=== PATIENT | female | born 1955 | race African-American/Black ===

== ENCOUNTER 2017-10-20 08:57 | Outpatient (CLI) | payer OTHER | END 2017-10-20 08:58 | disposition home or self-care (01) | LOC: BICMAMMO 08:57 | PROVIDERS: ATTEND Family Medicine | DX: Z12.31 Encounter for screening mammogram for malignant neoplasm of breast (principal) | CPT/HCPCS: 77063; 77067 ==

== ENCOUNTER 2018-04-07 13:07 | Outpatient (CLI) | payer OTHER | END 2018-04-07 13:08 | disposition home or self-care (01) | LOC: BICMAMMO 13:07 | PROVIDERS: ATTEND Family Medicine | DX: N63.11 Unspecified lump in the right breast, upper outer quadrant (principal) | CPT/HCPCS: G0279 ==

== ENCOUNTER 2019-01-25 08:06 | Outpatient (CLI) | payer OTHER ==
--- NOTE | 2019-01-30 06:44 | MMO ---
Bilateral MAMMO Bilat Screen DDI+DEBI. CLINICAL HISTORY: Patient is 63 years old and is seen for screening. The patient has the following family history of breast cancer: maternal aunt. The patient has no personal history of cancer. The patient has a history of right Excisional Biopsy at age 50 - benign. VIEWS: The views performed were: bilateral craniocaudal with tomosynthesis and bilateral mediolateral oblique with tomosynthesis. FILMS COMPARED: The present examination has been compared to prior imaging studies performed at on 10/20/2017 and 04/07/2018. MAMMOGRAM FINDINGS: There are scattered fibroglandular densities. Finding 1: There is a new equal density, irregular mass measuring 12 millimeters with spiculated margins seen in the middle region of the right breast at 12 o'clock. Finding 2: There is a stable mass with circumscribed margins seen in the right breast at 10 o'clock. Finding 3: There is a stable intramammary lymph node seen in the upper-outer region of the right breast. In the left breast, there are no suspicious masses, calcifications or areas of architectural distortion. IMPRESSION: FINDING 1: NEW MASS IN THE MIDDLE REGION OF THE RIGHT BREAST AT 12 O'CLOCK REQUIRES ADDITIONAL EVALUATION. AN ULTRASOUND EXAM IS RECOMMENDED. ADDITIONAL IMAGING. FINDING 2: STABLE MASS IN THE RIGHT BREAST AT 10 O'CLOCK IS BENIGN. FINDING 3: STABLE INTRAMAMMARY LYMPH NODE IN THE UPPER-OUTER REGION OF THE RIGHT BREAST IS BENIGN. THE RESULTS OF THIS EXAM WERE SENT TO THE PATIENT. ACR BI-RADS Category 0 - Incomplete: Need additional imaging evaluation. [facility] will notify the patient of the need for additional imaging services. MAMMOGRAPHY NOTE: 1. A negative mammogram report should not delay a biopsy if a dominant of clinically suspicious mass is present. 2. Approximately 10% to 15% of breast cancers are not detected by mammography. 3. Adenosis and dense breasts may obscure an underlying neoplasm. Reported by: JASWANT HEDRICK MD Electonically Signed: [id number]
== END 2019-01-25 08:07 | disposition home or self-care (01) ==
LOC: BICMAMMO 08:06
PROVIDERS: ATTEND Family Medicine
DX: Z12.31 Encounter for screening mammogram for malignant neoplasm of breast (principal); N63.11 Unspecified lump in the right breast, upper outer quadrant; Z80.3 Family history of malignant neoplasm of breast; Z91.89 Other specified personal risk factors, not elsewhere classified
CPT/HCPCS: 77063; 77067

== ENCOUNTER 2019-01-30 07:58 | Outpatient (CLI) | payer OTHER ==
--- NOTE | 2019-01-30 10:25 | ULT ---
RIGHT BREAST ULTRASOUND: HISTORY: Abnormal mammogram of 01/25/2019. FINDINGS: Sonographic evaluation at the 12 o'clock position of the right breast demonstrates an irregular shado wing mass measuring 8 x 5 x 8 mm at the 12 o'clock position 5 cm from the nipple corresponding to the mammographic finding. This is suspicious and should be biopsied. Adjacent to this is a 5 mm nonshadowing well circumscribed solid-appearing hypoechoic nodule measurin g 5 mm. This should also be biopsied. IMPRESSION: BIRADS category 4 - suspicious abnormality. Ultrasound-guided biopsies of the nodules at the 12 o'cl ock position are recommended. Discussed in person with the patient at 8:25 a.m. CODE CR POS: OFF
== END 2019-01-30 07:59 | disposition home or self-care (01) ==
LOC: BICULT 07:58
PROVIDERS: ATTEND Family Medicine
DX: N63.11 Unspecified lump in the right breast, upper outer quadrant (principal)

== ENCOUNTER → 2019-01-31 | Day surgery (SDC) | payer OTHER ==
--- NOTE | 2019-01-31 14:01 | MMO ---
Right Breast MAMMO Unilat Diag DDI RT. CLINICAL HISTORY: Patient is 63 years old and is seen for diagnostic exam. The patient has the following family history of breast cancer: maternal aunt. The patient has no personal history of cancer. The patient has a history of right Excisional Biopsy at age 50 - benign. VIEWS: The views performed were: right craniocaudal and right mediolateral oblique. FILMS COMPARED: The present examination has been compared to prior imaging studies performed at [facility] on 10/20/2017, 04/07/2018, 01/25/2019 and 01/30/2019. MAMMOGRAM FINDINGS: There are scattered fibroglandular densities. IMPRESSION: FINDING IN THE RIGHT BREAST IS CONFIRMED UTILIZING POST PROCEDURE MAMMOGRAM. UPPER RIGHT BREAST. THE RESULTS OF THIS EXAM WERE SENT TO THE PATIENT. MAMMOGRAPHY NOTE: 1. A negative mammogram report should not delay a biopsy if a dominant of clinically suspicious mass is present. 2. Approximately 10% to 15% of breast cancers are not detected by mammography. 3. Adenosis and dense breasts may obscure an underlying neoplasm. Reported by: FATOUMATA PEREZ MD Electonically Signed: [id number]
--- NOTE | 2019-01-31 15:40 | ULT ---
US RIGHT BREAST BX US GUIDED ULTRASOUND-GUIDED MARKING CLIP PLACEMENT OF RIGHT BREAST ULTRASOUND GUIDED RIGHT BREAST BIOPSY: CLINICAL HISTORY: Right breast lesions, upper right breast. PROCEDURE: Informed consent was obtained and the patient was escorted to the procedural suite, placed in supine position. The patient's skin was prepped and draped in a standard sterile fashion and topical anesthesia with buffered 1% lidocaine was performed. After a small skin incision was made, an 18-gaug e needle was advanced to the leading edge of the immediately adjacent lesions of the upper right breast. After adequate placement was confirmed with ultrasound imaging, 5 subsequent core specimens w ere obtained via percutaneous biopsy. These were confirmed with ultrasound imaging and the specimens were submitted to the pathologist for adequacy. Specimens were deemed adequate for interpre tation. Therefore, all devices were then removed from the patient. Marking clip was then advanced and deployed within the biopsy site under sonographic guidance. No unexpected procedural complications were present. IMPRESSION: Technically successful ultrasound-guided percutaneous right breast biopsy biopsy. Technically successful marking clip placement of right breast. Pathology results are pending. Patient will be notified when the pathology results are received.
== END ==
LOC: BICULT 12:58
PROVIDERS: ATTEND Family Medicine
PROC: 0HBT3ZX Excision of Right Breast, Percutaneous Approach, Diagnostic (ICD-10-PCS; principal; 2019-01-31)
DX: D05.11 Intraductal carcinoma in situ of right breast (principal); Z80.3 Family history of malignant neoplasm of breast
CPT/HCPCS: 19083; 88305

== ENCOUNTER 2019-03-02 09:56 | Outpatient (CLI) | payer OTHER ==
[2019-03-02 13:52] LABS: #Basophils 0.1 thou/uL (0.0-0.2); #Eosinphils 0.2 thou/uL (0.0-0.7); #Monocytes 0.5 thou/uL (0.11-0.59); #Neutrophils 3.1 thou/uL (1.40-6.50); %Basophils 1.1 % (0.0-1.0); %Eosinophils 3.8 % (0.0-10.0); %Lymphocytes 33.8 % (21.0-51.0); %Monocytes 8.9 % (0.0-10.0); %Neutrophils 52.5 % (42.0-75.0); Hemoglobin 15.9 g/dL (12.0-16.0); Mean Corpuscular HGB CONC 32.9 g/dL (32.0-36.0); Mean Corpuscular Hemoglobin 32.3 pg (27.0-31.0); Mean Platelet Volume 8.4 fL (7.4-10.4); Platelet Count 170 thou/uL (130-400); RBC Distribution Width 12.1 % (11.5-14.5); Red Blood Cell (RBC) Count 4.94 mill/uL (4.20-5.40); White Blood Cell (WBC) Count 5.9 thou/uL (4.8-10.8)
[2019-03-02 14:14] LABS: ALT (SGPT) 19 U/L (8-55); AST (SGOT) 22 U/L (5-34); Albumin 4.2 g/dL (3.4-4.8); Alkaline Phosphatase 95 U/L (40-150); Anion Gap 12 mmol/L (10-20); BUN (Urea Nitrogen) 15 mg/dL (9.8-20.1); Bilirubin, Total 0.7 mg/dL (0.2-1.2); Calc. Creatinine Clearance 0 mL/min (70-130); Calcium 9.6 mg/dL (7.8-10.44); Carbon Dioxide 24 mmol/L (23-31); Chloride 107 mmol/L (98-107); Estimated GFR-MDRD 86; Globulin 2.8 g/dL (2.4-3.5); Glucose 90 mg/dL (80-115); Potassium 4.2 mmol/L (3.5-5.1); Sodium 139 mmol/L (136-145)
--- NOTE | 2019-03-02 14:28 | RAD ---
PA AND LATERAL CHEST: Date: 03/02/19 INDICATION: History of preop. COMPARISON: Prior exam dated 09/03/15. FINDINGS: There is thoracolumbar scoliosis and tortuosity of the aorta. Lungs are clear. Heart size is upper li mits of normal. Cholecystectomy clips are seen within the right upper quadrant. There is scattered de generative change. IMPRESSION: No definite acute cardiopulmonary abnormality. POS: OFF
== END 2019-03-02 09:57 | disposition home or self-care (01) ==
LOC: LABBT 09:56
PROVIDERS: ATTEND Specialist
DX: Z01.818 Encounter for other preprocedural examination (principal); C50.911 Malignant neoplasm of unspecified site of right female breast
CPT/HCPCS: 71046; 80053; 85025; 93005; 93010

== ENCOUNTER 2019-03-05 07:29 | Day surgery (SDC) | payer OTHER ==
--- NOTE | 2019-02-21 12:17 | HP ---
HISTORY OF PRESENT ILLNESS: Mikala Sanderson is a 63-year-old. 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 She was due for mammogram and accidently scheduled it early and was found to have a spiculated mass into the lesion of the right breast. She had an ultrasound confirming a mass and underwent biopsy. Mammogram on 01/25 AND 01/31 and ultrasound biopsy 01/30/2019. Lesion is 8 x 5 x 8 mm. Biopsy reveals estrogen-receptor positive, 96%; progesterone-receptor positive, 41%; HER2 negative, Ki-67 low, 11.8% invasive ductal cell carcinoma. FAMILY HISTORY: Negative for breast cancer except for a maternal aunt and a cousin. She is a 3, para 3. PAST SURGICAL HISTORY: Includes a laparoscopic cholecystectomy, bilateral axillary resection for hidradenitis, and two C sections. MEDICATIONS: Amlodipine daily. ALLERGIES: NONE. SOCIAL HISTORY: Tobacco one and a half pack per day. Alcohol, none. The patient is , lives with a friend, she lives in [place]. She had a colonoscopy 3 years ago that revealed polyps. She needs followup for that she states. She is followed by Dr. Edgar Guillermo. PHYSICAL EXAMINATION: VITAL SIGNS: 134 pounds, 5 feet inches, 142/89, 91, 97.5 degrees. HEAD, EARS, EYES, NOSE AND THROAT: Unremarkable. LUNGS: Clear to auscultation. CARDIAC: Regular rate and rhythm without murmur or gallop. ABDOMEN: Soft and nontender. EXTREMITIES: Unremarkable. Ankles without edema. NEUROLOGICAL: Intact. Axilla without lymphadenopathy. Scars from hidradenitis resection. Left breast without masses. Right breast at the 1 o'clock Radian, 4 cm from the areolar border superiorly is a mass that is about 2 cm in diameter. It is mobile, is irregular, is firm, is suspicious for cancer. It is confirmed cancer by biopsy. ASSESSMENT AND PLAN: Right breast cancer. We will plan lymphoscintigraphy. She will not need needle localization as the mass is palpable. We will plan sentinel node biopsy, wide local excision. She will arrange follow up with Dr. Cooley and Dr. Faulkner postoperatively. She understands risks and benefits of procedure and consents. Job ID: [id number]
[2019-03-02 13:13] VITALS: BMI 26.4
[2019-03-05] MEDS ORDERED: Fentanyl 100 MCG/2 ML VIAL ONE ×2 (10:02→13:41)
[2019-03-05] MEDS ORDERED: Lidocaine 2% PF 5 ML VIAL ONE (10:05)
[2019-03-05] MEDS ORDERED: Bupivacaine/Epinephrine 0.25% 30 ML VIAL ONE (10:05)
[2019-03-05] MEDS ORDERED: Bupivacaine HCl 0.5%/Epinephrine 1:200,000/PF 30 ml Vial ONE (10:05)
[2019-03-05] MEDS ORDERED: Isosulfan Blue 50 MG/5 ML VIAL ONE (10:06)
[2019-03-05] MEDS ORDERED: Methylene Blue 50 MG/10 ML AMPUL ONE (10:06)
[2019-03-05] MEDS ORDERED: Ketorolac Tromethamine 30 MG/ML VIAL ONE (11:56)
[2019-03-05] MEDS ORDERED: Albuterol Sulfate 2.5 mg/3 ml Neb ONE (12:01)
--- NOTE | 2019-03-05 14:41 | OP ---
DATE OF PROCEDURE: 03/05/2019 PREOPERATIVE DIAGNOSIS: Right breast cancer, upper mid right breast 4 cm above the areolar border. No prior history of flap coverage of resected hidradenitis suppurativa, both axilla. POSTOPERATIVE DIAGNOSIS: Right breast cancer, upper mid right breast 4 cm above the areolar border. No prior history of flap coverage of resected hidradenitis suppurativa, both axilla. PROCEDURE PERFORMED: Lymphoscintigraphy after 4 hours, marked a node in the anterior right axilla. Lymphazurin blue injection, sentinel node biopsy. Note, blue-colored node or injection channels not noted. Two nodes, small, not blue and very low counts 1 to 2 were excised, no other nodes identified. Partial mastectomy, right breast cancer, wide local excision. Partial mastectomy, upper right breast. Margins marked for orientation. ANESTHESIA: General. DESCRIPTION OF PROCEDURE: The patient arrived this morning with lymphoscintigraphy, where sentinel node biopsy after 4 hours, thought they identified a node in the anterior right axilla. The patient was taken to the operating room. Under general anesthesia, breast and axilla were prepared with ChloraPrep and draped in routine fashion. After right lateral areolar border, Lymphazurin blue injection into the subdermal using a 25-gauge needle alcohol patch. Massage carried out. Breast prepped with ChloraPrep, draped in routine fashion. I initially did a wide local excision of the right breast cancer as it was in the superior right breast 3 to 4 fingerbreadths above the areolar border superiorly. An ellipse of skin was excised from the overlying mass for pathology orientation and wide local excision, excising breast tissue from around the mass excising it and marking it for pathology gaining hemostasis with the cautery, wound irrigated. Good hemostasis ensured. Subcutaneous tissue was approximated with 3-0 Monocryl and skin with subdermal 4-0 Monocryl and biopsy cavity filled with local anesthetic. Dermal glue applied. Incision was made in the right axilla, carried down to skin and subcutaneous tissue. In the Neoprobe, I could not identify any suspicious nodes. I did identify two small nodes that were not color blue and were excised, submitted to Pathology for analysis, but no other nodes were identified. After tedious thorough search of the right axilla from beneath the pectoralis major to the latissimus and inferiorly and superiorly to the axillary vein. Neoprobe carefully used and no appreciated. It was possible that hidradenitis previous resection with flap closure disrupted lymphatic communication. No nodes; however, identified. Subcutaneous tissue was approximated with 3-0 Monocryl. Skin with subdermal 4-0 Monocryl and local anesthetic infiltrated biopsy cavity with postoperative pain control. Good hemostasis had been noted. Dermabond applied. Jimy wrap applied. Job ID: [id number]
[2019-03-05] MEDS ORDERED: HYDROcodone/Acetaminophen 5/325 mg Tablet ONE (15:10)
--- NOTE | 2019-03-05 15:24 | NM ---
Radionucleotide lymphoscintigraphy right breast HISTORY: Right breast cancer. FINDINGS: After explaining the procedure and answering all questions, the anterior aspect of the righ t breast was cleansed. Sterile technique was used to carefully injected in 4 equal aliquots a total volume of 409 uCi technetium 99m modified sulfur colloid in 4 equal aliquots intradermally at the 12: 00, 3:00, 6:00, and 9:00 positions periareolar of the right breast. Injection sites were carefully massaged by the patient and imaging performed. At 3 hours, a small focus of uptake is seen at the superior medial aspect of the right axilla. Skin o luma the focus was marked and patient sent to day surgery department in good condition. IMPRESSION: Technically successful lymphoscintigraphy right breast revealing a sentinel lymph node at the medial aspect of the right axilla.
[2019-03-05] MEDS ORDERED: PROPOFOL 200 MG/20 ML VIAL ONE (19:53)
[2019-03-05] MEDS ORDERED: Ondansetron PF 4 MG/2 ML Vial ONE (19:53)
[2019-03-05] MEDS ORDERED: PROVENTIL INHALER 6.7 G (200 INHALATIONS) ONE (19:53)
[2019-03-05] MEDS ORDERED: Lidocaine 1% PF 5 ML VIAL ONE (19:53)
[2019-03-05] MEDS ORDERED: Dexamethasone 20 MG/5 ML VIAL ONE (19:53)
== END 2019-03-05 15:22 | disposition home or self-care (01) ==
LOC: SDC 07:29
PROVIDERS: ATTEND Specialist
PROC: 0HBT0ZZ Excision of Right Breast, Open Approach (ICD-10-PCS; principal; 2019-03-05)
PROC: 0HBT0ZX Excision of Right Breast, Open Approach, Diagnostic (ICD-10-PCS; principal; 2019-03-05)
DX: C50.911 Malignant neoplasm of unspecified site of right female breast (principal); F17.290 Nicotine dependence, other tobacco product, uncomplicated; Z79.899 Other long term (current) drug therapy
CPT/HCPCS: 78195; 88307; 88341; 88342; A9541; J0131; J0670; J0690; J1100; J1885; J2001; J2405; J2704; J3010; J7611; Q9968

== ENCOUNTER 2019-03-23 06:01 | Day surgery (SDC) | payer OTHER ==
--- NOTE | 2019-03-22 08:18 | HP ---
HISTORY OF PRESENT ILLNESS: Mikala Sanderson is a 63-year-old black female, who presents to me with a right breast abnormal mammogram, undergoing ultrasound confirming a mass, undergoing biopsy. Mammogram on January 25 and ultrasound biopsy, 03/02/2019, lesion 8 x 5 x 8 mm. Biopsy revealing estrogen receptor positive 96%. Progesterone receptor positive 41%, HER2 negative, Ki-67 low 11.8% invasive ductal cell carcinoma. FAMILY HISTORY: Negative for breast cancer except for maternal aunt and a cousin. 3, para 3. The patient underwent sentinel node biopsy and wide local excision, 03/05/2019, right breast, mid upper, 4 cm above the areolar border. Lymphoscintigraphy after 4 hours noted a node in the anterior right axilla, but I could not find this intraoperatively. Two nodes, small, but not stained blue and not lining up on Neoprobe. Lymphoscintigraphy was obtained and was negative for cancer. The patient underwent a partial mastectomy, upper right breast, margin marked for orientation. It was noted at the time of the operation that she did have a flap coverage from hidradenitis suppurativa resection, both axillae. Pathology reveals two nodes negative for metastatic cancer. Multiple satellite nodules within the specimen. Tumor seen involving the inferior and medial margins. Dominant tumor was within 1 mm of the inferior margin. Satellite nodules within 2 mm from superior margin. Plan at this time would be to re-resect the superior, medial, and inferior margins. The patient has seen Dr. Carlos Cooley and discussed with him and Dr. Cooley and I have discussed the patient's care and the patient has returned to see me to further discuss pathology results. I initially saw her postoperatively, referred to Dr. Cooley and she returned to see me with her daughter for further discussion. Dr. Cooley and I both have recommended a right mastectomy, but the patient wants re-resection of margins and radiation therapy to avoid mastectomy. Plan is for that procedure. She understands risks and benefits, consents. ALLERGIES: NONE. FAMILY HISTORY: Negative for breast cancer, say for a maternal aunt and a cousin. 3, para 3. PAST SURGICAL HISTORY: 1. Flap coverage from resected hidradenitis suppurativa, both axillae. 2. Two C sections. 3. Laparoscopic cholecystectomy. 4. Recent sentinel node biopsy and partial mastectomy, upper right. SOCIAL HISTORY: Tobacco, one and a half packs per day. Alcohol, none. The patient is , lives with a friend, she lives in [place]. She had a colonoscopy 3 years ago that revealed polyps. She is followed by Dr. Edgar Guillermo. PHYSICAL EXAMINATION: VITAL SIGNS: 139 pounds. 5 feet inches, 26.34. Blood pressure 136/95, pulse rate 97, temperature 98.2 degrees. HEAD, EARS, EYES, NOSE, AND THROAT: Unremarkable. LUNGS: Clear to auscultation. CARDIAC: Regular rate and rhythm without murmur or gallop. ABDOMEN: Soft and nontender. Axillary wound, right, well-healed. Upper right mid breast wound, well healed. ASSESSMENT AND PLAN: Positive margins. PLAN: Re-resection margin is indicated. She understands risks and benefits. Job ID: [id number]
[2019-03-22 10:25] VITALS: BMI 27.3
[2019-03-23] MEDS ORDERED: Fentanyl 100 MCG/2 ML VIAL ONE (06:30)
[2019-03-23] MEDS ORDERED: Bupivacaine HCl 0.5%/Epinephrine 1:200,000/PF 30 ml Vial ONE (06:34)
[2019-03-23] MEDS ORDERED: Lidocaine 2% PF 5 ML VIAL ONE ×3 (06:34→07:17)
[2019-03-23] MEDS ORDERED: Albuterol Sulfate HFA (OR ONLY) ONE (06:53)
--- NOTE | 2019-03-23 09:57 | OP ---
DATE OF PROCEDURE: 03/23/2019 PREOPERATIVE DIAGNOSIS: Right breast cancer with closed or positive involved margin, superior, medial, inferior. PROCEDURE PERFORMED: Re-excision of superior margin with suture marking new margin. Re-excision of combine medial and inferior margins with sutures marking new medial and new inferior margin. ANESTHESIA: General LMA, local 0.5% Marcaine with epinephrine 30 mL, 0.25% Marcaine with epinephrine 30 mL, 2% Xylocaine 10 mL total volume mixture used. Note, the patient had wide local excision/partial mastectomy, right breast cancer superiorly, right breast. Both myself and Oncology discussed with the patient recommendations for simple mastectomy, but the patient declined, wanted re-excision of margins. Understanding that the margins were still positive, she would need a mastectomy, thus we proceeded with breast preservation with re-excision of margins. DESCRIPTION OF PROCEDURE: The patient was taken to the operating room, where under general LMA anesthesia, right breast was prepared with ChloraPrep and draped in routine fashion. Transverse incision in the superior right breast re-opened sharply and old fluid evacuated and re-excision of margins undertaken, initially re-excising superior margin, and then, after that re-excision of medial and inferior margins, marking new margins with a silk suture, labeled appropriately for pathology evaluation and interpretation. The posterior margin had already extended down to the pectoralis muscle. Hemostasis was gained with the cautery. Wound carefully irrigated. Good hemostasis noted. Avitene placed on the pectoralis muscle, and subcutaneous tissues approximated with 3-0 Monocryl, skin with subdermal 4-0 Monocryl and local anesthetic infiltrated in the periphery, skin and subcutaneous tissue and then infiltrated in the biopsy cavity using total volume. Dermabond applied and Jimy wrap applied. The patient tolerated the procedure well. Job ID: [id number]
== END 2019-03-23 10:05 | disposition home or self-care (01) ==
LOC: SDC 06:01
PROVIDERS: ATTEND Specialist
PROC: 0HBT0ZZ Excision of Right Breast, Open Approach (ICD-10-PCS; principal; 2019-03-23)
DX: C50.911 Malignant neoplasm of unspecified site of right female breast (principal); F17.210 Nicotine dependence, cigarettes, uncomplicated
CPT/HCPCS: 88307; J0131; J0670; J0690; J2001; J3010; J7620

== ENCOUNTER 2019-05-14 10:59 | Day surgery (SDC) | payer OTHER ==
[2019-05-09 09:21] VITALS: BMI 26.5
--- NOTE | 2019-05-14 09:12 | HP ---
HISTORY OF PRESENT ILLNESS: Mikala Sanderson is a 63-year-old black female with right breast cancer. She has undergone on 03/05/2019, sentinel node biopsy, wide local excision of upper midline breast cancer from beneath the upper areola to the upper breast. 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 She saw Dr. Cooley, Dr. Faulkner, and myself. We all recommended that she have a mastectomy, but she was steadfast in having breast preservation. Since she had positive margins, she returned and underwent on 03/23/2019, re-excision of positive margins. She postoperatively developed Pseudomonas wound infection, had to be opened and undergoing local wound care. She has completed her oral antibiotics. The wound is without infection, it is gradually healing. She is interested in simple mastectomy at this time. Plan is to perform that in the near future. She was interested in reconstruction, wanted to talk to Dr. Kevin London. I have told her that Dr. Kevin London would not consider reconstruction at the same time with this open wound and the recent infection, so plan at this time is for right simple mastectomy and postoperatively will follow up with Dr. London to consider reconstruction in the future. 01/31/2019 breast biopsy revealed ER positive, TN positive, HER2 negative, invasive ductal cell carcinoma with multifocal DCIS. 03/05/2019 sentinel node biopsy and partial mastectomy reveal no negative disease with multifocal invasive ductal cell carcinoma, positive margins, T2 N0 M0. Subsequent re-excision reveals superior margin clear on a separately submitted superior margin specimen, but on the other specimen, she was found to have multifocal residual invasive ductal cell carcinoma, negative margin resection but within 2 mm of closest, new medial margin. At this point as stated above, Dr. Cooley and myself recommended mastectomy and she has thought about this and now we are planning right simple mastectomy. She understands risks and benefits of procedure and consents. We will plan this as an outpatient under general anesthesia. ALLERGIES: NONE. SOCIAL HISTORY: Tobacco, one pack per day. Alcohol, none. The patient is , lives with her friend in [place]. She has had a colonoscopy 3 years ago with polyps. She is followed by Dr. Edgar Guillermo. PAST SURGICAL HISTORY: Flap coverage from resected hidradenitis suppurativa, both axillae; two C sections; laparoscopic cholecystectomy; and recent breast surgery as described above. PAST MEDICAL HISTORY: Hypertension and right breast cancer. PHYSICAL EXAMINATION: VITAL SIGNS: 140 pounds, 61 inches, 158/111, 93, and 98.4 degrees. LUNGS: Clear to auscultation. CARDIAC: Regular rate and rhythm without murmur or gallop. ABDOMEN: Soft and nontender. BREASTS: Left breast without masses. Right breast; open wound, upper areolar border, granulating without infection, smaller Kerlix roll gauze, wet-to-dry dressing applied. ASSESSMENT: Multifocal right breast cancer. PLAN: Right simple mastectomy, outpatient general anesthesia. Job ID: [id number]
[2019-05-14] MEDS ORDERED: Ketorolac Tromethamine 30 MG/ML VIAL ONE (11:18)
[2019-05-14 11:42] LABS: #Eosinphils 0.3 thou/uL (0.0-0.7); #Lymphocytes 2.5 thou/uL (1.20-3.40); #Monocytes 0.6 thou/uL (0.11-0.59); #Neutrophils 4.3 thou/uL (1.40-6.50); %Basophils 0.6 % (0.0-1.0); %Eosinophils 3.3 % (0.0-10.0); %Lymphocytes 32.6 % (21.0-51.0); %Monocytes 7.6 % (0.0-10.0); %Neutrophils 55.8 % (42.0-75.0); Hemoglobin 15.1 g/dL (12.0-16.0); Mean Corpuscular Hemoglobin 31.3 pg (27.0-31.0); Mean Corpuscular Volume 97.6 fL (78.0-98.0); Mean Platelet Volume 8.3 fL (7.4-10.4); Platelet Count 177 thou/uL (130-400); RBC Distribution Width 12.5 % (11.5-14.5); Red Blood Cell (RBC) Count 4.82 mill/uL (4.20-5.40); White Blood Cell (WBC) Count 7.8 thou/uL (4.8-10.8)
[2019-05-14 11:57] LABS: Anion Gap 9 mmol/L (10-20); BUN (Urea Nitrogen) 18 mg/dL (9.8-20.1); Calc. Creatinine Clearance 64 mL/min (70-130); Calcium 9.9 mg/dL (7.8-10.44); Carbon Dioxide 30 mmol/L (23-31); Chloride 105 mmol/L (98-107); Estimated GFR-MDRD 78; Glucose 82 mg/dL (80-115); Potassium 4.2 mmol/L (3.5-5.1); Sodium 140 mmol/L (136-145)
[2019-05-14] MEDS ORDERED: Fentanyl 100 MCG/2 ML VIAL ONE (12:48)
[2019-05-14] MEDS ORDERED: PROPOFOL 200 MG/20 ML VIAL ONE (13:43)
[2019-05-14] MEDS ORDERED: PHENYLEPHRINE-NS 100 MCG/ML 10 ML SYRINGE ONE (13:43)
[2019-05-14] MEDS ORDERED: Dexamethasone 20 MG/5 ML VIAL ONE (13:43)
[2019-05-14] MEDS ORDERED: Lidocaine 1% PF 5 ML VIAL ONE (13:43)
[2019-05-14] MEDS ORDERED: Ondansetron PF 4 MG/2 ML Vial ONE (13:43)
[2019-05-14] MEDS ORDERED: Glycopyrrolate 0.2 MG/ML 5 ML SYRINGE ONE (13:43)
[2019-05-14] MEDS ORDERED: Rocuronium Bromide 10 MG/ML (10ML VIAL) ONE (13:43)
[2019-05-14] MEDS ORDERED: HYDROcodone/Acetaminophen 5/325 mg Tablet ONE (16:03)
--- NOTE | 2019-05-14 17:17 | OP ---
DATE OF PROCEDURE: 05/14/2019 PREOPERATIVE DIAGNOSES: Multifocal ductal cell carcinoma, right breast, infiltrating ductal carcinoma, status post resection and re-resection of positive margins and postoperative infection, now with a right simple mastectomy plan. POSTOPERATIVE DIAGNOSES: Multifocal ductal cell carcinoma, right breast, infiltrating ductal carcinoma, status post resection and re-resection of positive margins and postoperative infection, now with a right simple mastectomy plan. PROCEDURE PERFORMED: Right simple mastectomy. ANESTHESIA: General. DRAINS: #19 Gold TERRY drain. DESCRIPTION OF PROCEDURE: The patient was taken to the operating room, where under general anesthesia in the supine position, markings in her right breast were accentuate as previously marked by Dr. London in the preoperative holding area. Chest prepared with ChloraPrep and draped in routine fashion. Plasma blade used to create elliptical incision encompassing en bloc resection of the nipple areolar complex and found the skin, carried down to skin and subcutaneous tissue, creating flaps superiorly to the clavicle, medially to the sternum, inferiorly to the abdominal wall musculature, and laterally to the latissimus. The breast dissected free off the pectoralis fascia using plasma blade laterally identifying the thoracodorsal long thoracic nerves keeping free of harm. Axillary tail divided inferiorly and simple mastectomy completed. Send the breast specimen to Pathology. Hemostasis gained with the cautery and plasma blade. Wound irrigated with pulse mental health consultant. A #19 Gold TERRY drain placed and secured with 3-0 nylon suture. Sterile dressing applied. Subcutaneous tissue was approximated with 3-0 Monocryl, skin with tevin. Sterile dressing applied. Job ID: [id number]
== END 2019-05-14 16:40 | disposition home or self-care (01) ==
LOC: SDC 10:59
PROVIDERS: ATTEND Specialist
PROC: 0HBT0ZZ Excision of Right Breast, Open Approach (ICD-10-PCS; principal; 2019-05-14)
DX: C50.111 Malignant neoplasm of central portion of right female breast (principal); I10 Essential (primary) hypertension; F17.210 Nicotine dependence, cigarettes, uncomplicated; Z17.0 Estrogen receptor positive status [ER+]; Z79.899 Other long term (current) drug therapy
CPT/HCPCS: 36415; 80048; 85025; 88307; J0131; J0690; J1100; J1885; J1956; J2001; J2405; J2704; J3010

== ENCOUNTER 2019-08-10 13:13 | Emergency (ER) | payer OTHER ==
[~2019-08-10 13:13] MED LIST: Iopamidol-370 76% 500 ML 1 ML ONE
[2019-08-10 15:10] LABS: #Eosinphils 0.2 thou/uL (0.0-0.7); #Monocytes 0.9 thou/uL (0.11-0.59); #Neutrophils 7.6 thou/uL (1.40-6.50); %Basophils 0.4 % (0.0-1.0); %Eosinophils 1.4 % (0.0-10.0); %Lymphocytes 18.7 % (21.0-51.0); %Monocytes 8.7 % (0.0-10.0); %Neutrophils 70.8 % (42.0-75.0); Mean Corpuscular HGB CONC 32.9 g/dL (32.0-36.0); Mean Corpuscular Hemoglobin 30.5 pg (27.0-31.0); Mean Corpuscular Volume 92.5 fL (78.0-98.0); Mean Platelet Volume 7.6 fL (7.4-10.4); Platelet Count 248 thou/uL (130-400); RBC Distribution Width 12.7 % (11.5-14.5); Red Blood Cell (RBC) Count 4.59 mill/uL (4.20-5.40); White Blood Cell (WBC) Count 10.7 thou/uL (4.8-10.8)
[2019-08-10 15:32] LABS: ALT (SGPT) 11 U/L (8-55); AST (SGOT) 17 U/L (5-34); Albumin 3.8 g/dL (3.4-4.8); Alkaline Phosphatase 79 U/L (40-110); Anion Gap 13 mmol/L (10-20); BUN (Urea Nitrogen) 14 mg/dL (9.8-20.1); Bilirubin, Total 1.3 mg/dL (0.2-1.2); Calc. Creatinine Clearance 0 mL/min (70-130); Calcium 9.8 mg/dL (7.8-10.44); Carbon Dioxide 28 mmol/L (23-31); Chloride 102 mmol/L (98-107); Estimated GFR-MDRD 83; Globulin 3.9 g/dL (2.4-3.5); Glucose 95 mg/dL (80-115); Potassium 3.6 mmol/L (3.5-5.1); Protein, Total 7.7 g/dL (6.0-8.3); Sodium 139 mmol/L (136-145)
--- NOTE | 2019-08-10 18:05 | CT ---
EXAM: CT pulmonary angiogram with IV contrast and 3-D MIP reconstructions PROVIDED CLINICAL HISTORY: None COMPARISON: None FINDINGS: There is no evidence for central or segmental pulmonary embolus. Ectasia of the ascending thoracic ao rta, measuring about 4.1 cm. Vascular calcification including coronary calcium. Mixing artifact descending thoracic aorta and visualized proximal abdominal aorta. The lungs are free of significant opacity. No pleural fluid or pneumothorax apparent. No evidence for thoracic lymph node enlargement. The airway appears patent and of normal caliber. Changes of right mastectomy are noted with heterogeneous density within the remaining subcutaneous fa t including air density. Overlying skin thickening. The osseous structures demonstrate no concerning lytic or blastic lesions. IMPRESSION: No evidence for central or segmental pulmonary embolus. Other findings as above.
[2019-08-10 18:22] LABS: Bilirubin Negative (Negative); Blood, Urine Negative (Negative); Clarity Clear (Clear); Glucose, Urine (Dipstick) Normal (Negative); Leukocyte Negative Leu/uL (Negative); Nitrite Negative (Negative); Protein, Urine (Dipstick) Negative (Neg-Trace); Urobilinogen Normal mg/dL (Less than 2)
[2019-08-10] MEDS ORDERED: Morphine 4 MG/ML VIAL ONE (20:08)
[2019-08-10] MEDS ORDERED: Ondansetron PF 4 MG/2 ML Vial ONE (20:09)
== END 2019-08-10 20:38 | disposition home or self-care (01) ==
LOC: ERS 13:13
DX: R10.9 Unspecified abdominal pain (principal); I10 Essential (primary) hypertension; J44.9 Chronic obstructive pulmonary disease, unspecified; Z87.891 Personal history of nicotine dependence; Z48.01 Encounter for change or removal of surgical wound dressing; Z79.899 Other long term (current) drug therapy
CPT/HCPCS: 36415; 71275; 80053; 81003; 83605; 85025; 87040; 96361; 96372; 96374; 96375; J0500; J2270; J2405; Q9967

== ENCOUNTER 2019-12-24 14:07 | Emergency (ER) | payer OTHER | END 2019-12-24 17:10 | disposition home or self-care (01) | LOC: ERS 14:07 | DX: R50.9 Fever, unspecified (principal); R51 Headache; Z20.828 Contact with and (suspected) exposure to other viral communicable diseases; J44.9 Chronic obstructive pulmonary disease, unspecified; Z87.891 Personal history of nicotine dependence; Z79.899 Other long term (current) drug therapy | CPT/HCPCS: 99283 ==

== ENCOUNTER 2020-03-25 11:06 | Inpatient (IN) | payer OTHER, MEDICARE ==
[2020-03-25 12:59] LABS: #Basophils 0.1 thou/uL (0.0-0.2); #Eosinphils 0.3 thou/uL (0.0-0.7); #Lymphocytes 1.9 thou/uL (1.20-3.40); #Neutrophils 10.5 thou/uL (1.40-6.50); %Basophils 0.5 % (0.0-1.0); %Eosinophils 2.3 % (0.0-10.0); %Lymphocytes 13.8 % (21.0-51.0); %Monocytes 7.2 % (0.0-10.0); %Neutrophils 76.2 % (42.0-75.0); Hemoglobin 12.6 g/dL (12.0-16.0); Mean Corpuscular HGB CONC 31.8 g/dL (32.0-36.0); Mean Corpuscular Hemoglobin 30.6 pg (27.0-31.0); Mean Platelet Volume 7.6 fL (7.4-10.4); Platelet Count 388 thou/uL (130-400); RBC Distribution Width 13.6 % (11.5-14.5); Red Blood Cell (RBC) Count 4.12 mill/uL (4.20-5.40); White Blood Cell (WBC) Count 13.7 thou/uL (4.8-10.8)
--- NOTE | 2020-03-25 13:01 | RAD ---
EXAM: Single view of the chest HISTORY: Lesions on arms and legs for one week without improvement on antibiotics COMPARISON: 11/22/2015 FINDINGS: Single view of the chest shows a normal sized cardiomediastinal silhouette. There is no jayro dence of consolidation, mass, or pleural effusion. Degenerative changes are seen in the spine. IMPRESSION: No evidence of acute cardiopulmonary disease
[2020-03-25] MEDS ORDERED: Ondansetron PF 4 MG/2 ML Vial ONE (13:05)
[2020-03-25] MEDS ORDERED: Morphine 2 MG/ML VIAL ONE ×2 (13:05→16:36)
[2020-03-25 13:26] LABS: ALT (SGPT) 7 U/L (8-55); AST (SGOT) 18 U/L (5-34); Albumin 2.9 g/dL (3.4-4.8); Alkaline Phosphatase 57 U/L (40-110); Anion Gap 13 mmol/L (10-20); BUN (Urea Nitrogen) 10 mg/dL (9.8-20.1); Calc. Creatinine Clearance 0 mL/min (70-130); Calcium 9.1 mg/dL (7.8-10.44); Carbon Dioxide 32 mmol/L (23-31); Chloride 94 mmol/L (98-107); Estimated GFR-MDRD Greater than 90; Globulin 4.2 g/dL (2.4-3.5); Glucose 100 mg/dL (80-115); Potassium 3.1 mmol/L (3.5-5.1); Protein, Total 7.1 g/dL (6.0-8.3); Sodium 136 mmol/L (136-145)
[2020-03-25] MEDS ORDERED: Iopamidol-370 76% 500 ML 1 ML ONE (14:39)
--- NOTE | 2020-03-25 14:40 | CT ---
CT PULMONARY ANGIOGRAM WITH IV CONTRAST AND 3-D POSTPROCESSING: HISTORY:Shortness of breath, elevated d-dimer, breast cancer FINDINGS: There is good contrast opacification of the pulmonary arterial vasculature without filling defects to suggest pulmonary embolism. The thoracic aorta is ectatic measuring about 4.2 cm without aneurysm or dissection. No pleural or pericardial effusions are seen. No pneumothoraces, focal areas of consolidation or lung nodules are noted. Emphysematous changes are present. There are degenerative changes in the spine. There are changes of right-sided mastectomy. Upper abdominal tomograms demonstrate changes of cholecystectomy. IMPRESSION: No CT evidence of pulmonary embolism.
[2020-03-25 15:18] LABS: Bilirubin Negative (Negative); Blood, Urine Negative (Negative); Clarity Clear (Clear); Glucose, Urine (Dipstick) Normal (Negative); Ketone, Urine Negative (Negative); Leukocyte 75 Leu/uL (Negative); Nitrite Negative (Negative); Protein, Urine (Dipstick) Negative (Neg-Trace); RBC/HPF 0-3 HPF (0-3); Specific Gravity, Urine 1.031 (1.002-1.036); Squamous Epithelial 0-3 HPF (0-3); Urobilinogen Normal mg/dL (Less than 2)
[2020-03-25 15:21] LABS: Bacteria/HPF 1+ HPF (None Seen)
[2020-03-25] MEDS ORDERED: Lidocaine 1% w/Epinephrine 1:100K 20 ML VIAL ONE (16:10)
[2020-03-25] MEDS ORDERED: cefTRIAXone\\ROCEPHIN 1 GM VIAL ONE (16:10)
[2020-03-25] MEDS ORDERED: cloNIDine 0.1 MG TAB ONE (16:10)
[2020-03-25] MEDS ORDERED: Vancomycin 1 GM in Premix Bag 1 BAG IVPB SCH (16:30)
[2020-03-25] MEDS ORDERED: Zolpidem Tartrate 5 MG TAB PO PRN (19:17)
[2020-03-25] MEDS ORDERED: Acetaminophen 325 MG TAB PO PRN (19:17)
[2020-03-25] MEDS ORDERED: Ondansetron ODT 4 MG TAB PO PRN (19:17)
[2020-03-25] MEDS ORDERED: hydrALAZINE 20 MG/ML VIAL SLOW IVP PRN (19:17)
[2020-03-25] MEDS ORDERED: Ondansetron PF 4 MG/2 ML Vial IVP PRN (19:17)
[2020-03-25] MEDS: Morphine 2 MG/ML VIAL SLOW IVP PRN (19:46)
[2020-03-25] MEDS: Famotidine 20 MG TAB PO SCH (20:05)
[2020-03-25] MEDS ORDERED: Vancomycin HCl 1 GM in Sodium Chloride 0.9% 250 ML 250 ML IVPB SCH (21:00)
[2020-03-25] MEDS ORDERED: Vancomycin HCl 500 MG in Sodium Chloride 0.9% 100 ML IVPB SCH (21:00)
[2020-03-25] MEDS: HYDROcodone/Acetaminophen 5/325 mg Tablet PO PRN (21:57)
--- NOTE | 2020-03-25 22:25 | HP ---
PRIMARY CARE PHYSICIAN: Dr. Guillermo. The patient's oncologist is Dr. Cooley. REASON FOR ADMISSION: "I have painful blisters on my arms and legs." HISTORY OF PRESENT ILLNESS: Ms. 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 She works at the [employer] in [place]. She has been diagnosed with breast cancer about a year ago. She is not sure of the cell type. But she says she thinks it is a slow-growing tumor. She says that she was started on anastrozole initially, but she said that she had a side effect from this medication. It caused her to have be off balance and she could barely walk. She was taken off this medication and placed on Femara about a month ago. However, she says prior to being started on the medication, she noticed some pustules that came up on her arms and legs. She says her primary care physician prescribed antibiotics as well as steroids and it seemed to clear up. However, in the last couple of weeks, she has noticed which she feels the return of the same rash or blister she says. She noticed them on her arms as well as her legs and this time she noticed a small area on her abdomen and one on her buttocks. She says they are extremely painful and she notices that if she tries to unroof, then they tend to get larger and larger. She also says that she has had a poor appetite as well as has been nauseated. She has lost about 20 pounds in the last month. She had been weighing 137 pounds, now she is weighing 117 pounds. She also notes a slight fever as well and she says her bowels have been more or less irregular. Otherwise, she has no other complaints. She saw Dr. Guillermo about a week ago. He prescribed doxycycline and she says she has been taking it, but has not noticed any improvement in the rash. REVIEW OF SYSTEMS: All systems were reviewed and are negative except for that mentioned in the history of present illness. PAST MEDICAL HISTORY: Significant for hypertension, breast cancer. PAST SURGICAL HISTORY: She has had a right mastectomy about a year ago and she says her glands were removed in the axilla for hidradenitis suppurativa. ALLERGIES: NO KNOWN DRUG ALLERGIES. SOCIAL HISTORY: She is an [employer], who works at [employer] in [place]. She is currently working now. She is and has 3 children. She is a former smoker. She smoked a pack a day for 30 years and she quit about a year ago and she says she does drink recreationally or socially. She would like to be a full code and her daughter, Madisyn Sanderson. She would like to be her surrogate decision maker. She also has two other sons. CURRENT MEDICATIONS: Include Norvasc 10 mg daily as well as Femara. PHYSICAL EXAMINATION: GENERAL: She is alert and oriented. She appears to be in no acute distress, although she does have a slight appearance of being chronically ill. VITAL SIGNS: Blood pressure was 135/97, heart rate 74, respiratory rate of 16, temperature was 99.1. HEENT: She has some arcus senilis, but pupils are equal, round, and reactive to light. Extraocular muscles are intact. Her sclerae were anicteric. Throat, her tongue was slightly erythematous, but there was no oral lesions. She has dentures in place. NECK: There was no adenopathy. No bruits. LUNGS: Clear to auscultation. There was no wheezing. No rales. No rhonchi. CARDIOVASCULAR: She had a normal S1 and S2. No S3 or S4. She did have a grade 2/6 systolic murmur at the base. ABDOMEN: Soft, nontender, nondistended. Positive for bowel sounds. No rebound. No guarding. No organomegaly. EXTREMITIES: She has the area of slightly raised, round, lesions on the forearm of differing circumferences with a central vesicle, which appears to have a white pustular vesicle in the center. However, on the left leg, the area is more patchy and erythematous with diffuse swelling with few areas of pustules, very smaller, pinpoint, but not necessarily centrally located. She has good dorsalis pedis pulses bilaterally. There are no lesions on the palms or soles of her hands or feet respectively. NEUROLOGIC: The exam is essentially nonfocal. SKIN AND INTEGUMENT: As previously mentioned. LABORATORY RESULTS: Sodium is 136, potassium 3.1, chloride is 94, CO2 is 32, BUN of 10, creatinine 0.64, glucose is 100. Urinalysis was essentially negative except for 1+ bacteria and 11 to 20 wbc's. Her white blood cell count was 13.7, hemoglobin 12.6, hematocrit was 39.6, and platelet count was 388. D-dimer was 2.45. She had a CT angiogram of the chest, which was negative for pulmonary embolism. Chest x- ray essentially negative. Heart size is normal. She does have some flattening of the diaphragms consistent with possibly early COPD, but no pulmonary infiltrates or effusions, and then she did have some mild elevation of the left hemidiaphragm and this is by my reading. ASSESSMENT: 1. This is a pleasant 64-year-old female, who presents with an unusual painful rash in the setting of breast cancer, on chemotherapy. She does have a mildly elevated white blood cell count and low-grade temperature. It is possible that this could be a failed outpatient treatment of some type of skin infection. Since she is on chemotherapy, it is possible that this could represent an opportunistic infection. However, a reaction to the chemotherapy agent is a possibility and this could be an unusual type of hypersensitivity reaction or a form of vasculitis. It also appears suspicious for Sweet's Syndrome We will initially treat this as if it is an infection and continue the IV antibiotics. However, we will consult ID for additional evaluation and opinion. We will also consult her oncologist as well. 2. Hypertension. We will continue her home medications and she will be placed on deep venous thrombosis and gastrointestinal prophylaxis. Job ID: [id number] [facility]
[2020-03-26 06:39] LABS: #Eosinphils 0.8 thou/uL (0.0-0.7); #Lymphocytes 1.8 thou/uL (1.20-3.40); #Monocytes 1.1 thou/uL (0.11-0.59); #Neutrophils 7.7 thou/uL (1.40-6.50); %Basophils 0.1 % (0.0-1.0); %Eosinophils 6.9 % (0.0-10.0); %Lymphocytes 15.8 % (21.0-51.0); %Monocytes 9.6 % (0.0-10.0); %Neutrophils 67.6 % (42.0-75.0); Mean Corpuscular HGB CONC 31.6 g/dL (32.0-36.0); Mean Corpuscular Hemoglobin 30.3 pg (27.0-31.0); Mean Corpuscular Volume 95.9 fL (78.0-98.0); Mean Platelet Volume 7.3 fL (7.4-10.4); Platelet Count 333 thou/uL (130-400); RBC Distribution Width 13.5 % (11.5-14.5); Red Blood Cell (RBC) Count 3.28 mill/uL (4.20-5.40); White Blood Cell (WBC) Count 11.4 thou/uL (4.8-10.8)
[2020-03-26 06:57] LABS: Anion Gap 7 mmol/L (10-20); BUN (Urea Nitrogen) 8 mg/dL (9.8-20.1); Calc. Creatinine Clearance 83 mL/min (70-130); Calcium 8.5 mg/dL (7.8-10.44); Carbon Dioxide 34 mmol/L (23-31); Chloride 96 mmol/L (98-107); Estimated GFR-MDRD Greater than 90; Glucose 86 mg/dL (80-115); Sodium 134 mmol/L (136-145)
[2020-03-26 07:00] LABS: Potassium 2.6 mmol/L (3.5-5.1)
[2020-03-26] MEDS ORDERED: Potassium Chloride 20 MEQ TAB PO SCH ×2 (07:45→13:00)
[2020-03-26] MEDS ORDERED: Vancomycin 1 GM in Premix Bag 1 BAG IVPB SCH (08:00)
[2020-03-26] MEDS: Enoxaparin Sodium 40 MG/0.4 ML SYRINGE SC SCH (08:16)
[2020-03-26] MEDS: Famotidine 20 MG TAB PO SCH ×2 (08:17→21:35)
[2020-03-26] MEDS: Amlodipine 10 MG TAB PO SCH (08:17)
[2020-03-26] MEDS: HYDROcodone/Acetaminophen 5/325 mg Tablet PO PRN ×3 (08:22→21:42)
[2020-03-26] MEDS ORDERED: FLU VACC QS2020-21(65YR UP)/PF 240 MCG/0.7 ML SYRINGE IM ONE (09:00)
--- NOTE | 2020-03-26 09:29 | PDOC.HOSPP ---
- Subjective Encounter Date: 03/26/20 Encounter Time: 09:28 Subjective: Ms. Sanderson was seen today in follow-up of possible infectious, vs. inflammatory skin lesions. She says the areas are a little less painful today. She is moving around a little better. - Objective Vital Signs & Weight: Vital Signs (12 hours) Temp Pulse Resp BP Pulse Ox 03/26/20 08:17 85 03/26/20 07:00 98.5 F 85 17 127/67 89 L 03/26/20 03:00 98.5 F 90 16 113/72 92 L 03/25/20 23:17 99.1 F 90 16 111/70 92 L Weight Weight 132 lb 8 oz I&O: 03/25/20 03/26/20 03/27/20 06:59 06:59 06:59 Intake Total 311 Balance 311 Result Diagrams: 03/26/20 06:20 03/26/20 06:20 Hospitalist ROS - Medication Medications: Active Medications Generic Name Dose Route Start Last Admin Trade Name Freq PRN Reason Stop Dose Admin Hydrocodone Bitart/Acetaminophen 1 tab 03/25/20 19:17 03/26/20 08:22 Hydrocodone/Acetaminophen 5/325 Mg Tablet PO 1 tab Q4H PRN Administration Moderate Pain (4-6) Amlodipine Besylate 10 mg 03/26/20 09:00 03/26/20 08:17 Amlodipine 10 Mg Tab PO 10 mg DAILY JONES Administration Enoxaparin Sodium 40 mg 03/26/20 09:00 03/26/20 08:16 Enoxaparin Sodium 40 Mg/0.4 Ml Syringe SC 40 mg 0900 JONES Administration Famotidine 20 mg 03/25/20 21:00 03/26/20 08:17 Famotidine 20 Mg Tab PO 20 mg BID JONES Administration Morphine Sulfate 2 mg 03/25/20 19:17 03/25/20 19:46 Morphine 2 Mg/Ml Vial SLOW IVP 2 mg Q4H PRN Administration Moderate to Severe Pain (6-10) Potassium Chloride 40 meq 03/26/20 07:45 03/26/20 08:17 Potassium Chloride 20 Meq Tab PO 03/26/20 10:00 40 meq NOW JONES Administration Sodium Chloride 10 ml 03/26/20 09:00 03/26/20 08:18 Flush - Normal Saline 10 Ml Syringe IVF 10 ml Q12HR JONES Administration - Exam Eye: PERRL, anicteric sclera Heart: RRR, no murmur, no gallops, no rubs, normal peripheral pulses Respiratory: CTAB, no wheezes, no rales, no ronchi, normal chest expansion, no tachypnea Gastrointestinal: soft, non-tender, non-distended, normal bowel sounds, no palpable masses, no hepatomegaly Extremities: no cyanosis (+ round to oval raised erythematous lesions on the upper extremities, with a central-pustule. then diffuse erythema on the lower extremities) Extremities - other findings: good d.p. pulses bilaterally Hosp A/P (1) Skin lesion Code(s): L98.9 - DISORDER OF THE SKIN AND SUBCUTANEOUS TISSUE, UNSPECIFIED Status: Acute (2) Breast cancer Status: Chronic (3) Hypertension Code(s): I10 - ESSENTIAL (PRIMARY) HYPERTENSION Status: Chronic - Plan * Skin lesions on the upper extremities- ? infectious vs. Inflammatory- will continue IV antibiotics * Await ID opinion * HTN- blood pressure is stable- will re-start her home medications
[2020-03-26] MEDS: Morphine 2 MG/ML VIAL SLOW IVP PRN (11:17)
[2020-03-26 11:53] VITALS: BMI 25.1
[2020-03-26] MEDS ORDERED: cefTRIAXone\\ROCEPHIN 1 GM in Sodium Chloride 0.9% 100 ML IVPB SCH ×2 (16:00→20:00)
[2020-03-26] MEDS: cefTRIAXone\\ROCEPHIN 1 GM in Sodium Chloride 0.9% 100 ML IVPB SCH (16:57)
--- NOTE | 2020-03-26 18:07 | CON ---
DATE OF CONSULTATION: REASON FOR CONSULTATION: Breast cancer. HISTORY OF PRESENT ILLNESS: Ms. Sanderson is a pleasant 64-year-old female with T2 N0 M0, ER positive, HER2 negative, invasive ductal carcinoma of the right breast. She is status post lumpectomy and sentinel node biopsy in February 2019. Final pathology showed a 3.5 cm malignancy with multiple satellite tumor nodules measuring 2 to 8 mm involving the inferior medial margins with 2 negative sentinel lymph nodes. She had re-excision for clear margins and eventually had a mastectomy in May 2019. Her Oncotype DX showed low recurrence score of 9. She was started on Arimidex in June 2019, but stopped in December 2019 for muscle weakness, difficulty walking, MS-type side effects. She then went on letrozole in late January and has been taking that daily. Over the last several weeks, she has began to have skin lesions on her arms and legs. These were pustular and painful. She saw her primary care and was given a dose of doxycycline, which she did start. She however became much weaker, having difficulty turning herself and painful walking. She had some weight loss. She presented to the emergency room for evaluation. Here, she underwent a chest x-ray, which was negative. She also had a CT angio of the chest, which was negative for pulmonary emboli. There were no pleural effusions. She was admitted for leukocytosis and low-grade temperatures, started on empiric antibiotics. She states she is somewhat better since arrival. She still has difficulty standing due to pain. No chest pain, shortness of breath, abdominal discomfort. She does admit to a poor appetite. Her last dose of letrozole was 2 days ago. PAST MEDICAL HISTORY: 1. Stage IA ER/AZ positive, HER2 negative breast cancer. 2. Hypertension. 3. Tobacco abuse. 4. COPD. PAST SURGICAL HISTORY: 1. Right axilla excisional biopsy for hidradenitis. 2. Left shoulder arthroscopy. 3. Cholecystectomy. 4. Umbilical hernia repair. 5. Right mastectomy. FAMILY HISTORY: Maternal aunt had breast cancer. SOCIAL HISTORY: She is , has 3 children. Lives alone. A pack-a-day smoker. No alcohol or illicit drug use. Works as an [employer]. ALLERGIES: NO KNOWN DRUG ALLERGIES. HOME MEDICATIONS: 1. Letrozole 2.5 mg daily. 2. Amlodipine 10 mg daily. 3. ProAir inhaler. REVIEW OF SYSTEMS: A 10-point review of systems is negative except for noted in HPI. PHYSICAL EXAMINATION: VITAL SIGNS: Temperature is 98.5, pulse is 92, respiratory rate 16, BP is 119/83. She is 92% on room air. GENERAL: This is a well-developed, well-nourished female, in no acute distress. HEENT: Normocephalic, atraumatic. Pupils are equal and reactive to light. NECK: Supple. CV: Regular rate and rhythm. LUNGS: Clear. ABDOMEN: Soft and nontender. Bowel sounds are positive. EXTREMITIES: No clubbing or cyanosis. SKIN: She has pustular lesion on both arms and legs. EXTREMITIES: Her left lower extremity appears erythematous. NEUROLOGICAL: Nonfocal. CHEST: She has mastectomy scar in the right chest with no lesions or nodules. PERTINENT LABORATORY DATA AND X-RAYS: Current WBCs are 11.4, hemoglobin 10, hematocrit 31.5, platelet count 333,000, she has 67% neutrophils, 15% lymphocytes. Sodium 134, potassium 2.6, chloride 96, CO2 is 34, BUN is 8, creatinine 0.63, lactic acid 1.4, calcium 8.5. Bilirubin 1, AST is 18, ALT 7, and alkaline phosphatase is 57. Troponin is less than 0.01. BNP is 87. Serum total protein 7.1, albumin 2.9, globulin 4.2. Urine showed 1+ bacteria with positive leukocyte esterase. Negative nitrites. Radiology per history of present illness. ASSESSMENT: 1. Breast cancer, on letrozole. 2. Skin lesions with likely cellulitis of her left lower extremity. 3. Mild leukocytosis. DISCUSSION: The patient has been started on empiric antibiotics. She does feel better today. She still has a poor appetite and difficulty with movement. Infectious Disease has seen her and appreciate their recommendations. If this is an inflammatory process, I would consider IV steroids as she has responded well to that in the past according to the patient. Case has been discussed with Dr. Cooley and will follow along with her hospital course. Letrozole should be held until she sees Dr. Cooley in the outpatient setting. [facility] ID: [id number] [facility]
[2020-03-26] MEDS: Vancomycin HCl 1.25 GM in Sodium Chloride 0.9% 250 ML 250 ML IVPB SCH (18:10)
[2020-03-26] MEDS ORDERED: Vancomycin HCl 1.25 GM in Sodium Chloride 0.9% 250 ML 250 ML IVPB SCH (20:00)
--- NOTE | 2020-03-26 20:02 | CON ---
DATE OF CONSULTATION: 03/26/2020 REASON FOR CONSULTATION: Skin lesions. HISTORY OF PRESENT ILLNESS: A 64-year-old with history of breast cancer, who had three surgeries in succession until finally she agreed to mastectomy right side at the end of 2018, and she was placed on letrozole on June and for the past 2 or 3 months, has had those recurring skin lesions, which are painful and sometimes pruritic. Initially, she was treated with methylprednisolone for 6 days with complete resolution of the lesions, but they have recurred and she was brought back and admitted, started on Rocephin and vancomycin. She is still having the lesions, apparently a biopsy or cultures are submitted and this latest outbreak has been around for one month approximately. She has had weight loss over the past few months associated with the lesions. She has some nausea. No headaches. No sore throat, odynophagia, or dysphagia. No cough, chest pain, or shortness of breath. No back pain. No abdominal pain. Some diarrhea. Some myalgias. PAST MEDICAL HISTORY: Breast cancer with three surgeries in succession until she agreed to mastectomy, hypertension. PAST SURGICAL HISTORY: Cholecystectomy and mastectomy. SOCIAL HISTORY: Former smoker. Lives with family. Drinks occasionally. No drug use. ALLERGIES: NONE. MEDICATIONS: Letrozole, Norvasc. She is currently on vancomycin, Rocephin, Lovenox, and ondansetron. FAMILY HISTORY: Noncontributory. PHYSICAL EXAMINATION: VITAL SIGNS: T-max 99.1, blood pressure 119/83, pulse 92, respirations 16, and O2 saturation 92% on room air. GENERAL: Appears in no distress. SKIN: With multiple areas of nodular, purpuric lesions measuring anywhere from 1 to 3 cm, painful to touch, some of them with central blistering. Some of them are somewhat purpuric, but they are all elevated. No lymphadenopathy. HEENT: Ocular movements conjugate. Oral cavity normal. NECK: Supple. LUNGS: Symmetric. Clear breath sounds. HEART: S1 and S2. Regular rate. No S3 or S4. ABDOMEN: Soft. Not distended or tender. No ascites. : No bladder distention. MUSCULOSKELETAL: No joint inflammatory activity. EXTREMITIES: No edema. Moves extremities equally. Pulses 1+ in dorsalis pedis. NEUROLOGIC: Cognitive function intact. LABORATORY DATA: White cell count , platelets wnl. D-dimer 2.45. Creatinine 0.64. Liver profile normal. Albumin 2.9. Urinalysis with 11 to 20 wbc's. COVID was not detected on March 17. Chest CT angio was normal. ASSESSMENT: Breast cancer with mastectomy for treatment and letrozole. She has been on letrozole since June and has developed those recurrent lesions for the past 4 to 6 months. First outbreak was treated with methylprednisolone with resolution, but then recurred about a month ago. DISCUSSION: Differential diagnosis includes erythema nodosum, hypersensitivity vasculitis or leukocytoclastic vasculitis. Metastases of breast cancer and infectious process are less likely. I believe that leukocytoclastic vasculitis is the more likely scenario. We would recommend biopsy. I think this has already been done. If not, then a biopsy would have to be carried out to confirm diagnosis. 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 Letrozole will likely have to be discontinued. Job ID: [id number] [facility]
[2020-03-27 06:42] LABS: #Eosinphils 0.9 thou/uL (0.0-0.7); #Lymphocytes 1.4 thou/uL (1.20-3.40); #Neutrophils 6.6 thou/uL (1.40-6.50); %Basophils 0.3 % (0.0-1.0); %Eosinophils 8.9 % (0.0-10.0); %Lymphocytes 13.7 % (21.0-51.0); %Monocytes 10.3 % (0.0-10.0); %Neutrophils 66.9 % (42.0-75.0); Mean Corpuscular HGB CONC 32.3 g/dL (32.0-36.0); Mean Corpuscular Hemoglobin 31.4 pg (27.0-31.0); Mean Corpuscular Volume 97.2 fL (78.0-98.0); Mean Platelet Volume 7.4 fL (7.4-10.4); Platelet Count 368 thou/uL (130-400); RBC Distribution Width 13.5 % (11.5-14.5); Red Blood Cell (RBC) Count 3.19 mill/uL (4.20-5.40); White Blood Cell (WBC) Count 9.9 thou/uL (4.8-10.8)
[2020-03-27 07:08] LABS: Anion Gap 10 mmol/L (10-20); BUN (Urea Nitrogen) 10 mg/dL (9.8-20.1); Calc. Creatinine Clearance 80 mL/min (70-130); Calcium 8.6 mg/dL (7.8-10.44); Carbon Dioxide 32 mmol/L (23-31); Chloride 98 mmol/L (98-107); Estimated GFR-MDRD Greater than 90; Glucose 101 mg/dL (80-115); Potassium 3.5 mmol/L (3.5-5.1); Sodium 136 mmol/L (136-145)
[2020-03-27] MEDS ORDERED: Magnesium Sulfate 2 GM in Sodium Chloride 0.9% 100 ML IVPB SCH (07:30)
[2020-03-27] MEDS ORDERED: Magnesium 2 GM/50 ML 2 GM in Premix Bag 1 BAG IVPB SCH (08:15)
[2020-03-27] MEDS: Amlodipine 10 MG TAB PO SCH (08:46)
[2020-03-27] MEDS: Famotidine 20 MG TAB PO SCH ×2 (08:46→20:18)
[2020-03-27] MEDS: Enoxaparin Sodium 40 MG/0.4 ML SYRINGE SC SCH (08:48)
--- NOTE | 2020-03-27 09:21 | PDOC.HOSPP ---
- Subjective Encounter Date: 03/27/20 Encounter Time: 09:19 Subjective: Ms. Sanderson was seen today in follow-up of skin lesions. She notes some improvement. She has less pain. - Objective Vital Signs & Weight: Vital Signs (12 hours) Temp Pulse Resp BP Pulse Ox 03/27/20 07:20 98.3 F 101 H 18 138/88 93 L 03/27/20 04:00 98.4 F 97 18 113/78 94 L 03/27/20 00:00 98.9 F 98 18 102/68 95 Weight Admit Weight 132 lb 8 oz Weight 128 lb 11.2 oz I&O: 03/26/20 03/27/20 03/28/20 06:59 06:59 06:59 Intake Total 311 1440 Balance 311 1440 Result Diagrams: 03/27/20 06:19 03/27/20 06:19 Hospitalist ROS - Medication Medications: Active Medications Generic Name Dose Route Start Last Admin Trade Name Freq PRN Reason Stop Dose Admin Hydrocodone Bitart/Acetaminophen 1 tab 03/25/20 19:17 03/26/20 21:42 Hydrocodone/Acetaminophen 5/325 Mg Tablet PO 1 tab Q4H PRN Administration Moderate Pain (4-6) Amlodipine Besylate 10 mg 03/26/20 09:00 03/26/20 08:17 Amlodipine 10 Mg Tab PO 10 mg DAILY JONES Administration Enoxaparin Sodium 40 mg 03/26/20 09:00 03/26/20 08:16 Enoxaparin Sodium 40 Mg/0.4 Ml Syringe SC 40 mg 0900 JONES Administration Famotidine 20 mg 03/25/20 21:00 03/26/20 21:35 Famotidine 20 Mg Tab PO 20 mg BID JONES Administration Ceftriaxone Sodium 1 gm/ 100 mls @ 200 mls/hr 03/26/20 15:00 03/26/20 16:57 Sodium Chloride IVPB 100 mls 1500 JONES Administration Vancomycin HCl 1.25 gm/ Sodium 250 mls @ 250 mls/hr 03/26/20 16:00 03/26/20 18:10 Chloride IVPB 250 mls 1600 JONES Administration Morphine Sulfate 2 mg 03/25/20 19:17 03/26/20 11:17 Morphine 2 Mg/Ml Vial SLOW IVP 2 mg Q4H PRN Administration Moderate to Severe Pain (6-10) Sodium Chloride 10 ml 03/26/20 09:00 03/26/20 21:35 Flush - Normal Saline 10 Ml Syringe IVF 10 ml Q12HR JONES Administration - Exam Eye: PERRL, anicteric sclera Heart: RRR, no murmur, no gallops, no rubs, normal peripheral pulses Respiratory: CTAB, no wheezes, no rales, no ronchi, normal chest expansion, no tachypnea, normal percussion Gastrointestinal: soft, non-tender, non-distended, normal bowel sounds, no palpable masses, no hepatomegaly Extremities: no cyanosis (+ erythematous raised areas on the upper and lower extremities, with central pustule) Hosp A/P (1) Skin lesion Code(s): L98.9 - DISORDER OF THE SKIN AND SUBCUTANEOUS TISSUE, UNSPECIFIED Status: Acute (2) Breast cancer Status: Chronic (3) Hypertension Code(s): I10 - ESSENTIAL (PRIMARY) HYPERTENSION Status: Chronic - Plan * Skin lesions on the upper extremities- ? infectious vs. Inflammatory- ID recommendations noted- will have the area(s) biopsied. * Will consider starting steroids after the biopsy * HTN- blood pressure is stable- continue Amlodipine * Breast Cancer- stable
[2020-03-27] MEDS: HYDROcodone/Acetaminophen 5/325 mg Tablet PO PRN ×3 (10:42→22:21)
[2020-03-27 14:16] LABS: SARS-CoV-2 MS2 Positive; SARS-CoV-2 N Gene Negative; SARS-CoV-2 S Gene Negative; SARS-CoV-2 by NAA Not Detected (NotDetected); SARS-CoV-2 orf1ab Negative
[2020-03-27] MEDS: cefTRIAXone\\ROCEPHIN 1 GM in Sodium Chloride 0.9% 100 ML IVPB SCH (14:30)
[2020-03-27 15:38] LABS: Vancomycin, Trough 11.2 ug/mL
[2020-03-27] MEDS: Vancomycin HCl 1.25 GM in Sodium Chloride 0.9% 250 ML 250 ML IVPB SCH (17:33)
[2020-03-28 05:48] LABS: #Eosinphils 0.9 thou/uL (0.0-0.7); #Lymphocytes 1.3 thou/uL (1.20-3.40); #Monocytes 0.8 thou/uL (0.11-0.59); #Neutrophils 7.1 thou/uL (1.40-6.50); %Basophils 0.2 % (0.0-1.0); %Eosinophils 8.6 % (0.0-10.0); %Lymphocytes 12.7 % (21.0-51.0); %Monocytes 7.8 % (0.0-10.0); %Neutrophils 70.7 % (42.0-75.0); Mean Corpuscular HGB CONC 31.7 g/dL (32.0-36.0); Mean Corpuscular Hemoglobin 30.5 pg (27.0-31.0); Mean Corpuscular Volume 96.2 fL (78.0-98.0); Mean Platelet Volume 7.4 fL (7.4-10.4); Platelet Count 423 thou/uL (130-400); RBC Distribution Width 13.4 % (11.5-14.5); Red Blood Cell (RBC) Count 3.27 mill/uL (4.20-5.40)
[2020-03-28 06:13] LABS: Anion Gap 11 mmol/L (10-20); BUN (Urea Nitrogen) 9 mg/dL (9.8-20.1); Calc. Creatinine Clearance 78 mL/min (70-130); Calcium 8.8 mg/dL (7.8-10.44); Carbon Dioxide 29 mmol/L (23-31); Chloride 99 mmol/L (98-107); Estimated GFR-MDRD Greater than 90; Glucose 96 mg/dL (80-115); Potassium 3.3 mmol/L (3.5-5.1); Sodium 136 mmol/L (136-145)
[2020-03-28 07:21] VITALS: BP 129/76; TEMP 99.9
[2020-03-28] MEDS ORDERED: Vancomycin HCl 750 MG in Sodium Chloride 0.9% 250 ML 250 ML IVPB SCH (09:00)
[2020-03-28] MEDS: HYDROcodone/Acetaminophen 5/325 mg Tablet PO PRN (09:29)
[2020-03-28] MEDS: Amlodipine 10 MG TAB PO SCH (09:30)
[2020-03-28] MEDS: Famotidine 20 MG TAB PO SCH (09:30)
[2020-03-28] MEDS: Enoxaparin Sodium 40 MG/0.4 ML SYRINGE SC SCH (09:31)
--- NOTE | 2020-03-28 09:41 | PDOC.HOSPP ---
- Subjective Encounter Date: 03/28/20 Encounter Time: 09:39 Subjective: Ms. Sanderson was seen today in follow-up of skin lesions. She notes improvement in her arms, but still has pain in her legs. - Objective Vital Signs & Weight: Vital Signs (12 hours) Temp Pulse Resp BP Pulse Ox 03/28/20 09:30 99 03/28/20 07:16 99.9 F H 99 17 129/76 90 L Weight Admit Weight 132 lb 8 oz Weight 128 lb 11.2 oz I&O: 03/27/20 03/28/20 03/29/20 06:59 06:59 06:59 Intake Total 1440 560 Balance 1440 560 Result Diagrams: 03/28/20 05:25 03/28/20 05:25 Hospitalist ROS - Medication Medications: Active Medications Generic Name Dose Route Start Last Admin Trade Name Freq PRN Reason Stop Dose Admin Hydrocodone Bitart/Acetaminophen 1 tab 03/25/20 19:17 03/28/20 09:29 Hydrocodone/Acetaminophen 5/325 Mg Tablet PO 1 tab Q4H PRN Administration Moderate Pain (4-6) Amlodipine Besylate 10 mg 03/26/20 09:00 03/28/20 09:30 Amlodipine 10 Mg Tab PO 10 mg DAILY JONES Administration Enoxaparin Sodium 40 mg 03/26/20 09:00 03/28/20 09:31 Enoxaparin Sodium 40 Mg/0.4 Ml Syringe SC 40 mg 0900 JONES Administration Famotidine 20 mg 03/25/20 21:00 03/28/20 09:30 Famotidine 20 Mg Tab PO 20 mg BID JONES Administration Ceftriaxone Sodium 1 gm/ 100 mls @ 200 mls/hr 03/26/20 15:00 03/27/20 14:30 Sodium Chloride IVPB 100 mls 1500 JONES Administration Vancomycin HCl 750 mg/ Sodium 250 mls @ 250 mls/hr 03/28/20 09:00 03/28/20 09:31 Chloride IVPB 250 mls 0900,2100 JONES Administration Morphine Sulfate 2 mg 03/25/20 19:17 03/26/20 11:17 Morphine 2 Mg/Ml Vial SLOW IVP 2 mg Q4H PRN Administration Moderate to Severe Pain (6-10) Sodium Chloride 10 ml 03/26/20 09:00 03/28/20 09:31 Flush - Normal Saline 10 Ml Syringe IVF 10 ml Q12HR JONES Administration - Exam Eye: PERRL, anicteric sclera Heart: RRR, no murmur, no gallops, no rubs, normal peripheral pulses Respiratory: CTAB, no wheezes, no rales, no ronchi, normal chest expansion, no tachypnea Gastrointestinal: soft, non-tender, non-distended, normal bowel sounds, no palpable masses, no hepatomegaly Extremities: no cyanosis (+ mild erythema) Hosp A/P (1) Skin lesion Code(s): L98.9 - DISORDER OF THE SKIN AND SUBCUTANEOUS TISSUE, UNSPECIFIED Status: Acute (2) Breast cancer Status: Chronic (3) Hypertension Code(s): I10 - ESSENTIAL (PRIMARY) HYPERTENSION Status: Chronic - Plan * Skin lesions on the upper extremities- She has had the skin biopsy * Will give a dose of IV steroids prior to discharge * Home on oral Prednisone, and continue Doxycycline * Stable for discharge home
--- NOTE | 2020-03-28 09:51 | PDOC.EVN ---
Event Note - Event Note Event Note: [place] [employer] site accessed today. Risk score 240.
[2020-03-28] MEDS ORDERED: methylPREDNISolone Sod Succ/PF 125 MG/2 ML VIAL IVP SCH (10:00)
--- NOTE | 2020-03-28 12:23 | OP ---
DATE OF PROCEDURE: 03/27/2020 PREOPERATIVE DIAGNOSES: Multiple lesions, upper and lower extremities. Dr. Cantor requested biopsy. History of March 05, 2019, partial mastectomy, sentinel node biopsy, multifocal invasive ductal cell carcinoma, ER/ND positive, HER2-negative, T2 N0 M0 with repeat resection with negative margins and subsequent May 2019 right simple mastectomy, no residual tumor. POSTOPERATIVE DIAGNOSES: Multiple lesions, upper and lower extremities. Dr. Cantor requested biopsy. History of March 05, 2019, partial mastectomy, sentinel node biopsy, multifocal invasive ductal cell carcinoma, ER/ND positive, HER2-negative, T2 N0 M0 with repeat resection with negative margins and subsequent May 2019 right simple mastectomy, no residual tumor. PROCEDURE: Biopsy of skin lesions, left forearm and right forearm. ANESTHESIA: 1% Xylocaine with epinephrine mixed with 0.5% Marcaine with epinephrine and bicarbonate. Punch biopsies performed. Closure with 4-0 Prolene. DESCRIPTION OF PROCEDURE: With the patient at bedside, both forearms prepared with ChloraPrep and draped in routine fashion. Local anesthetic mixture was infiltrated into the skin and subcutaneous tissue. Punch biopsies were obtained from each of the right and left forearm skin lesions, submitting the specimen to pathology, closing the wounds with 4-0 Prolene. Sterile dressing applied. Patient tolerated the procedure well. Job ID: [id number]
--- NOTE | 2020-03-29 13:26 | EKG ---
Test Reason : Blood Pressure : / mmHG Vent. Rate : 091 BPM Atrial Rate : 091 BPM P-R Int : 154 ms QRS Dur : 078 ms QT Int : 382 ms P-R-T Axes : 071 021 055 degrees QTc Int : 469 ms Normal sinus rhythm Normal ECG Confirmed by EB PEREZ DO ([id number]), website/blog editor BELINDA PEREZ ([id number]) on 03/29/2020 1:26:16 PM Referred By: Confirmed By:EB PEREZ DO
--- NOTE | 2020-03-31 18:37 | PQF ---
CLINICAL DOCUMENTATION CLARIFICATION FORM: Dear : Juvenal Mayer Date / Time: 03/31/2020 8695 Please exercise your independent, professional judgment in responding to the clarification form. Clinical indicators are provided on the bottom of this form for your review Please check appropriate box(es): [X ] Protein Calorie Malnutrition: [ ] Mild [X ] Moderate [ ] Severe [ ] Other Malnutrition (please specify) [ ] Underweight without malnutrition [ ] Cachexia [ ] Other diagnosis [ ] Unable to determine In addition, please specify: Present on Admission (POA): [X ] Yes [ ] No [ ] Unable to determine Physician Signature: Date/Time: For continuity of documentation, please document condition throughout progress notes and discharge summary. Thank You. To be completed by CDI/Coding staff for physician review: Present Clinical Indicators - Signs / Symptoms / Labs Results and Location in Medical Record [X] BP 129/60, Pulse 87, Resp 18, Temp 99.1 Vital signs 03/25 [X] Serum Kathy protein 7.1, Albumin 2.9, Globulin 4.2, Ratio 0.7 Laboratory 03/25 [X] BMI of 25.1 Nutritional assessment Dietitian Merino 03/26 [X] Weight loss Nutritional assessment Dietitian [facility] 03/26 [X] Poor appetite Nutritional assessment Dietitian Merino 03/26 [X] Notes mild temporalis muscle wasting, moderate orbital and buccal fat pad wasting Nutritional assessment Dietitian Merino 03/26 Present Risk Factors Results and Location in Medical Record [X] 64 year-old Female H&P p1 03/25 Dr Mayer [X] Breast cancer H&P p1 03/25 Dr Mayer [X] Former smoker H&P p1 03/25 Dr Mayer Present Treatments Results and Location in Medical Record [X] Dietary consult Nutritional assessment Dietitian Merino 03/26 [X] Nutritional supplements Nutritional assessment Dietitian [facility] 03/26 [X] Weight monitoring Nutritional assessment Dietitian [facility] 03/26 [X] Oral intake monitoring Nutritional assessment Dietitian [facility] 03/26 [X] Appetite stimulant - medication Nutritional assessment Dietitian Angelique 03/26 CDS/Head Girls Golf Coach Signature: Cassie Barnhart Phone #: ext [phone] Date/Time: 03/31/2020 183 Moderate Malnutrition (in acute illness) ? Energy Intake: <75% of estimated energy requirement for > 7 days ? Weight Loss: 1-2%/1 week; 5%/ 1 month; 7.5%/3 months ? Other: mild body fat loss; mild muscle mass loss; mild fluid accumulation; Severe Malnutrition (in acute illness) ? Energy Intake: ? 50% of estimated energy requirement for ? 5 days ? Weight Loss: >2%/1 week; >5%/1 month; >7.5%/3 months ? Other: moderate body fat loss; moderate muscle mass loss; moderate- severe fluid accumulation; measurably reduced spa director/finance strength Moderate Malnutrition (in chronic illness) ? Energy Intake: <75% of estimated energy requirement for ?1 month ? Weight Loss: 5%/1 month; 7.5%/3 months; 10%/6 months; 20%/1 year ? Other: mild body fat loss; mild muscle mass loss; mild fluid accumulation Severe Malnutrition (in chronic illness) ? Energy Intake: ?75% of estimated energy requirement for ?1 month ? Weight Loss: >5%/1 month; >7.5%/3 months; >10%/6 months; >20%/1 year ? Other: severe body fat loss; severe muscle mass loss; severe fluid accumulation; measurably reduced spa director/finance strength This is a permanent part of the Medical Record MTDD
--- NOTE | 2020-04-02 12:07 | DIS ---
DATE OF ADMISSION: 03/27/2020 DATE OF DISCHARGE: 03/28/2020 PRIMARY CARE PHYSICIAN: Dr. Edgar Guillermo. DISCHARGE DISPOSITION: Home. DISCHARGE DIAGNOSES: 1. 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 2. Breast cancer. 3. Hypertension. DISCHARGE MEDICATIONS: Include: 1. Prednisone taper. 2. Doxycycline 100 mg p.o. b.i.d. 3. Florastor 250 mg p.o. daily. 4. Tylenol No. 3 one tablet q.6 p.r.n., and the [facility] site was accessed. 5. Norvasc 10 mg p.o. daily. 6. Femara 2.5 mg p.o. at bedtime. 7. Ditropan XL 10 mg p.o. daily. IMAGING DONE DURING THE HOSPITAL STAY: The patient had a CT angiogram of the chest, which was negative for PE. The patient also had a skin biopsy, the results of which are pending. CODE STATUS: Full code. ALLERGIES: NO KNOWN DRUG ALLERGIES. HOSPITAL COURSE: Ms. Sanderson is a pleasant 64-year-old female, who presented to the emergency room after she had multiple skin lesions appear on her upper extremities as well as lower extremities. These were extremely painful and erythematous. She also had a low-grade temperature. She had been placed on antibiotics by her primary care physician without much improvement. She was brought into the hospital and started on empiric IV antibiotics. Dr. Cantor was consulted with Infectious Disease. We were concerned that the patient could potentially have an inflammatory reaction related to her cancer or to the chemotherapy agent. However, prior to starting steroids, we had the patient's surgeon come and do a skin biopsy. Once the biopsy was obtained, the patient was started on high-dose steroids, Solu-Medrol 60 mg IV, and then to follow this up with a moderate duration prednisone taper. The patient is to follow up with her primary care physician. The plan of which would be for her to likely get a referral to a formula checker, who could then follow up with the pathology results, and as a precaution, we will continue the doxycycline twice daily and she was also placed on a probiotic. Job ID: [id number]
--- NOTE | 2020-04-06 19:33 | PQF ---
CLINICAL DOCUMENTATION CLARIFICATION FORM: Dear : Juvenal Mayer Date / Time: 04/06/20201931 Please exercise your independent, professional judgment in responding to the clarification form. Clinical indicators are provided on the bottom of this form for your review Clarification of Pathology report: Please check appropriate box(es): [ x ] Agree w the pathology finding of: Focal epidermal ulceration an suppurativa granumatous dermatitis with marked tissue necrosis [ ] Other explanation of pathology findings (please specify) [ ] Other diagnosis [ ] Unable to determine Physician Signature: Date/Time: For continuity of documentation, please document condition throughout progress notes and discharge summary. Thank You To be completed by CDI/Coding staff for physician review: Present Clinical Indicators - Signs / Symptoms / Labs Results and Location in Medical Record [X] Focal epidermal ulceration an suppurativa granumatous dermatitis with marked tissue necrosis Pathology report p1 04/04 Dr Tolentino [X] I have painful blister on my arms and legs H&P p1 03/25 Dr Mayer [X] Elevated WBC and low-grade temperate H&P p1 03/25 Dr Mayer [X] BP 126/90, Pulse 87, Resp 18, Temp 99.1 Vital signs 03/25 [X] Skin lesions probababy either leukocytoclasstic vasculitis or sweets syndrome DS p1 03/27 Dr Mayer Present Risk Factors Results and Location in Medical Record [X] 64 year-old Female H&P p1 03/25 Dr Mayer [X] Hx of breast cancer H&P p1 03/25 Dr Mayer [X] HTN H&P p1 03/25 Dr Mayer Present Treatments Results and Location in Medical Record [X] Skin Biopsy Procedure 03/27 Dr Tello [X] ID consult Jose M Darling 03/26 [X] IV Cefriaxone 1 gm AUG 20 [X] IV Vancomycin 1 gm AUG 20 CDS/Traffic Analyst Signature: Cassie Stokesdada Phone #: ext [phone] Date/Time: 04/06/20201931 This is a permanent part of the Medical Record [facility]
== END 2020-03-28 13:45 | disposition home or self-care (01) | DRG 607 ==
LOC: ERS 11:06 → T4-B 16:45 → INTOOBSV 16:45 → ERS 18:31 → OBSVTOIN 03-27 09:48
PROVIDERS: ADMIT Internal Medicine; ATTEND Internal Medicine
PROC: 0HBEXZX Excision of Left Lower Arm Skin, External Approach, Diagnostic (ICD-10-PCS; principal; 2020-03-27)
PROC: 0HBDXZX Excision of Right Lower Arm Skin, External Approach, Diagnostic (ICD-10-PCS; 2020-03-27)
PROC: 0H9EXZZ Drainage of Left Lower Arm Skin, External Approach (ICD-10-PCS; 2020-03-27)
DX: L95.8 Other vasculitis limited to the skin (principal); E44.0 Moderate protein-calorie malnutrition; L98.2 Febrile neutrophilic dermatosis [Sweet]; I10 Essential (primary) hypertension; C50.911 Malignant neoplasm of unspecified site of right female breast; J44.9 Chronic obstructive pulmonary disease, unspecified; F17.210 Nicotine dependence, cigarettes, uncomplicated; Z20.828 Contact with and (suspected) exposure to other viral communicable diseases; Z17.1 Estrogen receptor negative status [ER-]; Z90.11 Acquired absence of right breast and nipple; Z79.811 Long term (current) use of aromatase inhibitors; Z90.49 Acquired absence of other specified parts of digestive tract; Z68.25 Body mass index [BMI] 25.0-25.9, adult
CPT/HCPCS: 10061; 36415; 71045; 71275; 80048; 80053; 80202; 81003; 81015; 83605; 83735; 83880; 84484; 85025; 85379; 87040; 87070; 87205; 87635; 88305; 90471; 90662; 93005; 96365; 96366; 96367; 96372; 96375; 96376; G0008; G0378; J0696; J1650; J2270; J2405; J2930; J3370; J3475; J3490; J7050; Q9967; U0003

== ENCOUNTER 2020-04-29 12:55 | Outpatient (CLI) | payer OTHER ==
[2020-04-29] MEDS ORDERED: Iopamidol 370 76% 100 ML VIAL ONE (13:01)
[2020-04-29 13:25] LABS: Estimated GFR-MDRD - POC Greater than 90
--- NOTE | 2020-04-29 15:05 | CT ---
CT OF THE ABDOMEN WITH IV CONTRAST: 04/29/20 INDICATION: 64-year-old female with history of right sided mastectomy and breast cancer with lower abdominal pain and weight loss. COMPARISON: Prior CT of the abdomen and pelvis performed at [facility] dated 11/13/12. FINDINGS: The lung bases are clear. There is a stable small subcentimeter cyst within the peripheral right hepatic lobe and peripheral as pect of the left hepatic lobe. There has been interval postsurgical change of a cholecystectomy. The pancreas and adrenal glands are normal appearing. The spleen is normal appearing. There is a stable 2 cm cyst involving the anterior aspect of the right mid kidney that is stable to a prior CTA of the c hest and abdomen dated 11/22/15. There is moderate calcification involving the abdominal and pelvic vasculature. No definite pathologi maria t enlarged lymph nodes are seen within the periaortic region or upper abdomen. There is a moderate amount of retained stool within the colon. there is a lobulated low density fluid -like material seen within the right aspect of the pelvis extending up to the region of the right adn exa where there is suspected 2.8 cm cystic abnormality involving the right adnexa on image 57 of seri es 2. The rectum and sigmoid colon are largely underdistended; however, there is accentuation of the wall thickness. Component of colitis cannot be entirely excluded. There is a normal appendix in the right lower quadrant. The small bowel is of normal caliber. The bladder is partially decompressed. There has been an interval, chronic appearing superior end malgorzata te compression fracture of L2. This was seen on a radiograph dated 10/29/16. IMPRESSION: 1. Hypodense lesion involving the right adnexa suspicious for a mildly complex cyst. There is pr ominent fluid density seen within the right aspect of the hemipelvis suspicious for possible ruptured cyst. Recommend further evaluation with a pelvic ultrasound for additional characterization. 2. Slight underdistention of the rectum and sigmoid colon. There is accentuation of the wall thi ckness. Component of proctocolitis is not entirely excluded. 3. Hepatic and right renal cyst. 4. Chronic L2 superior end plate compression fracture. Code T POS: MASTER
== END 2020-04-29 12:56 | disposition home or self-care (01) ==
LOC: BICCT 12:55
PROVIDERS: ATTEND Internal Medicine Hematology & Oncology
DX: C50.811 Malignant neoplasm of overlapping sites of right female breast (principal); R63.4 Abnormal weight loss; N28.1 Cyst of kidney, acquired; K63.89 Other specified diseases of intestine; M48.56XA Collapsed vertebra, not elsewhere classified, lumbar region, initial encounter for fracture; E27.8 Other specified disorders of adrenal gland
CPT/HCPCS: 74177; 82565; Q9967

== ENCOUNTER 2020-05-02 12:43 | Outpatient (CLI) | payer OTHER ==
--- NOTE | 2020-05-02 14:56 | RAD ---
Barium enema single column HISTORY: Incomplete colonoscopy. FINDINGS: Thin barium liquid was carefully instilled into the rectum under fluoroscopic control. Larg e amount of gas was initially present throughout the colon from recent colonoscopy. At the mid sigmoid colon is a focal circumferential area of irregular luminal narrowing, with the appearance of a circumferential mass. For approximately 12 cm above this, there is marked irregularity of the sigmoid colon wall with irregular luminal narrowing that does not fully distend throughout the exam. Scattered diverticula also arise from the colon. The remainder of the colon was well distended. No other lesions evident. Reflux into the appendix. On the postevacuation image, the rectum and distal sigmoid colon are decompressed, but there is persistent fluid and gaseous distention of the rest of the colon. IMPRESSION : Moderate to long segment irregularity of the mid to upper sigmoid colon, with a filling defect at the distal margin of the abnormality having the appearance of a circumferential mucosal mass. Fluoroscopic findings also suggestive of partial obstruction. Please correlate with endoscopic findin gs. Otherwise mild diverticulosis.
== END 2020-05-02 12:44 | disposition home or self-care (01) ==
LOC: RAD 12:43
PROVIDERS: ATTEND Internal Medicine
DX: K56.699 Other intestinal obstruction unspecified as to partial versus complete obstruction (principal); K57.90 Diverticulosis of intestine, part unspecified, without perforation or abscess without bleeding
CPT/HCPCS: 74280

== ENCOUNTER 2020-05-16 07:18 | Outpatient (CLI) | payer OTHER ==
[2020-05-16 17:29] LABS: #Basophils 0.1 10x3/uL (0.0-0.2); #Eosinphils 0.8 10x3/uL (0.0-0.5); #Monocytes 0.9 10x3/uL (0.0-1.1); #Neutrophils 7.9 10x3/uL (1.5-8.4); %Basophils 0.4 % (0.0-2.0); %Eosinophils 6.9 % (0.0-6.0); %Lymphocytes 16.3 % (18.0-47.0); %Monocytes 7.5 % (0.0-10.0); %Neutrophils 68.4 % (40.0-75.0); Hemoglobin 11.6 g/dL (12.0-16.0); Mean Corpuscular HGB CONC 30.5 G/DL (32.0-36.0); Mean Corpuscular Hemoglobin 28.4 PG (27.0-33.0); Mean Corpuscular Volume 93.1 fl (80.0-100.0); Mean Platelet Volume 9.9 fl (7.4-10.4); Platelet Count 413 10x3/uL (130-400); RBC Distribution Width 15.1 % (11.5-14.5); Red Blood Cell (RBC) Count 4.08 10x6/uL (3.90-5.20); White Blood Cell (WBC) Count 11.6 10x3/uL (4.5-11.0)
[2020-05-16 17:59] LABS: ALT (SGPT) 6 U/L (8-55); AST (SGOT) 17 U/L (5-34); Albumin 3.1 g/dL (3.4-4.8); Alkaline Phosphatase 72 U/L (40-110); Anion Gap 15 mmol/L (10-20); BUN (Urea Nitrogen) 9 mg/dL (9.8-20.1); Bilirubin, Total 0.8 mg/dL (0.2-1.2); Calc. Creatinine Clearance 0 mL/min (70-130); Carbon Dioxide 28 mmol/L (23-31); Chloride 97 mmol/L (98-107); Globulin 4.6 g/dL (2.4-3.5); Glucose 87 mg/dL (80-115); Potassium 3.6 mmol/L (3.5-5.1); Protein, Total 7.7 g/dL (6.0-8.3); Sodium 136 mmol/L (136-145)
[2020-05-17 03:27] LABS: SARS-CoV-2 MS2 Positive; SARS-CoV-2 N Gene Negative; SARS-CoV-2 S Gene Negative; SARS-CoV-2 by NAA Not Detected (NotDetected); SARS-CoV-2 orf1ab Negative
[2020-05-17 09:11] LABS: Hemoglobin A1c 5.4 % (4.0-6.0)
--- NOTE | 2020-05-19 16:18 | EKG ---
Test Reason : Blood Pressure : / mmHG Vent. Rate : 097 BPM Atrial Rate : 097 BPM P-R Int : 156 ms QRS Dur : 072 ms QT Int : 382 ms P-R-T Axes : 078 073 078 degrees QTc Int : 485 ms Normal sinus rhythm Possible Left atrial enlargement Borderline ECG When compared with ECG of 25-MAR-2020 13:30, No significant change was found Confirmed by DR. Lester HUTSON ([id number]) on 05/19/2020 4:18:16 PM Referred By: Ho LA Confirmed By:DR. Lester HUTSON
== END 2020-05-16 07:19 | disposition home or self-care (01) ==
LOC: LABBT 07:18
PROVIDERS: ATTEND Specialist
DX: Z01.818 Encounter for other preprocedural examination (principal); K56.609 Unspecified intestinal obstruction, unspecified as to partial versus complete obstruction; Z20.828 Contact with and (suspected) exposure to other viral communicable diseases
CPT/HCPCS: 80053; 82378; 83036; 85025; 87635; 93005; 93010; U0003

== ENCOUNTER 2020-05-16 15:45 | Inpatient (IN) | payer OTHER, MEDICARE ==
--- NOTE | 2020-05-19 13:39 | HP ---
HISTORY OF PRESENT ILLNESS: Mikala Sanderson is a 64-year-old female, whom I have seen in the past regarding a right breast cancer, for which she underwent partial mastectomy, converted to mastectomy because of multifocal disease. She had T2 N0 M0, MS positive, HER2 negative, Ki-67 low at 11.8%, invasive ductal cell carcinoma on 03/05/2019 with a 3.5 cm malignancy and 2 negative sentinel nodes. Oncotype diagnosis score low risk for recurrence, on Arimidex from June 2019 to December 2019, stopped for side effects. The patient in the past 3 to 6 months has lost 24 pounds with crampy abdominal pain. CAT scan of the abdomen and pelvis was unremarkable with some thickening of the rectosigmoid. She underwent colonoscopy with Dr. Noyola and he could not pass the scope beyond 20 cm. Upper endoscopy was unremarkable. Barium enema was ordered, revealing a tight stricture in the sigmoid colon with some distortion that may represent a malignancy. The patient is referred for further evaluation. She reports that her bowel prep for colonoscopy was difficult, requiring repeat prep with a different prep and magnesium citrate. She did have some cramps during the prep. The patient, though she has experienced weight loss, has not had any abdominal bloating, although she does have abdominal cramps. Family history negative for colon cancer. She denies prior history of episodes treated as diverticulitis. Recent chest x-ray on 03/25/2020, with no acute disease. CT chest and CTA, no evidence of embolus, no lung masses. Abdominopelvic CAT scan in April 2020, without evidence of metastatic disease. PAST SURGICAL HISTORY: On November 26, 2012, laparoscopic cholecystectomy, umbilical hernia repair. On 03/05/2019, right breast cancer, sentinel node biopsy, wide local excision. On 03/23/2019, re-excision of superior margin. On 05/14/2019, right simple mastectomy. On 03/28/2020, skin biopsy at bedside. Hidradenitis suppurativa resected both axilla that I performed in the past. History of two C-sections. PAST MEDICAL HISTORY: Hypertension, right breast cancer, and colon high-grade partial obstruction. ALLERGIES: NONE. SOCIAL HISTORY: Tobacco, one pack per day, advised cessation. Social alcohol use. Oncologist is Dr. Carlos Cooley. The patient has three children. Lives alone. 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 No drug use. She is up to date on mammograms. MEDICATIONS: 1. Amlodipine 10 mg a day. 2. ProAir as needed, aerosol inhaler. PHYSICAL EXAMINATION: VITAL SIGNS: 111 pounds, 61 inches, 22 BMI, 112/70, 94, 97 degrees. HEAD, EARS, EYES, NOSE, AND THROAT: Unremarkable. LUNGS: Clear to auscultation. CARDIAC: Regular rate and rhythm without murmur or gallop. ABDOMEN: Soft, nontender, non-tympanitic. EXTREMITIES: Unremarkable. ASSESSMENT AND PLAN: 1. High-grade partial colon obstruction. No evidence of malignancy today, although there is concern. No prior history of diverticulitis. Differential diagnosis would be diverticulitis or malignancy. Fortunately, recent CT scan of the abdomen and pelvis, CTA chest, chest x-ray do not reveal any evidence of malignancy. At this point, we would recommend mostly soft liquid diet, bowel prep the day prior with magnesium citrate daily for the 2 days prior to that. Plan laparoscopic possible open sigmoid colon resection with colorectal anastomosis, possible protective diverting ileostomy, possible open surgery. She understands risks and benefits. Questions answered. We will plan this for next week. 2. Tobacco abuse. 3. Probably some degree of chronic obstructive pulmonary disease. 4. History of right breast cancer. No evidence of disease, see staging as above. Job ID: [id number]
[2020-05-21] MEDS ORDERED: ePHEDrine 50 MG/ML VIAL ONE (08:36)
[2020-05-21] MEDS ORDERED: Calcium Chloride 1 GM/10 ML Abboject SYRINGE ONE (08:36)
[2020-05-21] MEDS ORDERED: Rocuronium Bromide 10 MG/ML (10ML VIAL) ONE (08:36)
[2020-05-21] MEDS ORDERED: Esmolol 100 MG/10 ML VIAL ONE (08:36)
[2020-05-21] MEDS ORDERED: PHENYLEPHRINE-NS 100 MCG/ML 10 ML SYRINGE ONE (08:36)
[2020-05-21] MEDS ORDERED: Succinylcholine 200 MG/10 ml SYRINGE FS ONE (08:36)
[2020-05-21] MEDS ORDERED: PROPOFOL 200 MG/20 ML VIAL ONE (08:36)
[2020-05-21] MEDS ORDERED: Lidocaine 1% PF 5 ML VIAL ONE (08:36)
[2020-05-21] MEDS ORDERED: Bupivacaine HCl 0.5%/Epinephrine 1:200,000/PF 30 ml Vial ONE (08:38)
[2020-05-21] MEDS ORDERED: Ketorolac Tromethamine 30 MG/ML VIAL ONE (11:05)
[2020-05-21] MEDS ORDERED: Acetaminophen 500 MG TAB ONE (11:05)
[2020-05-21] MEDS ORDERED: Gabapentin 300 MG CAP ONE (11:05)
[2020-05-21] MEDS ORDERED: Fentanyl 100 MCG/2 ML VIAL ONE ×2 (11:10→12:18)
[2020-05-21] MEDS ORDERED: Midazolam HCl 2 mg/2 ml Vial ONE (11:10)
[2020-05-21] MEDS ORDERED: Meropenem 2 GM in Admixture Fee 1 EACH IVPB SCH (11:45)
[2020-05-21] MEDS ORDERED: Meropenem 2 GM in Sodium Chloride 0.9% 100 ML IVPB SCH (12:00)
[2020-05-21] MEDS ORDERED: Lidocaine 1% w/Epinephrine 1:100K 20 ML VIAL ONE (12:14)
[2020-05-21] MEDS ORDERED: Bupivacaine 0.25% HCL 30 ML VIAL ONE (12:14)
[2020-05-21] MEDS ORDERED: Famotidine/PF 20 mg/2ml Vial ONE (12:18)
[2020-05-21] MEDS ORDERED: HYDROmorphone 2 MG/ML VIAL ONE (12:18)
[2020-05-21] MEDS ORDERED: SUGAMMADEX SODIUM 200 MG/2 ML VIAL ONE ×2 (12:18→16:06)
[2020-05-21] MEDS ORDERED: Albumin 5% 0 ML ONE (12:54)
[2020-05-21] MEDS ORDERED: Albumin 5% 500 ML ONE (12:55)
[2020-05-21] MEDS ORDERED: Norepinephrine 4 MG/4 ML VIAL ONE ×2 (14:32→14:34)
[2020-05-21] MEDS ORDERED: Sodium Chloride 0.9% 20 ML ONE (15:07)
[2020-05-21] MEDS ORDERED: Albumin 25% 100 ML ONE (15:24)
[2020-05-21] MEDS ORDERED: Sodium Chloride 0.9% 30 ML ONE (16:01)
[2020-05-21 17:33] LABS: Base Excess (BEa) 1.9 mEq/L (-2.0 to +3.0); CO2 Tension 33.5 mmHg (35.0-45.0); Calcium, Ionized (arterial) 1.19 mmol/L (1.12-1.30); Carboxyhemoglobin (COHb) 0.3 gm% (0.0-3.0); O2 Tension (PaO2), arterial 112.2 mmHg (> 80.0); pH, Arterial 7.49 (7.35-7.45)
[2020-05-21 17:34] LABS: ALV-art Gradient 273.725 mmHg (0-20); Puncture Site Arterial Line
[2020-05-21] MEDS ORDERED: Fentanyl BOLUS 250 ML IVPB PRN (19:30)
[2020-05-21] MEDS ORDERED: DISCONTINUE PREVIOUS NARCOTIC PAIN MEDICATIONS AND BENZODIAZEPINES FS SCH (19:30)
[2020-05-21] MEDS ORDERED: Lorazepam 2 MG/ML VIAL SLOW IVP PRN (19:30)
[2020-05-21] MEDS ORDERED: Propofol BOLUS 1,000 MG/100 ML VIAL IV PRN (19:30)
[2020-05-21] MEDS ORDERED: fentaNYL Citrate/PF 2,000 MCG in Sodium Chloride 0.9% 60 ML IV SCH (19:30)
[2020-05-21] MEDS ORDERED: Morphine 2 MG/ML VIAL SLOW IVP PRN ×2 (19:30→21:32)
[2020-05-21] MEDS ORDERED: Propofol 1,000 MG/100 ML VIAL IV PRN (19:30)
--- NOTE | 2020-05-21 19:36 | RAD ---
PORTABLE CHEST: Date: 05/21/2020 HISTORY: Intubation. COMPARISON: 03/25/2020 chest x-ray. FINDINGS: Patient is rotated on this exam. Heart size is within normal limits. There are atherosclerotic change s of the aorta. NG tube is below the hemidiaphragm. An endotracheal tube is in the right mainstem bro nchus and needs to be retracted approximately 2-3. There is increased density in the left base which could represent atelectasis. It is difficult to assess for volume loss due to rotation. Left-sided s ubclavian line is seen. Catheter tip overlies the superior vena cava. No pneumothorax. IMPRESSION: Endotracheal tube which appears to be at the level of the right mainstem bronchus. Findings as discus sed above. POS: SHERI
[2020-05-21] MEDS: Lactated Ringer's 1,000 ML IV SCH (19:41)
[2020-05-21 19:58] LABS: ALT (SGPT) Less than 7 U/L (8-55); AST (SGOT) 21 U/L (5-34); Alkaline Phosphatase 42 U/L (40-110); Anion Gap 17 mmol/L (10-20); BUN (Urea Nitrogen) 11 mg/dL (9.8-20.1); Bilirubin, Total 1.5 mg/dL (0.2-1.2); Calc. Creatinine Clearance 70 mL/min (70-130); Calcium 8.4 mg/dL (7.8-10.44); Carbon Dioxide 25 mmol/L (23-31); Chloride 101 mmol/L (98-107); Globulin 2.6 g/dL (2.4-3.5); Glucose 129 mg/dL (80-115); Magnesium 1.7 mg/dL (1.6-2.6); Phosphorus 3.2 mg/dL (2.3-4.7); Potassium 2.6 mmol/L (3.5-5.1); Protein, Total 5.6 g/dL (6.0-8.3); Sodium 140 mmol/L (136-145)
[2020-05-21] MEDS ORDERED: Albuterol Sulfate 1.25 MG/3 ML NEB INH PRN (20:33)
[2020-05-21] MEDS ORDERED: Ventilator Sedation Protocol 1 EACH FS SCH (21:30)
[2020-05-21] MEDS ORDERED: Sodium Chloride 0.9% 1,000 ML IV SCH (21:30)
[2020-05-21] MEDS ORDERED: hydrALAZINE 20 MG/ML VIAL SLOW IVP PRN (21:32)
[2020-05-21] MEDS ORDERED: Dextrose 5% in Water 1,000 ML IV PRN (21:32)
[2020-05-21] MEDS ORDERED: Ondansetron ODT 4 MG TAB PO PRN (21:32)
[2020-05-21] MEDS ORDERED: Ondansetron PF 4 MG/2 ML Vial IVP PRN (21:32)
[2020-05-21] MEDS ORDERED: Dextrose 50% Abboject 50 ML SYRINGE SLOW IVP PRN (21:32)
[2020-05-21 21:55] LABS: Mean Corpuscular HGB CONC 33.5 g/dL (32.0-36.0); Mean Corpuscular Hemoglobin 30.8 pg (27.0-31.0); Mean Corpuscular Volume 91.9 fL (78.0-98.0); Mean Platelet Volume 7.1 fL (7.4-10.4); Platelet Count 322 thou/uL (130-400); RBC Distribution Width 13.9 % (11.5-14.5); Red Blood Cell (RBC) Count 3.24 mill/uL (4.20-5.40); White Blood Cell (WBC) Count 19.5 thou/uL (4.8-10.8)
[2020-05-21 21:59] LABS: Band 61 % (5-11); Lymphocytes 6 % (21-51); MDiff Complete? YES; Neutrophil 29 % (42-75)
[2020-05-21 22:00] LABS: Monocytes 4 % (0-10); Polychromasia SLIGHT = 2-3 cells (100X) (0-2/hpf); Target Cells SLIGHT = 2-5 cells (100X) (0-1/hpf)
[2020-05-21 22:02] LABS: Platelet Morphology Comment Appears Adequate
[2020-05-21 22:07] LABS: Hemoglobin 9.8 g/dL (12.0-16.0); Mean Corpuscular Hemoglobin 30.9 pg (27.0-31.0); Mean Corpuscular Volume 90.9 fL (78.0-98.0); Platelet Count 308 thou/uL (130-400); RBC Distribution Width 13.9 % (11.5-14.5); Red Blood Cell (RBC) Count 3.17 mill/uL (4.20-5.40); White Blood Cell (WBC) Count 15.7 thou/uL (4.8-10.8)
[2020-05-21] MEDS ORDERED: Potassium Chloride 40 MEQ in Premix Bag 1 BAG IVPB SCH (22:15)
[2020-05-21 22:24] LABS: Band 20 % (5-11); Lymphocytes 6 % (21-51); MDiff Complete? YES; Monocytes 4 % (0-10); Neutrophil 70 % (42-75)
[2020-05-21 22:28] LABS: ALT (SGPT) Less than 7 U/L (8-55); AST (SGOT) 17 U/L (5-34); Albumin 2.8 g/dL (3.4-4.8); Alkaline Phosphatase 41 U/L (40-110); Anion Gap 15 mmol/L (10-20); BUN (Urea Nitrogen) 11 mg/dL (9.8-20.1); Bilirubin, Total 1.9 mg/dL (0.2-1.2); Calc. Creatinine Clearance 62 mL/min (70-130); Calcium 8.3 mg/dL (7.8-10.44); Carbon Dioxide 26 mmol/L (23-31); Chloride 101 mmol/L (98-107); Globulin 2.5 g/dL (2.4-3.5); Glucose 118 mg/dL (80-115); Magnesium 1.7 mg/dL (1.6-2.6); Phosphorus 3.6 mg/dL (2.3-4.7); Protein, Total 5.3 g/dL (6.0-8.3); Sodium 139 mmol/L (136-145)
[2020-05-21 22:44] LABS: Potassium 2.8 mmol/L (3.5-5.1)
[2020-05-22] MEDS: Lactated Ringer's 1,000 ML IV SCH ×4 (03:13→20:07)
[2020-05-22] MEDS ORDERED: Sodium Chloride 0.9% 1,000 ML IV SCH ×2 (03:15→08:00)
[2020-05-22 06:08] LABS: #Lymphocytes 1.5 thou/uL (1.20-3.40); #Monocytes 0.4 thou/uL (0.11-0.59); #Neutrophils 8.6 thou/uL (1.40-6.50); %Basophils 0.1 % (0.0-1.0); %Eosinophils 0.2 % (0.0-10.0); %Lymphocytes 14.6 % (21.0-51.0); %Monocytes 3.9 % (0.0-10.0); %Neutrophils 81.3 % (42.0-75.0); Hemoglobin 8.5 g/dL (12.0-16.0); Mean Corpuscular Hemoglobin 30.1 pg (27.0-31.0); Mean Corpuscular Volume 91.2 fL (78.0-98.0); Mean Platelet Volume 7.3 fL (7.4-10.4); Platelet Count 285 thou/uL (130-400); RBC Distribution Width 13.9 % (11.5-14.5); Red Blood Cell (RBC) Count 2.82 mill/uL (4.20-5.40); White Blood Cell (WBC) Count 10.5 thou/uL (4.8-10.8)
[2020-05-22 06:49] LABS: ALT (SGPT) Less than 7 U/L (8-55); AST (SGOT) 17 U/L (5-34); Albumin 2.3 g/dL (3.4-4.8); Alkaline Phosphatase 35 U/L (40-110); Anion Gap 13 mmol/L (10-20); BUN (Urea Nitrogen) 9 mg/dL (9.8-20.1); Bilirubin, Total 1.4 mg/dL (0.2-1.2); Calc. Creatinine Clearance 69 mL/min (70-130); Calcium 7.3 mg/dL (7.8-10.44); Carbon Dioxide 24 mmol/L (23-31); Chloride 108 mmol/L (98-107); Globulin 2.2 g/dL (2.4-3.5); Glucose 90 mg/dL (80-115); Magnesium 1.5 mg/dL (1.6-2.6); Phosphorus 2.3 mg/dL (2.3-4.7); Potassium 3.5 mmol/L (3.5-5.1); Protein, Total 4.5 g/dL (6.0-8.3); Sodium 141 mmol/L (136-145)
[2020-05-22 07:28] LABS: Actual Bicarbonate (HCO3a) 23.7 mEq/L (22-28); Base Excess (BEa) 0.1 mEq/L (-2.0 to +3.0); CO2 Tension 34.2 mmHg (35.0-45.0); Carboxyhemoglobin (COHb) 0.6 gm% (0.0-3.0); Hemoglobin (Hb) 9.1 g/dL (12.0-16.0); O2 Tension (PaO2), arterial 166.9 mmHg (> 80.0); Potassium - ABG Lab 3.72 mmol/L (3.70-5.30); pH, Arterial 7.46 (7.35-7.45)
--- NOTE | 2020-05-22 08:28 | OP ---
DATE OF PROCEDURE: 05/21/2020 PREOPERATIVE DIAGNOSIS: Rectosigmoid obstructive process. Biopsies, inflammatory, nonmalignant . Preoperative CEA level normal. Three-day bowel prep. POSTOPERATIVE DIAGNOSES: 1. Rectosigmoid obstructive process. Biopsies, inflammatory, nonmalignant . Preoperative CEA level normal. Three-day bowel prep. 2. Extensive inflammatory reaction in the pelvis with rectosigmoid adherent to the uterus and a large mass of the distal rectosigmoid, probably inflammatory, Pathology dependent. 3. Intraoperative hypotension, pressor requirements, 2 units of blood transfused. ESTIMATED BLOOD LOSS: 250 mL. INTRAOPERATIVE CONSULTATION: Dr. Ramez Coburn for bleeding around the uterus and uterocervical area for hemostasis. Identification of the ureters kept them free of harm. Of note, intraoperative hypotension, pressors required. Prior to leaving the operating room, the blood pressure improved, hypotension resolved, and pressor requirements terminated. DESCRIPTION OF PROCEDURE: The patient was taken to the operating room, where under general anesthesia in the dorsal lithotomy position, abdomen, pelvis, buttocks prepared with ChloraPrep and Betadine respectfully, draped in routine fashion. The patient had had a TAP block and local anesthetic was not used. Bilateral upper quadrant incisions were made and pneumoperitoneum to 15 mmHg obtained with Veress needle and 5 ports placed. Infraumbilical incision was made and 5 port placed. Video laparoscope had been inserted. Right lower quadrant 12 port placed. Left lower quadrant 5 port placed. Mobilization of the distal transverse colon, splenic flexure performed with the LigaSure mobilizing the colon. As we approached to the pelvis, it was appreciated severe inflammatory condition. An infraumbilical incision was made, carried down to skin, subcutaneous tissue, just above the umbilicus to the pubis and abdominal cavity sharply. The left colon was mobilized identifying the left and right ureters, keeping them free of harm. There was severe inflammatory reaction in the pelvis with the sigmoid colon adherent to the pelvic sidewall and the posterior uterus. The dissection carried down to the left, identifying the left ureter, keeping it free of harm, entering the presacral space, dissecting this free, then careful dissection, keeping the ureters free of harm, freed the sigmoid colon from the pelvic sidewall. Digital dissection freed the sigmoid colon from the uterus. The left ovarian vessels were divided between clamps and ligated with 2-0 silk ties. The infundibulum ligament was taken down with the LigaSure under Dr. Coburn's direction. Dr. Coburn performed a left salpingo-oophorectomy, submitting this to Pathology. Hemostasis gained with 2-0 Vicryl and 2-0 silk ties. Once good hemostasis had been obtained in the gynecological area, further dissection of the rectosigmoid carried out with careful dissection, circumferentially freed the rectum from the surrounding structures. Upper rectum divided with a contour staple. The mesentery of the sigmoid had been dissected free and MAURICE divided between clamps and ligated with 2-0 silk ties. The left colon, splenic flexure, transverse colon had been mobilized and reached distally. At this point, the most of the left colon and sigmoid colon were removed by making an incision with the cutting cautery and a viable section of the probable distal transverse colon and placing a 33 mm anvil and securing it with a 2-0 Prolene pursestring suture on the post. Our gloves and gowns were then closed. The contour staple had been used to divide the upper rectum well below the inflammatory mass process. This was cleared of fatty tissue. Good hemostasis obtained with LigaSure and 2-0 silk ties and ligatures. Once good hemostasis had been obtained, sizer was placed per anus towards the staple line. The stapler 33 mm EEA stapler, post advanced out of the staple line and was mated to the anvil in the proximal colon and this anastomosis secured after approximating the colorectal segments for anastomosis within the torque fire range, firing the stapler, removing, 2 intact donuts discarded. Interrupted Lembert sutures of 2-0 silk placed to reinforce the staple line. The anastomosis was checked under water and was without leak. Just before beginning the anastomosis when the patient started experiencing hypotension, requiring aggressive fluid resuscitation. She became hypoxic, requiring 2 pressors. We were close to complete the anastomosis. For this reason, the protective diverting ileostomy was undertaken. Once the anastomosis was noted to be leak free., the terminal ileum was divided with a stapler. Mesentery mobilized and end ileostomy performed by removing a circular defect of skin and subcutaneous tissue making a cruciate incision in anterior rectus fascia, dilating this to two fingerbreadths, bringing the ileum which was very small up for ileostomy. This was left in place, held with a Mitch clamp. Sponge and needle counts were correct. Abdominal cavity was irrigated. Irrigant evacuated. Aneta was buried in the pelvis. Seprafilm applied. Fascia approximated midline with continuous suture of #1 PDS. Skin and subcutaneous tissues irrigated. Gloves and gowns were changed. Skin approximated with tevin. KATELYN dressing applied. The ostomy matured with 4 Flavia sutures of 3-0 Vicryl and the remaining with simple sutures of 3-0 Vicryl completing ileostomy maturation placed ileostomy appliance. Port sites had been closed with tevin and 4-0 Monocryl suture and Dermabond. Once the dressings were secured, I then changed gloves and gowns and turned for placement of central line. Left paraclavicular area was prepared with ChloraPrep and left subclavian vein cannulated with a trocar catheter, J-wire threaded, trocar catheter removed. Skin site enlarged sharply. Seldinger technique was used to place a triple-lumen catheter, secured with 3-0 nylon suture. Sterile dressing. Patient tolerated surgery well and at the end of the procedure, her oxygenation improved, pressors were terminated, and blood was finally available to administer. Her pressure had already improved prior to administration of blood. The patient will be transferred to the ICU for close monitoring. Job ID: [id number]
[2020-05-22] MEDS ORDERED: Albumin 25% 25 GM/100 ML BOT IVPB SCH (08:33)
--- NOTE | 2020-05-22 08:37 | PRG ---
DATE OF SERVICE: 05/22/2020 SUBJECTIVE: Mikala Sanderson is in ICU. She is on the ventilator. Overnight, she has required fluid boluses for diminished urine output. She, at those times, will be slightly tachycardic, heart rate in the 120, blood pressure in the 90s, but she responds well with fluid. She will receive another IV fluid bolus this morning for diminished urine output. The patient is awake, sedation held. She is anxious. Heart rate 120 with endotracheal tube in place. I have asked Respiratory to do a quick wean on her to CPAP and extubate her. We will remove her NG tube at the time of extubation. She can start on clear liquids. OBJECTIVE: LUNGS: Clear to auscultation. CARDIAC: Regular rate and rhythm without murmur or gallop with sinus tachycardia. NEUROLOGIC: She is anxious and awake. ABDOMEN: Soft. Good bowel sounds. Nontender. KATELYN incisional suction device in place, which we will leave for 5 days. The ileostomy has stool and gas output. Abdomen is soft. EXTREMITIES: Unremarkable. Urine output 587. Gastric NG tube output not recorded. LABORATORY DATA: Laboratories, this morning, reveal a white count of 10, hemoglobin of 8.5, and platelet count 285,000. Her potassium is 3.5, sodium 141, BUN and creatinine are normal, bilirubin 1.4, magnesium 1.5 and is low, phosphorus is normal, calcium is slightly low albumin, which is slightly low. Blood gases this morning are pending. Last night, they looked good. Chest x-ray was stable last night, pending this morning. ASSESSMENT AND PLAN: Status post left colon resection for severe inflammatory disease, cannot rule out malignancy. Wait on definitive pathology. Preoperative CEA level and CAT scan of the abdomen and pelvis were unremarkable for metastatic disease. The patient intraoperatively had some venous bleeding and the hypotensive, hypoxic event may be in related to an air embolism as it reversed promptly prior to leaving the operation room with cessation of pressors and return of oxygenation. Echocardiogram pending today. The patient hemodynamically is doing well. Mental status, alert and following commands. We will plan extubation. We will continue to monitor in the ICU. We will transfuse 1 unit of blood due to low hemoglobin and low blood pressure. Continue fluid resuscitation. Job ID: [id number]
[2020-05-22] MEDS: Oxybutynin ER 5 MG TAB PO SCH (09:00)
[2020-05-22] MEDS ORDERED: Magnesium Sulfate 3 GM in Sodium Chloride 0.9% 100 ML IVPB SCH (09:00)
--- NOTE | 2020-05-22 09:07 | PRG ---
DATE OF SERVICE: 05/22/2020 SUBJECTIVE: This morning, to my surprise, awake, alert, responsive on the vent. She is awake, though she is off all pressors. OBJECTIVE: VITAL SIGNS: Temperature is 99, blood pressure 105/73, . CHEST: No wheezing, no crackles. CARDIAC: Normal S1, S2. No gallops. ABDOMEN: Soft. NEUROLOGIC: She is awake, responsive. LABORATORY DATA: White count , platelet count 285. Lytes are normal. Blood gas is pending. X-ray pending. IMPRESSION: Status post hypertension, chronic obstructive pulmonary disease, colon cancer, breast cancer. PLAN: We will try and wean and extubate today. Supportive care. She is on broad-spectrum antibiotics as per Surgery. DVT prophylaxis. Supportive care. One-half hour of critical time. Job ID: [id number]
--- NOTE | 2020-05-22 09:26 | CON ---
DATE OF CONSULTATION: This note was to be dictated yesterday. Computer was down, the [employer] was down, not able to access any of the information from the computer. HISTORY OF PRESENT ILLNESS: Patient was seen yesterday evening at 5:00 p.m. for total of 45 minute critical time. The patient was on the vent. She came back from the OR, intubated. She had a very eventful surgical procedure down in the OR where a post lap colectomy, she developed acute hypotension. A central line had been placed. There was concern she might have had an embolus. She was never acidotic as per anesthesia. When she arrived, blood gases showed adequate oxygenation and normal acid base. She is only on Levophed. Prior to that she had been on vasopressin and dopamine which has been discontinued. Once again, we are unable to access any other medical records because the [employer] and the computer are all down. PAST MEDICAL HISTORY: Extensive past medical history pertinent for multiple medical problems including right breast cancer, high-grade colon obstruction. 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 She received steroids at that time. Additional extensive history is pertinent for breast cancer, hypertension, tobacco abuse, COPD. PREVIOUS SURGERIES: Cholecystectomy, umbilical hernia, breast surgery, right mastectomy. HOME MEDICATIONS: 1. Ditropan 10. 2. Flagyl 500. 3. Zithromax 500 three times a day. 4. Reglan. 5. Albuterol. 6. Tylenol. 7. Amlodipine 10. ALLERGIES: NONE. PHYSICAL EXAMINATION: GENERAL: On examination, she is sedated. VITAL SIGNS: Her sats are 98, pulse was 80, blood pressure 120/80 on Levophed, respiratory rate 18. CHEST: No wheezing, no crackles. CARDIAC: Normal S1, S2. DIAGNOSTIC STUDIES: X-ray did not show any acute infiltrates, may be some left retrocardiac density, but there was a rotation. LABORATORY DATA: Her white count was 19,000, H and H 10 and 29, platelet count is normal. PO2 is 112, pCO2 35, pH 7.49 on a rate of 18, 60%. Lytes were normal. IMPRESSION AND PLAN: 1. Status post lap with intraoperative acute hypotension, etiology unclear. 2. Status post laparoscopic sigmoid colon resection, open procedure done, sigmoid colon resection, central venous access placed in. Previous breast cancer cholecystectomy. Tobacco abuse. 3. Pulmonary matias, we will keep her intubated overnight. Continue pressors. Supportive care. Hopefully, if she remains stable overnight, we will start weaning and extubation. 4. 45 minutes critical time. Job ID: [id number]
[2020-05-22] MEDS: Hydrocortisone Sod Succ/PF 100 mg/2 ml Vial IVP SCH ×3 (12:11→22:54)
[2020-05-22] MEDS: Morphine 4 MG/ML VIAL SLOW IVP PRN ×3 (12:43→23:50)
[2020-05-22 17:17] LABS: Hemoglobin 9.2 g/dL (12.0-16.0); Mean Corpuscular HGB CONC 33.2 g/dL (32.0-36.0); Mean Corpuscular Hemoglobin 30.9 pg (27.0-31.0); Mean Corpuscular Volume 93.2 fL (78.0-98.0); Mean Platelet Volume 7.2 fL (7.4-10.4); Platelet Count 254 thou/uL (130-400); RBC Distribution Width 13.9 % (11.5-14.5); Red Blood Cell (RBC) Count 2.97 mill/uL (4.20-5.40); White Blood Cell (WBC) Count 16.8 thou/uL (4.8-10.8)
[2020-05-22 17:42] LABS: Band 20 % (5-11); Lymphocytes 1 % (21-51); MDiff Complete? YES; Monocytes 1 % (0-10); Neutrophil 78 % (42-75); Platelet Morphology Comment Appears Adequate; Polychromasia SLIGHT = 2-3 cells (100X) (0-2/hpf)
[2020-05-22] MEDS: traMADol HCl 50 MG TAB PO PRN ×2 (17:52→22:52)
[2020-05-22] MEDS: Enoxaparin Sodium 40 MG/0.4 ML SYRINGE SC SCH (20:07)
[2020-05-23] MEDS: Morphine 4 MG/ML VIAL SLOW IVP PRN ×2 (04:01→09:01)
[2020-05-23 04:35] LABS: #Lymphocytes 0.9 thou/uL (1.20-3.40); #Monocytes 0.6 thou/uL (0.11-0.59); #Neutrophils 17.2 thou/uL (1.40-6.50); %Eosinophils 0.1 % (0.0-10.0); %Lymphocytes 4.6 % (21.0-51.0); %Monocytes 2.9 % (0.0-10.0); %Neutrophils 92.4 % (42.0-75.0); Hemoglobin 9.2 g/dL (12.0-16.0); Mean Corpuscular HGB CONC 32.8 g/dL (32.0-36.0); Mean Corpuscular Hemoglobin 30.5 pg (27.0-31.0); Mean Platelet Volume 7.4 fL (7.4-10.4); Platelet Count 255 thou/uL (130-400); RBC Distribution Width 13.9 % (11.5-14.5); White Blood Cell (WBC) Count 18.6 thou/uL (4.8-10.8)
[2020-05-23] MEDS: Hydrocortisone Sod Succ/PF 100 mg/2 ml Vial IVP SCH (04:56)
[2020-05-23 05:04] LABS: ALT (SGPT) 7 U/L (8-55); AST (SGOT) 20 U/L (5-34); Albumin 2.9 g/dL (3.4-4.8); Alkaline Phosphatase 43 U/L (40-110); Anion Gap 10 mmol/L (10-20); BUN (Urea Nitrogen) 7 mg/dL (9.8-20.1); Calc. Creatinine Clearance 75 mL/min (70-130); Carbon Dioxide 26 mmol/L (23-31); Chloride 101 mmol/L (98-107); Globulin 2.7 g/dL (2.4-3.5); Glucose 112 mg/dL (80-115); Potassium 3.4 mmol/L (3.5-5.1); Protein, Total 5.6 g/dL (6.0-8.3); Sodium 134 mmol/L (136-145)
[2020-05-23 05:14] VITALS: BMI 23.1
[2020-05-23] MEDS ORDERED: Potassium Chloride 20 MEQ TAB PO SCH (08:15)
--- NOTE | 2020-05-23 08:22 | PRG ---
DATE OF SERVICE: 05/23/2020 SUBJECTIVE: Ms. Sanderson was extubated yesterday, maintained on ICU overnight. She did have a low hemoglobin yesterday, required 1 unit of blood. After which, her urine output improved and blood pressure stabilized. She has done well yesterday. She feels good. She is tolerating liquids and advanced to full liquids. Temperature 98 degrees, pulse 104, blood pressure 127/89. Her urine output is good now and she seems to be mobilizing fluids and diuresing ileostomy output, stool and flatus. OBJECTIVE: LUNGS: Clear to auscultation. CARDIAC: Regular rate and rhythm without murmur or gallop. ABDOMEN: Soft, nontender. EXTREMITIES: Unremarkable. LABORATORY DATA: This morning reveal a white count of 18,000, hemoglobin 9.2, platelet count 255,000. Sodium 134, potassium 3.4, BUN and creatinine are 7 and 0.6 respectively. Overall, the patient is doing well. She is doing well after left colon resection, low anterior resection, anastomosis. Pathology is pending. Suspect this to be inflammatory disease as her preoperative CEA was normal and CAT scan did not reveal any evidence of metastatic disease. She did have a left salpingo-oophorectomy and a protective ileostomy. Overall, she is doing well. Plan is to advance her diet, teach ileostomy care, and replace her potassium for hypokalemia, we will do that orally. Plan, transfer to the surgical floor. Arrange home health nursing, anticipating discharge over the weekend. Job ID: [id number]
[2020-05-23] MEDS: Lactated Ringer's 1,000 ML IV SCH (08:53)
--- NOTE | 2020-05-23 08:55 | PRG ---
DATE OF SERVICE: 05/23/2020 SUBJECTIVE: This morning; awake, alert, and responsive. OBJECTIVE: VITAL SIGNS: Temperature 98, saturations 97 on 2 L, respiratory rate 18, and blood pressure 122/80. CHEST: Otherwise chest, no wheezing and no crackles. CARDIAC: Normal S1 and S2. No gallops. ABDOMEN: No masses LABORATORY DATA: Her cortisol level was only 10, suggestive she may have some relative adrenal insufficiency. White count 16,000, H and H 9 and 27, and platelet count is normal. Lytes are normal. X-ray shows no acute infiltrates. ASSESSMENT AND PLAN: Status post lap, hypotension in the OR. Tobacco abuse and colon cancer. Pulmonary matias, she can be transferred out of the ICU. Continue PT and supportive care. Job ID: [id number]
[2020-05-23] MEDS: Oxybutynin ER 5 MG TAB PO SCH (08:57)
--- NOTE | 2020-05-23 09:30 | RAD ---
FRONTAL RADIOGRAPH CHEST: DATE: 05/23/2020. COMPARISON: 05/21/2020. HISTORY: Reevaluate lung parenchyma, recently intubated patient. FINDINGS: The endotracheal tube and nasogastric tube have been removed since the prior exam. There is a left s ubclavian vascular catheter with distal tip overlying the region of the SVC. There is no pneumothora x. Hazy bibasilar density is noted, left greater than right, suggesting pleural fluid and nonspecifi c airspace disease. Aeration has improved within the left base. Continued followup to full resoluti on advised. IMPRESSION: Nonspecific increased density in the lung bases, left greater than right. POS: [facility]
[2020-05-23] MEDS: traMADol HCl 50 MG TAB PO PRN ×2 (13:04→19:57)
[2020-05-23 15:28] LABS: Hemoglobin 9.1 g/dL (12.0-16.0); Mean Corpuscular HGB CONC 32.5 g/dL (32.0-36.0); Mean Corpuscular Hemoglobin 30.3 pg (27.0-31.0); Mean Corpuscular Volume 93.3 fL (78.0-98.0); Platelet Count 280 thou/uL (130-400); RBC Distribution Width 13.8 % (11.5-14.5); Red Blood Cell (RBC) Count 2.99 mill/uL (4.20-5.40); White Blood Cell (WBC) Count 23.1 thou/uL (4.8-10.8)
[2020-05-23 15:44] LABS: Band 11 % (5-11); Lymphocytes 1 % (21-51); MDiff Complete? YES; Monocytes 1 % (0-10); Neutrophil 87 % (42-75); Platelet Morphology Comment Appears Adequate; Polychromasia SLIGHT = 2-3 cells (100X) (0-2/hpf)
[2020-05-23] MEDS: Acetaminophen 500 MG TAB PO PRN (16:46)
[2020-05-23] MEDS: Ibuprofen 600 MG TAB PO PRN (16:47)
[2020-05-23] MEDS ORDERED: traMADol HCl 50 MG TAB PO PRN (18:19)
[2020-05-23] MEDS: Enoxaparin Sodium 40 MG/0.4 ML SYRINGE SC SCH (19:56)
[2020-05-24] MEDS: Ibuprofen 600 MG TAB PO PRN (01:13)
[2020-05-24] MEDS: traMADol HCl 50 MG TAB PO PRN (01:13)
[2020-05-24 06:50] LABS: #Eosinphils 0.2 thou/uL (0.0-0.7); #Lymphocytes 1.9 thou/uL (1.20-3.40); #Monocytes 1.1 thou/uL (0.11-0.59); #Neutrophils 12.9 thou/uL (1.40-6.50); %Basophils 0.1 % (0.0-1.0); %Eosinophils 1.1 % (0.0-10.0); %Lymphocytes 11.7 % (21.0-51.0); %Monocytes 6.8 % (0.0-10.0); %Neutrophils 80.3 % (42.0-75.0); Mean Corpuscular HGB CONC 32.5 g/dL (32.0-36.0); Mean Corpuscular Hemoglobin 30.2 pg (27.0-31.0); Mean Corpuscular Volume 92.8 fL (78.0-98.0); Platelet Count 310 thou/uL (130-400); RBC Distribution Width 13.9 % (11.5-14.5); Red Blood Cell (RBC) Count 2.97 mill/uL (4.20-5.40)
[2020-05-24 07:13] LABS: Anion Gap 9 mmol/L (10-20); BUN (Urea Nitrogen) 8 mg/dL (9.8-20.1); Calc. Creatinine Clearance 79 mL/min (70-130); Calcium 8.4 mg/dL (7.8-10.44); Carbon Dioxide 29 mmol/L (23-31); Chloride 101 mmol/L (98-107); Glucose 72 mg/dL (80-115); Potassium 3.4 mmol/L (3.5-5.1); Sodium 136 mmol/L (136-145)
[2020-05-24] MEDS ORDERED: Potassium Chloride 20 MEQ TAB PO SCH ×2 (08:30→11:00)
[2020-05-24] MEDS: Acetaminophen 500 MG TAB PO PRN (08:46)
[2020-05-24] MEDS ORDERED: HYDROcodone/Acetaminophen 5/325 mg Tablet PO PRN (10:51)
[2020-05-24 13:20] VITALS: BP 127/86; TEMP 97.9
--- NOTE | 2020-05-24 13:48 | DIS ---
DATE OF ADMISSION: 05/21/2020 DATE OF DISCHARGE: 05/24/2020 DISCHARGE DIAGNOSES: 1. High-grade rectosigmoid colon obstruction secondary to inflammatory process, diverticulitis without prior history of diverticulitis treatment. 2. Intraoperative hypotension and hypoxia, uncertain etiology, probably volume related and possibly air embolus. 3. Anemia prehospitalization with perioperative blood transfusions. 4. Respiratory failure with postoperative mechanical ventilation overnight. 5. Consultation with Dr. Pichardo for perioperative ventilatory medical management. 6. Hypertension. 7. probably related ileostomy output, sent home with 40 mEq of potassium a day. Discharged home with ileostomy supplies. Home Health nursing to help her manage the ileostomy. She is to see me in the office in about 7 to 8 days for staple removal. PROCEDURES IN THIS HOSPITALIZATION: 1. Laparoscopic mobilization of the distal transverse colon, splenic flexure, descending colon with open infraumbilical incision, resection of sigmoid colon, rectum, descending colon with colorectal anastomosis and protective ileostomy. 2. Perioperative blood transfusions. 3. Perioperative consultation with Dr. Pichardo, Critical Care. DISCHARGE MEDICATIONS: 1. [place], #40, 5/325 p.r.n. pain, breakthrough. 2. Ultram 50 mg, #40, one refill. 3. Potassium chloride 40 mEq a day. Resumption of home medications to include; 1. P.r.n. nebulizer treatments. 2. Norvasc 10 mg a day. 3. P.r.n. ibuprofen. HISTORY: This is a 64-year-old female, with abdominal pain, evaluated, found to have a near high-grade obstructive rectosigmoid colon lesion, where the scope could not be traversed. She however could tolerate her diet. She underwent a 3-day bowel prep, presented to the hospital for elective resection under general anesthesia, TAP block. Intraoperatively, she has hypotension and hypoxia despite aggressive management. She was transfused, given volume, and this resolved, resuming normal oxygenation after about 30 minutes. She was observed in ICU postoperatively on the ventilator, extubated on the next morning. Vital signs on ventilation, oxygenation was normal. She had problems with mild hypokalemia probably secondary to ileostomy output, and potassium daily was added to her labs. She has education on ileostomy output. Home health nursing was arranged to help her with the ileostomy at home. Mobility was good. Her white count went up to 22,000, but fell to 16,000 on the day of discharge. Hemoglobin remained stable at 9. It was felt that her white count elevation was due to some effusions and atelectasis and this was improving with mobilization and antibiotics were not necessary. KATELYN incisional suction device removed prior to discharge to home. Avoid lifting over 30 pounds. Encourage ambulation. Encourage use of IS. Follow up in my office in a week and a half for staple removal. Ileostomy reversal in 8 to 12 weeks. Job ID: [id number]
[2020-05-25] MEDS ORDERED: Amlodipine 10 MG TAB PO SCH (09:00)
== END 2020-05-24 15:45 | disposition home health service (06) | DRG 329 ==
LOC: SURG A 05-21 10:08 → CCU 05-21 18:03 → SURG B 05-23 12:34
PROVIDERS: ADMIT Specialist; ATTEND Specialist
PROC: 0DBN0ZZ Excision of Sigmoid Colon, Open Approach (ICD-10-PCS; principal; 2020-05-21)
PROC: 0D1B0Z4 Bypass Ileum to Cutaneous, Open Approach (ICD-10-PCS; 2020-05-21)
PROC: 0DBG0ZZ Excision of Left Large Intestine, Open Approach (ICD-10-PCS; 2020-05-21)
PROC: 0UB10ZZ Excision of Left Ovary, Open Approach (ICD-10-PCS; 2020-05-21)
PROC: 0UB60ZZ Excision of Left Fallopian Tube, Open Approach (ICD-10-PCS; 2020-05-21)
PROC: 5A1935Z Respiratory Ventilation, Less than 24 Consecutive Hours (ICD-10-PCS; 2020-05-21)
PROC: 3E033XZ Introduction of Vasopressor into Peripheral Vein, Percutaneous Approach (ICD-10-PCS; 2020-05-21)
PROC: 30233N1 Transfusion of Nonautologous Red Blood Cells into Peripheral Vein, Percutaneous Approach (ICD-10-PCS; 2020-05-21)
PROC: 02HV33Z Insertion of Infusion Device into Superior Vena Cava, Percutaneous Approach (ICD-10-PCS; 2020-05-21)
PROC: 3E0T3BZ Introduction of Anesthetic Agent into Peripheral Nerves and Plexi, Percutaneous Approach (ICD-10-PCS; 2020-05-21)
DX: K57.32 Diverticulitis of large intestine without perforation or abscess without bleeding (principal); J95.821 Acute postprocedural respiratory failure; I26.99 Other pulmonary embolism without acute cor pulmonale; T81.72XA Complication of vein following a procedure, not elsewhere classified, initial encounter; J98.11 Atelectasis; J90 Pleural effusion, not elsewhere classified; I95.89 Other hypotension; Y83.8 Other surgical procedures as the cause of abnormal reaction of the patient, or of later complication, without mention of misadventure at the time of the procedure; Z20.828 Contact with and (suspected) exposure to other viral communicable diseases; E87.6 Hypokalemia; F17.210 Nicotine dependence, cigarettes, uncomplicated; J44.9 Chronic obstructive pulmonary disease, unspecified; I10 Essential (primary) hypertension; R63.4 Abnormal weight loss; D64.9 Anemia, unspecified; Z78.1 Physical restraint status; Z68.23 Body mass index [BMI] 23.0-23.9, adult; Z85.3 Personal history of malignant neoplasm of breast; Z90.11 Acquired absence of right breast and nipple; Z79.899 Other long term (current) drug therapy; Z90.49 Acquired absence of other specified parts of digestive tract; Z82.49 Family history of ischemic heart disease and other diseases of the circulatory system
CPT/HCPCS: 36415; 36416; 36430; 71045; 80048; 80053; 82533; 82805; 83735; 84100; 84484; 85025; 86850; 86900; 86901; 88305; 88307; 93306; 94002; 94003; 94640; J1170; J1642; J1650; J1720; J1885; J2250; J2270; J2704; J3010; J3475; J3480; J3490; J7620; P9016; P9045; P9047; S0020; S0028

== ENCOUNTER 2020-06-08 08:42 | Inpatient (IN) | payer OTHER, MEDICARE ==
[2020-06-08] MEDS ORDERED: Morphine 4 MG/ML VIAL ONE (09:08)
[2020-06-08] MEDS ORDERED: Ondansetron PF 4 MG/2 ML Vial ONE (09:08)
[2020-06-08 09:26] LABS: #Lymphocytes 1.2 thou/uL (1.20-3.40); #Monocytes 0.5 thou/uL (0.11-0.59); #Neutrophils 9.5 thou/uL (1.40-6.50); %Basophils 0.3 % (0.0-1.0); %Eosinophils 0.2 % (0.0-10.0); %Lymphocytes 10.9 % (21.0-51.0); %Neutrophils 84.6 % (42.0-75.0); Hemoglobin 13.7 g/dL (12.0-16.0); Mean Corpuscular HGB CONC 31.6 g/dL (32.0-36.0); Mean Corpuscular Hemoglobin 30.1 pg (27.0-31.0); Mean Corpuscular Volume 95.3 fL (78.0-98.0); Mean Platelet Volume 7.5 fL (7.4-10.4); Platelet Count 572 thou/uL (130-400); RBC Distribution Width 14.5 % (11.5-14.5); Red Blood Cell (RBC) Count 4.54 mill/uL (4.20-5.40); White Blood Cell (WBC) Count 11.2 thou/uL (4.8-10.8)
[2020-06-08] MEDS ORDERED: Iopamidol-370 76% 500 ML 1 ML ONE (09:32)
[2020-06-08 09:57] LABS: AST (SGOT) 30 U/L (5-34)
[2020-06-08 10:01] LABS: ALT (SGPT) 11 U/L (8-55); Albumin 3.8 g/dL (3.4-4.8); Alkaline Phosphatase 70 U/L (40-110); Anion Gap 26 mmol/L (10-20); BUN (Urea Nitrogen) 21 mg/dL (9.8-20.1); Calc. Creatinine Clearance 0 mL/min (70-130); Calcium 10.1 mg/dL (7.8-10.44); Carbon Dioxide 24 mmol/L (23-31); Chloride 96 mmol/L (98-107); Globulin 5.8 g/dL (2.4-3.5); Glucose 159 mg/dL (80-115); Lipase 51 U/L (8-78); Potassium 5.6 mmol/L (3.5-5.1); Protein, Total 9.6 g/dL (6.0-8.3); Sodium 140 mmol/L (136-145)
--- NOTE | 2020-06-08 11:11 | CT ---
CT OF THE ABDOMEN AND PELVIS WITH IV CONTRAST INDICATION: 64-year-old female with nausea vomiting and abdominal pain COMPARISON: Prior CT abdomen pelvis dated April 29, 2020 FINDINGS: ABDOMEN: Lung bases: Stable emphysema Liver: Stable hepatic cysts Gallbladder: Surgically absent Pancreas: Slight prominence of the main pancreatic duct and common bile duct are stable. Adrenal glands: Normal. Spleen: Normal. Kidneys and ureters: Stable right renal cyst. No hydronephrosis. Vasculature: There are severe vascular calcifications seen involving the visualized vasculature. Lymph nodes:No lymphadenopathy. Free fluid in abdomen:There is mild free fluid in the abdomen overlying the liver and spleen. PELVIS: Small and large bowel: There are dilated loops of small bowel which transition to a normal caliber on image 49 series 2 with the lower central abdomen. There is a diverting right lower quadrant loop ileostomy. There is a moderate amount retained stool within the colon with some retained barium contr ast likely from a prior barium enema dated May 02, 2020 Appendix:Not definitely seen Bladder: Partially decompressed Rectal and perirectal soft tissues:Normal. Reproductive structures: Normal. Free fluid in pelvis: Mild free fluid Lymphadenopathy pelvis: No lymphadenopathy is evident. Osseous structures: There is diffuse osteopenia. There is stable mild wedge compression fracture of L 2 There is scattered degenerative and osteoarthritic changes. Soft tissues:Normal. IMPRESSION: 1. Moderate to severe partial small bowel obstruction with a transition within the lower midline abdo men. 2. Other stable findings as above.
[2020-06-08] MEDS ORDERED: Lidocaine 4% Topical Sol 50 ML BOT ONE (11:37)
[2020-06-08] MEDS ORDERED: Benzocaine 20% Spray 60 ML CAN ONE (11:37)
[2020-06-08] MEDS ORDERED: Oxymetazoline HCl 0.05% (30 ML BOT) ONE (11:38)
[2020-06-08] MEDS ORDERED: Ondansetron PF 4 MG/2 ML Vial IVP PRN (11:47)
[2020-06-08] MEDS ORDERED: Promethazine HCl 25 MG/ML VIAL IM PRN (11:47)
[2020-06-08] MEDS ORDERED: D5 1/2 NS w/20 mEq KCL 1,000 ML IV SCH (12:00)
[2020-06-08] MEDS: hydrALAZINE 20 MG/ML VIAL SLOW IVP PRN ×2 (14:55→19:55)
[2020-06-08] MEDS: Dextrose 5 %-0.45 % NaCl 1,000 ML IV SCH ×2 (15:00→19:56)
[2020-06-08] MEDS: Morphine 2 MG/ML VIAL SLOW IVP PRN ×2 (16:36→21:17)
[2020-06-08] MEDS: Famotidine/PF 20 mg/2ml Vial SLOW IVP SCH (19:55)
[2020-06-08 23:21] LABS: SARS-CoV-2 MS2 Positive; SARS-CoV-2 N Gene Negative; SARS-CoV-2 S Gene Negative; SARS-CoV-2 by NAA Not Detected (NotDetected); SARS-CoV-2 orf1ab Negative
[2020-06-09] MEDS: Dextrose 5 %-0.45 % NaCl 1,000 ML IV SCH ×4 (02:08→23:29)
[2020-06-09] MEDS ORDERED: Sodium Chloride 0.9% 1,000 ML IV SCH (02:15)
[2020-06-09] MEDS: Morphine 2 MG/ML VIAL SLOW IVP PRN ×7 (03:04→23:30)
[2020-06-09] MEDS: hydrALAZINE 20 MG/ML VIAL SLOW IVP PRN (04:08)
[2020-06-09 07:29] LABS: Anion Gap 13 mmol/L (10-20); BUN (Urea Nitrogen) 12 mg/dL (9.8-20.1); Calc. Creatinine Clearance 50 mL/min (70-130); Calcium 8.2 mg/dL (7.8-10.44); Carbon Dioxide 25 mmol/L (23-31); Chloride 105 mmol/L (98-107); Glucose 125 mg/dL (80-115); Potassium 3.7 mmol/L (3.5-5.1); Sodium 139 mmol/L (136-145)
[2020-06-09] MEDS ORDERED: Ondansetron PF 4 MG/2 ML Vial IVP PRN (07:36)
[2020-06-09] MEDS ORDERED: traMADol HCl 50 MG TAB PO PRN (07:36)
[2020-06-09 07:57] LABS: Hemoglobin 11.4 g/dL (12.0-16.0); Mean Corpuscular HGB CONC 30.3 g/dL (32.0-36.0); Mean Corpuscular Hemoglobin 28.7 pg (27.0-31.0); Mean Corpuscular Volume 94.5 fL (78.0-98.0); Platelet Count 448 thou/uL (130-400); RBC Distribution Width 14.8 % (11.5-14.5); Red Blood Cell (RBC) Count 3.98 mill/uL (4.20-5.40); White Blood Cell (WBC) Count 7.2 thou/uL (4.8-10.8)
[2020-06-09] MEDS: Famotidine/PF 20 mg/2ml Vial SLOW IVP SCH ×2 (08:07→20:05)
--- NOTE | 2020-06-09 08:42 | RAD ---
XR Abdomen 2 View/1 View Cxr History: Small bowel obstruction Comparison: CT examination prior day Findings: Right mastectomy. Elevated left hemidiaphragm with peripheral pleural parenchymal scarring. Enteric tube tip at the gastric body. Retained contrast within a bowel loop. Mildly distended loops of small bowel in the upper abdomen. Impression: Enteric tube tip in the gastric body.
[2020-06-09] MEDS ORDERED: Albuterol Sulfate 2.5 mg/3 ml Neb NEB PRN (09:28)
[2020-06-09] MEDS: Oxybutynin ER 5 MG TAB PO SCH ×2 (09:32→09:57)
--- NOTE | 2020-06-09 09:35 | PDOC.H&P ---
- History & Physical Encounter Time: 06/09/20 Encounter Time: 16:10 CHIEF COMPLAINT: Abdominal pain and distention HISTORY OF PRESENT ILLNESS: 64-year-old female status post sigmoid resection on May 21, 2020 presents with 2 to 3-day history of abdominal pain. The pain is associated with distention and decreased ileostomy output. The patient underwent sigmoidectomy with diverting loop ileostomy on May 21, 2020. She is done reasonably well until 2 to 3 days ago when she began experiencing discomfort. The discomfort is described as aching, and is associated with nausea and vomiting. She presented to the emergency department where computed tomography the abdomen demonstrated a small bowel obstruction. REVIEW OF SYSTEMS: General: Denies recent weight changes, fever, or chills. Eyes: Denies visual changes, pain, or irritation ENT: Denies changes in hearing, nasal discharge, or sore throat Cardiovascular: Denies chest pain, palpitations, shortness of breath, or edema. Respiratory: Denies cough, shortness of breath, or wheezing Gastrointestinal: Positive per HPI Genitourinary: Denies frequent urination or dysuria Musculoskeletal: Denies pain or restricted motion Integumentary: Denies abnormal rashes, sores, or skin lesions Neurological: Denies numbness, tingling, or weakness. Psychiatric: Denies new onset anxiety or depression Endocrine: Denies temperature intolerances, polyuria, or excessive thirst Hematologic: Denies abnormal bruising or bleeding PAST MEDICAL HISTORY: Breast cancer Hypertension COPD PAST SURGICAL HISTORY: Sigmoid colectomy with diverting ileostomy Lumpectomy x2, followed by mastectomy Laparoscopic cholecystectomy FAMILY HISTORY: Maternal heart disease SOCIAL HISTORY Previous smoker, denies illicit drug use, endorses occasional alcohol consumption. ALLERGIES: No known drug allergies PHYSICAL EXAM: Vital Signs: HR 97.6 BP 137/105 T 115 RR [ ] SpO2 95% room air General: Alert and oriented, no acute distress ENT: Sclera anicteric, pupils equal and reactive, mucous membranes moist Neck: No jugular venous distention, trachea midline Cardiovascular: Normal sinus tachycardia (100s) Pulmonary: Clear to auscultation Abdominal: Soft, moderately distended. Vague tenderness to palpation throughout with no evidence of peritonitis. Ileostomy patent and viable with scant stool output. No notable flatus in bag. Genitourinary: Normal anatomy Rectal: Deferred Integument: No abnormal rashes or lesions Musculoskeletal: No gross deformities or edema, normal range of motion LABORATORY: Laboratory analysis reviewed and demonstrates white blood cell count of 11.2 with 85% neutrophils and no bands. Elevated platelet count at 572. Hyperkalemia at 5.6 IMAGING: Computed tomography abdomen reviewed as well as radiology interpretation. Demonstrates multiple dilated small bowel loops consistent with small bowel obstruction with transition point in the mid abdomen. ASSESSMENT: 64-year-old female with early postoperative small bowel obstruction. PLAN: We will admit to surgical service for Dr. Tello, and proceed with conservative management. Nasogastric decompression Hydralazine as needed for hypertension
[2020-06-09 09:36] LABS: %Basophils 0.2 % (0.0-1.0); %Eosinophils 3.3 % (0.0-10.0); %Monocytes 14.2 % (0.0-10.0); MDiff Complete? YES; Platelet Morphology Comment Appears Increased; Polychromasia SLIGHT = 2-3 cells (100X) (0-2/hpf)
--- NOTE | 2020-06-09 11:03 | PRG ---
DATE OF SERVICE: 06/09/2020 SUBJECTIVE: Ms. Sanderson is doing well today. Her NG tube has relieved her pain. Yesterday, she had onset of nausea, vomiting, abdominal distention, and pain and decreased ileostomy output. OBJECTIVE: VITAL SIGNS: Temperature 98.5 degrees, pulse 117, respirations 18, blood pressure 110/73. NG tube output in 24 hours, 500 mL. LABORATORY DATA: Her hemoglobin remained stable at 11.4, white count 7.2. Basic metabolic profile is normal. Her acute kidney injury has resolved with hydration. Her urine output was low last night and fluid boluses were given this morning. Her BUN is 12, down from 21 and 0.79, down from 1.13. The patient underwent a 3-view of abdomen today revealing some mildly distended loops of small bowel in the upper abdomen, enteric tube tip at the gastric body. ASSESSMENT/PLAN: 1. Dehydration, acute kidney injury, resolved with hydration. Continue hydration. 2. Dehydration secondary to ileostomy, possible partial bowel obstruction, resolved. Hopefully, we can treat this nonoperatively. Continue NG tube suction today, awaiting better ileostomy output. Job ID: [id number]
[2020-06-09] MEDS: Enoxaparin Sodium 40 MG/0.4 ML SYRINGE SC SCH (20:05)
[2020-06-10] MEDS: Morphine 2 MG/ML VIAL SLOW IVP PRN ×4 (01:36→13:29)
[2020-06-10 04:38] LABS: Anion Gap 12 mmol/L (10-20); BUN (Urea Nitrogen) 9 mg/dL (9.8-20.1); Calc. Creatinine Clearance 63 mL/min (70-130); Carbon Dioxide 23 mmol/L (23-31); Chloride 102 mmol/L (98-107); Glucose 98 mg/dL (80-115); Potassium 3.3 mmol/L (3.5-5.1); Sodium 134 mmol/L (136-145)
[2020-06-10 07:43] LABS: #Eosinphils 0.5 thou/uL (0.0-0.7); #Lymphocytes 1.1 thou/uL (1.20-3.40); #Monocytes 0.9 thou/uL (0.11-0.59); #Neutrophils 3.5 thou/uL (1.40-6.50); %Basophils 0.4 % (0.0-1.0); %Lymphocytes 18.2 % (21.0-51.0); %Monocytes 14.9 % (0.0-10.0); %Neutrophils 58.4 % (42.0-75.0); Hemoglobin 10.2 g/dL (12.0-16.0); Mean Corpuscular Hemoglobin 30.6 pg (27.0-31.0); Mean Corpuscular Volume 95.5 fL (78.0-98.0); Mean Platelet Volume 7.8 fL (7.4-10.4); Platelet Count 350 thou/uL (130-400); RBC Distribution Width 14.1 % (11.5-14.5); Red Blood Cell (RBC) Count 3.34 mill/uL (4.20-5.40); White Blood Cell (WBC) Count 5.9 thou/uL (4.8-10.8)
[2020-06-10] MEDS: Famotidine/PF 20 mg/2ml Vial SLOW IVP SCH (08:49)
[2020-06-10] MEDS: Oxybutynin ER 5 MG TAB PO SCH (08:49)
[2020-06-10] MEDS: Dextrose 5 %-0.45 % NaCl 1,000 ML IV SCH ×2 (08:52→18:13)
--- NOTE | 2020-06-10 09:05 | PRG ---
DATE OF SERVICE: 06/10/2020 SUBJECTIVE: Mikala Sanderson this morning does still have some abdominal pain. She has not had any significant output from her ileostomy. OBJECTIVE: VITAL SIGNS: Temperature 99 degrees, heart rate 93, and blood pressure 146/99. She has a Garay catheter in place and has drained more than 600 for 24 hours. Gastric drainage has been 250 over the last 24 hours. LUNGS: Clear to auscultation. CARDIAC: Regular rate and rhythm without murmur or gallop. ABDOMEN: Soft, slightly distended, slightly tympanitic. Ileostomy healthy with scant output in bag. LABORATORY DATA: This morning reveal white count of 5 and hemoglobin of 10.2. Sodium 134, potassium 3.3, and BUN and creatinine 9 and 0.72. ASSESSMENT AND PLAN: Status post on 05/21 left colon resection, anastomosis, protective ileostomy. We will plan small-bowel follow-through today. We will obtain a contrast enema to look at her colorectal anastomosis. If she does require operative intervention, ileostomy reversal would be planned, otherwise ileostomy reversal will be postponed for a few weeks. Job ID: [id number]
--- NOTE | 2020-06-10 13:10 | RAD ---
Small bowel follow-through Gastrografin HISTORY: Abdominal pain. Small bowel obstruction. FINDINGS: A small amount of dense barium remained within the right colon from prior contrast study. L arge amount of Gastrografin within the colon is present from contrast study performed immediately prior to this small bowel follow-through. Gastrografin contrast was administered through the indwelling nasogastric tube. There is gradual opac ification of mildly dilated loops of duodenum and proximal jejunum. At 3 hours, only the proximal jejunum was opacified. IMPRESSION : Very high-grade versus complete small bowel obstruction. Location described on recent CT scan. Findings were discussed with Dr. Tello at the time of the exam. Code CR.
[2020-06-10] MEDS ORDERED: MD-Gastroview 120 ML BOT ONE ×2 (13:36)
--- NOTE | 2020-06-10 13:59 | RAD ---
Gastrografin enema HISTORY: Evaluate rectal colic anastomosis. Prior stricture. FINDINGS: Residual barium within the cecum partially overlies the upper rectum and the suture row at the retrocolic anastomosis. Small amount of Gastrografin contrast was administered per rectum. There was mild delay in passage of contrast through the anastomosis. After contrast began to flow, however, the anastomosis was seen to be patent without holdup of contrast flow. Immediately superior to the suture row at the retrocoli c anastomosis, an irregular shaped focus of Gastrografin accumulated early in the procedure. It measures up to 1.3 cm length. It persisted on the final images. On imaging for the small bowel follow -through performed immediately after this exam, the contrast gradually dissipated. IMPRESSION : Small contained leak at the superior margin of the retrocolic anastomotic suture row, 1.3 cm diameter . Mild spasm at the anastomotic site without obstruction. Findings were called to Dr. Tello at the time of the exam.
--- NOTE | 2020-06-10 15:18 | RAD ---
TWO VIEWS OF THE ABDOMEN: 06/10/20 INDICATION: NG tube placement. COMPARISON: Small bowel evaluation 01/23/20. FINDINGS: The provided images demonstrates NG tube placement with tip in the region of the gastric body. There is contrast opacification within the colon. There are dilated loops of small bowel within the centra l abdomen. Visualized lung bases are clear. IMPRESSION: 1. Gastric catheter as above. 2. Persistent dilated loops of small bowel within the central abdomen suspicious for small bowel obstruction. POS: [facility]
[2020-06-11] MEDS: Morphine 2 MG/ML VIAL SLOW IVP PRN ×4 (01:08→08:43)
[2020-06-11] MEDS: Famotidine/PF 20 mg/2ml Vial SLOW IVP SCH ×3 (01:08→21:22)
[2020-06-11] MEDS: Enoxaparin Sodium 40 MG/0.4 ML SYRINGE SC SCH ×2 (01:08→21:22)
[2020-06-11 04:57] LABS: Phosphorus 3.9 mg/dL (2.3-4.7)
[2020-06-11 05:01] LABS: ALT (SGPT) 9 U/L (8-55); AST (SGOT) 19 U/L (5-34); Albumin 2.9 g/dL (3.4-4.8); Alkaline Phosphatase 55 U/L (40-110); Anion Gap 15 mmol/L (10-20); BUN (Urea Nitrogen) 10 mg/dL (9.8-20.1); Bilirubin, Total 1.2 mg/dL (0.2-1.2); Calc. Creatinine Clearance 58 mL/min (70-130); Calcium 8.8 mg/dL (7.8-10.44); Carbon Dioxide 26 mmol/L (23-31); Chloride 100 mmol/L (98-107); Globulin 3.8 g/dL (2.4-3.5); Glucose 90 mg/dL (80-115); Magnesium 1.6 mg/dL (1.6-2.6); Potassium 3.1 mmol/L (3.5-5.1); Protein, Total 6.7 g/dL (6.0-8.3); Sodium 138 mmol/L (136-145)
[2020-06-11 05:24] LABS: Band 5 % (5-11); Eosinophils 2 % (0-10); Hemoglobin 11.1 g/dL (12.0-16.0); Lymphocytes 29 % (21-51); MDiff Complete? YES; Mean Corpuscular HGB CONC 31.8 g/dL (32.0-36.0); Mean Corpuscular Hemoglobin 29.8 pg (27.0-31.0); Mean Corpuscular Volume 93.6 fL (78.0-98.0); Monocytes 14 % (0-10); Neutrophil 49 % (42-75); Platelet Count 371 thou/uL (130-400); Platelet Morphology Comment Appears Adequate; RBC Distribution Width 14.1 % (11.5-14.5); Reactive Lymphocytes 1 % (0-10); Red Blood Cell (RBC) Count 3.72 mill/uL (4.20-5.40); White Blood Cell (WBC) Count 4.1 thou/uL (4.8-10.8)
[2020-06-11] MEDS: Dextrose 5 %-0.45 % NaCl 1,000 ML IV SCH ×2 (05:57→17:33)
[2020-06-11] MEDS ORDERED: Potassium Chloride 40 MEQ in Premix Bag 1 BAG IVPB SCH ×2 (07:30→14:15)
--- NOTE | 2020-06-11 07:59 | RAD ---
Chest one view Abdomen 2 views HISTORY: Abdominal pain. Small bowel obstruction. COMPARISON: 06/11/2020. FINDINGS:Cardiac silhouette and pulmonary vasculature are unremarkable. Lungs remain hyperinflated. N asogastric tube overlies the stomach at the left upper quadrant. Stomach is now decompressed. Blunting of the left lateral costophrenic angle with the appearance of pleural fluid is similar in ap pearance to the prior study. Contrast material within the colon and rectum remains from prior contrast enema. No significant resid ual contrast material within the small bowel. Mildly distended loops of small bowel remains within the left upper quadrant. Hemostasis clips over the gallbladder fossa. IMPRESSION : While a portion of the small bowel contrast may have been aspirated through the nasogastric tube, the absence of small bowel contrast on the current exam suggests that the previous small bowel obstruction has relieved or is incomplete. There has been overall significant improvement. Nasogastric tube in good position. Left pleural effusion.
[2020-06-11] MEDS ORDERED: Meropenem 2 GM in Admixture Fee 1 EACH IVPB SCH (08:00)
[2020-06-11] MEDS: Oxybutynin ER 5 MG TAB PO SCH (08:45)
[2020-06-11] MEDS ORDERED: Meropenem 2 GM in Sodium Chloride 0.9% 100 ML IVPB SCH ×2 (09:30→14:00)
--- NOTE | 2020-06-11 09:35 | RAD ---
SUPINE ABDOMEN: HISTORY: Assess NG tube placement. FINDINGS: NG tube passes through the EG junction and coils in the upper gastric fundus with tip extending infer iorly in the left abdomen into the region of the gastric body which is confirmed on exam of 0 which shows opacification of the stomach. There is contrast in the right colon on this study. POS: [facility]
[2020-06-11] MEDS ORDERED: Midazolam HCl 2 mg/2 ml Vial ONE (09:46)
[2020-06-11] MEDS ORDERED: Fentanyl 100 MCG/2 ML VIAL ONE ×4 (09:46→14:00)
[2020-06-11] MEDS ORDERED: Ketamine 50 MG/ML (10ML VIAL) ONE (10:14)
[2020-06-11] MEDS ORDERED: Albumin 5% 500 ML ONE (10:15)
--- NOTE | 2020-06-11 10:17 | RAD ---
CHEST 1 VIEW: HISTORY: Small bowel obstruction, followup. COMPARISON: 05/23/2020, 06/11/2020. FINDINGS: NG tube and right central line in place. Evidence for some left pleural effusion. No confluent pneu monia, overt edema. IMPRESSION: Evidence for stable left pleural effusion. POS: [facility]
[2020-06-11] MEDS ORDERED: Bupivacaine HCl 0.5%/Epinephrine 1:200,000/PF 30 ml Vial ONE (11:27)
[2020-06-11] MEDS ORDERED: Rocuronium Bromide 10 MG/ML (10ML VIAL) ONE (11:27)
[2020-06-11] MEDS ORDERED: Succinylcholine 200 MG/10 ml SYRINGE FS ONE (11:27)
[2020-06-11] MEDS ORDERED: Ondansetron PF 4 MG/2 ML Vial ONE (11:27)
[2020-06-11] MEDS ORDERED: PHENYLEPHRINE-NS 100 MCG/ML 10 ML SYRINGE ONE (11:27)
[2020-06-11] MEDS ORDERED: Ketorolac Tromethamine 30 MG/ML VIAL ONE (11:27)
[2020-06-11] MEDS ORDERED: Glycopyrrolate 0.2 MG/ML 5 ML SYRINGE ONE (11:27)
[2020-06-11] MEDS ORDERED: PROPOFOL 200 MG/20 ML VIAL ONE (11:27)
[2020-06-11] MEDS ORDERED: Dexamethasone 20 MG/5 ML VIAL ONE (11:27)
[2020-06-11] MEDS ORDERED: Ondansetron HCl/PF 4 MG/2 ML Vial IVP PRN (13:20)
--- NOTE | 2020-06-11 13:29 | PRG ---
DATE OF SERVICE: 06/11/2020 SUBJECTIVE: Of note, patient was seen at 7:10 this morning. Mikala Sanderson has had a small-bowel follow-through yesterday noting a small bowel follow-through complete. She has not had any ileostomy output. She continues to be distended and tympanitic. Her vital signs are normal. Heart rate in the 60s, respiratory rate 18. White count is normal, hemoglobin normal, potassium slightly diminished at 3.1 and replacement ordered. She last night removed her NG to twice and nurse's replaced it, she had over 1.5 L NG tube output through the night. OBJECTIVE: LUNGS: Clear to auscultation. CARDIAC: Regular rate and rhythm without murmur or gallop. ABDOMEN: Distended, tympanitic. Ileostomy healthy. No output. EXTREMITIES: Unremarkable. ASSESSMENT AND PLAN: Small bowel obstruction after left colon resection, splenic flexure mobilization 3 weeks ago and a protective ileostomy form. The patient has a small bowel obstruction complete by Gastrografin small bowel follow-through. I have explained to the patient this is not a good time to be doing another operation, but we are forced with the fact of the situation that an operation is necessary for complete bowel obstruction and compounded by the fact the patient is not cooperative with keeping her NG tube down. It is too uncomfortable for her. For this reason, we will proceed to the operating room after placing a central IV at the bedside as the patient has lost her IV and access is difficult. She understands risks and benefits of the operation and consents. We will plan exploratory laparotomy, adhesiolysis, ileostomy reversal. The patient had a contrast enema and her colorectal anastomosis is intact. Radiology read out a small leak that is contained. I believe this is well contained and walled off, it will not present a problem. I would proceed with laparotomy adhesiolysis, ileostomy reversal and probably drain placement of the pelvis. She understands the risks and benefits, and consents. Job ID: [id number]
[2020-06-11] MEDS ORDERED: Dextrose 5% in Water 1,000 ML IV PRN (13:59)
[2020-06-11] MEDS ORDERED: HumaLOG 300 UNITS/3 ML VIAL SC PRN (13:59)
[2020-06-11] MEDS ORDERED: Dextrose 50% Abboject 50 ML SYRINGE SLOW IVP PRN (13:59)
--- NOTE | 2020-06-11 14:07 | OP ---
DATE OF PROCEDURE: 06/11/2020 PREOPERATIVE DIAGNOSES: Small-bowel obstruction, ileostomy, status post left colon resection 3 weeks ago, poor IV access. POSTOPERATIVE DIAGNOSES: Small-bowel obstruction, ileostomy, status post left colon resection 3 weeks ago, poor IV access. PROCEDURE PERFORMED: Right subclavian vein triple-lumen catheter. ANESTHESIA: 1% Xylocaine. DESCRIPTION OF PROCEDURE: With the patient at bedside in her room, right paraclavicular area prepared with ChloraPrep and draped in routine fashion. Local anesthetic with 1% Xylocaine was infiltrated in the skin and subcutaneous tissue. Infraclavicular about the operative site, trocar catheter cannulated the subclavian vein. J-wire threaded, trocar catheter removed. Seldinger technique used to place triple-lumen catheter, secured with 3-0 silk suture, removed the J-wire, aspirated each port of blood, flushed with heparinized saline solution. Sterile dressing applied. The patient tolerated the procedure well. Job ID: [id number]
--- NOTE | 2020-06-11 14:41 | OP ---
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 PROCEDURES PERFORMED: Exploratory laparotomy, adhesiolysis, small bowel resection, primary anastomosis, ileostomy reversal. ANESTHESIA: General, TAP block. ESTIMATED BLOOD LOSS: 400 mL. BLOOD TRANSFUSIONS: None. DESCRIPTION OF PROCEDURE: The patient was taken to the operating room, where under general anesthesia and TAP block, a Garay catheter was placed, left in place. Abdomen prepared with ChloraPrep and draped in routine fashion. Incision was made from above the umbilicus to the pubis through the old scar slightly more cephalad carried down to skin, subcutaneous tissue, fascia, and abdominal cavity sharply. Adhesiolysis performed freeing small bowel from the anterior abdominal wall. Small bowel was markedly dilated, distal small bowel decompressed toward the ileostomy. The ileostomy had been closed with continuous suture of 2-0 silk. The ostomy freed from the abdominal wall, brought into the abdominal cavity. There was a segment of ileum into the pelvis tightly adherent to the uterus and pelvis and cecal area. This was carefully dissected free. Enterotomy stool spillage occurred inherent to the procedure and a small bowel resection undertaken dividing mesentery with the LigaSure and divided the small bowel and other side with a NAHID and small bowel to small bowel anastomosis made to the terminal ileum with a staple technique and 75 NAHID with closure of the common defect with a NAHID stapler. Mesenteric defect closed with 3-0 silk. Anastomosis reinforced with 3-0 silk. Small bowel run from the ligament of Treitz to the anastomosis. Serosal tears closed with seromuscular sutures of 3-0 silk. Abdominal cavity thoroughly irrigated, irrigant evacuated. #19 Gold TERRY drain brought out through the left lateral abdominal wall, secured with 3-0 nylon suture and OpSite Mastisol. Drain placed in the pelvis. colorectal anastomosis 3 weeks ago performed. Abdominal cavity thoroughly irrigated. Sponge and needle counts were correct except for the ileostomy site. Posterior fascia closed with continuous suture of #1 PDS. Seprafilm placed between the viscera and abdominal wall. Fascia approximated with continuous suture of #1 PDS. Skin and subcutaneous tissues irrigated. Skin loosely approximated with tevin. Wound Care Team arrived to place a wound VAC. The patient tolerated the procedure well. Job ID: [id number]
[2020-06-11] MEDS ORDERED: Zolpidem Tartrate 5 MG TAB PO PRN (14:56)
[2020-06-11] MEDS ORDERED: diphenhydrAMINE 50 MG/ML VIAL IVP PRN (14:56)
[2020-06-11] MEDS ORDERED: Naloxone HCl 0.4 mg/ml Vial IV PRN (14:56)
[2020-06-11] MEDS ORDERED: diphenhydrAMINE 25 MG CAP PO PRN (14:56)
[2020-06-11] MEDS ORDERED: Promethazine HCl 25 MG/ML VIAL IM PRN (14:56)
[2020-06-11] MEDS ORDERED: diphenhydrAMINE 50 MG/ML VIAL IM PRN (14:56)
[2020-06-11] MEDS ORDERED: Communication Order-Pharmacy FS SCH (15:00)
[2020-06-11] MEDS: Potassium Chloride 20 MEQ in Lactated Ringer's 1,000 ML IV SCH (17:07)
[2020-06-11 17:30] LABS: Hemoglobin 9.2 g/dL (12.0-16.0); Mean Corpuscular Hemoglobin 30.2 pg (27.0-31.0); Mean Corpuscular Volume 94.3 fL (78.0-98.0); Mean Platelet Volume 7.3 fL (7.4-10.4); Platelet Count 268 thou/uL (130-400); Red Blood Cell (RBC) Count 3.05 mill/uL (4.20-5.40); White Blood Cell (WBC) Count 2.7 thou/uL (4.8-10.8)
[2020-06-11 17:57] LABS: Band 46 % (5-11); Lymphocytes 12 % (21-51); MDiff Complete? YES; Metamyelocyte 2 % (0-0); Monocytes 4 % (0-10); Neutrophil 36 % (42-75); Ovalocytes SLIGHT = 2-5 cells (100X) (0-1/hpf); Platelet Morphology Comment Appears Adequate; Polychromasia SLIGHT = 2-3 cells (100X) (0-2/hpf)
[2020-06-11] MEDS: Meropenem 2 GM in Sodium Chloride 0.9% 100 ML IVPB SCH (18:59)
[2020-06-11] MEDS ORDERED: Acetaminophen 650 MG Suppository PR PRN (20:40)
[2020-06-11] MEDS ORDERED: Sodium Chloride 0.9% 1,000 ML IV SCH ×2 (20:45→23:15)
[2020-06-11] MEDS: Ondansetron PF 4 MG/2 ML Vial IVP PRN (21:34)
[2020-06-12] MEDS: [UNRECOGNIZED DRUG - OTHER] IV SCH (00:42)
[2020-06-12] MEDS: Potassium Chloride 20 MEQ in Lactated Ringer's 1,000 ML IV SCH ×3 (00:42→13:24)
[2020-06-12] MEDS: CALCIUM GLUCONATE IV SCH (00:42)
[2020-06-12] MEDS: POTASSIUM ACETATE IV SCH (00:42)
[2020-06-12] MEDS: Meropenem 2 GM in Sodium Chloride 0.9% 100 ML IVPB SCH ×3 (03:41→17:19)
[2020-06-12 05:17] LABS: Band 69 % (5-11); Hemoglobin 8.4 g/dL (12.0-16.0); Hypochromia SLIGHT = 6-15 cells (100X) (0-5/hpf); Lymphocytes 12 % (21-51); MDiff Complete? YES; Mean Corpuscular HGB CONC 30.6 g/dL (32.0-36.0); Mean Corpuscular Hemoglobin 29.3 pg (27.0-31.0); Mean Corpuscular Volume 95.6 fL (78.0-98.0); Mean Platelet Volume 8.8 fL (7.4-10.4); Metamyelocyte 6 % (0-0); Monocytes 2 % (0-10); Neutrophil 11 % (42-75); Platelet Count 221 thou/uL (130-400); Platelet Morphology Comment Appears Adequate; RBC Distribution Width 14.2 % (11.5-14.5); Red Blood Cell (RBC) Count 2.88 mill/uL (4.20-5.40); White Blood Cell (WBC) Count 9.7 thou/uL (4.8-10.8)
[2020-06-12 05:21] LABS: Anion Gap 14 mmol/L (10-20); BUN (Urea Nitrogen) 11 mg/dL (9.8-20.1); Calc. Creatinine Clearance 62 mL/min (70-130); Calcium 7.2 mg/dL (7.8-10.44); Carbon Dioxide 18 mmol/L (23-31); Chloride 112 mmol/L (98-107); Glucose 111 mg/dL (80-115); Potassium 4.6 mmol/L (3.5-5.1); Sodium 139 mmol/L (136-145)
[2020-06-12] MEDS: Famotidine/PF 20 mg/2ml Vial SLOW IVP SCH ×2 (09:14→22:21)
--- NOTE | 2020-06-12 12:16 | PRG ---
DATE OF SERVICE: 06/12/2020 SUBJECTIVE: Ms. Sanderson is complaining of mild shortness of breath. She has been tachycardic. She is very uncomfortable and bloated. She denies nausea, she has NG tube. PHYSICAL EXAMINATION: VITAL SIGNS: She is tachypneic with respiratory rate of 22, pulse 124. She is afebrile. Blood pressure 105/69. Urine output overnight 310, 105 out of TERRY serosanguineous, 250 out of her NG tube. CHEST: Coarse breath sounds. HEART: Increased rate. ABDOMEN: Distended. Decreased bowel sounds. Wound VAC. LABORATORY DATA: White blood cell count is 9, but 69 bands, hemoglobin 8.4, sodium 139, creatinine 0.73. ASSESSMENT: Postop day 1, exploratory laparotomy ileostomy reversal. PLAN: Check EKG. Check chest x-ray. We will have Medicine see her and follow along as well. I have stopped her IV fluids. She could be getting overloaded. Job ID: [id number]
--- NOTE | 2020-06-12 13:24 | RAD ---
CHEST 1 VIEW: HISTORY: Tachypnea. COMPARISON: Prior day's study. FINDINGS: Right-sided subclavian line is again noted. Heart size is within normal limits. Opacification is ag ain seen in the left base is slightly more prominent than on the prior exam. This could be technical in nature or related to some slight increased to a left-sided effusion. IMPRESSION: Slight increasing density in the left base suggesting some increasing left-sided effusion. POS: AH
--- NOTE | 2020-06-12 19:05 | PDOC.HOSPP ---
- Subjective Encounter Date: 06/12/20 Encounter Time: 10:00 Subjective: Patient seen and examined. No new complaints. No overnight events - Objective Vital Signs & Weight: Vital Signs (12 hours) Temp Pulse Resp BP Pulse Ox 06/12/20 16:00 99.7 F H 123 H 20 118/81 97 06/12/20 12:04 99.6 F 124 H 22 H 109/76 96 06/12/20 08:00 98.5 F 124 H 22 H 105/69 97 Weight Admit Weight 100 lb Weight 115 lb I&O: 06/11/20 06/12/20 06/13/20 06:59 06:59 06:59 Intake Total 6395 064 7036 Output Total 2540 500 880 Balance -890 0 2920 Result Diagrams: 06/12/20 04:05 06/12/20 04:04 Additional Labs: Accuchecks 06/12/20 06/12/20 06/11/20 12:00 05:53 19:25 POC Glucose 138 H 131 H 79 EKG Reviewed by me: Yes (Tachycardia) Hospitalist ROS - Review of Systems Constitutional: reports: weakness, malaise. denies: fever, chills, sweats, other ENT: denies: ear pain, ear discharge, nose pain, nose discharge, nose congestion, mouth pain, mouth swelling, throat pain, throat swelling, other Respiratory: denies: cough, dry, shortness of breath, hemoptysis, SOB with excertion, pleuritic pain, sputum, wheezing, other Cardiovascular: denies: chest pain, palpitations, orthopnea, paroxysmal noc. dyspnea, edema, light headedness, other Gastrointestinal: denies: nausea, vomiting, abdominal pain, diarrhea, constipation, melena, hematochezia, other Genitourinary: denies: dysuria, frequency, incontinence, hematuria, retention, other Musculoskeletal: denies: neck pain, shoulder pain, arm pain, back pain, hand pain, leg pain, foot pain, other - Medication Medications: Active Medications Generic Name Dose Route Start Last Admin Trade Name Freq PRN Reason Stop Dose Admin Enoxaparin Sodium 40 mg 06/09/20 21:00 06/11/20 21:22 Enoxaparin Sodium 40 Mg/0.4 Ml Syringe SC 40 mg 2100 JONES Administration Famotidine 20 mg 06/08/20 21:00 06/12/20 09:14 Famotidine/Pf 20 Mg/2ml Vial SLOW IVP 20 mg Q12HR JONES Administration Hydralazine HCl 10 mg 06/08/20 11:47 06/09/20 04:08 Hydralazine 20 Mg/Ml Vial SLOW IVP 10 mg Q4H PRN Administration SBP > 170 or DBP > 100 Meropenem 2 gm/ Sodium 100 mls @ 100 mls/hr 06/11/20 18:00 06/12/20 17:19 Chloride IVPB 100 mls 0200,1000,1800 JONES Administration Potassium Acetate 40 meq/ 2,313.4321 mls @ 96.393 mls/hr 06/11/20 22:00 00:42 Calcium Gluconate 10 meq/ IV 2,313.4321 mls Magnesium Sulfate 10 meq/ 2200 JONES Administration Multivitamins 10 ml/ Chromium/ Copper/Manganese/Zinc 9 ml/ Insulin Human Regular 23 units / Amino Acids/Electrolytes/ Fat Emulsion Intravenous Ondansetron HCl 4 mg 06/11/20 14:56 06/11/20 21:34 Ondansetron Pf 4 Mg/2 Ml Vial IVP 4 mg Q6H PRN Administration Nausea/Vomiting - Exam General Appearance: NAD, awake alert General - other findings: NG tube in place Eye: PERRL, anicteric sclera ENT: normocephalic atraumatic, no oropharyngeal lesions Neck: supple, symmetric, no JVD, no thyromegaly Heart: RRR, no murmur, no gallops, no rubs Heart - other findings: Tachycardia sinus Respiratory: no wheezes, no rales, no ronchi Gastrointestinal: soft Gastrointestinal - other findings: Surgical site with a dressing, wound VAC in place, TERRY drain in place, Extremities: no cyanosis, no clubbing, no edema Skin: normal turgor, no lesions Neurological: no focal deficits Musculoskeletal: normal tone, normal strength Psychiatric: normal affect, normal behavior Hosp A/P - Plan old records reviewed/req, continue antibiotics, respiratory therapy, incentive spirometry, DVT proph w/lovenox S/p exploratory laparotomy for ileostomy reversal, postoperative day 1 Sinus tachycardia Left basilar consolidation with left-sided pleural effusion, Plan Continue meropenem Continue IV fluid Continue TPN Tachycardia related with pneumonia, will closely monitor for any compromise, Patient is currently respiratory matias stable, Continue incentive spirometry Continue DuoNeb therapy as needed Monitor labs
[2020-06-12] MEDS: Enoxaparin Sodium 40 MG/0.4 ML SYRINGE SC SCH (22:21)
[2020-06-13] MEDS: POTASSIUM ACETATE IV SCH (00:41)
[2020-06-13] MEDS: CALCIUM GLUCONATE IV SCH (00:41)
[2020-06-13] MEDS: [UNRECOGNIZED DRUG - OTHER] IV SCH (00:41)
[2020-06-13] MEDS: Meropenem 2 GM in Sodium Chloride 0.9% 100 ML IVPB SCH ×3 (02:41→18:16)
[2020-06-13] MEDS: fentaNYL Citrate/PF 2,000 MCG in Sodium Chloride 0.9% 60 ML IV PRN (05:08)
[2020-06-13 06:51] LABS: Hemoglobin 8.2 g/dL (12.0-16.0); Mean Corpuscular HGB CONC 31.9 g/dL (32.0-36.0); Mean Corpuscular Hemoglobin 30.7 pg (27.0-31.0); Mean Corpuscular Volume 96.2 fL (78.0-98.0); Mean Platelet Volume 8.7 fL (7.4-10.4); Platelet Count 197 thou/uL (130-400); RBC Distribution Width 14.1 % (11.5-14.5); Red Blood Cell (RBC) Count 2.66 mill/uL (4.20-5.40); White Blood Cell (WBC) Count 13.9 thou/uL (4.8-10.8)
[2020-06-13 07:01] LABS: Anion Gap 12 mmol/L (10-20); BUN (Urea Nitrogen) 17 mg/dL (9.8-20.1); Calc. Creatinine Clearance 68 mL/min (70-130); Calcium 8.4 mg/dL (7.8-10.44); Carbon Dioxide 25 mmol/L (23-31); Chloride 103 mmol/L (98-107); Glucose 106 mg/dL (80-115); Potassium 4.3 mmol/L (3.5-5.1); Sodium 136 mmol/L (136-145)
[2020-06-13 07:46] LABS: Band 30 % (5-11); Eosinophils 9 % (0-10); Lymphocytes 11 % (21-51); MDiff Complete? YES; Neutrophil 50 % (42-75)
--- NOTE | 2020-06-13 10:26 | PRG ---
DATE OF SERVICE: 06/13/2020 SUBJECTIVE: Ms. Sanderson feels better today. No nausea. She has not been out of bed since surgery. Pain is controlled with DIRECTOR GOVERNMENT. OBJECTIVE: VITAL SIGNS: Pulse is 114, respirations 20, and 94% on room air. She is afebrile. Blood pressure 107/74. Urine output is 935 for the day. NG is less at 350. ABDOMEN: Soft, distended. No bowel sounds yet. Wound VAC. ASSESSMENT: Status post ileostomy reversal and small bowel adhesiolysis. PLAN: Continue NG tube today. I suspect she will be ready for it to be discontinued tomorrow. She needs to be out of bed more to increase activity. Hopefully, then we can get her catheter out of her bladder. We will assess her activity level this morning, possibly discontinue the Garay later today. Job ID: [id number]
[2020-06-13] MEDS: Famotidine/PF 20 mg/2ml Vial SLOW IVP SCH ×2 (10:31→21:04)
--- NOTE | 2020-06-13 12:57 | PDOC.HOSPP ---
- Subjective Encounter Date: 06/13/20 Encounter Time: 10:30 Subjective: Patient just ready going for walking program. She has the drain as well as Garay and to DC the Garay this evening. - Objective Vital Signs & Weight: Vital Signs (12 hours) Temp Pulse Resp BP Pulse Ox 06/13/20 08:29 97.8 F 114 H 20 107/74 94 L 06/13/20 04:00 98.7 F 126 H 20 113/63 93 L Weight Admit Weight 100 lb Weight 115 lb I&O: 06/12/20 06/13/20 06/14/20 06:59 06:59 06:59 Intake Total 500 5067 Output Total 500 1570 350 Balance 0 3497 -350 Result Diagrams: 06/13/20 06:29 06/13/20 06:29 Additional Labs: Accuchecks 06/13/20 06/13/20 06:07 00:30 POC Glucose 106 H 113 H Hospitalist ROS - Medication Medications: Active Medications Generic Name Dose Route Start Last Admin Trade Name Freq PRN Reason Stop Dose Admin Enoxaparin Sodium 40 mg 06/09/20 21:00 06/12/20 22:21 Enoxaparin Sodium 40 Mg/0.4 Ml Syringe SC 40 mg 2100 JONES Administration Famotidine 20 mg 06/08/20 21:00 06/13/20 10:31 Famotidine/Pf 20 Mg/2ml Vial SLOW IVP 20 mg Q12HR JONES Administration Hydralazine HCl 10 mg 06/08/20 11:47 06/09/20 04:08 Hydralazine 20 Mg/Ml Vial SLOW IVP 10 mg Q4H PRN Administration SBP > 170 or DBP > 100 Fentanyl Citrate 2,000 mcg/ 100 mls @ 0 mls/hr 06/11/20 14:56 06/13/20 05:08 Sodium Chloride IV 100 mls INF PRN Administration Pain As Directed Meropenem 2 gm/ Sodium 100 mls @ 100 mls/hr 06/11/20 18:00 06/13/20 11:47 Chloride IVPB 100 mls 0200,1000,1800 JONES Administration Potassium Acetate 40 meq/ 2,313.4321 mls @ 70 mls/hr 06/11/20 22:00 06/13/20 00:41 Calcium Gluconate 10 meq/ IV 2,313.4321 mls Magnesium Sulfate 10 meq/ 2200 JONES Administration Multivitamins 10 ml/ Chromium/ Copper/Manganese/Zinc 9 ml/ Insulin Human Regular 23 units / Amino Acids/Electrolytes/ Fat Emulsion Intravenous Ondansetron HCl 4 mg 06/11/20 14:56 06/11/20 21:34 Ondansetron Pf 4 Mg/2 Ml Vial IVP 4 mg Q6H PRN Administration Nausea/Vomiting - Exam General Appearance: NAD, awake alert Eye: PERRL ENT: normocephalic atraumatic Neck: supple Heart: RRR Respiratory: CTAB, normal chest expansion Gastrointestinal: soft, normal bowel sounds Neurological: no focal deficits Hosp A/P - Plan S/p exploratory laparotomy for ileostomy reversal, postoperative day 2 Left basilar consolidation with left-sided pleural effusion, Continue meropenem--- there is no cultures being done; consider discontinue the Merrem after 7 days if clinical course is stable Continue IV fluid Continue TPN Ambulating today AGUEDA Garay
[2020-06-13] MEDS: Enoxaparin Sodium 40 MG/0.4 ML SYRINGE SC SCH (21:04)
[2020-06-14] MEDS: [UNRECOGNIZED DRUG - OTHER] IV SCH ×2 (00:31→23:24)
[2020-06-14] MEDS: POTASSIUM ACETATE IV SCH ×2 (00:31→23:24)
[2020-06-14] MEDS: CALCIUM GLUCONATE IV SCH ×2 (00:31→23:24)
[2020-06-14] MEDS: Ketorolac Tromethamine 30 MG/ML VIAL IVP PRN ×2 (02:53→19:41)
[2020-06-14] MEDS: Meropenem 2 GM in Sodium Chloride 0.9% 100 ML IVPB SCH ×3 (02:54→19:25)
[2020-06-14 05:37] LABS: Anion Gap 14 mmol/L (10-20); BUN (Urea Nitrogen) 19 mg/dL (9.8-20.1); Calc. Creatinine Clearance 75 mL/min (70-130); Calcium 8.7 mg/dL (7.8-10.44); Carbon Dioxide 25 mmol/L (23-31); Chloride 99 mmol/L (98-107); Glucose 102 mg/dL (80-115); Potassium 4.5 mmol/L (3.5-5.1); Sodium 133 mmol/L (136-145)
[2020-06-14 05:40] LABS: Band 16 % (5-11); Eosinophils 7 % (0-10); Hemoglobin 7.7 g/dL (12.0-16.0); Lymphocytes 7 % (21-51); MDiff Complete? YES; Mean Corpuscular HGB CONC 32.3 g/dL (32.0-36.0); Mean Corpuscular Hemoglobin 30.7 pg (27.0-31.0); Mean Corpuscular Volume 95.1 fL (78.0-98.0); Monocytes 5 % (0-10); Neutrophil 65 % (42-75); Platelet Count 207 thou/uL (130-400); Red Blood Cell (RBC) Count 2.49 mill/uL (4.20-5.40)
[2020-06-14] MEDS: fentaNYL Citrate/PF 2,000 MCG in Sodium Chloride 0.9% 60 ML IV PRN (07:24)
[2020-06-14] MEDS ORDERED: Senokot S 8.6-50 MG TAB PO PRN (07:27)
[2020-06-14] MEDS ORDERED: Cepastat Lozenges 1 LOZ PO PRN (07:27)
[2020-06-14] MEDS ORDERED: Calcium Carbonate 500 MG ChewTAB PO PRN (07:27)
[2020-06-14] MEDS ORDERED: GUAIFENESIN SF SOLN 200 MG/10 ML UDCUP PO PRN (07:27)
[2020-06-14] MEDS ORDERED: Sodium Chloride 0.65% Nasal 44 ML BOT EA NARE PRN (07:27)
[2020-06-14] MEDS ORDERED: Acetaminophen 325 MG TAB PO PRN (07:31)
--- NOTE | 2020-06-14 09:30 | PDOC.HOSPP ---
- Subjective Encounter Date: 06/14/20 Encounter Time: 07:00 Subjective: Patient seen and examined bedside today, patient reports that she does not have any bowel movement, she is not passing gas, she has NG tube with low intermittent suction, otherwise patient's vitals are stable, - Objective Vital Signs & Weight: Vital Signs (12 hours) Temp Pulse Resp BP Pulse Ox 06/14/20 07:00 98.6 F 98 16 129/70 98 06/14/20 03:59 99.2 F 98 16 133/79 96 06/14/20 00:00 99.2 F 101 H 16 133/85 96 Weight Admit Weight 100 lb Weight 115 lb I&O: 06/13/20 06/14/20 06/15/20 06:59 06:59 06:59 Intake Total 5067 2700 Output Total 1570 1805 Balance 3497 895 Result Diagrams: 06/14/20 04:00 06/14/20 04:00 Additional Labs: Accuchecks 06/14/20 06/13/20 06/13/20 00:36 18:54 13:03 POC Glucose 88 100 117 H Hospitalist ROS - Review of Systems Constitutional: denies: fever, chills, sweats, weakness, malaise, other Respiratory: denies: cough, dry, shortness of breath, hemoptysis, SOB with excertion, pleuritic pain, sputum, wheezing, other Cardiovascular: denies: chest pain, palpitations, orthopnea, paroxysmal noc. dyspnea, edema, light headedness, other Gastrointestinal: denies: nausea, vomiting, abdominal pain, diarrhea, constipation, melena, hematochezia, other Genitourinary: denies: dysuria, frequency, incontinence, hematuria, retention, other Musculoskeletal: denies: neck pain, shoulder pain, arm pain, back pain, hand pain, leg pain, foot pain, other - Medication Medications: Active Medications Generic Name Dose Route Start Last Admin Trade Name Freq PRN Reason Stop Dose Admin Enoxaparin Sodium 40 mg 06/09/20 21:00 06/13/20 21:04 Enoxaparin Sodium 40 Mg/0.4 Ml Syringe SC 40 mg 2100 JONES Administration Famotidine 20 mg 06/08/20 21:00 06/13/20 21:04 Famotidine/Pf 20 Mg/2ml Vial SLOW IVP 20 mg Q12HR JONES Administration Hydralazine HCl 10 mg 06/08/20 11:47 06/09/20 04:08 Hydralazine 20 Mg/Ml Vial SLOW IVP 10 mg Q4H PRN Administration SBP > 170 or DBP > 100 Fentanyl Citrate 2,000 mcg/ 100 mls @ 0 mls/hr 06/11/20 14:56 06/14/20 07:24 Sodium Chloride IV 100 mls INF PRN Administration Pain As Directed Meropenem 2 gm/ Sodium 100 mls @ 100 mls/hr 06/11/20 18:00 06/14/20 02:54 Chloride IVPB 100 mls 0200,1000,1800 JONES Administration Potassium Acetate 40 meq/ 2,313.4321 mls @ 70 mls/hr 06/11/20 22:00 06/14/20 00:31 Calcium Gluconate 10 meq/ IV 2,313.4321 mls Magnesium Sulfate 10 meq/ 2200 JONES Administration Multivitamins 10 ml/ Chromium/ Copper/Manganese/Zinc 9 ml/ Insulin Human Regular 23 units / Amino Acids/Electrolytes/ Fat Emulsion Intravenous Ketorolac Tromethamine 15 mg 06/11/20 14:03 06/14/20 02:53 Ketorolac Tromethamine 30 Mg/Ml Vial IVP 06/16/20 14:04 15 mg Q6H PRN Administration Pain Ondansetron HCl 4 mg 06/11/20 14:56 06/11/20 21:34 Ondansetron Pf 4 Mg/2 Ml Vial IVP 4 mg Q6H PRN Administration Nausea/Vomiting Sodium Chloride 10 ml 06/08/20 11:47 06/14/20 02:57 Flush - Normal Saline 10 Ml Syringe IVF 10 ml PRN PRN Administration Saline Flush - Exam General Appearance: NAD, awake alert Eye: PERRL, anicteric sclera ENT: normocephalic atraumatic, no oropharyngeal lesions Neck: supple, symmetric, no JVD, no thyromegaly Heart: RRR, no murmur, no gallops, no rubs Respiratory: no wheezes, no rales, no ronchi Gastrointestinal: soft Gastrointestinal - other findings: Wound VAC in place, TERRY drain in place, Palacios catheter in place, no bowel so Extremities: no cyanosis, no clubbing, no edema Skin: normal turgor, no lesions Neurological: no focal deficits Musculoskeletal: normal tone, normal strength Psychiatric: normal affect, normal behavior, A&O x 3 Hosp A/P - Plan old records reviewed/req, palacios catheter, continue antibiotics, incentive spirometry, DVT proph w/lovenox S/p exploratory laparotomy for ileostomy reversal Postoperative ileus Sinus tachycardia, resolved Left basilar consolidation with left-sided pleural effusion, Plan Continue meropenem Continue IV fluid Continue TPN Ambulate as tolerated, Continue NG tube with low intermittent suction, patient is n.p.o., postoperative care will defer to general surgery Patient is on INSPECTOR PENETRANT for pain control Continue incentive spirometry Continue DuoNeb therapy as needed Monitor labs
[2020-06-14] MEDS: Famotidine/PF 20 mg/2ml Vial SLOW IVP SCH ×2 (10:08→20:12)
--- NOTE | 2020-06-14 12:32 | PRG ---
DATE OF SERVICE: 06/14/2020 SUBJECTIVE: Ms. Sanderson feels better today. She pulled her NG out this morning. She denies nausea. She has been sitting but not out of bed yet. OBJECTIVE: VITAL SIGNS: She is afebrile. Vital signs are stable. She is making good urine. ABDOMEN: Soft. It is mildly distended. There are bowel sounds present. ASSESSMENT: Status post ileostomy reversal, lysis of adhesions. No bowel function yet. PLAN: Continue TPN for now. I will let her do ice chips today. Hopefully, ready for clear liquids tomorrow. Job ID: [id number]
[2020-06-14] MEDS: Enoxaparin Sodium 40 MG/0.4 ML SYRINGE SC SCH (20:12)
[2020-06-15] MEDS: Meropenem 2 GM in Sodium Chloride 0.9% 100 ML IVPB SCH ×3 (01:40→19:21)
--- NOTE | 2020-06-15 09:57 | PDOC.HOSPP ---
- Subjective Encounter Date: 06/15/20 Encounter Time: 07:00 Subjective: Patient seen and examined bedside today, patient is passing gas, yesterday her NG tube is discontinued, - Objective Vital Signs & Weight: Vital Signs (12 hours) Temp Pulse Resp BP BP Pulse Ox 06/15/20 08:13 98.4 F 107 H 16 136/78 97 06/15/20 04:00 98.1 F 105 H 16 155/94 H 97 06/14/20 23:37 97.8 F 98 16 150/84 H 96 Weight Admit Weight 100 lb Weight 115 lb I&O: 06/14/20 06/15/20 06/16/20 06:59 06:59 06:59 Intake Total 2700 2790 Output Total 1805 3180 Balance 895 -390 Result Diagrams: 06/14/20 04:00 06/14/20 04:00 Additional Labs: Accuchecks 06/15/20 06/14/20 06/14/20 05:52 23:28 17:05 POC Glucose 109 H 99 93 06/14/20 12:37 POC Glucose 111 H Hospitalist ROS - Review of Systems Constitutional: reports: weakness. denies: fever, chills, sweats, malaise, other Respiratory: denies: cough, dry, shortness of breath, hemoptysis, SOB with excertion, pleuritic pain, sputum, wheezing, other Cardiovascular: denies: chest pain, palpitations, orthopnea, paroxysmal noc. dyspnea, edema, light headedness, other Gastrointestinal: denies: nausea, vomiting, abdominal pain, diarrhea, constipation, melena, hematochezia, other Genitourinary: denies: dysuria, frequency, incontinence, hematuria, retention, other Musculoskeletal: denies: neck pain, shoulder pain, arm pain, back pain, hand pain, leg pain, foot pain, other - Medication Medications: Active Medications Generic Name Dose Route Start Last Admin Trade Name Freq PRN Reason Stop Dose Admin Enoxaparin Sodium 40 mg 06/09/20 21:00 06/14/20 20:12 Enoxaparin Sodium 40 Mg/0.4 Ml Syringe SC 40 mg 2100 JONES Administration Famotidine 20 mg 06/08/20 21:00 06/14/20 20:12 Famotidine/Pf 20 Mg/2ml Vial SLOW IVP 20 mg Q12HR JONES Administration Hydralazine HCl 10 mg 06/08/20 11:47 06/09/20 04:08 Hydralazine 20 Mg/Ml Vial SLOW IVP 10 mg Q4H PRN Administration SBP > 170 or DBP > 100 Fentanyl Citrate 2,000 mcg/ 100 mls @ 0 mls/hr 06/11/20 14:56 06/14/20 07:24 Sodium Chloride IV 100 mls INF PRN Administration Pain As Directed Meropenem 2 gm/ Sodium 100 mls @ 100 mls/hr 06/11/20 18:00 06/15/20 01:40 Chloride IVPB 100 mls 0200,1000,1800 JONES Administration Potassium Acetate 40 meq/ 2,313.4321 mls @ 70 mls/hr 06/11/20 22:00 06/14/20 23:24 Calcium Gluconate 10 meq/ IV 2,313.4321 mls Magnesium Sulfate 10 meq/ 2200 JONES Administration Multivitamins 10 ml/ Chromium/ Copper/Manganese/Zinc 9 ml/ Insulin Human Regular 23 units / Amino Acids/Electrolytes/ Fat Emulsion Intravenous Ketorolac Tromethamine 15 mg 06/11/20 14:03 06/14/20 19:41 Ketorolac Tromethamine 30 Mg/Ml Vial IVP 06/16/20 14:04 15 mg Q6H PRN Administration Pain Ondansetron HCl 4 mg 06/11/20 14:56 06/11/20 21:34 Ondansetron Pf 4 Mg/2 Ml Vial IVP 4 mg Q6H PRN Administration Nausea/Vomiting Sodium Chloride 10 ml 06/08/20 11:47 06/14/20 19:41 Flush - Normal Saline 10 Ml Syringe IVF 10 ml PRN PRN Administration Saline Flush - Exam General Appearance: NAD, awake alert Eye: PERRL, anicteric sclera ENT: normocephalic atraumatic, no oropharyngeal lesions Neck: supple, symmetric, no JVD, no thyromegaly Heart: RRR, no murmur, no gallops, no rubs Respiratory: no wheezes, no rales, no ronchi Gastrointestinal: soft Gastrointestinal - other findings: Wound VAC in place, TERRY drain in place, Extremities: no clubbing, no edema Skin: normal turgor, no lesions Neurological: no focal deficits Musculoskeletal: normal tone, normal strength Psychiatric: normal affect, normal behavior, A&O x 3 Hosp A/P - Plan old records reviewed/req, continue antibiotics, incentive spirometry, DVT proph w/lovenox S/p exploratory laparotomy for ileostomy reversal Postoperative ileus, resolving Sinus tachycardia, resolved Left basilar consolidation with left-sided pleural effusion, Plan Continue meropenem Continue IV fluid Continue TPN Ambulate as tolerated, Patient is on MATERIAL PLANNING ANALYST for pain control Continue incentive spirometry Continue DuoNeb therapy as needed Diet advancement will defer to general surgery Tomorrow we will repeat labs
[2020-06-15] MEDS ORDERED: Milk Of Magnesia 30 ML UDCUP PO PRN (10:04)
[2020-06-15] MEDS: Famotidine/PF 20 mg/2ml Vial SLOW IVP SCH ×2 (10:04→20:14)
--- NOTE | 2020-06-15 10:23 | PRG ---
DATE OF SERVICE: 06/15/2020 SUBJECTIVE: Ms. Sanderson is more confused. Her daughter is concerned. She answers questions appropriately. She denies nausea. She did vomit yesterday after she had pulled her NG tube out. She is still pushing her fentanyl HAT IRONER at times. She denies pain. She states that she is thirsty. OBJECTIVE: VITAL SIGNS: Her pulse is 107, blood pressure is 136/78. She is afebrile. Urine output is adequate. LABORATORY DATA: Her bandemia and white count were trending down yesterday, not rechecked today. ASSESSMENT: Status post ileostomy reversal, lysis of adhesions, now with more bowel function. PLAN: Start clear liquids. Discontinue fentanyl HAT IRONER. She still has a Garay in, though with her confusion being a little bit unstable, I will keep that in one more day. Job ID: [id number]
[2020-06-15] MEDS: HYDROcodone/Acetaminophen 7.5/325 mg Tablet PO PRN ×2 (13:43→20:14)
[2020-06-15] MEDS: Enoxaparin Sodium 40 MG/0.4 ML SYRINGE SC SCH (20:14)
--- NOTE | 2020-06-15 22:37 | EKG ---
Test Reason : Blood Pressure : / mmHG Vent. Rate : 122 BPM Atrial Rate : 122 BPM P-R Int : 150 ms QRS Dur : 070 ms QT Int : 310 ms P-R-T Axes : 072 040 065 degrees QTc Int : 441 ms Sinus tachycardia Otherwise normal ECG When compared with ECG of 16-MAY-2020 16:02, T wave amplitude has decreased in Inferior leads Confirmed by Syed LOPEZ ([id number]) on 06/15/2020 10:37:04 PM Referred By: AFIA Confirmed By:Syed LOPEZ
[2020-06-15] MEDS: [UNRECOGNIZED DRUG - OTHER] IV SCH (23:57)
[2020-06-15] MEDS: CALCIUM GLUCONATE IV SCH (23:57)
[2020-06-15] MEDS: POTASSIUM ACETATE IV SCH (23:57)
[2020-06-16] MEDS: Meropenem 2 GM in Sodium Chloride 0.9% 100 ML IVPB SCH ×3 (03:54→19:36)
[2020-06-16] MEDS: HYDROcodone/Acetaminophen 7.5/325 mg Tablet PO PRN ×3 (04:31→19:36)
[2020-06-16 06:21] LABS: #Eosinphils 1.2 thou/uL (0.0-0.7); #Lymphocytes 1.4 thou/uL (1.20-3.40); #Monocytes 1.6 thou/uL (0.11-0.59); #Neutrophils 9.1 thou/uL (1.40-6.50); %Basophils 0.1 % (0.0-1.0); %Eosinophils 9.1 % (0.0-10.0); %Lymphocytes 10.5 % (21.0-51.0); %Monocytes 11.8 % (0.0-10.0); %Neutrophils 68.5 % (42.0-75.0); Hemoglobin 8.4 g/dL (12.0-16.0); Mean Corpuscular HGB CONC 30.3 g/dL (32.0-36.0); Mean Corpuscular Hemoglobin 28.7 pg (27.0-31.0); Mean Corpuscular Volume 94.7 fL (78.0-98.0); Mean Platelet Volume 8.9 fL (7.4-10.4); Platelet Count 267 thou/uL (130-400); RBC Distribution Width 14.2 % (11.5-14.5); Red Blood Cell (RBC) Count 2.94 mill/uL (4.20-5.40); White Blood Cell (WBC) Count 13.2 thou/uL (4.8-10.8)
[2020-06-16] MEDS: traMADol HCl 50 MG TAB PO PRN ×2 (06:32→16:36)
[2020-06-16 06:37] LABS: ALT (SGPT) 22 U/L (8-55); AST (SGOT) 39 U/L (5-34); Albumin 2.7 g/dL (3.4-4.8); Alkaline Phosphatase 102 U/L (40-110); Anion Gap 10 mmol/L (10-20); BUN (Urea Nitrogen) 14 mg/dL (9.8-20.1); Bilirubin, Total 0.7 mg/dL (0.2-1.2); Calc. Creatinine Clearance 75 mL/min (70-130); Calcium 9.3 mg/dL (7.8-10.44); Carbon Dioxide 32 mmol/L (23-31); Chloride 98 mmol/L (98-107); Globulin 3.5 g/dL (2.4-3.5); Glucose 104 mg/dL (80-115); Potassium 4.3 mmol/L (3.5-5.1); Protein, Total 6.2 g/dL (6.0-8.3); Sodium 136 mmol/L (136-145)
[2020-06-16] MEDS: Famotidine/PF 20 mg/2ml Vial SLOW IVP SCH ×2 (09:07→21:32)
[2020-06-16] MEDS ORDERED: HYDROcodone/Acetaminophen 5/325 mg Tablet PO PRN (09:29)
[2020-06-16] MEDS ORDERED: Acetaminophen 500 MG TAB PO PRN (09:29)
--- NOTE | 2020-06-16 13:34 | PRG ---
DATE OF SERVICE: 06/16/2020 SUBJECTIVE: Mikala Sanderson is doing well today. OBJECTIVE: VITAL SIGNS: Temperature 97.9 degrees, heart rate 107, respiratory rate 14, and blood pressure 136/97. LUNGS: Clear to auscultation. CARDIAC: Regular rate and rhythm without murmur or gallop. ABDOMEN: Soft. Occasional bowel sounds. No stool or flatus, but no nausea or vomiting. No reflux. The patient did report having stool yesterday. ASSESSMENT AND PLAN: At this point, the patient seems to be doing well. She is still on a VICE PRESIDENT OF FINANCE pump. Her Garay had to be replaced because of retention, inability to mobilize. We will leave that in place now. We would continue her VICE PRESIDENT OF FINANCE. We will increase her to full liquids. Perhaps she is doing better tomorrow, we can discontinue the VICE PRESIDENT OF FINANCE and put her on oral analgesics. Hopefully, remove her Garay in the next day or 2. Job ID: [id number]
--- NOTE | 2020-06-16 18:20 | PDOC.HOSPP ---
- Subjective Encounter Date: 06/16/20 Subjective: She had a bowel movement, she ate a bit but now reports pain. - Objective Vital Signs & Weight: Vital Signs (12 hours) Temp Pulse Resp BP Pulse Ox 06/16/20 08:00 98 06/16/20 07:12 97.9 F 107 H 14 136/97 H 98 Weight Admit Weight 100 lb Weight 115 lb I&O: 06/15/20 06/16/20 06/17/20 06:59 06:59 06:59 Intake Total 2790 360 120 Output Total 3180 2930 Balance -390 -2570 120 Result Diagrams: 06/16/20 05:41 06/16/20 05:41 Additional Labs: Accuchecks 06/16/20 06/16/20 06/15/20 16:28 05:42 23:57 POC Glucose 118 H 105 H 114 H 06/12/20 18:09 POC Glucose 114 H Hospitalist ROS - Medication Medications: Active Medications Generic Name Dose Route Start Last Admin Trade Name Freq PRN Reason Stop Dose Admin Hydrocodone Bitart/Acetaminophen 1 tab 06/15/20 10:03 06/16/20 13:29 Hydrocodone/Acetaminophen 7.5/325 Mg Tablet PO 1 tab Q6H PRN Administration Mild Pain (1-3) Enoxaparin Sodium 40 mg 06/09/20 21:00 06/15/20 20:14 Enoxaparin Sodium 40 Mg/0.4 Ml Syringe SC 40 mg 2100 JONES Administration Famotidine 20 mg 06/08/20 21:00 06/16/20 09:07 Famotidine/Pf 20 Mg/2ml Vial SLOW IVP 20 mg Q12HR JONES Administration Hydralazine HCl 10 mg 06/08/20 11:47 06/09/20 04:08 Hydralazine 20 Mg/Ml Vial SLOW IVP 10 mg Q4H PRN Administration SBP > 170 or DBP > 100 Meropenem 2 gm/ Sodium 100 mls @ 100 mls/hr 06/11/20 18:00 06/16/20 11:16 Chloride IVPB 100 mls 0200,1000,1800 JONES Administration Potassium Acetate 40 meq/ 2,313.4321 mls @ 96.393 mls/hr 06/11/20 22:00 06/15/20 23:57 Calcium Gluconate 10 meq/ IV 2,313.4321 mls Magnesium Sulfate 10 meq/ 2200 JONES Administration Multivitamins 10 ml/ Chromium/ Copper/Manganese/Zinc 9 ml/ Insulin Human Regular 23 units / Amino Acids/Electrolytes/ Fat Emulsion Intravenous Ondansetron HCl 4 mg 06/11/20 14:56 06/11/20 21:34 Ondansetron Pf 4 Mg/2 Ml Vial IVP 4 mg Q6H PRN Administration Nausea/Vomiting Sodium Chloride 10 ml 06/08/20 11:47 06/14/20 19:41 Flush - Normal Saline 10 Ml Syringe IVF 10 ml PRN PRN Administration Saline Flush Tramadol HCl 50 mg 06/15/20 10:03 06/16/20 16:36 Tramadol Hcl 50 Mg Tab PO 50 mg Q6H PRN Administration Moderate to Severe Pain (6-10) - Exam General Appearance: awake alert Eye: PERRL ENT: normocephalic atraumatic Neck: supple, symmetric, no JVD Heart: RRR, murmur present Respiratory: no wheezes, no rales Gastrointestinal: distended (positive bowel sounds.) Extremities: no cyanosis Skin: normal turgor Hosp A/P (1) Abdominal pain Code(s): R10.9 - UNSPECIFIED ABDOMINAL PAIN Status: Acute (2) Breast cancer Status: Chronic (3) Hypertension Code(s): I10 - ESSENTIAL (PRIMARY) HYPERTENSION Status: Chronic (4) Pneumonia Code(s): J18.9 - PNEUMONIA, UNSPECIFIED ORGANISM Status: Acute - Plan S/p exploratory laparotomy for ileostomy reversal Postoperative ileus, resolving Sinus tachycardia, resolved Left basilar consolidation with left-sided pleural effusion, Plan Continue meropenem Continue IV fluid Continue TPN Ambulate as tolerated, Patient is on SAFE TECHNICIAN for pain control Continue incentive spirometry Continue DuoNeb therapy as needed Diet advancement will defer to general surgery will resume her BP meds
[2020-06-16] MEDS: Enoxaparin Sodium 40 MG/0.4 ML SYRINGE SC SCH (21:32)
[2020-06-16] MEDS: Ondansetron PF 4 MG/2 ML Vial IVP PRN (21:37)
[2020-06-17] MEDS: POTASSIUM ACETATE IV SCH (00:24)
[2020-06-17] MEDS: CALCIUM GLUCONATE IV SCH (00:24)
[2020-06-17] MEDS: [UNRECOGNIZED DRUG - OTHER] IV SCH (00:24)
[2020-06-17] MEDS: Meropenem 2 GM in Sodium Chloride 0.9% 100 ML IVPB SCH (03:19)
[2020-06-17] MEDS ORDERED: Meropenem 2 GM in Sodium Chloride 0.9% 100 ML IVPB SCH (04:00)
[2020-06-17] MEDS: HYDROcodone/Acetaminophen 7.5/325 mg Tablet PO PRN (04:29)
--- NOTE | 2020-06-17 08:11 | PRG ---
DATE OF SERVICE: 06/17/2020 SUBJECTIVE: Ms. Sanderson is doing well today. She had two bowel movements yesterday. She is tolerating her diet. She is still on TPN. OBJECTIVE: VITAL SIGNS: 97.7 degrees, 99, respiratory rate 14, 166/94. LUNGS: Clear to auscultation. CARDIAC: Regular rate and rhythm without murmur or gallop. ABDOMEN: Soft. Good bowel sounds. Wound VAC removed, and her wound actually looks very good. It is superficial, granulating. There are intact tevin between the open wound segments. No evidence of infection. Abdomen is soft and nontender. EXTREMITIES: Without edema. Accu-Cheks 105-122 on TPN. Note, the patient is nondiabetic. Basic metabolic profile normal yesterday. Yesterday, her white count was 13, hemoglobin 8.4. ASSESSMENT/PLAN: 1. Patient is doing well. We would recommend discontinue TPN today. Advance to regular diet. Discontinue Accu-Cheks after TPN started. Malnutrition has improved. 2. Meropenem prophylaxis due to intraoperative stool spillage during adhesiolysis. Discontinue meropenem, Augmentin orally for five days, make that switch today. 3. Analgesia. Discontinue PROFESSOR OF BUSINESS. Use Ultram, Tylenol, and Motrin p.r.n. pain. This has worked well for in the past. Discontinue hydrocodone. I do not think it is necessary. 4. Wound care. Change non VAC wound care. Arrange Home Health tomorrow, changing the dressing every 2-3 days. With dressing changes, dressings can be removed from the abdomen. Abdomen washed with soap and water open in a shower bath. Apply silver or non VAC wound care. 5. Discontinue Garay. Discharge planning for tomorrow. Job ID: [id number]
[2020-06-17] MEDS: Famotidine 20 MG TAB PO SCH ×2 (08:58→20:35)
[2020-06-17] MEDS: Amlodipine 10 MG TAB PO SCH (08:58)
[2020-06-17] MEDS: Ibuprofen 600 MG TAB PO PRN ×2 (08:59→18:52)
[2020-06-17] MEDS: traMADol HCl 50 MG TAB PO PRN ×2 (08:59→18:50)
[2020-06-17] MEDS: Amoxicillin/Potassium Clav 500 MG TAB PO SCH ×2 (09:00→20:35)
--- NOTE | 2020-06-17 18:29 | PDOC.HOSPP ---
- Subjective Encounter Date: 06/17/20 Subjective: feeling much better. - Objective Vital Signs & Weight: Vital Signs (12 hours) Temp Pulse Resp BP Pulse Ox 06/17/20 08:58 99 06/17/20 08:30 97.9 F 109 H 20 135/93 H 94 L Weight Admit Weight 100 lb Weight 115 lb I&O: 06/16/20 06/17/20 06/18/20 06:59 06:59 06:59 Intake Total 360 1448 Output Total 2930 1435 3200 Balance -2570 13 -3200 Result Diagrams: 06/16/20 05:41 06/16/20 05:41 Additional Labs: Accuchecks 06/17/20 06/17/20 06/17/20 12:17 06:13 00:19 POC Glucose 114 H 111 H 122 H Hospitalist ROS - Medication Medications: Active Medications Generic Name Dose Route Start Last Admin Trade Name Freq PRN Reason Stop Dose Admin Amlodipine Besylate 10 mg 06/17/20 09:00 06/17/20 08:58 Amlodipine 10 Mg Tab PO 10 mg QAM JONES Administration Amoxicillin/Clavulanate Potassium 500 mg 06/17/20 09:00 06/17/20 09:00 Amoxicillin/Potassium Clav 500 Mg Tab PO 500 mg Q12HR JONES Administration Enoxaparin Sodium 40 mg 06/09/20 21:00 06/16/20 21:32 Enoxaparin Sodium 40 Mg/0.4 Ml Syringe SC 40 mg 2100 JONES Administration Famotidine 20 mg 06/17/20 09:00 06/17/20 08:58 Famotidine 20 Mg Tab PO 20 mg BID JONES Administration Hydralazine HCl 10 mg 06/08/20 11:47 06/09/20 04:08 Hydralazine 20 Mg/Ml Vial SLOW IVP 10 mg Q4H PRN Administration SBP > 170 or DBP > 100 Ibuprofen 600 mg 06/16/20 09:29 06/17/20 08:59 Ibuprofen 600 Mg Tab PO 600 mg Q6H PRN Administration Mild Pain (1-3) Senna/Docusate Sodium 2 tab 06/14/20 07:27 06/17/20 08:58 Senokot S 8.6-50 Mg Tab PO 2 tab BID PRN Administration Constipation Sodium Chloride 10 ml 06/08/20 11:47 06/14/20 19:41 Flush - Normal Saline 10 Ml Syringe IVF 10 ml PRN PRN Administration Saline Flush Tramadol HCl 50 mg 06/15/20 10:03 06/17/20 08:59 Tramadol Hcl 50 Mg Tab PO 50 mg Q6H PRN Administration Moderate to Severe Pain (6-10) - Exam General Appearance: awake alert Eye: PERRL ENT: normocephalic atraumatic Neck: supple, symmetric Heart: RRR, no murmur Respiratory: CTAB, no wheezes, no rales Gastrointestinal: soft, non-tender Skin: normal turgor Neurological: cranial nerve grossly intact Musculoskeletal: normal tone Psychiatric: normal affect Hosp A/P (1) Abdominal pain Code(s): R10.9 - UNSPECIFIED ABDOMINAL PAIN Status: Acute (2) Breast cancer Status: Chronic (3) Hypertension Code(s): I10 - ESSENTIAL (PRIMARY) HYPERTENSION Status: Chronic (4) Pneumonia Code(s): J18.9 - PNEUMONIA, UNSPECIFIED ORGANISM Status: Acute - Plan S/p exploratory laparotomy for ileostomy reversal Postoperative ileus, resolving Sinus tachycardia, resolved Left basilar consolidation with left-sided pleural effusion, Plan Continue meropenem Continue IV fluid Continue TPN Ambulate as tolerated, Patient is on BOUFFANT CURTAIN MACHINE TENDER for pain control Continue incentive spirometry Continue DuoNeb therapy as needed Diet advancement will defer to general surgery will resume her BP meds plan for today 1/5 well appearing and possible discharge tomorrow as per surgery.
[2020-06-17] MEDS: Enoxaparin Sodium 40 MG/0.4 ML SYRINGE SC SCH (20:35)
[2020-06-17] MEDS: Ondansetron PF 4 MG/2 ML Vial IVP PRN (20:35)
[2020-06-18] MEDS ORDERED: Ketorolac Tromethamine 30 MG/ML VIAL IVP PRN (00:14)
[2020-06-18] MEDS: Ondansetron PF 4 MG/2 ML Vial IVP PRN ×3 (01:37→21:29)
[2020-06-18] MEDS ORDERED: Metoclopramide HCl 10 MG/2 ML VIAL IVP SCH (04:45)
[2020-06-18] MEDS ORDERED: Lactated Ringer's 1,000 ML IV SCH (08:45)
--- NOTE | 2020-06-18 08:57 | PRG ---
DATE OF SERVICE: 06/18/2020 SUBJECTIVE: Mikala Sanderson's TPN was discontinued yesterday. She had good bowel function. She was saline locked. Her MACHINE RIGGER discontinued. Yesterday evening, she began experiencing nausea, vomiting, and lack of appetite. Her abdominal pain has been unchanged and is minimal. Her heart rate this morning is 113 to 104, temperature 97.7 degrees, respiratory rate 18, and blood pressure 108/77. CBC has been ordered and we will add a CMP to that. The patient reports her abdomen is still slightly distended. She has not passed stool or flatus since yesterday morning. OBJECTIVE: LUNGS: Clear to auscultation. CARDIAC: Regular rate and rhythm without murmur or gallop. ABDOMEN: Soft, mildly distended, mild tympany. Occasional bowel sounds. Not hyperactive. Midline wound stable. EXTREMITIES: No edema. ASSESSMENT AND PLAN: Nausea, vomiting, dehydration. We will plan to restart her IV fluids. We will check her electrolytes, CBC. We will obtain two-view abdominal x-ray and chest x-ray. She will not be ready for discharge today. We would keep her n.p.o. except for sips and chips and medications. Hopefully, we can avoid an NG tube. We can restart her diet based on clinical course and evidence of bowel function. I do not think she needs a CAT scan at this time. Job ID: [id number]
[2020-06-18] MEDS: Amlodipine 10 MG TAB PO SCH (09:39)
[2020-06-18] MEDS: Pantoprazole 40 MG VIAL IVP SCH (10:37)
--- NOTE | 2020-06-18 10:37 | RAD ---
RADIOGRAPH CHEST ONE VIEW RADIOGRAPH ABDOMEN 2 VIEWS: DATE: 06/18/2020 HISTORY: 64-year-old female with nausea and vomiting COMPARISON: 06/11/2020 Abdomen and chest radiograph 06/12/2020 chest radiograph FINDINGS: The densities at the left lower lung zone and left midlung zone which may have represented a combinat ion of pleural effusion and subsegmental atelectasis, have almost completely resolved. Minimal blunting of left lateral costophrenic angle remains. The visualized lung huber are clear. Right subc lavian implantable vascular access port remains deep in the right atrium. There is a questionable new finding of subcutaneous emphysema at the right mid and lower chest wall. No cardiomegaly or pneumothorax. No pneumoperitoneum. The esophagogastric tube has been removed. There is a new vertical array of skin tevin overlying the left lower quadrant and left pelvis. There continues to be dense contrast material in the rectum, but the volume has decreased. There continues to be contrast material in the cecum, ascending colon, and hepatic flexure. Some of t his has progressed to the transverse colon. There are air-fluid levels in the nondilated transverse colon, and in borderline dilated jejunal loop s in left upper quadrant. Air-fluid level within the fundus of the stomach. IMPRESSION: 1) nonspecific bowel gas pattern, probably representing ileus. 2) persistent enteric contrast material in the colon. 3) removal of esophagogastric tube. 4) the lungs are clear. 5) questionable right-sided chest wall subcutaneous emphysema
[2020-06-18] MEDS: Lactated Ringer's 1,000 ML IV SCH ×2 (10:43→18:06)
[2020-06-18 10:59] LABS: #Basophils 0.1 thou/uL (0.0-0.2); #Eosinphils 0.3 thou/uL (0.0-0.7); #Lymphocytes 1.5 thou/uL (1.20-3.40); #Monocytes 1.2 thou/uL (0.11-0.59); %Basophils 0.5 % (0.0-1.0); %Eosinophils 2.5 % (0.0-10.0); %Lymphocytes 10.3 % (21.0-51.0); %Monocytes 8.7 % (0.0-10.0); %Neutrophils 78.1 % (42.0-75.0); Hemoglobin 8.2 g/dL (12.0-16.0); Mean Corpuscular HGB CONC 31.7 g/dL (32.0-36.0); Mean Corpuscular Hemoglobin 30.1 pg (27.0-31.0); Mean Platelet Volume 8.5 fL (7.4-10.4); Platelet Count 322 thou/uL (130-400); Red Blood Cell (RBC) Count 2.71 mill/uL (4.20-5.40); White Blood Cell (WBC) Count 14.1 thou/uL (4.8-10.8)
[2020-06-18 11:30] LABS: ALT (SGPT) 18 U/L (8-55); AST (SGOT) 31 U/L (5-34); Albumin 2.5 g/dL (3.4-4.8); Alkaline Phosphatase 103 U/L (40-110); Anion Gap 11 mmol/L (10-20); BUN (Urea Nitrogen) 23 mg/dL (9.8-20.1); Bilirubin, Total 0.7 mg/dL (0.2-1.2); Calc. Creatinine Clearance 56 mL/min (70-130); Carbon Dioxide 33 mmol/L (23-31); Chloride 96 mmol/L (98-107); Globulin 3.6 g/dL (2.4-3.5); Glucose 92 mg/dL (80-115); Magnesium 2.4 mg/dL (1.6-2.6); Potassium 4.3 mmol/L (3.5-5.1); Protein, Total 6.1 g/dL (6.0-8.3); Sodium 136 mmol/L (136-145)
[2020-06-18] MEDS: Ketorolac Tromethamine 30 MG/ML VIAL IVP PRN ×2 (13:32→20:15)
--- NOTE | 2020-06-18 17:52 | PDOC.HOSPP ---
- Subjective Encounter Date: 06/18/20 Subjective: feels a bit better. - Objective Vital Signs & Weight: Vital Signs (12 hours) Temp Pulse Resp BP Pulse Ox 06/18/20 09:39 104 H 06/18/20 07:40 97.5 F L 104 H 18 108/77 90 L Weight Admit Weight 100 lb Weight 115 lb I&O: 06/17/20 06/18/20 06/19/20 06:59 06:59 06:59 Intake Total 1448 Output Total 1433 4700 Balance 13 -3311 Result Diagrams: 06/18/20 10:38 06/18/20 10:38 Hospitalist ROS - Medication Medications: Active Medications Generic Name Dose Route Start Last Admin Trade Name Freq PRN Reason Stop Dose Admin Amlodipine Besylate 10 mg 06/17/20 09:00 06/18/20 09:39 Amlodipine 10 Mg Tab PO 10 mg QAM JONES Administration Enoxaparin Sodium 40 mg 06/09/20 21:00 06/17/20 20:35 Enoxaparin Sodium 40 Mg/0.4 Ml Syringe SC 40 mg 2100 JONES Administration Hydralazine HCl 10 mg 06/08/20 11:47 06/09/20 04:08 Hydralazine 20 Mg/Ml Vial SLOW IVP 10 mg Q4H PRN Administration SBP > 170 or DBP > 100 Lactated Ringer's 1,000 mls @ 120 mls/hr 06/18/20 08:45 06/18/20 10:43 Lactated Ringer's IV 1,000 mls .Q8H20M JONES Administration Ketorolac Tromethamine 15 mg 06/18/20 08:43 06/18/20 13:32 Ketorolac Tromethamine 30 Mg/Ml Vial IVP 06/23/20 08:44 15 mg Q6H PRN Administration Pain Ondansetron HCl 4 mg 06/17/20 20:09 06/18/20 15:11 Ondansetron Pf 4 Mg/2 Ml Vial IVP 4 mg Q6H PRN Administration Nausea/Vomiting Pantoprazole Sodium 40 mg 06/18/20 09:00 06/18/20 10:37 Pantoprazole 40 Mg Vial IVP 40 mg DAILY JONES Administration Sodium Chloride 10 ml 06/08/20 11:47 06/14/20 19:41 Flush - Normal Saline 10 Ml Syringe IVF 10 ml PRN PRN Administration Saline Flush - Exam Eye: PERRL ENT: normocephalic atraumatic Neck: supple Heart: RRR Gastrointestinal: distended Extremities: no cyanosis Skin: normal turgor Musculoskeletal: normal tone, normal strength Psychiatric: normal affect Hosp A/P (1) Abdominal pain Code(s): R10.9 - UNSPECIFIED ABDOMINAL PAIN Status: Acute (2) Breast cancer Status: Chronic (3) Hypertension Code(s): I10 - ESSENTIAL (PRIMARY) HYPERTENSION Status: Chronic (4) Pneumonia Code(s): J18.9 - PNEUMONIA, UNSPECIFIED ORGANISM Status: Acute - Plan S/p exploratory laparotomy for ileostomy reversal Postoperative ileus, resolving Sinus tachycardia, resolved Left basilar consolidation with left-sided pleural effusion, Plan Continue meropenem Continue IV fluid Continue TPN Ambulate as tolerated, Patient is on STOCK DIGGER for pain control Continue incentive spirometry Continue DuoNeb therapy as needed Diet advancement will defer to general surgery will resume her BP meds plan for today 1/5 well appearing and possible discharge tomorrow as per surgery. plan for today 1/6 late night yesterday patient had episodes of nausea and vomiting, today feeling better. Abdominal series results noted. agree with the management of the surgical team.
[2020-06-18] MEDS: Enoxaparin Sodium 40 MG/0.4 ML SYRINGE SC SCH (20:14)
[2020-06-19] MEDS: Morphine 4 MG/ML VIAL SLOW IVP PRN ×3 (01:13→19:47)
[2020-06-19] MEDS: Lactated Ringer's 1,000 ML IV SCH ×3 (02:33→19:49)
[2020-06-19] MEDS: Ondansetron PF 4 MG/2 ML Vial IVP PRN ×3 (05:56→19:52)
[2020-06-19] MEDS: Ketorolac Tromethamine 30 MG/ML VIAL IVP PRN ×2 (06:01→18:10)
[2020-06-19 06:24] LABS: #Basophils 0.1 thou/uL (0.0-0.2); #Eosinphils 0.4 thou/uL (0.0-0.7); #Lymphocytes 1.7 thou/uL (1.20-3.40); #Neutrophils 7.5 thou/uL (1.40-6.50); %Basophils 0.6 % (0.0-1.0); %Eosinophils 3.8 % (0.0-10.0); %Lymphocytes 15.8 % (21.0-51.0); %Monocytes 9.6 % (0.0-10.0); %Neutrophils 70.2 % (42.0-75.0); Hemoglobin 9.4 g/dL (12.0-16.0); Mean Corpuscular HGB CONC 31.8 g/dL (32.0-36.0); Mean Corpuscular Hemoglobin 30.1 pg (27.0-31.0); Mean Corpuscular Volume 94.6 fL (78.0-98.0); Mean Platelet Volume 8.2 fL (7.4-10.4); Platelet Count 304 thou/uL (130-400); RBC Distribution Width 15.1 % (11.5-14.5); Red Blood Cell (RBC) Count 3.13 mill/uL (4.20-5.40); White Blood Cell (WBC) Count 10.7 thou/uL (4.8-10.8)
[2020-06-19 06:49] LABS: ALT (SGPT) 17 U/L (8-55); AST (SGOT) 28 U/L (5-34); Albumin 2.5 g/dL (3.4-4.8); Alkaline Phosphatase 95 U/L (40-110); Anion Gap 10 mmol/L (10-20); BUN (Urea Nitrogen) 17 mg/dL (9.8-20.1); Bilirubin, Total 0.9 mg/dL (0.2-1.2); Calc. Creatinine Clearance 54 mL/min (70-130); Calcium 8.6 mg/dL (7.8-10.44); Carbon Dioxide 31 mmol/L (23-31); Chloride 98 mmol/L (98-107); Globulin 3.5 g/dL (2.4-3.5); Glucose 75 mg/dL (80-115); Potassium 4.1 mmol/L (3.5-5.1); Sodium 135 mmol/L (136-145)
[2020-06-19] MEDS ORDERED: Dextrose 50% Abboject 50 ML SYRINGE SLOW IVP PRN (07:57)
[2020-06-19] MEDS ORDERED: Dextrose 5% in Water 1,000 ML IV PRN (07:57)
[2020-06-19] MEDS ORDERED: HumaLOG 300 UNITS/3 ML VIAL SC PRN (07:57)
[2020-06-19] MEDS: Pantoprazole 40 MG VIAL IVP SCH (08:22)
[2020-06-19] MEDS: Amlodipine 10 MG TAB PO SCH (08:23)
--- NOTE | 2020-06-19 08:25 | PRG ---
DATE OF SERVICE: 06/19/2020 SUBJECTIVE: Mikala Sanderson is doing well without nausea or vomiting overnight. NG tube was not placed for ileus. She notes not experiencing any nausea, reflux, or vomiting. She, however, has not passed any flatus or stool. She is status post on 06/11/2020 laparotomy adhesiolysis, small bowel resection, anastomosis, and ileostomy reversal. Prior to that procedure, she had a contrast enema to evaluate her colorectal anastomosis and thus contrast introduced in the colon. The patient had abdominal x-rays yesterday revealing contrast in her colon and few air-fluid levels in her right colon, transverse colon, and small bowel. She was placed n.p.o. and since that time has not had any more nausea or vomiting. 98.7 degrees, 115, 123/82. White count this morning 10, hemoglobin 9.4. Basic metabolic profile normal. Sodium 135, potassium 4.1, BUN and creatinine are normal. Magnesium and phosphorus are normal. OBJECTIVE: LUNGS: Clear to auscultation. No wheezing. CARDIAC: Regular rate and rhythm without murmur or gallop. ABDOMEN: Soft, slightly tympanitic. No bowel sounds. Surgical wound looks good. ASSESSMENT/PLAN: Ileus, postoperative day #8. She initially had bowel function a few days ago, then developed nausea and vomiting, was placed back n.p.o. At this point, we will resume her TPN, total IV fluids 125. Keep her n.p.o. except for scant sips and chips. Await bowel function to recur and then can initiate her diet, would not do this before that. Would wait for flatus or bowel movements and hopefully we can avoid an NG tube. I have encouraged the patient to be up in a chair most of the day and ambulating. Dr. Kang will be covering the weekend, Tuesday, Tuesday, and Tuesday. I will see her on Tuesday. Job ID: [id number]
[2020-06-19] MEDS: POTASSIUM ACETATE IV SCH (14:20)
[2020-06-19] MEDS: SODIUM ACETATE IV SCH (14:20)
[2020-06-19] MEDS: CALCIUM GLUCONATE IV SCH (14:20)
[2020-06-19] MEDS: [UNRECOGNIZED DRUG - OTHER] IV SCH (14:20)
--- NOTE | 2020-06-19 17:26 | PDOC.HOSPP ---
- Subjective Encounter Date: 06/19/20 Subjective: no new complaints - Objective Vital Signs & Weight: Vital Signs (12 hours) Temp Pulse Resp BP BP Pulse Ox 06/19/20 08:23 115 H 123/85 06/19/20 08:22 96 06/19/20 07:43 98.7 F 115 H 16 123/85 96 Weight Admit Weight 100 lb Weight 115 lb I&O: 06/18/20 06/19/20 06/20/20 06:59 06:59 06:59 Intake Total 0 Output Total 4700 Balance -4700 0 Result Diagrams: 06/19/20 05:51 06/19/20 05:51 Hospitalist ROS - Medication Medications: Active Medications Generic Name Dose Route Start Last Admin Trade Name Freq PRN Reason Stop Dose Admin Amlodipine Besylate 10 mg 06/17/20 09:00 06/19/20 08:23 Amlodipine 10 Mg Tab PO 10 mg QAM JONES Administration Enoxaparin Sodium 40 mg 06/09/20 21:00 06/18/20 20:14 Enoxaparin Sodium 40 Mg/0.4 Ml Syringe SC 40 mg 2100 JONES Administration Hydralazine HCl 10 mg 06/08/20 11:47 06/09/20 04:08 Hydralazine 20 Mg/Ml Vial SLOW IVP 10 mg Q4H PRN Administration SBP > 170 or DBP > 100 Lactated Ringer's 1,000 mls @ 120 mls/hr 06/18/20 08:45 06/19/20 10:28 Lactated Ringer's IV 1,000 mls .Q8H20M JONES Administration Sodium Acetate 70 meq/ 2,338.4321 mls @ 97.475 mls/hr 06/19/20 14:00 06/19/20 14:20 Potassium Acetate 20 meq/ IV 2,338.4321 mls Calcium Gluconate 10 meq/ 1400 JONES Administration Magnesium Sulfate 10 meq/ Multivitamins 10 ml/ Chromium/ Copper/Manganese/Zinc 9 ml/ Insulin Human Regular 23 units / Amino Acids/Electrolytes/ Fat Emulsion Intravenous Ketorolac Tromethamine 15 mg 06/18/20 08:43 06/19/20 06:01 Ketorolac Tromethamine 30 Mg/Ml Vial IVP 06/23/20 08:44 15 mg Q6H PRN Administration Pain Morphine Sulfate 4 mg 06/18/20 08:43 06/19/20 14:34 Morphine 4 Mg/Ml Vial SLOW IVP 4 mg Q4H PRN Administration Moderate to Severe Pain (6-10) Ondansetron HCl 4 mg 06/17/20 20:09 06/19/20 14:23 Ondansetron Pf 4 Mg/2 Ml Vial IVP 4 mg Q6H PRN Administration Nausea/Vomiting Pantoprazole Sodium 40 mg 06/18/20 09:00 06/19/20 08:22 Pantoprazole 40 Mg Vial IVP 40 mg DAILY JONES Administration Sodium Chloride 10 ml 06/08/20 11:47 06/14/20 19:41 Flush - Normal Saline 10 Ml Syringe IVF 10 ml PRN PRN Administration Saline Flush - Exam General Appearance: awake alert Eye: PERRL, anicteric sclera ENT: normocephalic atraumatic Neck: supple, symmetric Heart: RRR, no murmur Respiratory: CTAB, no wheezes Gastrointestinal: tender to palpation, distended Neurological: cranial nerve grossly intact, normal sensation to touch Hosp A/P (1) Abdominal pain Code(s): R10.9 - UNSPECIFIED ABDOMINAL PAIN Status: Acute (2) Breast cancer Status: Chronic (3) Hypertension Code(s): I10 - ESSENTIAL (PRIMARY) HYPERTENSION Status: Chronic (4) Pneumonia Code(s): J18.9 - PNEUMONIA, UNSPECIFIED ORGANISM Status: Acute - Plan S/p exploratory laparotomy for ileostomy reversal Postoperative ileus, resolving Sinus tachycardia, resolved Left basilar consolidation with left-sided pleural effusion, Plan Continue meropenem Continue IV fluid Continue TPN Ambulate as tolerated, Patient is on PET RESORT CONCIERGE for pain control Continue incentive spirometry Continue DuoNeb therapy as needed Diet advancement will defer to general surgery will resume her BP meds plan for today 1 well appearing and possible discharge tomorrow as per surgery. plan for today 1 late night yesterday patient had episodes of nausea and vomiting, today feeling better. Abdominal series results noted. agree with the management of the surgical team. plan for today 06/19 He rileus persists, she is back on TPN, awaiting bowel function to resume. She is encouraged to ambulate.
[2020-06-19] MEDS ORDERED: Oxybutynin ER 5 MG TAB PO SCH (18:45)
[2020-06-19] MEDS: Enoxaparin Sodium 40 MG/0.4 ML SYRINGE SC SCH (19:55)
[2020-06-20] MEDS: Lactated Ringer's 1,000 ML IV SCH ×2 (02:32→20:29)
[2020-06-20] MEDS: Ondansetron PF 4 MG/2 ML Vial IVP PRN ×2 (06:20→20:16)
[2020-06-20] MEDS: Morphine 4 MG/ML VIAL SLOW IVP PRN ×4 (06:28→20:16)
[2020-06-20 06:40] LABS: INR-International Normal Ratio 1.2; Prothrombin Time 15.2 sec (12.0-14.7)
[2020-06-20 06:41] LABS: PTT 52.6 sec (22.9-36.1)
[2020-06-20 07:01] LABS: ALT (SGPT) 15 U/L (8-55); AST (SGOT) 21 U/L (5-34); Albumin 2.6 g/dL (3.4-4.8); Alkaline Phosphatase 84 U/L (40-110); Anion Gap 11 mmol/L (10-20); BUN (Urea Nitrogen) 16 mg/dL (9.8-20.1); Bilirubin, Total 0.7 mg/dL (0.2-1.2); Calc. Creatinine Clearance 58 mL/min (70-130); Calcium 9.1 mg/dL (7.8-10.44); Carbon Dioxide 31 mmol/L (23-31); Cardiac Risk 2.9 (Less than 4.5); Chloride 101 mmol/L (98-107); Cholesterol 105 mg/dl (< 200 Desired); Globulin 3.7 g/dL (2.4-3.5); Glucose 99 mg/dL (80-115); HDL Cholesterol 36 mg/dL (>60 Neg Risk); LDL Cholesterol, Calculated 58 mg/dL; Magnesium 2.2 mg/dL (1.6-2.6); Phosphorus 4.1 mg/dL (2.3-4.7); Potassium 4.3 mmol/L (3.5-5.1); Protein, Total 6.3 g/dL (6.0-8.3); Sodium 139 mmol/L (136-145); Triglycerides 55 mg/dL (Less than 150)
[2020-06-20] MEDS: Amlodipine 10 MG TAB PO SCH (09:12)
[2020-06-20] MEDS: Pantoprazole 40 MG VIAL IVP SCH (09:12)
[2020-06-20] MEDS: Oxybutynin ER 5 MG TAB PO SCH (09:13)
[2020-06-20] MEDS: Ketorolac Tromethamine 30 MG/ML VIAL IVP PRN ×2 (09:14→22:33)
[2020-06-20] MEDS: SODIUM ACETATE IV SCH (14:29)
[2020-06-20] MEDS: [UNRECOGNIZED DRUG - OTHER] IV SCH (14:29)
[2020-06-20] MEDS: POTASSIUM ACETATE IV SCH (14:29)
[2020-06-20] MEDS: CALCIUM GLUCONATE IV SCH (14:29)
--- NOTE | 2020-06-20 15:35 | PDOC.HOSPP ---
- Subjective Encounter Date: 06/20/20 Encounter Time: 12:20 Subjective: had abd distention this am and got ng tube placed has no abd pain now, feels better no flatus or stool yet says she walked yesterday a bit - Objective Vital Signs & Weight: Vital Signs (12 hours) Temp Pulse Resp BP BP Pulse Ox 06/20/20 09:14 94 L 06/20/20 09:12 112 H 131/76 06/20/20 08:07 98.2 F 112 H 16 131/76 94 L Weight Admit Weight 100 lb Weight 115 lb I&O: 06/19/20 06/20/20 06/21/20 06:59 06:59 06:59 Intake Total 0 1769 Balance 0 1769 Result Diagrams: 06/19/20 05:51 06/20/20 06:14 Additional Labs: Accuchecks 06/20/20 06/20/20 06/19/20 11:59 05:22 23:31 POC Glucose 104 H 100 98 06/19/20 18:40 POC Glucose 97 Hospitalist ROS - Medication Medications: Active Medications Generic Name Dose Route Start Last Admin Trade Name Freq PRN Reason Stop Dose Admin Amlodipine Besylate 10 mg 06/17/20 09:00 06/20/20 09:12 Amlodipine 10 Mg Tab PO 10 mg QAM JNOES Administration Enoxaparin Sodium 40 mg 06/09/20 21:00 06/19/20 19:55 Enoxaparin Sodium 40 Mg/0.4 Ml Syringe SC 40 mg 2100 JONES Administration Hydralazine HCl 10 mg 06/08/20 11:47 06/09/20 04:08 Hydralazine 20 Mg/Ml Vial SLOW IVP 10 mg Q4H PRN Administration SBP > 170 or DBP > 100 Lactated Ringer's 1,000 mls @ 120 mls/hr 06/18/20 08:45 06/20/20 02:32 Lactated Ringer's IV Not Given .Q8H20M [facility] Sodium Acetate 70 meq/ 2,338.4321 mls @ 97.475 mls/hr 06/19/20 14:00 06/20/20 14:29 Potassium Acetate 20 meq/ IV 2,338.4321 mls Calcium Gluconate 10 meq/ 1400 JONES Administration Magnesium Sulfate 10 meq/ Multivitamins 10 ml/ Chromium/ Copper/Manganese/Zinc 9 ml/ Insulin Human Regular 23 units / Amino Acids/Electrolytes/ Fat Emulsion Intravenous Ketorolac Tromethamine 15 mg 06/18/20 08:43 06/20/20 09:14 Ketorolac Tromethamine 30 Mg/Ml Vial IVP 06/23/20 08:44 15 mg Q6H PRN Administration Pain Morphine Sulfate 4 mg 06/18/20 08:43 06/20/20 14:48 Morphine 4 Mg/Ml Vial SLOW IVP 4 mg Q4H PRN Administration Moderate to Severe Pain (6-10) Ondansetron HCl 4 mg 06/17/20 20:09 06/20/20 06:20 Ondansetron Pf 4 Mg/2 Ml Vial IVP 4 mg Q6H PRN Administration Nausea/Vomiting Oxybutynin Chloride 10 mg 06/20/20 09:00 06/20/20 09:13 Oxybutynin Er 5 Mg Tab PO 10 mg DAILY JONES Administration Pantoprazole Sodium 40 mg 06/18/20 09:00 06/20/20 09:12 Pantoprazole 40 Mg Vial IVP 40 mg DAILY JONES Administration Sodium Chloride 10 ml 06/08/20 11:47 06/14/20 19:41 Flush - Normal Saline 10 Ml Syringe IVF 10 ml PRN PRN Administration Saline Flush - Exam General Appearance: awake alert Eye: PERRL, anicteric sclera ENT: no oropharyngeal lesions, moist mucosa Neck: supple, no JVD Heart: RRR, no murmur Respiratory: no wheezes, no rales, no ronchi Gastrointestinal: soft, non-tender, no guarding, no rigidity Extremities: no cyanosis, no edema Neurological: cranial nerve grossly intact, no focal deficits Psychiatric: normal affect, A&O x 3 Hosp A/P (1) Ileus Code(s): K56.7 - ILEUS, UNSPECIFIED Status: Acute (2) Pleural effusion, left Code(s): J90 - PLEURAL EFFUSION, NOT ELSEWHERE CLASSIFIED Status: Acute (3) H/O malignant neoplasm of breast Code(s): Z85.3 - PERSONAL HISTORY OF MALIGNANT NEOPLASM OF BREAST Status: Chronic (4) S/P exploratory laparotomy Status: Acute (5) Hypertension Code(s): I10 - ESSENTIAL (PRIMARY) HYPERTENSION Status: Chronic Qualifiers: Hypertension type: essential hypertension Qualified Code(s): I10 - Essential (primary) hypertension - Plan is npo except ice chips, has ng tube to intermittent suction to ambulate freq as tolerated continue merrem, norvasc, duoneb, LR at 120mls/day, protonix, morphine prn, oxybutynin hemostable is s/p exp lap, adhesiolysis, segmental small bowel resection and reversal of ileostomy on 06/11/2020
--- NOTE | 2020-06-20 16:51 | PRG ---
DATE OF SERVICE: 06/20/2020 SUBJECTIVE: I am seeing Ms. Sanderson on behalf of Dr. Tello, her primary surgeon. Ms. Sanderson is a 64-year-old woman who is postoperative day #9 today, status post exploratory laparotomy, adhesiolysis, and ileostomy takedown with primary anastomosis. She has developed postoperative ileus. This morning, she is awake and alert, complaining of some nausea. She did have a large volume emesis yesterday, which was bilious in nature. She is not passing any flatus and has had no bowel movement over the previous 5 days. Urinary output, however, remains adequate for the patient's age and weight. She admits to adequate pain control. OBJECTIVE: VITAL SIGNS: Today include blood pressure 131/76, pulse 112, respiratory rate is 16, temperature 98.2 degrees Fahrenheit, and oxygen saturation 94% on room air. HEENT: Normocephalic and atraumatic. HEART: Regular rate with sinus tachycardia. No murmurs or gallops auscultated. LUNGS: Clear to auscultation bilaterally. Breathing, regular and nonlabored. ABDOMEN: Soft and distended with incisional tenderness to palpation. Bowel sounds are hypoactive. She clearly has no peritoneal signs on examination. NEUROLOGIC: No focal deficits present. LABORATORY FINDINGS: Today include a CBC with 10,700 white blood cells, hemoglobin and hematocrit are stable at 9.4 and 29.6 respectively, and platelet count 304,000. Metabolic profile: Sodium 139, potassium 4.3, chloride is 101, bicarb is 31, BUN is 16, creatinine is 0.79, and glucose is 99. Total bilirubin is 0.7, AST and ALT normal at 21 and 15 respectively . IMPRESSIONS: 1. Postoperative day #9 status post exploratory laparotomy, adhesiolysis, and ileostomy takedown. 2. Postoperative adynamic ileus. PLAN: 1. Nasogastric tube was placed and over 1.2 L of bilious succus entericus was evacuated and the patient is reporting relief. 2. Increase activity. 3. The patient has been encouraged to ambulate ad radha. 4. Continue with bowel rest and IV hydration. We will obtain a small-bowel follow-through within the next 48 hours if no return of bowel function. Above findings and plan discussed with the patient who indicates understanding information provided. I have answered her questions. Job ID: [id number]
[2020-06-20] MEDS ORDERED: Oxybutynin ER 5 MG TAB PO SCH (18:22)
[2020-06-20] MEDS: Enoxaparin Sodium 40 MG/0.4 ML SYRINGE SC SCH (20:28)
[2020-06-21] MEDS: Morphine 4 MG/ML VIAL SLOW IVP PRN ×3 (03:31→18:11)
[2020-06-21] MEDS: Lactated Ringer's 1,000 ML IV SCH ×3 (03:34→20:01)
[2020-06-21] MEDS: Ketorolac Tromethamine 30 MG/ML VIAL IVP PRN ×3 (05:58→21:42)
[2020-06-21 08:23] LABS: ALT (SGPT) 12 U/L (8-55); AST (SGOT) 15 U/L (5-34); Albumin 2.4 g/dL (3.4-4.8); Alkaline Phosphatase 74 U/L (40-110); Anion Gap 11 mmol/L (10-20); BUN (Urea Nitrogen) 28 mg/dL (9.8-20.1); Bilirubin, Total 0.5 mg/dL (0.2-1.2); Calc. Creatinine Clearance 59 mL/min (70-130); Carbon Dioxide 31 mmol/L (23-31); Cardiac Risk 2.7 (Less than 4.5); Chloride 100 mmol/L (98-107); Cholesterol 95 mg/dl (< 200 Desired); Globulin 3.5 g/dL (2.4-3.5); Glucose 93 mg/dL (80-115); HDL Cholesterol 35 mg/dL (>60 Neg Risk); LDL Cholesterol, Calculated 51 mg/dL; Magnesium 2.3 mg/dL (1.6-2.6); Phosphorus 5.1 mg/dL (2.3-4.7); Potassium 4.3 mmol/L (3.5-5.1); Protein, Total 5.9 g/dL (6.0-8.3); Sodium 138 mmol/L (136-145); Triglycerides 46 mg/dL (Less than 150)
[2020-06-21] MEDS: Amlodipine 10 MG TAB PO SCH (11:45)
[2020-06-21] MEDS: Oxybutynin ER 5 MG TAB PO SCH (11:46)
[2020-06-21] MEDS: Pantoprazole 40 MG VIAL IVP SCH (11:46)
--- NOTE | 2020-06-21 13:50 | PDOC.HOSPP ---
- Subjective Encounter Date: 06/21/20 Encounter Time: 13:15 Subjective: no abd pain, has ng tube to suction no flatus or bm yet is amb in hallway a bit - Objective Vital Signs & Weight: Vital Signs (12 hours) Temp Pulse Resp BP Pulse Ox 06/21/20 08:00 98.9 F 104 H 18 135/73 99 Weight Admit Weight 100 lb Weight 115 lb I&O: 06/20/20 06/21/20 06/22/20 06:59 06:59 06:59 Intake Total 1769 2100 Output Total 2300 Balance 1769 -200 Result Diagrams: 06/19/20 05:51 06/21/20 07:27 Additional Labs: Accuchecks 06/21/20 06/21/20 06/20/20 11:53 05:51 23:58 POC Glucose 83 95 95 Hospitalist ROS - Medication Medications: Active Medications Generic Name Dose Route Start Last Admin Trade Name Freq PRN Reason Stop Dose Admin Amlodipine Besylate 10 mg 06/17/20 09:00 06/21/20 11:45 Amlodipine 10 Mg Tab PO 10 mg QAM JONES Administration Enoxaparin Sodium 40 mg 06/09/20 21:00 06/20/20 20:28 Enoxaparin Sodium 40 Mg/0.4 Ml Syringe SC 40 mg 2100 JONES Administration Hydralazine HCl 10 mg 06/08/20 11:47 06/09/20 04:08 Hydralazine 20 Mg/Ml Vial SLOW IVP 10 mg Q4H PRN Administration SBP > 170 or DBP > 100 Lactated Ringer's 1,000 mls @ 120 mls/hr 06/18/20 08:45 06/21/20 06:26 Lactated Ringer's IV 1,000 mls .Q8H20M JONES Administration Sodium Acetate 70 meq/ 2,338.4321 mls @ 97.475 mls/hr 06/19/20 14:00 06/20/20 14:29 Potassium Acetate 20 meq/ IV 2,338.4321 mls Calcium Gluconate 10 meq/ 1400 JONES Administration Magnesium Sulfate 10 meq/ Multivitamins 10 ml/ Chromium/ Copper/Manganese/Zinc 9 ml/ Insulin Human Regular 23 units / Amino Acids/Electrolytes/ Fat Emulsion Intravenous Ketorolac Tromethamine 15 mg 06/18/20 08:43 06/21/20 05:58 Ketorolac Tromethamine 30 Mg/Ml Vial IVP 06/23/20 08:44 15 mg Q6H PRN Administration Pain Morphine Sulfate 4 mg 06/18/20 08:43 06/21/20 11:42 Morphine 4 Mg/Ml Vial SLOW IVP 4 mg Q4H PRN Administration Moderate to Severe Pain (6-10) Ondansetron HCl 4 mg 06/17/20 20:09 06/20/20 20:16 Ondansetron Pf 4 Mg/2 Ml Vial IVP 4 mg Q6H PRN Administration Nausea/Vomiting Oxybutynin Chloride 10 mg 06/20/20 09:00 06/21/20 11:46 Oxybutynin Er 5 Mg Tab PO 10 mg DAILY JONES Administration Pantoprazole Sodium 40 mg 06/18/20 09:00 06/21/20 11:46 Pantoprazole 40 Mg Vial IVP 40 mg DAILY JONES Administration Sodium Chloride 10 ml 06/08/20 11:47 06/14/20 19:41 Flush - Normal Saline 10 Ml Syringe IVF 10 ml PRN PRN Administration Saline Flush - Exam General Appearance: awake alert Eye: PERRL, anicteric sclera ENT: no oropharyngeal lesions, moist mucosa Neck: supple, no JVD Heart: RRR, no murmur Respiratory: no wheezes, no rales Gastrointestinal: soft, non-tender, normal bowel sounds, no guarding, no rigidit y Extremities: no cyanosis, no edema Neurological: cranial nerve grossly intact, no focal deficits Psychiatric: normal affect, A&O x 3 Hosp A/P (1) Ileus Code(s): K56.7 - ILEUS, UNSPECIFIED Status: Acute (2) Pleural effusion, left Code(s): J90 - PLEURAL EFFUSION, NOT ELSEWHERE CLASSIFIED Status: Acute (3) H/O malignant neoplasm of breast Code(s): Z85.3 - PERSONAL HISTORY OF MALIGNANT NEOPLASM OF BREAST Status: Chronic (4) S/P exploratory laparotomy Status: Acute (5) Hypertension Code(s): I10 - ESSENTIAL (PRIMARY) HYPERTENSION Status: Chronic Qualifiers: Hypertension type: essential hypertension Qualified Code(s): I10 - Essential (primary) hypertension - Plan is npo except ice chips, has ng tube to intermittent suction to ambulate freq as tolerated continue merrem, jim valenzuela, LR at 120mls/day, protonix, morphine prn, oxybutynin hemostable is s/p exp lap, adhesiolysis, segmental small bowel resection and reversal of ileostomy on 06/11/2020 likely small bowel follow through in am?
[2020-06-21] MEDS: CALCIUM GLUCONATE IV SCH (15:58)
[2020-06-21] MEDS: POTASSIUM ACETATE IV SCH (15:58)
[2020-06-21] MEDS: [UNRECOGNIZED DRUG - OTHER] IV SCH (15:58)
[2020-06-21] MEDS: SODIUM ACETATE IV SCH (15:58)
--- NOTE | 2020-06-21 17:58 | PRG ---
DATE OF SERVICE: 06/21/2020 SUBJECTIVE: Ms. Sanderson is awake and alert today. She reports no abdominal pain. She denies any nausea since placement of nasogastric tube. The nasogastric tube has returned 2300 mL of bilious effluent since placement yesterday morning. The patient denies any flatus or bowel movement at the moment. Her urinary output remains adequate for age and weight. She is ambulating with minimum difficulty. OBJECTIVE: VITAL SIGNS: This morning, at time of my evaluation included blood pressure 135/73, pulse 104, respiratory rate is 18, temperature 98.9 degrees Fahrenheit, oxygen saturation is 99% on room air. HEART: Reveals regular rate with mild sinus tachycardia. No murmurs or gallops auscultated. LUNGS: Clear to auscultation bilaterally. Breathing regular and nonlabored. ABDOMEN: Soft, nontender, and nondistended. Bowel sounds are present in all 4 quadrants. She clearly has no peritoneal signs on examination. NEUROLOGIC: Reveals without any focal deficits present. LABORATORY FINDINGS: Today includes metabolic profile; sodium 138, potassium 4.3, chloride is 100, bicarb is 31, BUN is 28, creatinine is 0.77, glucose 93, phosphorus 5.1, magnesium is 2.3. AST and ALT remain normal at 15 and 12 respectively. IMPRESSIONS: 1. Postoperative day #10 status post exploratory laparotomy, adhesiolysis, and ileostomy takedown. 2. Adynamic ileus, resolving. PLAN: 1. Continue with bowel rest, nasogastric tube decompression. 2. Increase activity. 3. We will obtain upper GI with small-bowel follow-through tomorrow to rule out any acute small bowel obstruction. 4. Above findings and plan discussed with the patient who indicates understanding information provided. I have answered her questions. Job ID: [id number]
[2020-06-21] MEDS: Dextrose 5% in Water 1,000 ML IV SCH (18:14)
[2020-06-21] MEDS: Enoxaparin Sodium 40 MG/0.4 ML SYRINGE SC SCH (20:04)
[2020-06-22] MEDS: Morphine 4 MG/ML VIAL SLOW IVP PRN ×2 (01:07→06:03)
[2020-06-22] MEDS: Ketorolac Tromethamine 30 MG/ML VIAL IVP PRN ×3 (03:39→23:48)
[2020-06-22 07:07] LABS: ALT (SGPT) 12 U/L (8-55); AST (SGOT) 28 U/L (5-34); Albumin 2.4 g/dL (3.4-4.8); Alkaline Phosphatase 81 U/L (40-110); Anion Gap 14 mmol/L (10-20); BUN (Urea Nitrogen) 26 mg/dL (9.8-20.1); Bilirubin, Total 0.6 mg/dL (0.2-1.2); Calc. Creatinine Clearance 65 mL/min (70-130); Carbon Dioxide 27 mmol/L (23-31); Cardiac Risk 2.6 (Less than 4.5); Chloride 99 mmol/L (98-107); Cholesterol 100 mg/dl (< 200 Desired); Globulin 3.8 g/dL (2.4-3.5); Glucose 95 mg/dL (80-115); HDL Cholesterol 39 mg/dL (>60 Neg Risk); LDL Cholesterol, Calculated 51 mg/dL; Magnesium 2.2 mg/dL (1.6-2.6); Phosphorus 5.1 mg/dL (2.3-4.7); Potassium 4.6 mmol/L (3.5-5.1); Protein, Total 6.2 g/dL (6.0-8.3); Sodium 135 mmol/L (136-145); Triglycerides 51 mg/dL (Less than 150)
[2020-06-22] MEDS ORDERED: MD-Gastroview 120 ML BOT ONE (08:43)
[2020-06-22] MEDS: Amlodipine 10 MG TAB PO SCH (10:33)
[2020-06-22] MEDS: Oxybutynin ER 5 MG TAB PO SCH (10:33)
[2020-06-22] MEDS: Pantoprazole 40 MG VIAL IVP SCH (10:34)
[2020-06-22] MEDS: Ondansetron PF 4 MG/2 ML Vial IVP PRN ×2 (10:38→22:14)
--- NOTE | 2020-06-22 13:00 | PDOC.HOSPP ---
- Subjective Encounter Date: 06/22/20 Encounter Time: 12:00 Subjective: mild abd pain and threw up contrast for small bowel follow through no flatus or bm yet - Objective Vital Signs & Weight: Vital Signs (12 hours) Temp Pulse Resp BP Pulse Ox 06/22/20 10:33 96 06/22/20 08:00 98.5 F 96 18 115/68 97 Weight Admit Weight 100 lb Weight 115 lb I&O: 06/21/20 06/22/20 06/23/20 06:59 06:59 06:59 Intake Total 2100 1716 Output Total 2300 1050 Balance -200 666 Result Diagrams: 06/19/20 05:51 06/22/20 05:49 Additional Labs: Accuchecks 06/22/20 06/21/20 06/21/20 12:23 18:50 17:53 POC Glucose 86 96 69 L Hospitalist ROS - Medication Medications: Active Medications Generic Name Dose Route Start Last Admin Trade Name Freq PRN Reason Stop Dose Admin Amlodipine Besylate 10 mg 06/17/20 09:00 06/22/20 10:33 Amlodipine 10 Mg Tab PO 10 mg QAM JONES Administration Enoxaparin Sodium 40 mg 06/09/20 21:00 06/21/20 20:04 Enoxaparin Sodium 40 Mg/0.4 Ml Syringe SC 40 mg 2100 JONES Administration Hydralazine HCl 10 mg 06/08/20 11:47 06/09/20 04:08 Hydralazine 20 Mg/Ml Vial SLOW IVP 10 mg Q4H PRN Administration SBP > 170 or DBP > 100 Sodium Acetate 70 meq/ 2,338.4321 mls @ 97.475 mls/hr 06/19/20 14:00 06/21/20 15:58 Potassium Acetate 20 meq/ IV 2,338.4321 mls Calcium Gluconate 10 meq/ 1400 JONES Administration Magnesium Sulfate 10 meq/ Multivitamins 10 ml/ Chromium/ Copper/Manganese/Zinc 9 ml/ Insulin Human Regular 23 units / Amino Acids/Electrolytes/ Fat Emulsion Intravenous Dextrose/Water 1,000 mls @ 30 mls/hr 06/21/20 18:15 06/21/20 18:14 D5w IV 1,000 mls .Q24H JONES Administration Lactated Ringer's 1,000 mls @ 50 mls/hr 06/21/20 18:30 06/21/20 20:01 Lactated Ringer's IV Not Given .Q20H JONES Ketorolac Tromethamine 15 mg 06/18/20 08:43 06/22/20 10:31 Ketorolac Tromethamine 30 Mg/Ml Vial IVP 06/23/20 08:44 15 mg Q6H PRN Administration Pain Morphine Sulfate 4 mg 06/18/20 08:43 06/22/20 06:03 Morphine 4 Mg/Ml Vial SLOW IVP 4 mg Q4H PRN Administration Moderate to Severe Pain (6-10) Ondansetron HCl 4 mg 06/17/20 20:09 06/22/20 10:38 Ondansetron Pf 4 Mg/2 Ml Vial IVP 4 mg Q6H PRN Administration Nausea/Vomiting Oxybutynin Chloride 10 mg 06/20/20 09:00 06/22/20 10:33 Oxybutynin Er 5 Mg Tab PO 10 mg DAILY JONES Administration Pantoprazole Sodium 40 mg 06/18/20 09:00 06/22/20 10:34 Pantoprazole 40 Mg Vial IVP 40 mg DAILY JONES Administration Sodium Chloride 10 ml 06/08/20 11:47 06/14/20 19:41 Flush - Normal Saline 10 Ml Syringe IVF 10 ml PRN PRN Administration Saline Flush - Exam General Appearance: awake alert Eye: PERRL, anicteric sclera ENT: no oropharyngeal lesions, moist mucosa Neck: supple, no JVD Heart: RRR, no murmur Respiratory: no wheezes, no rales Gastrointestinal: soft, non-tender, non-distended Extremities: no cyanosis, no edema Neurological: cranial nerve grossly intact, no focal deficits Psychiatric: normal affect, A&O x 3 Hosp A/P (1) Ileus Code(s): K56.7 - ILEUS, UNSPECIFIED Status: Acute (2) Pleural effusion, left Code(s): J90 - PLEURAL EFFUSION, NOT ELSEWHERE CLASSIFIED Status: Acute (3) H/O malignant neoplasm of breast Code(s): Z85.3 - PERSONAL HISTORY OF MALIGNANT NEOPLASM OF BREAST Status: Chronic (4) S/P exploratory laparotomy Status: Acute (5) Hypertension Code(s): I10 - ESSENTIAL (PRIMARY) HYPERTENSION Status: Chronic Qualifiers: Hypertension type: essential hypertension Qualified Code(s): I10 - E ssential (primary) hypertension - Plan is npo except ice chips, has ng tube to intermittent suction to ambulate freq as tolerated continue merrem, norvasc, duonebs, iv fluids, protonix, morphine prn, oxybutynin hemostable is s/p exp lap, adhesiolysis, segmental small bowel resection and reversal of ileostomy on 06/11/2020 await small bowel follow results pharmacy has to reduce insulin dose in her tpn, if its reduced then may dc d5w drip and increase LR back to 100mls/hr.
[2020-06-22] MEDS: SODIUM ACETATE IV SCH (15:16)
[2020-06-22] MEDS: POTASSIUM ACETATE IV SCH (15:16)
[2020-06-22] MEDS: CALCIUM GLUCONATE IV SCH (15:16)
[2020-06-22] MEDS: [UNRECOGNIZED DRUG - OTHER] IV SCH (15:16)
[2020-06-22] MEDS: Morphine 2 MG/ML VIAL SLOW IVP PRN ×2 (15:17→21:32)
[2020-06-22] MEDS: Lactated Ringer's 1,000 ML IV SCH (15:17)
--- NOTE | 2020-06-22 15:22 | PRG ---
DATE OF SERVICE: 06/22/2020 SUBJECTIVE: Ms. Sanderson is awake and alert. She is in the middle of the small bowel follow-through studies. She reported one bout of bilious emesis after her 2-hour image. She denies any abdominal pain, fevers, or chills. She has had no bowel movements and is not passing any flatus. OBJECTIVE: VITAL SIGNS: Today include blood pressure 115/68, pulse 96, respiratory rate is 18, temperature 98.5 degrees Fahrenheit, and oxygen saturation 97% on room air. HEART: Reveals regular rate and rhythm. LUNGS: Clear to auscultation bilaterally. ABDOMEN: Soft and moderately distended, but nontender to palpation. Bowel sounds are absent. NEUROLOGIC: Reveals no focal deficits present. LABORATORY FINDINGS: Today include metabolic profile; sodium 135, potassium 4.6, chloride is 99, bicarb is 27, BUN is 26, creatinine 0.70, glucose 95, magnesium 2.2, and phosphorus 5.1. The patient remains on TPN. IMPRESSION: Acute adynamic ileus versus small bowel obstruction. PLAN: Continue conservative management and await completion of the small bowel follow-through. Once small bowel follow-through was completed, the nasogastric tube will be replaced to suction. The patient was encouraged to continue to increase her ambulation. Job ID: [id number] [facility]
--- NOTE | 2020-06-22 15:48 | RAD ---
Small bowel series: 06/22/2020 HISTORY: 64-year-old female "evaluate prolonged ileus" TECHNIQUE: Grinder Setup Operator radiograph obtained. Gastrografin injected into existing esophagogastric tube. Serial overhead radiographs obtained at 30 minutes, and at 1, 2, 4, and 6 hours. FINDINGS: No air-filled dilated small bowel loops are visualized on the practice support specialist radiograph, and the lack of small bowel gas apparently obscures the fact that dilated fluid-filled small bowel loops are present. Midline skin tevin remain. Residual enteric contrast material within nondilated colon similar to 06/18/2020 is seen on the practice support specialist radiograph. After Gastrografin injection, gastric distention and contrast filled dilated small bowel loops throug hout the entire abdominal cavity are visualized. As of 6 hours, the new enteric contrast material has not entered the colon. IMPRESSION: Gastrografin in dilated small bowel loops throughout the abdominal cavity does not reach the colon as of 6 hours. This is more consistent with small bowel obstruction rather than ileus.
[2020-06-22] MEDS: Dextrose 5% in Water 1,000 ML IV SCH (19:48)
[2020-06-22] MEDS: Enoxaparin Sodium 40 MG/0.4 ML SYRINGE SC SCH (21:21)
[2020-06-23] MEDS ORDERED: Acetaminophen 650 MG Suppository PR PRN
[2020-06-23] MEDS: Morphine 2 MG/ML VIAL SLOW IVP PRN (03:50)
[2020-06-23] MEDS ORDERED: Morphine 2 MG/ML VIAL SLOW IVP SCH ×2 (04:30→08:45)
[2020-06-23 07:53] LABS: ALT (SGPT) 12 U/L (8-55); AST (SGOT) 22 U/L (5-34); Albumin 2.5 g/dL (3.4-4.8); Alkaline Phosphatase 89 U/L (40-110); Anion Gap 11 mmol/L (10-20); BUN (Urea Nitrogen) 31 mg/dL (9.8-20.1); Bilirubin, Total 0.6 mg/dL (0.2-1.2); Calc. Creatinine Clearance 56 mL/min (70-130); Calcium 9.3 mg/dL (7.8-10.44); Carbon Dioxide 35 mmol/L (23-31); Cardiac Risk 2.9 (Less than 4.5); Chloride 95 mmol/L (98-107); Cholesterol 100 mg/dl (< 200 Desired); Globulin 3.6 g/dL (2.4-3.5); Glucose 115 mg/dL (80-115); HDL Cholesterol 34 mg/dL (>60 Neg Risk); LDL Cholesterol, Calculated 54 mg/dL; Magnesium 2.2 mg/dL (1.6-2.6); Phosphorus 5.7 mg/dL (2.3-4.7); Potassium 3.9 mmol/L (3.5-5.1); Protein, Total 6.1 g/dL (6.0-8.3); Sodium 137 mmol/L (136-145); Triglycerides 59 mg/dL (Less than 150)
[2020-06-23] MEDS: Oxybutynin ER 5 MG TAB PO SCH (08:37)
[2020-06-23] MEDS: Amlodipine 10 MG TAB PO SCH (08:37)
[2020-06-23] MEDS: Pantoprazole 40 MG VIAL IVP SCH (08:38)
[2020-06-23] MEDS: Morphine 4 MG/ML VIAL SLOW IVP PRN ×5 (09:33→23:14)
--- NOTE | 2020-06-23 13:26 | RAD ---
KUB AND UPRIGHT: HISTORY: Followup small bowel obstruction. COMPARISON: 06/10/2020 KUB and small bowel follow throughout of 06/22/2020. FINDINGS: NG tube is seen with the tip in the stomach. There is still faint residual contrast from the small b owel seen within some mildly distended proximal small bowel loops. There is residual contrast within the colon which was noted on the preliminary marine designer film of the small bowel follow through. It appea rs that the contrast within the small bowel loops has reabsorbed. It does not appear that it has pas sed into the colon. IMPRESSION: Faint residual opacification of some mildly dilated small bowel loops as described above. POS: SHERI
--- NOTE | 2020-06-23 14:00 | PDOC.HOSPP ---
- Subjective Encounter Date: 06/23/20 Encounter Time: 13:00 Subjective: c/o abd dyscomfort, no nausea has not passed flatus or bm yet - Objective Vital Signs & Weight: Vital Signs (12 hours) Temp Pulse Resp BP BP Pulse Ox 06/23/20 08:37 96 138/80 06/23/20 08:31 99.4 F 96 20 138/80 94 L 06/23/20 08:00 94 L 06/23/20 03:50 99.4 F Weight Admit Weight 100 lb Weight 115 lb I&O: 06/22/20 06/23/20 06/24/20 06:59 06:59 06:59 Intake Total 1716 1530 Output Total 1050 3450 Balance 666 -1920 Result Diagrams: 06/19/20 05:51 06/23/20 07:10 Additional Labs: Accuchecks 06/23/20 06/23/20 06/22/20 11:45 06:09 23:42 POC Glucose 113 H 112 H 102 H 06/22/20 06/22/20 06/20/20 18:33 05:44 18:41 POC Glucose 132 H 109 H 89 Hospitalist ROS - Medication Medications: Active Medications Generic Name Dose Route Start Last Admin Trade Name Freq PRN Reason Stop Dose Admin Acetaminophen 650 mg 06/23/20 00:00 06/23/20 00:15 Acetaminophen 650 Mg Suppository ID 650 mg Q4H PRN Administration Headache/Fever or Pain Amlodipine Besylate 10 mg 06/17/20 09:00 06/23/20 08:37 Amlodipine 10 Mg Tab PO 10 mg QAM JONES Administration Enoxaparin Sodium 40 mg 06/09/20 21:00 06/22/20 21:21 Enoxaparin Sodium 40 Mg/0.4 Ml Syringe SC 40 mg 2100 JONES Administration Hydralazine HCl 10 mg 06/08/20 11:47 06/09/20 04:08 Hydralazine 20 Mg/Ml Vial SLOW IVP 10 mg Q4H PRN Administration SBP > 170 or DBP > 100 Dextrose/Water 1,000 mls @ 30 mls/hr 06/21/20 18:15 06/22/20 19:48 D5w IV 1,000 mls .Q24H JONES Administration Lactated Ringer's 1,000 mls @ 50 mls/hr 06/21/20 18:30 06/22/20 15:17 Lactated Ringer's IV Not Given .Q20H JONES Morphine Sulfate 2 mg 06/18/20 08:43 06/23/20 03:50 Morphine 2 Mg/Ml Vial SLOW IVP 2 mg Q4H PRN Administration Mild-Moderate Pain (1-5) Morphine Sulfate 4 mg 06/18/20 08:43 06/23/20 13:07 Morphine 4 Mg/Ml Vial SLOW IVP 4 mg Q4H PRN Administration Moderate to Severe Pain (6-10) Ondansetron HCl 4 mg 06/17/20 20:09 06/22/20 22:14 Ondansetron Pf 4 Mg/2 Ml Vial IVP 4 mg Q6H PRN Administration Nausea/Vomiting Oxybutynin Chloride 10 mg 06/20/20 09:00 06/23/20 08:37 Oxybutynin Er 5 Mg Tab PO 10 mg DAILY JONES Administration Pantoprazole Sodium 40 mg 06/18/20 09:00 06/23/20 08:38 Pantoprazole 40 Mg Vial IVP 40 mg DAILY JONES Administration Sodium Chloride 10 ml 06/08/20 11:47 06/14/20 19:41 Flush - Normal Saline 10 Ml Syringe IVF 10 ml PRN PRN Administration Saline Flush - Exam General Appearance: awake alert Eye: PERRL, anicteric sclera ENT: no oropharyngeal lesions, moist mucosa Neck: supple, no JVD Heart: RRR, no murmur Respiratory: no wheezes, no rales Gastrointestinal: soft, non-distended, no guarding, no rigidity Extremities: no cyanosis, no edema Neurological: cranial nerve grossly intact, no focal deficits Psychiatric: normal affect, A&O x 3 Hosp A/P (1) Ileus Code(s): K56.7 - ILEUS, UNSPECIFIED Status: Acute (2) Pleural effusion, left Code(s): J90 - PLEURAL EFFUSION, NOT ELSEWHERE CLASSIFIED Status: Acute (3) H/O malignant neoplasm of breast Code(s): Z85.3 - PERSONAL HISTORY OF MALIGNANT NEOPLASM OF BREAST Status: Chronic (4) S/P exploratory laparotomy Status: Acute (5) Hypertension Code(s): I10 - ESSENTIAL (PRIMARY) HYPERTENSION Status: Chronic Qualifiers: Hypertension type: essential hypertension Qualified Code(s): I10 - Essential (primary) hypertension - Plan is npo except ice chips, has ng tube to intermittent suction still has ileus with no bm or flatus, has abd dyscomfort to ambulate freq as tolerated continue merrem, norvasc, duonebs, iv fluids, protonix, morphine prn, oxybutynin hemostable is s/p exp lap, adhesiolysis, segmental small bowel resection and reversal of ileostomy on 06/11/2020 await gen surg adv
[2020-06-23] MEDS: CALCIUM GLUCONATE IV SCH (15:20)
[2020-06-23] MEDS: [UNRECOGNIZED DRUG - OTHER] IV SCH (15:20)
[2020-06-23] MEDS: POTASSIUM ACETATE IV SCH (15:20)
[2020-06-23] MEDS: SODIUM ACETATE IV SCH (15:20)
[2020-06-23] MEDS: Lactated Ringer's 1,000 ML IV SCH ×2 (18:00→23:53)
[2020-06-23] MEDS: Dextrose 5% in Water 1,000 ML IV SCH (20:05)
[2020-06-23] MEDS: Enoxaparin Sodium 40 MG/0.4 ML SYRINGE SC SCH (20:06)
--- NOTE | 2020-06-23 20:55 | PRG ---
DATE OF SERVICE: 06/23/2020 SUBJECTIVE: Ms. Sanderson had a small-bowel follow-through yesterday. It did not progress into the colon. OBJECTIVE: VITAL SIGNS: Temperature 98.8 degrees, heart rate 96, blood pressure 138/80. NG tube output over 24 hours, last is 2400. One from this morning was not obtained. Basic metabolic profile; sodium 137, potassium 3.9, BUN 31, creatinine 0.81. Her magnesium is normal. Phosphorus is slightly high. LUNGS: Clear to auscultation. CARDIAC: Regular rate and rhythm without murmur or gallop. ABDOMEN: Soft. Rare bowel sounds. EXTREMITIES: Unremarkable. ASSESSMENT AND PLAN: The patient is status post on 06/11/2020 laparotomy, adhesiolysis, small bowel resection, and primary ileoileostomy anastomosis staple. She seemed to have bowel function postoperatively, but this shut down. She now either has a combination of ileus and bowel obstruction postoperatively. At this point, I would recommend nonoperative care with TPN and NG tube support. She is agreeable and wants to avoid another operation if we can. Continue TPN and NG tube suction. Observe her for bowel function. Job ID: [id number]
[2020-06-24] MEDS: Morphine 4 MG/ML VIAL SLOW IVP PRN ×6 (03:31→19:07)
[2020-06-24 07:16] LABS: ALT (SGPT) 14 U/L (8-55); AST (SGOT) 28 U/L (5-34); Albumin 2.6 g/dL (3.4-4.8); Alkaline Phosphatase 97 U/L (40-110); Anion Gap 12 mmol/L (10-20); BUN (Urea Nitrogen) 24 mg/dL (9.8-20.1); Bilirubin, Total 0.6 mg/dL (0.2-1.2); Calc. Creatinine Clearance 61 mL/min (70-130); Calcium 9.5 mg/dL (7.8-10.44); Carbon Dioxide 34 mmol/L (23-31); Chloride 96 mmol/L (98-107); Cholesterol 105 mg/dl (< 200 Desired); Globulin 4.1 g/dL (2.4-3.5); Glucose 107 mg/dL (80-115); HDL Cholesterol 35 mg/dL (>60 Neg Risk); LDL Cholesterol, Calculated 56 mg/dL; Magnesium 1.9 mg/dL (1.6-2.6); Phosphorus 5.5 mg/dL (2.3-4.7); Potassium 4.2 mmol/L (3.5-5.1); Protein, Total 6.7 g/dL (6.0-8.3); Sodium 138 mmol/L (136-145); Triglycerides 72 mg/dL (Less than 150)
[2020-06-24] MEDS: Amlodipine 10 MG TAB PO SCH (09:03)
[2020-06-24] MEDS: Oxybutynin ER 5 MG TAB PO SCH (09:04)
[2020-06-24] MEDS: Pantoprazole 40 MG VIAL IVP SCH (09:04)
--- NOTE | 2020-06-24 14:01 | PDOC.HOSPP ---
- Subjective Encounter Date: 06/24/20 Encounter Time: 10:15 Subjective: has abd dyscomfort but better than yesterday no nausea, has ng tube to suction no flatus or bm yet - Objective Vital Signs & Weight: Vital Signs (12 hours) Temp Pulse Resp BP BP Pulse Ox 06/24/20 09:20 98 06/24/20 09:03 104 H 116/71 06/24/20 07:50 98.7 F 104 H 18 116/71 98 06/24/20 04:00 98.6 F Weight Admit Weight 100 lb Weight 115 lb I&O: 06/23/20 06/24/20 06/25/20 06:59 06:59 06:59 Intake Total 1530 3113 Output Total 3450 2950 Balance -1920 163 Result Diagrams: 06/19/20 05:51 06/24/20 06:36 Additional Labs: Accuchecks 06/24/20 06/24/20 06/23/20 11:36 05:29 23:41 POC Glucose 109 H 102 H 95 06/23/20 17:49 POC Glucose 100 Hospitalist ROS - Medication Medications: Active Medications Generic Name Dose Route Start Last Admin Trade Name Freq PRN Reason Stop Dose Admin Amlodipine Besylate 10 mg 06/17/20 09:00 06/24/20 09:03 Amlodipine 10 Mg Tab PO 10 mg QAM JONES Administration Enoxaparin Sodium 40 mg 06/09/20 21:00 06/23/20 20:06 Enoxaparin Sodium 40 Mg/0.4 Ml Syringe SC 40 mg 2100 JONES Administration Hydralazine HCl 10 mg 06/08/20 11:47 06/09/20 04:08 Hydralazine 20 Mg/Ml Vial SLOW IVP 10 mg Q4H PRN Administration SBP > 170 or DBP > 100 Sodium Acetate 70 meq/ 2,338.2521 mls @ 97.475 mls/hr 06/23/20 14:00 06/23/20 15:20 Potassium Acetate 20 meq/ IV 2,338.2521 mls Calcium Gluconate 10 meq/ 1400 JONES Administration Magnesium Sulfate 10 meq/ Multivitamins 10 ml/ Chromium/ Copper/Manganese/Zinc 9 ml/ Insulin Human Regular 5 units/ Amino Acids/Electrolytes/ Fat Emulsion Intravenous Lactated Ringer's 1,000 mls @ 60 mls/hr 06/23/20 23:59 06/23/20 23:53 Lactated Ringer's IV 1,000 mls .[id number] JONES Administration Morphine Sulfate 4 mg 06/23/20 20:36 06/24/20 10:52 Morphine 4 Mg/Ml Vial SLOW IVP 4 mg Q2H PRN Administration Moderate to Severe Pain (6-10) Ondansetron HCl 4 mg 06/17/20 20:09 06/22/20 22:14 Ondansetron Pf 4 Mg/2 Ml Vial IVP 4 mg Q6H PRN Administration Nausea/Vomiting Oxybutynin Chloride 10 mg 06/20/20 09:00 06/24/20 09:04 Oxybutynin Er 5 Mg Tab PO 10 mg DAILY JONES Administration Pantoprazole Sodium 40 mg 06/18/20 09:00 06/24/20 09:04 Pantoprazole 40 Mg Vial IVP 40 mg DAILY JONES Administration Sodium Chloride 10 ml 06/08/20 11:47 06/23/20 23:14 Flush - Normal Saline 10 Ml Syringe IVF 10 ml PRN PRN Administration Saline Flush - Exam General Appearance: awake alert Eye: PERRL, anicteric sclera ENT: no oropharyngeal lesions, moist mucosa Neck: supple, no JVD Heart: RRR, no murmur Respiratory: no wheezes, no rales Gastrointestinal: soft, non-distended, no guarding, no rigidity Extremities: no cyanosis, no edema Neurological: cranial nerve grossly intact, no focal deficits Psychiatric: normal affect, A&O x 3 Hosp A/P (1) Ileus Code(s): K56.7 - ILEUS, UNSPECIFIED Status: Acute (2) Pleural effusion, left Code(s): J90 - PLEURAL EFFUSION, NOT ELSEWHERE CLASSIFIED Status: Acute (3) H/O malignant neoplasm of breast Code(s): Z85.3 - PERSONAL HISTORY OF MALIGNANT NEOPLASM OF BREAST Status: Chronic (4) S/P exploratory laparotomy Status: Acute (5) Hypertension Code(s): I10 - ESSENTIAL (PRIMARY) HYPERTENSION Status: Chronic Qualifiers: Hypertension type: essential hypertension Qualified Code(s): I10 - Essential (primary) hypertension - Plan is npo except ice chips, has ng tube to intermittent suction still has ileus with no bm or flatus, has abd dyscomfort to ambulate freq as tolerated continue norvasc, duonebs, iv fluids, tpn, protonix, morphine prn, oxybutynin hemostable is s/p exp lap, adhesiolysis, segmental small bowel resection and reversal of ileostomy on 06/11/2020 for med mgmt of ileus for now
[2020-06-24] MEDS: [UNRECOGNIZED DRUG - OTHER] IV SCH (14:56)
[2020-06-24] MEDS: CALCIUM GLUCONATE IV SCH (14:56)
[2020-06-24] MEDS: SODIUM ACETATE IV SCH (14:56)
[2020-06-24] MEDS: POTASSIUM ACETATE IV SCH (14:56)
[2020-06-24] MEDS: Lactated Ringer's 1,000 ML IV SCH (15:30)
--- NOTE | 2020-06-24 16:27 | PRG ---
DATE OF SERVICE: SUBJECTIVE: Mikala Sanderson is doing well today. OBJECTIVE: VITAL SIGNS: 98.7 degrees, 104, 116/71. LUNGS: Clear to auscultation. CARDIAC: Regular rate and rhythm without murmur or gallop. ABDOMEN: Soft, quiet. Minimal bowel sounds. Midline incision looks good. LABORATORY DATA: This morning, her sodium is 138, potassium 4.2, chloride 96, carbon dioxide 34, BUN and creatinine 24 and 0.75. Phosphorus was 5.5, bilirubin 0.6. Her Accu-Cheks have been better since her insulin has been decreased from 1 unit per 100 meals to 5 units per bag. This was done by Dr. Marte. ASSESSMENT AND PLAN: Ileus plus or minus partial obstruction postoperative. Continue TPN. NG tube. Nonoperative management. Last operation performed on 06/11/2020, 12 days ago. Continue good activity levels. Job ID: [id number]
[2020-06-24] MEDS: Enoxaparin Sodium 40 MG/0.4 ML SYRINGE SC SCH (19:46)
[2020-06-24] MEDS: Ondansetron PF 4 MG/2 ML Vial IVP PRN (19:46)
[2020-06-25] MEDS: Morphine 4 MG/ML VIAL SLOW IVP PRN ×7 (00:54→20:28)
[2020-06-25] MEDS: Oxybutynin ER 5 MG TAB PO SCH (08:49)
[2020-06-25] MEDS: Pantoprazole 40 MG VIAL IVP SCH (08:49)
[2020-06-25] MEDS: Amlodipine 10 MG TAB PO SCH (08:49)
[2020-06-25] MEDS: Lactated Ringer's 1,000 ML IV SCH (08:56)
--- NOTE | 2020-06-25 12:36 | PRG ---
DATE OF SERVICE: 06/25/2020 SUBJECTIVE: Ms. Sanderson is doing well. Her NG tube remains intact. She has put out 750 over 24 hours. She has not passed any flatus or stool. OBJECTIVE: LUNGS: Clear to auscultation. CARDIAC: Regular rate and rhythm without murmur or gallop. ABDOMEN: Bowel sounds present, although diminished. Midline wound looks good, although inferiorly was having increased drainage. Thus, her tevin removed inferiorly open. The fascia is intact. There is some wound soilage and wound VAC reapplied by Wound Care. EXTREMITIES: Unremarkable. LABORATORY DATA: None today. Accu-Cheks 100 to 102. ASSESSMENT AND PLAN: 1. Postoperative ileus versus partial obstruction. No bowel function. No flatus or stool. She is now two weeks postoperatively. Continue TPN and NG tube to try to avoid an operation. 2. Wound infection after small bowel resection, wound VAC care. 3. Malnutrition. Continue TPN. Check labs tomorrow. Job ID: [id number]
--- NOTE | 2020-06-25 13:46 | PDOC.HOSPP ---
- Subjective Encounter Date: 06/25/20 Encounter Time: 13:00 Subjective: has her abd surg wound in vac this morning no flatus or bm yet mild sob she quit smoking last jun 2019 - Objective Vital Signs & Weight: Vital Signs (12 hours) Temp Pulse Resp BP Pulse Ox 06/25/20 08:49 98 06/25/20 08:00 99.9 F H 100 18 116/75 96 Weight Admit Weight 100 lb Weight 115 lb I&O: 06/24/20 06/25/20 06/26/20 06:59 06:59 06:59 Intake Total 3113 2003 Output Total 2950 2400 Balance 163 -396 Result Diagrams: 06/19/20 05:51 06/24/20 06:36 Additional Labs: Accuchecks 06/25/20 06/25/20 06/25/20 12:04 04:47 00:05 POC Glucose 102 H 101 H 101 H 06/24/20 18:31 POC Glucose 90 Hospitalist ROS - Medication Medications: Active Medications Generic Name Dose Route Start Last Admin Trade Name Freq PRN Reason Stop Dose Admin Amlodipine Besylate 10 mg 06/17/20 09:00 06/25/20 08:49 Amlodipine 10 Mg Tab PO 10 mg QAM JONES Administration Enoxaparin Sodium 40 mg 06/09/20 21:00 06/24/20 19:46 Enoxaparin Sodium 40 Mg/0.4 Ml Syringe SC 40 mg 2100 JONES Administration Hydralazine HCl 10 mg 06/08/20 11:47 06/09/20 04:08 Hydralazine 20 Mg/Ml Vial SLOW IVP 10 mg Q4H PRN Administration SBP > 170 or DBP > 100 Lactated Ringer's 1,000 mls @ 60 mls/hr 06/23/20 23:59 06/25/20 08:56 Lactated Ringer's IV 1,000 mls .[id number] JONES Administration Morphine Sulfate 4 mg 06/23/20 20:36 06/25/20 11:29 Morphine 4 Mg/Ml Vial SLOW IVP 4 mg Q2H PRN Administration Moderate to Severe Pain (6-10) Ondansetron HCl 4 mg 06/17/20 20:09 06/24/20 19:46 Ondansetron Pf 4 Mg/2 Ml Vial IVP 4 mg Q6H PRN Administration Nausea/Vomiting Oxybutynin Chloride 10 mg 06/20/20 09:00 06/25/20 08:49 Oxybutynin Er 5 Mg Tab PO 10 mg DAILY JONES Administration Pantoprazole Sodium 40 mg 06/18/20 09:00 06/25/20 08:49 Pantoprazole 40 Mg Vial IVP 40 mg DAILY JONES Administration Sodium Chloride 10 ml 06/08/20 11:47 06/23/20 23:14 Flush - Normal Saline 10 Ml Syringe IVF 10 ml PRN PRN Administration Saline Flush - Exam General Appearance: awake alert Eye: PERRL, anicteric sclera ENT: no oropharyngeal lesions, moist mucosa Neck: supple, no JVD Heart: RRR, no murmur Respiratory: no wheezes, rales, rhonchi Gastrointestinal: soft, non-distended, normal bowel sounds, no guarding, no rigidity Gastrointestinal - other findings: wound vac+ Extremities: no cyanosis, no edema Neurological: cranial nerve grossly intact, no focal deficits Psychiatric: normal affect, A&O x 3 Hosp A/P (1) Ileus Code(s): K56.7 - ILEUS, UNSPECIFIED Status: Acute (2) Pleural effusion, left Code(s): J90 - PLEURAL EFFUSION, NOT ELSEWHERE CLASSIFIED Status: Acute (3) H/O malignant neoplasm of breast Code(s): Z85.3 - PERSONAL HISTORY OF MALIGNANT NEOPLASM OF BREAST Status: Chronic (4) S/P exploratory laparotomy Status: Acute (5) Hypertension Code(s): I10 - ESSENTIAL (PRIMARY) HYPERTENSION Status: Chronic Qualifiers: Hypertension type: essential hypertension Qualified Code(s): I10 - Essential (primary) hypertension - Plan is npo except ice chips, has ng tube to intermittent suction still has ileus with no bm or flatus, abd surgical site in wound vac to ambulate freq as tolerated continue norvasc, duonebs, iv fluids, tpn, protonix, morphine prn, oxybutynin hemostable is s/p exp lap, adhesiolysis, segmental small bowel resection and reversal of ileostomy on 06/11/2020 for med mgmt of ileus for now
--- NOTE | 2020-06-25 14:32 | RAD ---
Chest one view HISTORY: Pleural effusion. Follow-up. COMPARISON: 06/18/2020. FINDINGS: Cardiac silhouette is magnified by projection. Pulmonary vasculature are unremarkable. Mediastinum is midline. Nasogastric tube descends to the stomach. Right subclavian central venous cat heter remains in good position. Scoliotic curvature of the thoracic spine is apparent with associated tortuosity of the thoracic aort a. No lobar consolidation or evidence of pneumothorax. Lateral costophrenic angles are sharp. IMPRESSION : No evidence of pleural fluid or other acute abnormality.
[2020-06-25] MEDS: CALCIUM GLUCONATE IV SCH (14:42)
[2020-06-25] MEDS: [UNRECOGNIZED DRUG - OTHER] IV SCH (14:42)
[2020-06-25] MEDS: POTASSIUM ACETATE IV SCH (14:42)
[2020-06-25] MEDS: SODIUM ACETATE IV SCH (14:42)
[2020-06-25] MEDS: Enoxaparin Sodium 40 MG/0.4 ML SYRINGE SC SCH (20:28)
[2020-06-26] MEDS: Morphine 4 MG/ML VIAL SLOW IVP PRN ×9 (00:07→23:57)
[2020-06-26] MEDS: Pantoprazole 40 MG VIAL IVP SCH (07:44)
[2020-06-26] MEDS: Amlodipine 10 MG TAB PO SCH (08:39)
[2020-06-26] MEDS: Oxybutynin ER 5 MG TAB PO SCH (08:40)
--- NOTE | 2020-06-26 13:45 | PDOC.HOSPP ---
- Subjective Encounter Date: 06/26/20 Encounter Time: 12:30 Subjective: no new complaints has not had bm or flatus so far is ambulating well - Objective Vital Signs & Weight: Vital Signs (12 hours) Temp Pulse Resp BP BP Pulse Ox 06/26/20 12:32 70 16 06/26/20 11:41 98.6 F 97 18 121/72 96 06/26/20 08:39 114 H 121/85 06/26/20 08:11 98.8 F 114 H 18 121/85 97 06/26/20 08:00 97 06/26/20 06:28 70 16 06/26/20 04:00 98.9 F 95 16 114/76 97 Weight Admit Weight 100 lb Weight 115 lb I&O: 06/25/20 06/26/20 06/27/20 06:59 06:59 06:59 Intake Total 2003 1729 Output Total 4 9252 Balance -364 -8598 Result Diagrams: 06/19/20 05:51 06/24/20 06:36 Additional Labs: Accuchecks 06/26/20 06/26/20 06/25/20 11:35 05:43 23:42 POC Glucose 89 95 101 H 06/25/20 18:20 POC Glucose 86 Hospitalist ROS - Medication Medications: Active Medications Generic Name Dose Route Start Last Admin Trade Name Freq PRN Reason Stop Dose Admin Albuterol/Ipratropium 3 ml 06/25/20 19:00 06/26/20 12:32 Ipratropium/Albuterol Sulfate 3 Ml Neb NEB 3 ml [id number] JONES Administration Amlodipine Besylate 10 mg 06/17/20 09:00 06/26/20 08:39 Amlodipine 10 Mg Tab PO 10 mg QAM JONES Administration Enoxaparin Sodium 40 mg 06/09/20 21:00 06/25/20 20:28 Enoxaparin Sodium 40 Mg/0.4 Ml Syringe SC 40 mg 2100 JONES Administration Hydralazine HCl 10 mg 06/08/20 11:47 06/09/20 04:08 Hydralazine 20 Mg/Ml Vial SLOW IVP 10 mg Q4H PRN Administration SBP > 170 or DBP > 100 Sodium Acetate 70 meq/ 2,338.4321 mls @ 70 mls/hr 06/25/20 14:00 06/25/20 1 4:42 Potassium Acetate 20 meq/ IV 2,338.4321 mls Calcium Gluconate 10 meq/ 1400 JONES Administration Magnesium Sulfate 10 meq/ Multivitamins 10 ml/ Chromium/ Copper/Manganese/Zinc 9 ml/ Insulin Human Regular 23 units / Amino Acids/Electrolytes/ Fat Emulsion Intravenous Morphine Sulfate 4 mg 06/23/20 20:36 06/26/20 13:08 Morphine 4 Mg/Ml Vial SLOW IVP 4 mg Q2H PRN Administration Moderate to Severe Pain (6-10) Ondansetron HCl 4 mg 06/17/20 20:09 06/24/20 19:46 Ondansetron Pf 4 Mg/2 Ml Vial IVP 4 mg Q6H PRN Administration Nausea/Vomiting Oxybutynin Chloride 10 mg 06/20/20 09:00 06/26/20 08:40 Oxybutynin Er 5 Mg Tab PO 10 mg DAILY JONES Administration Pantoprazole Sodium 40 mg 06/18/20 09:00 06/26/20 07:44 Pantoprazole 40 Mg Vial IVP 40 mg DAILY JONES Administration Sodium Chloride 10 ml 06/08/20 11:47 06/23/20 23:14 Flush - Normal Saline 10 Ml Syringe IVF 10 ml PRN PRN Administration Saline Flush - Exam General Appearance: awake alert Eye: PERRL, anicteric sclera ENT: no oropharyngeal lesions, moist mucosa Neck: supple, no JVD Heart: RRR, no murmur Respiratory: no wheezes, no rales, rhonchi Gastrointestinal: soft, no guarding, no rigidity, distended Gastrointestinal - other findings: wound vac+ Extremities: no cyanosis, no edema Neurological: cranial nerve grossly intact, no focal deficits Psychiatric: normal affect, A&O x 3 Hosp A/P (1) Ileus Code(s): K56.7 - ILEUS, UNSPECIFIED Status: Acute (2) Pleural effusion, left Code(s): J90 - PLEURAL EFFUSION, NOT ELSEWHERE CLASSIFIED Status: Resolved (3) H/O malignant neoplasm of breast Code(s): Z85.3 - PERSONAL HISTORY OF MALIGNANT NEOPLASM OF BREAST Status: Chronic (4) S/P exploratory laparotomy Status: Acute (5) Hypertension Code(s): I10 - ESSENTIAL (PRIMARY) HYPERTENSION Status: Chronic Qualifiers: Hypertension type: essential hypertension Qualified Code(s): I10 - Essential (primary) hypertension - Plan is npo except ice chips, has ng tube to intermittent suction still has ileus with no bm or flatus, abd surgical site in wound vac to ambulate freq as tolerated continue duonebs, tpn, morphine prn, oxybutynin hemostable is s/p exp lap, adhesiolysis, segmental small bowel resection and reversal of ileostomy on 06/11/2020 for med mgmt of ileus for now
[2020-06-26] MEDS: [UNRECOGNIZED DRUG - OTHER] IV SCH (15:49)
[2020-06-26] MEDS: SODIUM ACETATE IV SCH (15:49)
[2020-06-26] MEDS: CALCIUM GLUCONATE IV SCH (15:49)
[2020-06-26] MEDS: POTASSIUM ACETATE IV SCH (15:49)
--- NOTE | 2020-06-26 19:13 | PRG ---
DATE OF SERVICE: 06/26/2020 SUBJECTIVE: Mikala Sanderson is doing well. OBJECTIVE: VITAL SIGNS: Temperature 98.6 degrees, 70, 121/72. GENERAL: She is tolerating NG tube well. Gastric drainage 225 over the last 24 hours. She has not passed any stool or flatus. She has laboratories ordered tomorrow. No laboratories obtained today. Accu-Cheks 90-101. LUNGS: Clear to auscultation. CARDIAC: Rhythm without murmur or gallop. ABDOMEN: Soft, nontender. EXTREMITIES: Unremarkable. ASSESSMENT/PLAN: Ileus plus or minus bowel obstruction. Continue NG tube suction. TPN to treat malnourishment, sips and chips, gum and hard candy for palliation. Increase mobility up a chair and ambulation. Open wound abdomen, wound VAC care. When I was examined at bedside yesterday prior to placement of wound VAC, the fascia was intact. Extremities were unremarkable. Await GI function. Job ID: [id number]
[2020-06-26] MEDS: Enoxaparin Sodium 40 MG/0.4 ML SYRINGE SC SCH (20:59)
[2020-06-27] MEDS: Morphine 4 MG/ML VIAL SLOW IVP PRN ×9 (02:18→23:40)
[2020-06-27 06:42] LABS: #Eosinphils 0.7 thou/uL (0.0-0.7); #Lymphocytes 1.4 thou/uL (1.20-3.40); #Monocytes 0.7 thou/uL (0.11-0.59); #Neutrophils 5.4 thou/uL (1.40-6.50); %Basophils 0.5 % (0.0-1.0); %Eosinophils 8.5 % (0.0-10.0); %Lymphocytes 16.5 % (21.0-51.0); %Neutrophils 65.5 % (42.0-75.0); Hemoglobin 7.1 g/dL (12.0-16.0); Mean Corpuscular HGB CONC 31.3 g/dL (32.0-36.0); Mean Corpuscular Hemoglobin 29.2 pg (27.0-31.0); Mean Corpuscular Volume 93.4 fL (78.0-98.0); Platelet Count 410 thou/uL (130-400); RBC Distribution Width 14.9 % (11.5-14.5); Red Blood Cell (RBC) Count 2.43 mill/uL (4.20-5.40); White Blood Cell (WBC) Count 8.2 thou/uL (4.8-10.8)
[2020-06-27 06:57] LABS: ALT (SGPT) 11 U/L (8-55); AST (SGOT) 20 U/L (5-34); Albumin 2.4 g/dL (3.4-4.8); Alkaline Phosphatase 115 U/L (40-110); Anion Gap 13 mmol/L (10-20); BUN (Urea Nitrogen) 16 mg/dL (9.8-20.1); Bilirubin, Total 0.7 mg/dL (0.2-1.2); Calc. Creatinine Clearance 69 mL/min (70-130); Calcium 8.9 mg/dL (7.8-10.44); Carbon Dioxide 28 mmol/L (23-31); Chloride 99 mmol/L (98-107); Globulin 3.9 g/dL (2.4-3.5); Glucose 92 mg/dL (80-115); Magnesium 1.8 mg/dL (1.6-2.6); Phosphorus 5.1 mg/dL (2.3-4.7); Potassium 4.1 mmol/L (3.5-5.1); Protein, Total 6.3 g/dL (6.0-8.3); Sodium 136 mmol/L (136-145)
[2020-06-27] MEDS: Pantoprazole 40 MG VIAL IVP SCH (08:32)
[2020-06-27] MEDS: Amlodipine 10 MG TAB PO SCH (08:35)
[2020-06-27] MEDS: Oxybutynin ER 5 MG TAB PO SCH (08:35)
--- NOTE | 2020-06-27 14:09 | PDOC.HOSPP ---
- Subjective Encounter Date: 06/27/20 Encounter Time: 13:00 Subjective: no bm or flatus yet no abd pain or nausea is amb in room and hallway - Objective Vital Signs & Weight: Vital Signs (12 hours) Temp Pulse Resp BP BP Pulse Ox 06/27/20 13:45 106 H 16 06/27/20 13:07 98.2 F 106 H 20 161/81 H 98 06/27/20 08:42 98.6 F 101 H 18 98 06/27/20 08:35 101 H 112/67 06/27/20 08:00 98 06/27/20 06:10 88 12 Weight Admit Weight 100 lb Weight 115 lb I&O: 06/26/20 06/27/20 06/28/20 06:59 06:59 06:59 Intake Total 1730 960 Output Total 3375 1800 Balance -3944 -570 Result Diagrams: 06/27/20 06:20 06/27/20 06:20 Additional Labs: Accuchecks 06/27/20 06/26/20 06/26/20 06:06 23:44 17:13 POC Glucose 93 83 96 Hospitalist ROS - Medication Medications: Active Medications Generic Name Dose Route Start Last Admin Trade Name Freq PRN Reason Stop Dose Admin Albuterol/Ipratropium 3 ml 06/25/20 19:00 06/27/20 13:45 Ipratropium/Albuterol Sulfate 3 Ml Neb NEB 3 ml [id number] JONES Administration Amlodipine Besylate 10 mg 06/17/20 09:00 06/27/20 08:35 Amlodipine 10 Mg Tab PO 10 mg QAM JONES Administration Enoxaparin Sodium 40 mg 06/09/20 21:00 06/26/20 20:59 Enoxaparin Sodium 40 Mg/0.4 Ml Syringe SC 40 mg 2100 JONES Administration Hydralazine HCl 10 mg 06/08/20 11:47 06/09/20 04:08 Hydralazine 20 Mg/Ml Vial SLOW IVP 10 mg Q4H PRN Administration SBP > 170 or DBP > 100 Sodium Acetate 70 meq/ 2,338.4321 mls @ 70 mls/hr 06/25/20 14:00 06/26/20 15:49 Potassium Acetate 20 meq/ IV 2,338.4321 mls Calcium Gluconate 10 meq/ 1400 JONES Administration Magnesium Sulfate 10 meq/ Multivitamins 10 ml/ Chromium/ Copper/Manganese/Zinc 9 ml/ Insulin Human Regular 23 units / Amino Acids/Electrolytes/ Fat Emulsion Intravenous Morphine Sulfate 4 mg 06/23/20 20:36 06/27/20 13:54 Morphine 4 Mg/Ml Vial SLOW IVP 4 mg Q2H PRN Administration Moderate to Severe Pain (6-10) Ondansetron HCl 4 mg 06/17/20 20:09 06/24/20 19:46 Ondansetron Pf 4 Mg/2 Ml Vial IVP 4 mg Q6H PRN Administration Nausea/Vomiting Oxybutynin Chloride 10 mg 06/20/20 09:00 06/27/20 08:35 Oxybutynin Er 5 Mg Tab PO 10 mg DAILY JONES Administration Pantoprazole Sodium 40 mg 06/18/20 09:00 06/27/20 08:32 Pantoprazole 40 Mg Vial IVP 40 mg DAILY JONES Administration Sodium Chloride 10 ml 06/08/20 11:47 06/23/20 23:14 Flush - Normal Saline 10 Ml Syringe IVF 10 ml PRN PRN Administration Saline Flush - Exam General Appearance: awake alert Eye: PERRL, anicteric sclera ENT: no oropharyngeal lesions, moist mucosa Neck: supple, no JVD Heart: RRR, no murmur Respiratory: no wheezes, no rales, rhonchi Gastrointestinal: soft, non-distended, normal bowel sounds Gastrointestinal - other findings: surgical wound in wound vac Extremities: no cyanosis, no edema Neurological: cranial nerve grossly intact, no focal deficits Psychiatric: normal affect, A&O x 3 Hosp A/P (1) Ileus Code(s): K56.7 - ILEUS, UNSPECIFIED Status: Acute (2) Pleural effusion, left Code(s): J90 - PLEURAL EFFUSION, NOT ELSEWHERE CLASSIFIED Status: Resolved (3) H/O malignant neoplasm of breast Code(s): Z85.3 - PERSONAL HISTORY OF MALIGNANT NEOPLASM OF BREAST Status: Chronic (4) S/P exploratory laparotomy Status: Acute (5) Hypertension Code(s): I10 - ESSENTIAL (PRIMARY) HYPERTENSION Status: Chronic Qualifiers: Hypertension type: essential hypertension Qualified Code(s): I10 - Essential (primary) hypertension - Plan is npo except ice chips, has ng tube to intermittent suction still has ileus with no bm or flatus, abd surgical site in wound vac to ambulate freq as tolerated continue duonebs, tpn, morphine prn, oxybutynin hemostable is s/p exp lap, adhesiolysis, segmental small bowel resection and reversal of ileostomy on 06/11/2020 for med mgmt of ileus for now, await bowel function to return.
[2020-06-27] MEDS: CALCIUM GLUCONATE IV SCH (14:48)
[2020-06-27] MEDS: POTASSIUM ACETATE IV SCH (14:48)
[2020-06-27] MEDS: SODIUM ACETATE IV SCH (14:48)
[2020-06-27] MEDS: [UNRECOGNIZED DRUG - OTHER] IV SCH (14:48)
--- NOTE | 2020-06-27 15:24 | PRG ---
DATE OF SERVICE: 06/27/2020 OBJECTIVE: VITAL SIGNS: 98.2 degrees, heart rate 100 to 105, respiratory rate 16. LUNGS: Clear to auscultation. CARDIAC: Regular rate and rhythm without murmur or gallop. ABDOMEN: Soft and nontender. VAC in the inferior aspect to wound. Minimal bowel sounds. EXTREMITIES: Unremarkable. LABORATORY DATA: NG tube output 500 in the last 24 hours. Urine output is good. White count 2.8, hemoglobin 7.1. Basic metabolic profile normal. No flatus or stool. ASSESSMENT AND PLAN: Ileus versus postoperative bowel obstruction. Continue TPN, bowel rest, NG tube. We will reassess labs next week as well as x-rays and make further recommendations pending clinical course over the weekend next week. Dr. Santacruz is covering in the weekend, and I will see her on Tuesday. Job ID: [id number]
[2020-06-27] MEDS: Enoxaparin Sodium 40 MG/0.4 ML SYRINGE SC SCH (20:32)
[2020-06-28] MEDS: Morphine 4 MG/ML VIAL SLOW IVP PRN ×7 (02:31→23:30)
[2020-06-28 05:38] LABS: ALT (SGPT) 13 U/L (8-55); AST (SGOT) 21 U/L (5-34); Albumin 2.6 g/dL (3.4-4.8); Alkaline Phosphatase 126 U/L (40-110); Anion Gap 13 mmol/L (10-20); BUN (Urea Nitrogen) 20 mg/dL (9.8-20.1); Bilirubin, Total 0.9 mg/dL (0.2-1.2); Calc. Creatinine Clearance 65 mL/min (70-130); Carbon Dioxide 28 mmol/L (23-31); Chloride 98 mmol/L (98-107); Globulin 4.2 g/dL (2.4-3.5); Glucose 85 mg/dL (80-115); Magnesium 1.9 mg/dL (1.6-2.6); Phosphorus 5.7 mg/dL (2.3-4.7); Potassium 4.4 mmol/L (3.5-5.1); Protein, Total 6.8 g/dL (6.0-8.3); Sodium 135 mmol/L (136-145)
[2020-06-28] MEDS: Pantoprazole 40 MG VIAL IVP SCH (08:45)
[2020-06-28] MEDS: Oxybutynin ER 5 MG TAB PO SCH (08:46)
[2020-06-28] MEDS: Amlodipine 10 MG TAB PO SCH (08:46)
--- NOTE | 2020-06-28 11:48 | PDOC.BPN ---
- Brief Progress Note Encounter Date: 06/28/20 Encounter Time: 11:46 No acute events. Patient denies nausea or vomiting. Endorses lower abdominal activity and feels that she needs to have a bowel movement; however, denies bowel movement or flatus EXAM: VS: T 98.3 HR 87 BP 111/62 RR 16 General: Alert and oriented, no acute distress, resting comfortably. Light green nasogastric output Pulmonary: No dyspnea or difficulty breathing Abdomen: Soft, non-distended, wound VAC in place. Nontender CV: Regular rate and rhythm, palpable distal pulses Extremities: No edema I/O: N.p.o. oral intake 500 cc nasogastric tube 1300 UOP LABORATORY / IMAGING: Laboratory analysis reviewed and demonstrates a white blood cell count of 8.2 and hemoglobin of 7.1. Thrombocytosis 410 PLAN: 64-year-old female status post sigmoid resection with diverting ileostomy on May 21 complicated by early postoperative small bowel obstruction requiring exploratory laparotomy, enterectomy, and reversal of ileostomy on June 11, 2020, now with prolonged ileus. We will begin a bowel regimen Continue TPN Continue wound VAC management Continue nasogastric tube decompression. Will consider discontinuation tomorrow.
--- NOTE | 2020-06-28 12:39 | PDOC.HOSPP ---
- Subjective Encounter Date: 06/28/20 Encounter Time: 10:00 Subjective: F/u: ileus The patient still has NG tube, put out 200 in 24 hours. SHe hears bowel sounds, but not passing gas or having a bowel movement yet. She denies abdominal pain, nausea or vomiting - Objective Vital Signs & Weight: Vital Signs (12 hours) Temp Pulse Resp BP Pulse Ox 06/28/20 08:46 106 H 06/28/20 08:00 98.9 F 106 H 16 107/65 96 06/28/20 06:32 87 16 Weight Admit Weight 100 lb Weight 115 lb I&O: 06/27/20 06/28/20 06/29/20 06:59 06:59 06:59 Intake Total 960 1680 Output Total 1800 1225 Balance -840 455 Result Diagrams: 06/27/20 06:20 06/28/20 04:56 Additional Labs: Accuchecks 06/28/20 06/27/20 06/27/20 12:22 23:43 18:16 POC Glucose 89 87 78 Hospitalist ROS - Review of Systems Constitutional: denies: fever, chills - Medication Medications: Active Medications Generic Name Dose Route Start Last Admin Trade Name Freq PRN Reason Stop Dose Admin Albuterol/Ipratropium 3 ml 06/25/20 19:00 06/28/20 06:32 Ipratropium/Albuterol Sulfate 3 Ml Neb NEB 3 ml [id number] JONES Administration Amlodipine Besylate 10 mg 06/17/20 09:00 06/28/20 08:46 Amlodipine 10 Mg Tab PO 10 mg QAM JONES Administration Enoxaparin Sodium 40 mg 06/09/20 21:00 06/27/20 20:32 Enoxaparin Sodium 40 Mg/0.4 Ml Syringe SC 40 mg 2100 JONES Administration Hydralazine HCl 10 mg 06/08/20 11:47 06/09/20 04:08 Hydralazine 20 Mg/Ml Vial SLOW IVP 10 mg Q4H PRN Administration SBP > 170 or DBP > 100 Sodium Acetate 70 meq/ 2,338.4321 mls @ 70 mls/hr 06/25/20 14:00 06/27/20 14:48 Potassium Acetate 20 meq/ IV 2,338.4321 mls Calcium Gluconate 10 meq/ 1400 JONES Administration Magnesium Sulfate 10 meq/ Multivitamins 10 ml/ Chromium/ Copper/Manganese/Zinc 9 ml/ Insulin Human Regular 23 units / Amino Acids/Electrolytes/ Fat Emulsion Intravenous Morphine Sulfate 4 mg 06/23/20 20:36 06/28/20 08:45 Morphine 4 Mg/Ml Vial SLOW IVP 4 mg Q2H PRN Administration Moderate to Severe Pain (6-10) Ondansetron HCl 4 mg 06/17/20 20:09 06/24/20 19:46 Ondansetron Pf 4 Mg/2 Ml Vial IVP 4 mg Q6H PRN Administration Nausea/Vomiting Oxybutynin Chloride 10 mg 06/20/20 09:00 06/28/20 08:46 Oxybutynin Er 5 Mg Tab PO 10 mg DAILY JONES Administration Pantoprazole Sodium 40 mg 06/18/20 09:00 06/28/20 08:45 Pantoprazole 40 Mg Vial IVP 40 mg DAILY JONES Administration Sodium Chloride 10 ml 06/08/20 11:47 06/23/20 23:14 Flush - Normal Saline 10 Ml Syringe IVF 10 ml PRN PRN Administration Saline Flush - Exam General Appearance: NAD, awake alert Eye: PERRL, anicteric sclera ENT: normocephalic atraumatic, no oropharyngeal lesions Neck: negative: no JVD Heart: RRR, no murmur, no gallops, no rubs Respiratory: CTAB, no wheezes, no rales, no ronchi Gastrointestinal: soft, non-tender, non-distended, normal bowel sounds Gastrointestinal - other findings: surgical incision looks clean without infection Extremities: no cyanosis, no clubbing, no edema Skin: normal turgor, no lesions, no rashes Hosp A/P - Plan CT abdomen 06/08: moderate to severe partial small bowel obstruction Abd X ray 06/23: mildly dilated small bowel loops Chest X ray 06/25: normal This is a 64 year old female s/p sigmoid resection 05/21 who presented with abdominal pain x 2-3 days and was found to have another small bowel obstruction. She underwent ex lap. adhesiolysis, small bowel resection and ileostomy reversal on 06/11 Small bowel obstruction s/p ex lap - she currently has NG tube in still and still not passing gas. Continue NG tube suction per surgery - will order some physical therapy to prevent deconditioning Macrocytic Anemia - hemoglobin 7.1. Will monitor for now, hold on any transfusion. Check B12/folate/TSH Hypertension - continue amlodipine
[2020-06-28] MEDS: SODIUM ACETATE IV SCH (14:10)
[2020-06-28] MEDS: POTASSIUM ACETATE IV SCH (14:10)
[2020-06-28] MEDS: [UNRECOGNIZED DRUG - OTHER] IV SCH (14:10)
[2020-06-28] MEDS: CALCIUM GLUCONATE IV SCH (14:10)
[2020-06-28] MEDS: Enoxaparin Sodium 40 MG/0.4 ML SYRINGE SC SCH (20:11)
[2020-06-29] MEDS: Morphine 4 MG/ML VIAL SLOW IVP PRN ×5 (01:30→20:04)
[2020-06-29] MEDS ORDERED: Pantoprazole 40 MG VIAL IVP SCH (04:30)
[2020-06-29 05:33] LABS: ALT (SGPT) 12 U/L (8-55); AST (SGOT) 22 U/L (5-34); Albumin 2.6 g/dL (3.4-4.8); Alkaline Phosphatase 119 U/L (40-110); Anion Gap 12 mmol/L (10-20); BUN (Urea Nitrogen) 19 mg/dL (9.8-20.1); Bilirubin, Total 0.8 mg/dL (0.2-1.2); Calc. Creatinine Clearance 66 mL/min (70-130); Calcium 9.1 mg/dL (7.8-10.44); Carbon Dioxide 28 mmol/L (23-31); Chloride 99 mmol/L (98-107); Globulin 4.2 g/dL (2.4-3.5); Glucose 90 mg/dL (80-115); Magnesium 1.9 mg/dL (1.6-2.6); Phosphorus 5.3 mg/dL (2.3-4.7); Potassium 4.2 mmol/L (3.5-5.1); Protein, Total 6.8 g/dL (6.0-8.3); Sodium 135 mmol/L (136-145)
--- NOTE | 2020-06-29 06:07 | PDOC.BPN ---
- Brief Progress Note Encounter Date: 06/29/20 Informed that patient woke up in the middle of the night complaining of lower sternal chest pain. EKG remained unchanged and troponin was 0.012. Suspected GERDstarted pantoprazole IV Patient reported improvement in the pain Repeat 1 more troponin in 2 hours and continue observing
--- NOTE | 2020-06-29 07:18 | PDOC.BPN ---
- Brief Progress Note Encounter Date: 06/29/20 Encounter Time: 07:15 Complains of mild chest pain overnight located in the lower substernal area. Evaluated by hospitalist team. EKG stable. Troponin normal. Otherwise, no acute complaints this morning. Denies nausea or vomiting. Denies bowel movement or flatus. EXAM: VS: T 98.6 HR 83 BP 114/70 RR 16 General: Alert and oriented, no acute distress, resting comfortably Pulmonary: No dyspnea or difficulty breathing Abdomen: Soft, non-distended, incisions clean, wound VAC in place CV: Regular rate and rhythm, palpable distal pulses Extremities: No edema I/O: NGT 250 Multiple voids UOP LABORATORY / IMAGING: BMP reviewed. Mild hyponatremia at 135 PLAN: 64-year-old female status post sigmoid resection with diverting ileostomy on May 21 complicated by early postoperative small bowel obstruction requiring exploratory laparotomy, enterectomy, and reversal of ileostomy on June 11, 2020, now with prolonged ileus. Continue TPN Continue wound VAC management Continue nasogastric tube decompression. Defer sodium adjustment to TPN management
[2020-06-29] MEDS: Amlodipine 10 MG TAB PO SCH (09:32)
[2020-06-29] MEDS: Oxybutynin ER 5 MG TAB PO SCH (09:32)
[2020-06-29] MEDS: Famotidine/PF 20 mg/2ml Vial SLOW IVP SCH ×2 (09:32→21:24)
[2020-06-29] MEDS: Pantoprazole 40 MG VIAL IVP SCH (09:32)
[2020-06-29] MEDS ORDERED: Ketorolac Tromethamine 30 MG/ML VIAL IVP SCH (10:00)
--- NOTE | 2020-06-29 12:48 | PDOC.HOSPP ---
- Subjective Encounter Date: 06/29/20 Encounter Time: 09:00 Subjective: F/u : SBO The patient has still not passed gas. She had an episode of chest pain this morning that resolved with protonix. She has been ambulating around the room - Objective Vital Signs & Weight: Vital Signs (12 hours) Temp Pulse Resp BP Pulse Ox 06/29/20 09:32 87 06/29/20 08:31 99.3 F 87 18 104/69 97 06/29/20 06:45 96 12 06/29/20 01:02 83 16 96 Weight Admit Weight 100 lb Weight 115 lb I&O: 06/28/20 06/29/20 06/30/20 06:59 06:59 06:59 Intake Total 1680 1980 Output Total 1225 350 Balance 455 1630 Result Diagrams: 06/27/20 06:20 06/29/20 04:58 Additional Labs: Accuchecks 06/29/20 06/28/20 06/28/20 12:27 23:31 18:37 POC Glucose 80 88 77 Hospitalist ROS - Review of Systems Constitutional: denies: fever, chills - Medication Medications: Active Medications Generic Name Dose Route Start Last Admin Trade Name Freq PRN Reason Stop Dose Admin Albuterol/Ipratropium 3 ml 06/25/20 19:00 06/29/20 06:45 Ipratropium/Albuterol Sulfate 3 Ml Neb NEB 3 ml [id number] JONES Administration Amlodipine Besylate 10 mg 06/17/20 09:00 06/29/20 09:32 Amlodipine 10 Mg Tab PO 10 mg QAM JONES Administration Enoxaparin Sodium 40 mg 06/09/20 21:00 06/28/20 20:11 Enoxaparin Sodium 40 Mg/0.4 Ml Syringe SC 40 mg 2100 JONES Administration Famotidine 20 mg 06/29/20 09:00 06/29/20 09:32 Famotidine/Pf 20 Mg/2ml Vial SLOW IVP 20 mg Q12HR JONES Administration Hydralazine HCl 10 mg 06/08/20 11:47 06/09/20 04:08 Hydralazine 20 Mg/Ml Vial SLOW IVP 10 mg Q4H PRN Administration SBP > 170 or DBP > 100 Sodium Acetate 70 meq/ 2,338.4321 mls @ 70 mls/hr 06/25/20 14:00 06/28/20 14:10 Potassium Acetate 20 meq/ IV 2,338.4321 mls Calcium Gluconate 10 meq/ 1400 JONES Administration Magnesium Sulfate 10 meq/ Multivitamins 10 ml/ Chromium/ Copper/Manganese/Zinc 9 ml/ Insulin Human Regular 23 units / Amino Acids/Electrolytes/ Fat Emulsion Intravenous Morphine Sulfate 4 mg 06/23/20 20:36 06/29/20 09:32 Morphine 4 Mg/Ml Vial SLOW IVP 4 mg Q2H PRN Administration Moderate to Severe Pain (6-10) Ondansetron HCl 4 mg 06/17/20 20:09 06/24/20 19:46 Ondansetron Pf 4 Mg/2 Ml Vial IVP 4 mg Q6H PRN Administration Nausea/Vomiting Oxybutynin Chloride 10 mg 06/20/20 09:00 06/29/20 09:32 Oxybutynin Er 5 Mg Tab PO 10 mg DAILY JONES Administration Pantoprazole Sodium 40 mg 06/18/20 09:00 06/29/20 09:32 Pantoprazole 40 Mg Vial IVP 40 mg DAILY JONES Administration Sodium Chloride 10 ml 06/08/20 11:47 06/23/20 23:14 Flush - Normal Saline 10 Ml Syringe IVF 10 ml PRN PRN Administration Saline Flush - Exam General Appearance: NAD, awake alert Eye: PERRL, anicteric sclera ENT: normocephalic atraumatic, no oropharyngeal lesions ENT - other findings: NG tube in place Heart: RRR, no murmur, no gallops, no rubs Respiratory: CTAB, no wheezes, no rales, no ronchi Gastrointestinal: soft, non-tender Gastrointestinal - other findings: abdomen distended. Mild bowel sounds heard on right side Extremities: no cyanosis, no clubbing, no edema Hosp A/P - Plan CT abdomen 06/08: moderate to severe partial small bowel obstruction Abd X ray 06/23: mildly dilated small bowel loops Chest X ray 06/25: normal This is a 64 year old female s/p sigmoid resection 05/21 who presented with abdominal pain x 2-3 days and was found to have another small bowel obstruction. She underwent ex lap. adhesiolysis, small bowel resection and ileostomy reversal on 06/11 Small bowel obstruction s/p ex lap - she currently has NG tube in still and still not passing gas. Continue NG tube suction per surgery . She is on TPN - explained to patient to try to avoid ileus. Added toradol prn for agusto n - continue with physical therapy GERD - continue protonix 40 mg daily and IV pepcid in evening Macrocytic Anemia - hemoglobin 7.1. B12/folate/TSH normal. Recheck CBC today Hypertension - continue amlodipine
[2020-06-29 13:16] LABS: Hemoglobin 7.5 g/dL (12.0-16.0); Mean Corpuscular HGB CONC 33.4 g/dL (32.0-36.0); Mean Corpuscular Hemoglobin 31.7 pg (27.0-31.0); Mean Corpuscular Volume 95.1 fL (78.0-98.0); Mean Platelet Volume 8.2 fL (7.4-10.4); Platelet Count 358 thou/uL (130-400); RBC Distribution Width 14.7 % (11.5-14.5); Red Blood Cell (RBC) Count 2.35 mill/uL (4.20-5.40); White Blood Cell (WBC) Count 6.9 thou/uL (4.8-10.8)
[2020-06-29] MEDS: [UNRECOGNIZED DRUG - OTHER] IV SCH (15:16)
[2020-06-29] MEDS: POTASSIUM ACETATE IV SCH (15:16)
[2020-06-29] MEDS: SODIUM ACETATE IV SCH (15:16)
[2020-06-29] MEDS: CALCIUM GLUCONATE IV SCH (15:16)
[2020-06-29] MEDS: Ketorolac Tromethamine 30 MG/ML VIAL IVP PRN (18:28)
[2020-06-29] MEDS: Enoxaparin Sodium 40 MG/0.4 ML SYRINGE SC SCH (21:24)
[2020-06-30 07:21] LABS: #Eosinphils 0.5 thou/uL (0.0-0.7); #Monocytes 0.6 thou/uL (0.11-0.59); %Basophils 0.2 % (0.0-1.0); %Eosinophils 7.5 % (0.0-10.0); %Lymphocytes 15.9 % (21.0-51.0); %Monocytes 9.9 % (0.0-10.0); %Neutrophils 66.4 % (42.0-75.0); Hemoglobin 8.6 g/dL (12.0-16.0); Mean Corpuscular Hemoglobin 30.4 pg (27.0-31.0); Mean Corpuscular Volume 94.8 fL (78.0-98.0); Mean Platelet Volume 8.9 fL (7.4-10.4); Platelet Count 379 thou/uL (130-400); RBC Distribution Width 14.9 % (11.5-14.5); Red Blood Cell (RBC) Count 2.84 mill/uL (4.20-5.40); White Blood Cell (WBC) Count 6.1 thou/uL (4.8-10.8)
[2020-06-30 07:26] LABS: ALT (SGPT) 17 U/L (8-55); AST (SGOT) 31 U/L (5-34); Albumin 2.8 g/dL (3.4-4.8); Alkaline Phosphatase 147 U/L (40-110); Anion Gap 14 mmol/L (10-20); BUN (Urea Nitrogen) 19 mg/dL (9.8-20.1); Bilirubin, Total 0.9 mg/dL (0.2-1.2); Calc. Creatinine Clearance 58 mL/min (70-130); Calcium 9.2 mg/dL (7.8-10.44); Carbon Dioxide 27 mmol/L (23-31); Chloride 101 mmol/L (98-107); Globulin 4.7 g/dL (2.4-3.5); Glucose 102 mg/dL (80-115); Magnesium 1.9 mg/dL (1.6-2.6); Phosphorus 4.9 mg/dL (2.3-4.7); Potassium 4.3 mmol/L (3.5-5.1); Protein, Total 7.5 g/dL (6.0-8.3); Sodium 138 mmol/L (136-145)
[2020-06-30] MEDS: Ketorolac Tromethamine 30 MG/ML VIAL IVP PRN (07:38)
[2020-06-30] MEDS: Pantoprazole 40 MG VIAL IVP SCH (08:23)
[2020-06-30] MEDS: Amlodipine 10 MG TAB PO SCH (08:23)
[2020-06-30] MEDS: Oxybutynin ER 5 MG TAB PO SCH (08:23)
[2020-06-30] MEDS: Morphine 4 MG/ML VIAL SLOW IVP PRN ×4 (08:23→20:09)
[2020-06-30] MEDS: Famotidine/PF 20 mg/2ml Vial SLOW IVP SCH ×2 (08:23→20:09)
--- NOTE | 2020-06-30 09:08 | RAD ---
EXAM: XR Abdomen 2 View/1 View Cxr PROVIDED CLINICAL HISTORY: Ileus/small bowel obstruction. COMPARISON: Chest x-ray on 06/25/2020 and views of the abdomen on 06/23/2020 FINDINGS: Nasogastric tube and right-sided vascular catheter remain unchanged in position. The cardiac silhouet te and pulmonary vasculature are within normal limits. The lungs are clear. No consolidation or pleural fluid is seen. Cardiac silhouette and pulmonary vasculature are within normal limits. No free intraperitoneal gas is seen beneath the hemidiaphragms. Residual contrast is again seen within the colon; although, contrast has progressed from the ascending colon to the descending colon and rectum. No dilated gas-filled loops of small bowel are seen. Surgical clips overlying the lower abdomen and pelvis are no longer visualized. Surgical clips are again seen overlying the upper abdomen. Left convex scoliosis thoracolumbar spine is present with degenerative changes in the spine. IMPRESSION: 1. Nonspecific bowel gas pattern with residual contrast in the colon. 2. Residual contrast in the colon. 3. No acute cardiopulmonary process.
--- NOTE | 2020-06-30 11:01 | RAD ---
PORTABLE CHEST 1 VIEW: DATE: 06/30/2020. TIME: 10:50 AM. HISTORY: Cough and congestion. COMPARISON: Earlier exam of 7:50 a.m. from the same date. FINDINGS: The heart size is normal. The aorta is tortuous. Right subclavian central line and nasogastric tube are again seen. The lungs are expanded without lobar consolidation, pneumothorax, or pleural effusi ons. IMPRESSION: No acute process. POS: DEMETRICE
[2020-06-30] MEDS: CALCIUM GLUCONATE IV SCH (14:47)
[2020-06-30] MEDS: POTASSIUM ACETATE IV SCH (14:47)
[2020-06-30] MEDS: [UNRECOGNIZED DRUG - OTHER] IV SCH (14:47)
[2020-06-30] MEDS: SODIUM ACETATE IV SCH (14:47)
--- NOTE | 2020-06-30 17:08 | PDOC.HOSPP ---
- Subjective Encounter Date: 06/30/20 Encounter Time: 08:00 Subjective: f/u: SBO The patient still has NG tube in place. She has not passed gas. She has had no bowel movement. Her chest pain has resolved. She denies vomiting. She has only 100 ml output from NG gtube today. - Objective Vital Signs & Weight: Vital Signs (12 hours) Temp Pulse Resp BP Pulse Ox 06/30/20 13:36 98 16 06/30/20 09:15 111 H 06/30/20 08:23 64 06/30/20 08:00 98.5 F 126 H 20 136/89 95 06/30/20 06:35 64 16 Weight Admit Weight 100 lb Weight 115 lb I&O: 06/29/20 06/30/20 07/01/20 06:59 06:59 06:59 Intake Total 1980 1883 Output Total 350 4200 Balance 1630 -7904 Result Diagrams: 06/30/20 06:39 06/30/20 06:39 Additional Labs: Accuchecks 06/30/20 06/30/20 06/29/20 12:03 00:31 18:26 POC Glucose 101 H 97 81 06/27/20 11:49 POC Glucose 90 Hospitalist ROS - Medication Medications: Active Medications Generic Name Dose Route Start Last Admin Trade Name Freq PRN Reason Stop Dose Admin Albuterol/Ipratropium 3 ml 06/25/20 19:00 06/30/20 13:36 Ipratropium/Albuterol Sulfate 3 Ml Neb NEB 3 ml [id number] JONES Administration Amlodipine Besylate 10 mg 06/17/20 09:00 06/30/20 08:23 Amlodipine 10 Mg Tab PO 10 mg QAM JONES Administration Enoxaparin Sodium 40 mg 06/09/20 21:00 06/29/20 21:24 Enoxaparin Sodium 40 Mg/0.4 Ml Syringe SC 40 mg 2100 JONES Administration Famotidine 20 mg 06/29/20 09:00 06/30/20 08:23 Famotidine/Pf 20 Mg/2ml Vial SLOW IVP 20 mg Q12HR JONES Administration Hydralazine HCl 10 mg 06/08/20 11:47 06/09/20 04:08 Hydralazine 20 Mg/Ml Vial SLOW IVP 10 mg Q4H PRN Administration SBP > 170 or DBP > 100 Sodium Acetate 70 meq/ 2,338.4321 mls @ 70 mls/hr 06/25/20 14:00 06/30/20 14:47 Potassium Acetate 20 meq/ IV 2,338.4321 mls Calcium Gluconate 10 meq/ 1400 JONES Administration Magnesium Sulfate 10 meq/ Multivitamins 10 ml/ Chromium/ Copper/Manganese/Zinc 9 ml/ Insulin Human Regular 23 units / Amino Acids/Electrolytes/ Fat Emulsion Intravenous Ketorolac Tromethamine 15 mg 06/29/20 16:00 06/30/20 07:38 Ketorolac Tromethamine 30 Mg/Ml Vial IVP 07/04/20 10:01 15 mg Q6H PRN Administration Mild-Moderate Pain (1-5) Morphine Sulfate 4 mg 06/23/20 20:36 06/30/20 14:44 Morphine 4 Mg/Ml Vial SLOW IVP 4 mg Q2H PRN Administration Moderate to Severe Pain (6-10) Ondansetron HCl 4 mg 06/17/20 20:09 06/24/20 19:46 Ondansetron Pf 4 Mg/2 Ml Vial IVP 4 mg Q6H PRN Administration Nausea/Vomiting Oxybutynin Chloride 10 mg 06/20/20 09:00 06/30/20 08:23 Oxybutynin Er 5 Mg Tab PO 10 mg DAILY JONES Administration Pantoprazole Sodium 40 mg 06/18/20 09:00 06/30/20 08:23 Pantoprazole 40 Mg Vial IVP 40 mg DAILY JONES Administration Sodium Chloride 10 ml 06/08/20 11:47 06/29/20 20:04 Flush - Normal Saline 10 Ml Syringe IVF 10 ml PRN PRN Administration Saline Flush - Exam General Appearance: NAD, awake alert General - other findings: NG tube in place Eye: PERRL, anicteric sclera ENT: normocephalic atraumatic, no oropharyngeal lesions Neck: no JVD Heart: RRR, no murmur, no gallops, no rubs Respiratory: CTAB, no wheezes, no rales, no ronchi Gastrointestinal: soft Gastrointestinal - other findings: mildly distended, hypoactive bowel sounds Extremities: no cyanosis, no clubbing, no edema Skin: normal turgor, no lesions, no rashes Hosp A/P - Plan CT abdomen 06/08: moderate to severe partial small bowel obstruction Abd X ray 06/23: mildly dilated small bowel loops Chest X ray 06/25: normal This is a 64 year old female s/p sigmoid resection 05/21 who presented with abdo olimpia pain x 2-3 days and was found to have another small bowel obstruction. She underwent ex lap. adhesiolysis, small bowel resection and ileostomy reversal on 06/11 Small bowel obstruction s/p ex lap - she currently has NG tube in still and still not passing gas. She is on TPN. Acute abdomen series show no dilated small bowel loops. Awaiting surgery recs, they are recommending small bowel follow through GERD - continue protonix 40 mg daily and IV pepcid in evening Macrocytic Anemia - hemoglobin 8.6. . B12/folate/TSH normal. Hypertension - continue amlodipine
--- NOTE | 2020-06-30 19:44 | PRG ---
DATE OF SERVICE: 06/30/2020 SUBJECTIVE: Mikala Sanderson is doing well. She passes a scant amount of stool yesterday. She still has had 450 mL out of her NG tube over 24 hours. She has not passed flatus. She does not have any pain currently, but occasionally has pain, cramps, and NG tube discomfort. OBJECTIVE: VITAL SIGNS: Heart rate 90, respiratory rate 16, blood pressure 136/89. LUNGS: Clear to auscultation. CARDIAC: Regular rate and rhythm without murmur or gallop. ABDOMEN: Soft, nontender. Occasional bowel sounds abdominal wound VAC changed today. Lower wound granulating healing. LABORATORY DATA: Hemoglobin 8.6, white count 6.1. Basic metabolic profile normal. Phosphorus 4.9, alkaline phosphatase 147. ASSESSMENT/PLAN: Prolonged ileus/postoperative bowel obstruction. Continue TPN and bowel rest. She is now postoperative day #18. I have talked to her and we will order a small bowel follow-through tomorrow. Await bowel function. Job ID: [id number]
[2020-06-30] MEDS: Enoxaparin Sodium 40 MG/0.4 ML SYRINGE SC SCH (20:09)
[2020-07-01] MEDS: Morphine 4 MG/ML VIAL SLOW IVP PRN ×5 (06:57→23:50)
[2020-07-01] MEDS: Pantoprazole 40 MG VIAL IVP SCH (08:30)
[2020-07-01] MEDS: Oxybutynin ER 5 MG TAB PO SCH (08:30)
[2020-07-01] MEDS: Amlodipine 10 MG TAB PO SCH (08:30)
[2020-07-01] MEDS: Famotidine/PF 20 mg/2ml Vial SLOW IVP SCH ×2 (08:35→20:55)
[2020-07-01] MEDS: Ondansetron PF 4 MG/2 ML Vial IVP PRN ×3 (09:17→23:50)
--- NOTE | 2020-07-01 10:58 | PDOC.HOSPP ---
- Subjective Encounter Date: 07/01/20 Encounter Time: 08:05 Subjective: F/U: SBO Ms. Sanderson reported no nausea or vomiting overnight. After the small bowel follow through however, she vomited . Patient is frustrated and feels that she is not getting better. She denies bowel movements or passing gas - Objective Vital Signs & Weight: Vital Signs (12 hours) Temp Pulse Resp BP Pulse Ox 07/01/20 07:27 98.4 F 101 H 18 118/68 98 07/01/20 00:52 99 14 98 Weight Admit Weight 100 lb Weight 115 lb I&O: 06/30/20 07/01/20 07/02/20 06:59 06:59 06:59 Intake Total 1883 880 Output Total 4200 1150 Balance -3993 -967 Result Diagrams: 06/30/20 06:39 06/30/20 06:39 Additional Labs: Accuchecks 07/01/20 06/30/20 06/30/20 05:42 23:52 18:26 POC Glucose 94 86 97 06/30/20 06/30/20 12:03 05:32 POC Glucose 101 H 101 H Hospitalist ROS - Review of Systems Eyes: denies: pain Cardiovascular: denies: chest pain, palpitations Gastrointestinal: denies: nausea, vomiting, abdominal pain - Medication Medications: Active Medications Generic Name Dose Route Start Last Admin Trade Name Freq PRN Reason Stop Dose Admin Albuterol/Ipratropium 3 ml 06/25/20 19:00 07/01/20 08:44 Ipratropium/Albuterol Sulfate 3 Ml Neb NEB Not Given [id number] JONES Amlodipine Besylate 10 mg 06/17/20 09:00 07/01/20 08:30 Amlodipine 10 Mg Tab PO 10 mg QAM JONES Administration Enoxaparin Sodium 40 mg 06/09/20 21:00 06/30/20 20:09 Enoxaparin Sodium 40 Mg/0.4 Ml Syringe SC 40 mg 2100 JONES Administration Famotidine 20 mg 06/29/20 09:00 07/01/20 08:35 Famotidine/Pf 20 Mg/2ml Vial SLOW IVP 20 mg Q12HR JONES Administration Hydralazine HCl 10 mg 06/08/20 11:47 06/09/20 04:08 Hydralazine 20 Mg/Ml Vial SLOW IVP 10 mg Q4H PRN Administration SBP > 170 or DBP > 100 Sodium Acetate 70 meq/ 2,338.4321 mls @ 70 mls/hr 06/25/20 14:00 06/30/20 14:47 Potassium Acetate 20 meq/ IV 2,338.4321 mls Calcium Gluconate 10 meq/ 1400 JONES Administration Magnesium Sulfate 10 meq/ Multivitamins 10 ml/ Chromium/ Copper/Manganese/Zinc 9 ml/ Insulin Human Regular 23 units / Amino Acids/Electrolytes/ Fat Emulsion Intravenous Ketorolac Tromethamine 15 mg 06/29/20 16:00 06/30/20 07:38 Ketorolac Tromethamine 30 Mg/Ml Vial IVP 07/04/20 10:01 15 mg Q6H PRN Administration Mild-Moderate Pain (1-5) Morphine Sulfate 4 mg 06/23/20 20:36 07/01/20 08:31 Morphine 4 Mg/Ml Vial SLOW IVP 4 mg Q2H PRN Administration Moderate to Severe Pain (6-10) Ondansetron HCl 4 mg 06/17/20 20:09 07/01/20 09:17 Ondansetron Pf 4 Mg/2 Ml Vial IVP 4 mg Q6H PRN Administration Nausea/Vomiting Oxybutynin Chloride 10 mg 06/20/20 09:00 07/01/20 08:30 Oxybutynin Er 5 Mg Tab PO 10 mg DAILY JONES Administration Pantoprazole Sodium 40 mg 06/18/20 09:00 07/01/20 08:30 Pantoprazole 40 Mg Vial IVP 40 mg DAILY JONES Administration Sodium Chloride 10 ml 06/08/20 11:47 06/29/20 20:04 Flush - Normal Saline 10 Ml Syringe IVF 10 ml PRN PRN Administration Saline Flush - Exam General Appearance: NAD, awake alert ENT: normocephalic atraumatic ENT - other findings: NG tube Heart: RRR, no murmur, no gallops, no rubs Gastrointestinal: soft, non-tender, non-distended Gastrointestinal - other findings: diminished bowel sounds Extremities: no cyanosis, no clubbing, no edema Hosp A/P - Plan CT abdomen 06/08: moderate to severe partial small bowel obstruction Abd X ray 06/23: mildly dilated small bowel loops Chest X ray 06/25: normal This is a 64 year old female s/p sigmoid resection 05/21 who presented with abdominal pain x 2-3 days and was found to have another small bowel obstruction. She underwent ex lap. adhesiolysis, small bowel resection and ileostomy reversal on 06/11 Small bowel obstruction s/p ex lap - she currently has NG tube in still and still not passing gas. She is on TPN. Acute abdomen series show no dilated small bowel loops. Small bowel follow through performed today. Results pending. GERD - continue protonix 40 mg daily and IV pepcid in evening Macrocytic Anemia - hemoglobin 8.6. . B12/folate/TSH normal. Hypertension - continue amlodipine Addendum: The patient reports nausea/vomiting after SBFT. Still awaiting results Abd exam: hypoactive bowel sounds. NG tube with 200 output. Plan: will await SBFT results . Appreciate surgical recommendations
[2020-07-01] MEDS ORDERED: MD-Gastroview 120 ML BOT ONE (14:12)
--- NOTE | 2020-07-01 15:14 | RAD ---
Small bowel follow-through Gastrografin HISTORY: Small bowel obstruction. FINDINGS: Carpenter Rough radiograph showed significant residual Gastrografin contrast throughout the colon. Sm all amount of residual barium within the cecum and rectum. Nasogastric tube overlies the stomach. Mildly distended gas-filled loops of jejunum evident over the left upper quadrant. Metallic clips overlie the gallbladder fossa. Early images show mildly distended loops of small bowel with contrast material. At 3 hours, Gastrogra fin contrast has increased within the right colon. Fluoroscopic evaluation shows normal/hyperactive small bowel peristalsis. At 4 and 6 hours, contrast increases within the colon and rectum. Patient re portedly had a liquid bowel movement immediately after the 6 hour image. IMPRESSION : Given the increased bowel motility evident at fluoroscopy and mild distention of the jejunum, a parti al/low grade distal small bowel obstruction may be present, although liquid contrast had passed into the right colon at 3 hours. Definitely no high-grade obstruction.
[2020-07-01] MEDS: CALCIUM GLUCONATE IV SCH (15:18)
[2020-07-01] MEDS: SODIUM ACETATE IV SCH (15:18)
[2020-07-01] MEDS: [UNRECOGNIZED DRUG - OTHER] IV SCH (15:18)
[2020-07-01] MEDS: POTASSIUM ACETATE IV SCH (15:18)
[2020-07-01] MEDS ORDERED: Ibuprofen 600 MG TAB PO PRN (15:52)
[2020-07-01] MEDS ORDERED: Acetaminophen 500 MG TAB PO PRN (15:52)
[2020-07-01] MEDS ORDERED: traMADol HCl 50 MG TAB PO PRN (15:52)
--- NOTE | 2020-07-01 19:11 | PRG ---
DATE OF SERVICE: SUBJECTIVE: Mikala Sanderson had a small-bowel follow-through this morning. It did reach the colon within 4 hours. She has had multiple bowel movements. She however has had nausea since studding, although no vomiting. She complains of cramps. There is no . There is no high-grade obstruction. There is some mild distention of the jejunum may be a partial. Her NG tube was placed back to suction after the study, 500 mL evacuated, she felt somewhat better, although still feels slightly nauseated. She has TPN running till 2 p.m. tomorrow. Plan is to leave her NG tube to suction till she feels better, then remove it and begin full liquids and go slowly on diet advancement and consumption volume. Avoid carbonated beverages. OBJECTIVE: VITAL SIGNS: Heart rate 99-101, 98.4 degrees, 118/68 overnight prior to the small bowel follow-through. LUNGS: Clear to auscultation. CARDIAC: Regular rate and rhythm without murmur or gallop. ABDOMEN: Soft, mildly distended. Gastric drainage was 150 mL. BACK: Midline. EXTREMITIES: Unremarkable. LABORATORIES: None today. ASSESSMENT AND PLAN: The patient is doing well. Perhaps her bowel obstruction has resolved, perhaps hopefully we can start her on liquids and advance slowly and hopefully she can be discharged home later this week with a home VAC. Job ID: [id number]
[2020-07-01] MEDS: Enoxaparin Sodium 40 MG/0.4 ML SYRINGE SC SCH (20:55)
[2020-07-02] MEDS: Morphine 4 MG/ML VIAL SLOW IVP PRN ×5 (05:34→23:55)
--- NOTE | 2020-07-02 07:23 | PDOC.HOSPP ---
- Subjective Encounter Date: 07/02/20 - Objective Vital Signs & Weight: Vital Signs (12 hours) Temp Pulse Resp BP Pulse Ox 07/02/20 00:33 112 H 14 94 L 07/01/20 19:35 98.0 F 121 H 16 123/88 97 Weight Admit Weight 45.359 kg Weight 52.163 kg I&O: 07/01/20 07/02/20 07/03/20 06:59 06:59 06:59 Intake Total 880 1920 Output Total 1150 1400 Balance -270 520 Result Diagrams: 06/30/20 06:39 06/30/20 06:39 Additional Labs: Accuchecks 07/01/20 07/01/20 07/01/20 23:46 16:31 12:23 POC Glucose 119 H 111 H 93 07/01/20 06/30/20 05:42 05:32 POC Glucose 94 101 H Hospitalist ROS - Medication Medications: Active Medications Generic Name Dose Route Start Last Admin Trade Name Freq PRN Reason Stop Dose Admin Albuterol/Ipratropium 3 ml 06/25/20 19:00 07/02/20 00:33 Ipratropium/Albuterol Sulfate 3 Ml Neb NEB 3 ml [id number] JONES Administration Amlodipine Besylate 10 mg 06/17/20 09:00 07/01/20 08:30 Amlodipine 10 Mg Tab PO 10 mg QAM JONES Administration Enoxaparin Sodium 40 mg 06/09/20 21:00 07/01/20 20:55 Enoxaparin Sodium 40 Mg/0.4 Ml Syringe SC 40 mg 2100 JONES Administration Famotidine 20 mg 06/29/20 09:00 07/01/20 20:55 Famotidine/Pf 20 Mg/2ml Vial SLOW IVP 20 mg Q12HR JONES Administration Hydralazine HCl 10 mg 06/08/20 11:47 06/09/20 04:08 Hydralazine 20 Mg/Ml Vial SLOW IVP 10 mg Q4H PRN Administration SBP > 170 or DBP > 100 Ketorolac Tromethamine 15 mg 06/29/20 16:00 06/30/20 07:38 Ketorolac Tromethamine 30 Mg/Ml Vial IVP 07/04/20 10:01 15 mg Q6H PRN Administration Mild-Moderate Pain (1-5) Morphine Sulfate 4 mg 06/23/20 20:36 07/02/20 05:34 Morphine 4 Mg/Ml Vial SLOW IVP 4 mg Q2H PRN Administration Moderate to Severe Pain (6-10) Ondansetron HCl 4 mg 06/17/20 20:09 07/01/20 23:50 Ondansetron Pf 4 Mg/2 Ml Vial IVP 4 mg Q6H PRN Administration Nausea/Vomiting Oxybutynin Chloride 10 mg 06/20/20 09:00 07/01/20 08:30 Oxybutynin Er 5 Mg Tab PO 10 mg DAILY JONES Administration Pantoprazole Sodium 40 mg 06/18/20 09:00 07/01/20 08:30 Pantoprazole 40 Mg Vial IVP 40 mg DAILY JONES Administration Sodium Chloride 10 ml 06/08/20 11:47 06/29/20 20:04 Flush - Normal Saline 10 Ml Syringe IVF 10 ml PRN PRN Administration Saline Flush Hosp A/P - Plan CT abdomen 06/08: moderate to severe partial small bowel obstruction Abd X ray 06/23: mildly dilated small bowel loops Chest X ray 06/25: normal This is a 64 year old female s/p sigmoid resection 05/21 who presented with abdominal pain x 2-3 days and was found to have another small bowel obstruction. She underwent ex lap. adhesiolysis, small bowel resection and ileostomy reversal on 06/11 Small bowel obstruction s/p ex lap - she currently has NG tube in still and still not passing gas. She is on TPN. Acute abdomen series show no dilated small bowel loops. Small bowel follow through performed today. Results pending. GERD - continue protonix 40 mg daily and IV pepcid in evening Macrocytic Anemia - hemoglobin 8.6. . B12/folate/TSH normal. Hypertension - continue amlodipine
[2020-07-02] MEDS: Ondansetron PF 4 MG/2 ML Vial IVP PRN (08:37)
[2020-07-02] MEDS: Famotidine/PF 20 mg/2ml Vial SLOW IVP SCH ×2 (08:38→20:17)
[2020-07-02] MEDS: Pantoprazole 40 MG VIAL IVP SCH (08:38)
[2020-07-02] MEDS: Amlodipine 10 MG TAB PO SCH (08:38)
[2020-07-02] MEDS: Oxybutynin ER 5 MG TAB PO SCH (08:39)
[2020-07-02] MEDS ORDERED: Lactated Ringer's 1,000 ML IV SCH (09:30)
--- NOTE | 2020-07-02 09:41 | PRG ---
DATE OF SERVICE: SUBJECTIVE: Ms. Sanderson's heart rate is 112 to 120. She complains of some abdominal pain. Her NG tube overnight put out 1300 mL. Laboratories will be ordered this morning. The patient states yesterday her mobility was not good. She did have a small bowel follow-through yesterday that did pass into the colon, but had some persistent dilated small bowel loops. NG tube was left to suction draining voluminous amounts. OBJECTIVE: LUNGS: Clear to auscultation. CARDIAC: Sinus tachycardia. ABDOMEN: Soft, mild diffuse tenderness. Midline wound VAC changed today. She had some fleshy granulation tissue superiorly and induration surrounding the right lateral superior aspect of the wound. Q-tip probe revealed underlying tunneling. The wound was opened in the midline with an 11 blade to unroof this cavity to facilitate wound care and VAC application. ASSESSMENT/PLAN: Postoperative ileus/bowel obstruction partial despite small-bowel follow-through read out as absence of high-grade obstruction. She put out 1300 mL. We will check laboratories today, was considered a CAT scan but we will not perform that they could leave her NG tube to suction. Provided IV fluid bolus and recheck labs today and tomorrow. Consider CAT scan. Pending clinical course tomorrow. Job ID: [id number]
--- NOTE | 2020-07-02 10:17 | PDOC.HOSPP ---
- Subjective Encounter Date: 07/02/20 Encounter Time: 07:55 Subjective: Ms. Sanderson reported she felt a little better than yesterday, with no overnight events, no nausea/vomiting. However, she was observed spitting up and complained about chest pain. NG tube observed with flow and vacuum reservoir with total 1300 output overnight. No apparent change in the wound vac. The patient's wound vac was changed this morning. She was found to have some tunneling which Dr. Tello opened up this am - Objective Vital Signs & Weight: Vital Signs (12 hours) Temp Pulse Resp BP Pulse Ox 07/02/20 08:38 120 H 07/02/20 08:10 98.9 F 120 H 20 110/76 94 L 07/02/20 07:50 120 H 16 90 L 07/02/20 00:33 112 H 14 94 L Weight Admit Weight 100 lb Weight 115 lb I&O: 07/01/20 07/02/20 07/03/20 06:59 06:59 06:59 Intake Total 880 1920 Output Total 1150 1400 Balance -270 520 Result Diagrams: 07/02/20 09:49 07/02/20 09:49 Additional Labs: Accuchecks 07/02/20 07/01/20 07/01/20 05:09 23:46 16:31 POC Glucose 111 H 119 H 111 H 07/01/20 12:23 POC Glucose 93 Hospitalist ROS - Review of Systems Constitutional: denies: fever, chills, sweats, weakness, malaise, other Eyes: denies: vision change, conjunctivae inflammation, eyelid inflammation, redness ENT: denies: ear pain, ear discharge, nose pain, nose discharge, nose congestion, mouth pain, mouth swelling, throat pain, throat swelling Respiratory: reports: sputum, other (observed spitting up into emesis bag). denies: dry, hemoptysis, pleuritic pain, wheezing Cardiovascular: reports: chest pain, other. denies: orthopnea, paroxysmal noc. dyspnea, edema, light headedness Gastrointestinal: reports: nausea, vomiting, abdominal pain. denies: diarrhea, constipation, melena, hematochezia Genitourinary: denies: dysuria, frequency, incontinence, hematuria, retention Musculoskeletal: denies: neck pain, shoulder pain, arm pain, back pain, hand pain, leg pain, foot pain, other Skin: denies: aniya, bruising Neurological: reports: change in speech, other. denies: weakness, numbness, incoordination, seizures - Medication Medications: Active Medications Generic Name Dose Route Start Last Admin Trade Name Freq PRN Reason Stop Dose Admin Albuterol/Ipratropium 3 ml 06/25/20 19:00 07/02/20 07:50 Ipratropium/Albuterol Sulfate 3 Ml Neb NEB 3 ml [id number] JONES Administration Amlodipine Besylate 10 mg 06/17/20 09:00 07/02/20 08:38 Amlodipine 10 Mg Tab PO Not Given QAM JONES Enoxaparin Sodium 40 mg 06/09/20 21:00 07/01/20 20:55 Enoxaparin Sodium 40 Mg/0.4 Ml Syringe SC 40 mg 2100 JONES Administration Famotidine 20 mg 06/29/20 09:00 07/02/20 08:38 Famotidine/Pf 20 Mg/2ml Vial SLOW IVP 20 mg Q12HR JONES Administration Hydralazine HCl 10 mg 06/08/20 11:47 06/09/20 04:08 Hydralazine 20 Mg/Ml Vial SLOW IVP 10 mg Q4H PRN Administration SBP > 170 or DBP > 100 Ketorolac Tromethamine 15 mg 06/29/20 16:00 06/30/20 07:38 Ketorolac Tromethamine 30 Mg/Ml Vial IVP 07/04/20 10:01 15 mg Q6H PRN Administration Mild-Moderate Pain (1-5) Morphine Sulfate 4 mg 06/23/20 20:36 07/02/20 08:38 Morphine 4 Mg/Ml Vial SLOW IVP 4 mg Q2H PRN Administration Moderate to Severe Pain (6-10) Ondansetron HCl 4 mg 06/17/20 20:09 07/02/20 08:37 Ondansetron Pf 4 Mg/2 Ml Vial IVP 4 mg Q6H PRN Administration Nausea/Vomiting Oxybutynin Chloride 10 mg 06/20/20 09:00 07/02/20 08:39 Oxybutynin Er 5 Mg Tab PO Not Given DAILY JONES Pantoprazole Sodium 40 mg 06/18/20 09:00 07/02/20 08:38 Pantoprazole 40 Mg Vial IVP 40 mg DAILY JONES Administration Sodium Chloride 10 ml 06/08/20 11:47 06/29/20 20:04 Flush - Normal Saline 10 Ml Syringe IVF 10 ml PRN PRN Administration Saline Flush - Exam General Appearance: ill appearing ENT: normocephalic atraumatic ENT - other findings: NG tube in place Heart: no murmur, no gallops, no rubs Heart - other findings: Tachycardic Respiratory: rhonchi. negative: no wheezes, no rales, normal chest expansion, normal percussion, rales, wheezes Gastrointestinal: tender to palpation, diminished bowl sounds Hosp A/P - Plan CT abdomen 06/08: moderate to severe partial small bowel obstruction Abd X ray 06/23: mildly dilated small bowel loops Chest X ray 06/25: normal Small Bowel Follow Through "Scant radiograph showed significant residual Gastrograffin contrast throught the colon. Small amount of residual barium within the cecum/rectum..." and "...definitely no high-grade obstruction" report This is a 64 year old female s/p sigmoid resection 05/21 who presented with abdominal pain x 2-3 days and was found to have another small bowel obstruction. She underwent ex lap. adhesiolysis, small bowel resection and ileostomy reversal on 06/11 Small bowel obstruction s/p ex lap - Small Bowel Follow Through showed no high grade obstruction but partial obstruction likely given inability to pass gas and no bowel movement - continue NPO and TPN per general surgery GERD - continue protonix 40 mg daily and IV pepcid in evening Macrocytic Anemia - hemoglobin 9.0. B12/folate/TSH normal. Hypertension - continue amlodipine Attending addendum: The patient was seen and examined with the med student and agree with assessment and plan The patient did report some chest discomfort and was trying to burp during this so appeared more like indigestion. She is tachycardic. She denies pain . She has nausea not relieved with zofran. She has had no bowel movements and has not passed gas On exam: NG tube in place, abdomen hypoactive bowel sounds, nondistended, mildly tender. Lungs clear. Heart sinus tachycardia with no murmurs. Patient appears fatigued Plan: - continue NG tube to suction and NPO status . Wound vac changed today . SBFT still shows partial obstruction
[2020-07-02 10:25] LABS: #Eosinphils 0.6 thou/uL (0.0-0.7); #Lymphocytes 1.4 thou/uL (1.20-3.40); #Neutrophils 7.9 thou/uL (1.40-6.50); %Basophils 0.2 % (0.0-1.0); %Eosinophils 5.1 % (0.0-10.0); %Lymphocytes 12.5 % (21.0-51.0); %Monocytes 9.4 % (0.0-10.0); %Neutrophils 72.7 % (42.0-75.0); Mean Corpuscular HGB CONC 32.1 g/dL (32.0-36.0); Mean Corpuscular Hemoglobin 30.3 pg (27.0-31.0); Mean Corpuscular Volume 94.4 fL (78.0-98.0); Mean Platelet Volume 8.9 fL (7.4-10.4); Platelet Count 389 thou/uL (130-400); Red Blood Cell (RBC) Count 2.98 mill/uL (4.20-5.40); White Blood Cell (WBC) Count 10.8 thou/uL (4.8-10.8)
[2020-07-02 10:33] LABS: ALT (SGPT) 25 U/L (8-55); AST (SGOT) 36 U/L (5-34); Alkaline Phosphatase 169 U/L (40-110); Anion Gap 14 mmol/L (10-20); BUN (Urea Nitrogen) 31 mg/dL (9.8-20.1); Bilirubin, Total 0.8 mg/dL (0.2-1.2); Calc. Creatinine Clearance 48 mL/min (70-130); Calcium 9.7 mg/dL (7.8-10.44); Carbon Dioxide 30 mmol/L (23-31); Chloride 102 mmol/L (98-107); Glucose 112 mg/dL (80-115); Phosphorus 5.5 mg/dL (2.3-4.7); Potassium 4.1 mmol/L (3.5-5.1); Sodium 142 mmol/L (136-145)
[2020-07-02] MEDS: Lactated Ringer's 1,000 ML IV SCH ×2 (10:35→23:52)
[2020-07-02] MEDS: Enoxaparin Sodium 40 MG/0.4 ML SYRINGE SC SCH (20:17)
[2020-07-02] MEDS ORDERED: SODIUM ACETATE IV SCH (22:00)
[2020-07-02] MEDS ORDERED: FAT EMULSION IV SCH (22:00)
[2020-07-02] MEDS ORDERED: POTASSIUM ACETATE IV SCH (22:00)
[2020-07-02] MEDS ORDERED: [UNRECOGNIZED DRUG - OTHER] IV SCH (22:00)
[2020-07-03 05:35] LABS: #Eosinphils 0.9 thou/uL (0.0-0.7); #Lymphocytes 1.6 thou/uL (1.20-3.40); #Monocytes 0.8 thou/uL (0.11-0.59); #Neutrophils 5.9 thou/uL (1.40-6.50); %Basophils 0.3 % (0.0-1.0); %Eosinophils 9.9 % (0.0-10.0); %Lymphocytes 17.6 % (21.0-51.0); %Monocytes 8.9 % (0.0-10.0); %Neutrophils 63.3 % (42.0-75.0); Hemoglobin 8.5 g/dL (12.0-16.0); Mean Corpuscular HGB CONC 31.4 g/dL (32.0-36.0); Mean Corpuscular Hemoglobin 29.9 pg (27.0-31.0); Mean Corpuscular Volume 95.2 fL (78.0-98.0); Mean Platelet Volume 9.1 fL (7.4-10.4); Platelet Count 345 thou/uL (130-400); RBC Distribution Width 14.9 % (11.5-14.5); Red Blood Cell (RBC) Count 2.83 mill/uL (4.20-5.40); White Blood Cell (WBC) Count 9.3 thou/uL (4.8-10.8)
[2020-07-03 05:53] LABS: ALT (SGPT) 26 U/L (8-55); AST (SGOT) 42 U/L (5-34); Albumin 2.8 g/dL (3.4-4.8); Alkaline Phosphatase 155 U/L (40-110); Anion Gap 12 mmol/L (10-20); BUN (Urea Nitrogen) 25 mg/dL (9.8-20.1); Bilirubin, Total 0.9 mg/dL (0.2-1.2); Calc. Creatinine Clearance 61 mL/min (70-130); Calcium 9.3 mg/dL (7.8-10.44); Carbon Dioxide 29 mmol/L (23-31); Chloride 102 mmol/L (98-107); Globulin 4.7 g/dL (2.4-3.5); Glucose 97 mg/dL (80-115); Potassium 3.9 mmol/L (3.5-5.1); Protein, Total 7.5 g/dL (6.0-8.3); Sodium 139 mmol/L (136-145)
--- NOTE | 2020-07-03 08:27 | RAD ---
EXAM: XR Abdomen 2 View PROVIDED CLINICAL HISTORY: Small bowel obstruction. COMPARISON: 07/01/2020 FINDINGS: When compared to prior study, contrast has progressed from the small small bowel into the colon with contrast seen throughout the colon on current study. No dilated gas-filled loops of small bowel are seen. Nasogastric tube is again noted in place with tip overlying expected location of the body of th e stomach. There is suboptimal evaluation of the lung bases, but there does appear to be basilar atelectasis. Left convex scoliosis thoracolumbar spine is seen. Vascular calcifications are seen in t he abdominal aorta and iliac arteries. Surgical clips again overlie the epigastric region. IMPRESSION: Progression in contrast through loops of small bowel and into the colon. Contrast is seen in the sarah on of the rectum. There is residual contrast seen within loops of small bowel in the right lower quadrant. No dilated gas-filled loops of small bowel are seen on this exam.
[2020-07-03] MEDS: Famotidine/PF 20 mg/2ml Vial SLOW IVP SCH ×2 (08:46→20:00)
[2020-07-03] MEDS: Pantoprazole 40 MG VIAL IVP SCH (08:46)
[2020-07-03] MEDS: Oxybutynin ER 5 MG TAB PO SCH (08:47)
[2020-07-03] MEDS: Amlodipine 10 MG TAB PO SCH (08:47)
[2020-07-03] MEDS: Ondansetron PF 4 MG/2 ML Vial IVP PRN (08:55)
[2020-07-03] MEDS: Morphine 2 MG/ML VIAL SLOW IVP PRN (08:56)
--- NOTE | 2020-07-03 09:25 | EKG ---
Test Reason : Blood Pressure : / mmHG Vent. Rate : 127 BPM Atrial Rate : 127 BPM P-R Int : 140 ms QRS Dur : 072 ms QT Int : 300 ms P-R-T Axes : 050 026 044 degrees QTc Int : 436 ms Sinus tachycardia Anterior infarct , age undetermined cannot be excluded Abnormal ECG Confirmed by ESTEFANÍA NEGRON ([id number]) on 07/03/2020 9:25:04 AM Referred By: JOSEP Confirmed By:ESTEFANÍA NEGRON
[2020-07-03] MEDS ORDERED: Lactated Ringer's 1,000 ML IV SCH (09:26)
--- NOTE | 2020-07-03 09:48 | PDOC.HOSPP ---
- Subjective Encounter Date: 07/03/20 Encounter Time: 09:47 Subjective: f/u: small bowel obstruction SBO - Ms. Sanderson says she feels much better today. No events or changes last night, and minimal spitting up (she did have observed spitting up into emesis bag). She reports bowel movement last night. Tachycardia - patient is still slightly tachycardic but improved. EKG yesterday showed sinus tachycardia. Patient denies palpitations - Objective Vital Signs & Weight: Vital Signs (12 hours) Temp Pulse Resp BP BP Pulse Ox 07/03/20 08:47 103 H 07/03/20 07:36 103 H 20 93 L 07/03/20 07:30 98.5 F 95 20 129/78 97 07/03/20 00:52 101 H 20 92 L 07/02/20 23:56 113 H 20 153/83 H 97 Weight Admit Weight 100 lb Weight 115 lb I&O: 07/02/20 07/03/20 07/04/20 06:59 06:59 06:59 Intake Total 1920 3280 Output Total 1400 1050 Balance 520 2230 Result Diagrams: 07/03/20 04:58 07/03/20 04:58 Additional Labs: Accuchecks 07/03/20 07/02/20 07/02/20 05:33 23:54 18:23 POC Glucose 88 73 94 07/02/20 11:36 POC Glucose 102 H Hospitalist ROS - Review of Systems Constitutional: denies: fever, chills - Medication Medications: Active Medications Generic Name Dose Route Start Last Admin Trade Name Freq PRN Reason Stop Dose Admin Albuterol/Ipratropium 3 ml 06/25/20 19:00 07/03/20 07:36 Ipratropium/Albuterol Sulfate 3 Ml Neb NEB 3 ml [id number] JONES Administration Amlodipine Besylate 10 mg 06/17/20 09:00 07/03/20 08:47 Amlodipine 10 Mg Tab PO Not Given QAM JONES Enoxaparin Sodium 40 mg 06/09/20 21:00 07/02/20 20:17 Enoxaparin Sodium 40 Mg/0.4 Ml Syringe SC 40 mg 2100 JONES Administration Famotidine 20 mg 06/29/20 09:00 07/03/20 08:46 Famotidine/Pf 20 Mg/2ml Vial SLOW IVP 20 mg Q12HR JONES Administration Hydralazine HCl 10 mg 06/08/20 11:47 06/09/20 04:08 Hydralazine 20 Mg/Ml Vial SLOW IVP 10 mg Q4H PRN Administration SBP > 170 or DBP > 100 Fat Emulsion Intravenous 250 2,338.4321 mls @ 70 mls/hr 07/02/20 22:00 07/02/20 22:39 ml/ Sodium Acetate 70 meq/ IV 2,338.4321 mls Potassium Acetate 20 meq/ 2200 JONES Administration Calcium Gluconate 10 meq/ Magnesium Sulfate 10 meq/ Multivitamins 10 ml/ Chromium/ Copper/Manganese/Zinc 9 ml/ Insulin Human Regular 23 units / Amino Acids/Electrolytes Ketorolac Tromethamine 15 mg 06/29/20 16:00 06/30/20 07:38 Ketorolac Tromethamine 30 Mg/Ml Vial IVP 07/04/20 10:01 15 mg Q6H PRN Administration Mild-Moderate Pain (1-5) Morphine Sulfate 2 mg 06/23/20 20:36 07/03/20 08:56 Morphine 2 Mg/Ml Vial SLOW IVP 2 mg Q2H PRN Administration Mild-Moderate Pain (1-5) Morphine Sulfate 4 mg 06/23/20 20:36 07/02/20 23:55 Morphine 4 Mg/Ml Vial SLOW IVP 4 mg Q2H PRN Administration Moderate to Severe Pain (6-10) Ondansetron HCl 4 mg 06/17/20 20:09 07/03/20 08:55 Ondansetron Pf 4 Mg/2 Ml Vial IVP 4 mg Q6H PRN Administration Nausea/Vomiting Oxybutynin Chloride 10 mg 06/20/20 09:00 07/03/20 08:47 Oxybutynin Er 5 Mg Tab PO Not Given DAILY JONES Pantoprazole Sodium 40 mg 06/18/20 09:00 07/03/20 08:46 Pantoprazole 40 Mg Vial IVP 40 mg DAILY JONES Administration Sodium Chloride 10 ml 06/08/20 11:47 06/29/20 20:04 Flush - Normal Saline 10 Ml Syringe IVF 10 ml PRN PRN Administration Saline Flush - Exam General Appearance: NAD, awake alert. negative: ill appearing ENT: normocephalic atraumatic Heart: RRR, no murmur, no gallops, no rubs Respiratory: CTAB, no wheezes, no rales, no ronchi Gastrointestinal: soft, non-tender, non-distended, normal bowel sounds Extremities: no edema Skin: normal turgor Neurological: cranial nerve grossly intact Psychiatric: normal affect, normal behavior, A&O x 3 Hosp A/P - Plan CT abdomen 06/08: moderate to severe partial small bowel obstruction Abd X ray 06/23: mildly dilated small bowel loops Chest X ray 06/25: normal Small Bowel Follow Through "Scant radiograph showed significant residual Gastrograffin contrast throught the colon. Small amount of residual barium within the cecum/rectum..." and "...definitely no high-grade obstruction" report Abd Xray 07/03: progression in contrast through loops of small bowel and into the colon. Contrast is sen in the region of the rectum. There is residual contrast seen within loops of small bowel in the right lower quadrant. No dilated gas-filled loops of small bowel are seen on this exam. This is a 64 year old female s/p sigmoid resection 05/21 who presented with abdominal pain x 2-3 days and was found to have another small bowel obstruction. She underwent ex lap. adhesiolysis, small bowel resection and ileostomy reversal on 06/11 Small bowel obstruction s/p ex lap - Small Bowel Follow 07/02 showed no high grade obstruction but partial obstruc tion. Repeat SBFT 07/03 showed "progression of contrast with no dilated bowel loops of small bowel and into the colon and contrast is seen in the region of the rectum." - NG tube removed and advanced to clear liquids. Continue TPN for a few more days per Dr. Tello GERD - continue protonix 40 mg daily and IV pepcid in evening Macrocytic Anemia - hemoglobin 8.5. B12/folate/TSH normal. Hypertension - continue amlodipine Attending attestation: I have seen and examined the patient with the medical student. The patient had loose bowel movements overnight even though she had not passed gas. She denies abdominal pain, nausea, vomiting or chest pain . The patient was told that she could have clears, but wants to take it slow and currently does not have an appetite Abd exam: minimal bowel sounds heard on the RUQ and RLQ. No tenderness or distension. ENT: NG tube removed Plan: NG tube removed today. Plan to advance to clears. Will monitor for a few more days while advancing diet and continue TPN . Hopefully can go home after
--- NOTE | 2020-07-03 10:17 | PRG ---
DATE OF SERVICE: 07/03/2020 SUBJECTIVE: Mikala Sanderson yesterday 24 hours had 1300 out of her NG tube after small bowel follow-through and in the last 24 hours, she has had 400. She has had several bowel movements overnight. Abdominal x-rays this morning reveal contrast throughout the colon and no evidence of distended small bowel loops. Her tachycardia yesterday resolved with IV fluid boluses. OBJECTIVE: VITAL SIGNS: Temperature 98.5 degrees, heart rate 95, blood pressure 129/78. LUNGS: Clear to auscultation. CARDIAC: Regular rate and rhythm. No murmur or gallop. ABDOMEN: Soft. Occasional bowel sounds. no tympany. LABORATORY DATA: White count 9, hemoglobin 8.5. BUN 25, down from 31 yesterday, creatinine is 0.75. She continues on TPN. ASSESSMENT AND PLAN: Status post 06/11/2020 laparotomy adhesiolysis, small bowel resection, and takedown ileostomy. We would plan at this time to take out her NG tube and try clear liquids, have her go slow. Avoid carbonation. We would continue TPN for now to assure that she tolerates her diet over the next few days. If she tolerates clear liquids today, we can advance to full liquids tomorrow. I have asked her to go very slow. Job ID: [id number]
[2020-07-03] MEDS: Morphine 4 MG/ML VIAL SLOW IVP PRN ×2 (14:20→19:53)
[2020-07-03] MEDS: Enoxaparin Sodium 40 MG/0.4 ML SYRINGE SC SCH (20:00)
[2020-07-03] MEDS: FAT EMULSION IV SCH (22:01)
[2020-07-03] MEDS: SODIUM ACETATE IV SCH (22:01)
[2020-07-03] MEDS: [UNRECOGNIZED DRUG - OTHER] IV SCH (22:01)
[2020-07-03] MEDS: POTASSIUM ACETATE IV SCH (22:01)
[2020-07-04] MEDS: Morphine 4 MG/ML VIAL SLOW IVP PRN ×5 (00:14→20:26)
[2020-07-04] MEDS: Amlodipine 10 MG TAB PO SCH (08:42)
[2020-07-04] MEDS: Oxybutynin ER 5 MG TAB PO SCH (08:42)
[2020-07-04] MEDS: Famotidine/PF 20 mg/2ml Vial SLOW IVP SCH (08:43)
[2020-07-04] MEDS: Pantoprazole 40 MG VIAL IVP SCH (08:44)
[2020-07-04] MEDS ORDERED: Acetaminophen 500 MG TAB PO PRN (08:45)
--- NOTE | 2020-07-04 09:25 | PRG ---
DATE OF SERVICE: SUBJECTIVE: Ms. Sanderson is doing well today. She is tolerating liquids. She has not had reflux, nausea, or vomiting. She has not passed any flatus or stool, however. Abdomen is not distended. OBJECTIVE: VITAL SIGNS: 98.8 degrees, 98, 118/74. LUNGS: Clear to auscultation. CARDIAC: Rhythm without murmur or gallop. ABDOMEN: Soft, nontympanitic, nondistended. Wound VAC in place. LABORATORY DATA: Laboratories yesterday were stable. ASSESSMENT AND PLAN: Stephon is doing well. We would plan to advance her to full liquids today. Change her analgesics to p.o. and her PPIs to p.o. We will continue TPN today. I have talked to her that when she goes home in the next 2 to 3 days that she avoid high-fiber meals and stick with soft foods initially. It is possible she could go home this weekend in which case home health should be arranged to assume her wound VAC care. We will send Ultram to her Pharmacy. If she does go home, she is to see me in the office in about 2 weeks. Job ID: [id number]
--- NOTE | 2020-07-04 10:01 | PDOC.HOSPP ---
- Subjective Encounter Date: 07/04/20 Encounter Time: 07:55 Subjective: F/u: small bowel obstruction Ms. Sanderson is feeling "ok...maybe a little bit better than yesterday". She reports no events or overnight changes, denies nausea or vomiting, and is speaking much better since NG tube removal. Denies gas, and although she had BMs yesterday evening (described as runny), has not yet had a bowel movement this morning. She states her lack of appetite might be normal for her - she normally does not have much of an appetite. She is on clear liquid diet and has some discomfort with that, but no nausea or vomiting She was asking about whether she could get her specific type of dressing wet. Tachycardia - tachycardia resolved today .She denies palpitations - Objective Vital Signs & Weight: Vital Signs (12 hours) Temp Pulse Resp BP Pulse Ox 07/04/20 08:00 98.8 F 98 18 118/74 98 07/04/20 07:39 94 16 94 L 07/04/20 00:53 20 07/03/20 23:55 103 H Weight Admit Weight 100 lb Weight 115 lb I&O: 07/03/20 07/04/20 07/05/20 06:59 06:59 06:59 Intake Total 3280 840 Output Total 1050 200 Balance 2230 640 Result Diagrams: 07/03/20 04:58 07/03/20 04:58 Additional Labs: Accuchecks 07/04/20 07/03/20 07/03/20 06:03 23:52 19:24 POC Glucose 85 95 91 07/03/20 11:41 POC Glucose 104 H Hospitalist ROS - Review of Systems Cardiovascular: denies: palpitations Gastrointestinal: reports: diarrhea. denies: nausea, vomiting, constipation - Medication Medications: Active Medications Generic Name Dose Route Start Last Admin Trade Name Freq PRN Reason Stop Dose Admin Albuterol/Ipratropium 3 ml 06/25/20 19:00 07/04/20 07:39 Ipratropium/Albuterol Sulfate 3 Ml Neb NEB 3 ml [id number] JONES Administration Amlodipine Besylate 10 mg 06/17/20 09:00 07/04/20 08:42 Amlodipine 10 Mg Tab PO 10 mg QAM JONES Administration Enoxaparin Sodium 40 mg 06/09/20 21:00 07/03/20 20:00 Enoxaparin Sodium 40 Mg/0.4 Ml Syringe SC 40 mg 2100 JONES Administration Hydralazine HCl 10 mg 06/08/20 11:47 06/09/20 04:08 Hydralazine 20 Mg/Ml Vial SLOW IVP 10 mg Q4H PRN Administration SBP > 170 or DBP > 100 Fat Emulsion Intravenous 250 2,422.6444 mls @ 70 mls/hr 07/03/20 22:00 07/03/20 22:01 ml/ Sodium Acetate 140 meq/ IV 2,422.6444 mls Potassium Acetate 20 meq/ 2200 JONES Administration Calcium Gluconate 20 meq/ Magnesium Sulfate 20 meq/ Multivitamins 10 ml/ Chromium/ Copper/Manganese/Zinc 9 ml/ Insulin Human Regular 24 units / Potassium Chloride 30 meq/ Potassium Phosphate 30 mmol/ Amino Acids/Dextrose Morphine Sulfate 2 mg 06/23/20 20:36 07/03/20 08:56 Morphine 2 Mg/Ml Vial SLOW IVP 2 mg Q2H PRN Administration Mild-Moderate Pain (1-5) Morphine Sulfate 4 mg 06/23/20 20:36 07/04/20 08:25 Morphine 4 Mg/Ml Vial SLOW IVP 4 mg Q2H PRN Administration Moderate to Severe Pain (6-10) Ondansetron HCl 4 mg 06/17/20 20:09 07/03/20 08:55 Ondansetron Pf 4 Mg/2 Ml Vial IVP 4 mg Q6H PRN Administration Nausea/Vomiting Oxybutynin Chloride 10 mg 06/20/20 09:00 07/04/20 08:42 Oxybutynin Er 5 Mg Tab PO 10 mg DAILY JONES Administration Sodium Chloride 10 ml 06/08/20 11:47 06/29/20 20:04 Flush - Normal Saline 10 Ml Syringe IVF 10 ml PRN PRN Administration Saline Flush - Exam General Appearance: NAD, awake alert. negative: ill appearing ENT: normocephalic atraumatic Heart: RRR, no murmur, no gallops, no rubs Heart - other findings: Right radial pulse 96 bpm. Respiratory: CTAB, no wheezes, no rales, no ronchi Gastrointestinal: non-tender, non-distended, diminished bowl sounds Extremities: no cyanosis, no edema Neurological: cranial nerve grossly intact Psychiatric: normal affect, normal behavior, A&O x 3 Hosp A/P - Plan CT abdomen 06/08: moderate to severe partial small bowel obstruction Abd X ray 06/23: mildly dilated small bowel loops Chest X ray 06/25: normal Small Bowel Follow Through "Scant radiograph showed significant residual Gastro graffin contrast throught the colon. Small amount of residual barium within the cecum/rectum..." and "...definitely no high-grade obstruction" report Abd Xray 07/03: progression in contrast through loops of small bowel and into the colon. Contrast is sen in the region of the rectum. There is residual contrast seen within loops of small bowel in the right lower quadrant. No dilated gas-filled loops of small bowel are seen on this exam. This is a 64 year old female s/p sigmoid resection 05/21 who presented with abdominal pain x 2-3 days and was found to have another small bowel obstruction. She underwent ex lap. adhesiolysis, small bowel resection and ileostomy reversal on 06/11 Small bowel obstruction s/p ex lap - Small Bowel Follow 07/02 showed no high grade obstruction but partial obstruction. Repeat SBFT 07/03 showed "progression of contrast with no dilated bowel loops of small bowel and into the colon and contrast is seen in the region of the rectum." - NG tube removed and advanced to clear liquids. Continue clear liquids today, patient wants to go slow. Continue TPN for a few more days per Dr. Tello GERD - continue protonix 40 mg daily and IV pepcid in evening Macrocytic Anemia - hemoglobin 8.5 (07/03). B12/folate/TSH normal. Hypertension - continue amlodipine Attending attestation: I have seen and examined the patient with the medical student. She has not had a bowel movement today. She is on clear liquids, wants to advance wlowly Abd exam: hypoactive bowel sounds heard in all quadrants. No tenderness or distension. ENT: NG tube removed Plan: consider advancing to full liquid tomorrow if patient tolerates it
[2020-07-04] MEDS ORDERED: Ibuprofen 600 MG TAB PO PRN (12:00)
[2020-07-04] MEDS: traMADol HCl 50 MG TAB PO PRN (15:54)
[2020-07-04] MEDS: Enoxaparin Sodium 40 MG/0.4 ML SYRINGE SC SCH (20:23)
[2020-07-04] MEDS: SODIUM ACETATE IV SCH (22:01)
[2020-07-04] MEDS: [UNRECOGNIZED DRUG - OTHER] IV SCH (22:01)
[2020-07-04] MEDS: FAT EMULSION IV SCH (22:01)
[2020-07-04] MEDS: POTASSIUM ACETATE IV SCH (22:01)
[2020-07-05] MEDS: Morphine 4 MG/ML VIAL SLOW IVP PRN ×4 (00:11→23:20)
[2020-07-05] MEDS: traMADol HCl 50 MG TAB PO PRN ×3 (06:27→14:22)
[2020-07-05] MEDS: Amlodipine 10 MG TAB PO SCH (08:45)
[2020-07-05] MEDS: Oxybutynin ER 5 MG TAB PO SCH (08:46)
[2020-07-05] MEDS: Ondansetron PF 4 MG/2 ML Vial IVP PRN (10:32)
--- NOTE | 2020-07-05 12:56 | PRG ---
DATE OF SERVICE: 07/05/2020 SUBJECTIVE: Ms. Sanderson remains in the hospital currently on the oncology floor. She is postoperative day #24 from her exploratory laparotomy with lysis of adhesions and small bowel resection per Dr. Tello. She is postoperative day #44 from a sigmoid colectomy with ileostomy creation. She has had a prolonged ileus and difficulty resuming oral intake after her recent surgery. She has been on TPN for quite a while now. She has recently started her diet and is tolerating this. She is on a full liquid diet currently. Looking at her trays this morning, she had less than a 4th of her oral intake. She tells me she has had no vomiting, but has a poor appetite. She has had no flatus or bowel movement. She is in good spirits, however. OBJECTIVE: VITAL SIGNS: On examination she is afebrile, pulse is 90, blood pressure 110/68. LUNGS: Clear to auscultation. ABDOMEN: Soft. She has mostly normal bowel sounds, but there are some tympanitic bowel sounds as well. She has a wound VAC intact on the lower abdomen. LABORATORY DATA: There are no labs from the past couple of days. ASSESSMENT: The patient seems stable after her recent surgery for lysis of adhesions. She is on total parenteral nutrition secondary to her long ileus and malnutrition. She does not seem to be taking enough oral intake to suspend her total parenteral nutrition. Therefore, we will continue at this time. Hopefully, her bowel function will improve and normalize and she will be able to increase her diet. She clearly is not ready for discharge today or tomorrow. Job ID: [id number] [facility]
--- NOTE | 2020-07-05 13:11 | PDOC.HOSPP ---
- Subjective Encounter Date: 07/05/20 Encounter Time: 10:20 Subjective: Patient is doing well this morning. Clinically stable. She denies any abdominal pain but tenderness. She had a liquidy bowel movement last evening. No nausea. She does not have a good appetite yet. Wound VAC in place. - Objective Vital Signs & Weight: Vital Signs (12 hours) Temp Pulse Resp BP BP Pulse Ox 07/05/20 08:45 91 110/68 07/05/20 08:00 98.4 F 91 14 110/68 96 07/05/20 07:00 80 16 Weight Admit Weight 100 lb Weight 115 lb I&O: 07/04/20 07/05/20 07/06/20 06:59 06:59 06:59 Intake Total 840 120 Output Total 200 700 Balance 640 -580 Result Diagrams: 07/03/20 04:58 07/03/20 04:58 Additional Labs: Accuchecks 07/05/20 07/05/20 07/05/20 11:55 05:36 00:02 POC Glucose 71 73 83 Hospitalist ROS - Medication Medications: Active Medications Generic Name Dose Route Start Last Admin Trade Name Freq PRN Reason Stop Dose Admin Albuterol/Ipratropium 3 ml 06/25/20 19:00 07/05/20 07:00 Ipratropium/Albuterol Sulfate 3 Ml Neb NEB 3 ml [id number] JONES Administration Amlodipine Besylate 10 mg 06/17/20 09:00 07/05/20 08:45 Amlodipine 10 Mg Tab PO 10 mg QAM JONES Administration Enoxaparin Sodium 40 mg 06/09/20 21:00 07/04/20 20:23 Enoxaparin Sodium 40 Mg/0.4 Ml Syringe SC 40 mg 2100 JONES Administration Hydralazine HCl 10 mg 06/08/20 11:47 06/09/20 04:08 Hydralazine 20 Mg/Ml Vial SLOW IVP 10 mg Q4H PRN Administration SBP > 170 or DBP > 100 Fat Emulsion Intravenous 250 2,422.6444 mls @ 70 mls/hr 07/03/20 22:00 07/04/20 22:01 ml/ Sodium Acetate 140 meq/ IV 2,422.6444 mls Potassium Acetate 20 meq/ 2200 JONES Administration Calcium Gluconate 20 meq/ Magnesium Sulfate 20 meq/ Multivitamins 10 ml/ Chromium/ Copper/Manganese/Zinc 9 ml/ Insulin Human Regular 24 units / Potassium Chloride 30 meq/ Potassium Phosphate 30 mmol/ Amino Acids/Dextrose Ibuprofen 600 mg 07/04/20 12:00 07/04/20 15:54 Ibuprofen 600 Mg Tab PO 600 mg Q6H PRN Administration Pain Morphine Sulfate 2 mg 06/23/20 20:36 07/03/20 08:56 Morphine 2 Mg/Ml Vial SLOW IVP 2 mg Q2H PRN Administration Mild-Moderate Pain (1-5) Morphine Sulfate 4 mg 06/23/20 20:36 07/05/20 00:11 Morphine 4 Mg/Ml Vial SLOW IVP 4 mg Q2H PRN Administration Moderate to Severe Pain (6-10) Ondansetron HCl 4 mg 06/17/20 20:09 07/05/20 10:32 Ondansetron Pf 4 Mg/2 Ml Vial IVP 4 mg Q6H PRN Administration Nausea/Vomiting Oxybutynin Chloride 10 mg 06/20/20 09:00 07/05/20 08:46 Oxybutynin Er 5 Mg Tab PO 10 mg DAILY JONES Administration Pantoprazole Sodium 40 mg 07/04/20 09:00 07/05/20 08:46 Pantoprazole 40 Mg Tab PO 40 mg DAILY JONES Administration Sodium Chloride 10 ml 06/08/20 11:47 06/29/20 20:04 Flush - Normal Saline 10 Ml Syringe IVF 10 ml PRN PRN Administration Saline Flush Tramadol HCl 50 mg 07/04/20 08:45 07/05/20 10:34 Tramadol Hcl 50 Mg Tab PO 50 mg Q4H PRN Administration Moderate Pain (4-6) - Exam General Appearance: NAD, awake alert Eye: PERRL ENT: normocephalic atraumatic Neck: supple Heart: RRR, normal peripheral pulses Respiratory: CTAB, normal chest expansion Gastrointestinal: soft, normal bowel sounds Gastrointestinal - other findings: Abdominal wound with a wound VAC drain Neurological: cranial nerve grossly intact, no focal deficits Musculoskeletal: generalized weakness Psychiatric: normal affect, normal behavior, A&O x 3 Hosp A/P - Plan S/p exploratory laparotomy for ileostomy reversal Left basilar consolidation with left-sided pleural effusion, Continue meropenem--- there is no cultures being done; consider discontinue the Merrem after 7 days if clinical course is stable------------> discontinued Continue IV fluid Continue TPN Ambulating today DC [facility] Supportive management. 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 Will go slowly in advancing her diet
[2020-07-05] MEDS: Enoxaparin Sodium 40 MG/0.4 ML SYRINGE SC SCH (20:31)
[2020-07-05] MEDS: [UNRECOGNIZED DRUG - OTHER] IV SCH (23:13)
[2020-07-05] MEDS: POTASSIUM ACETATE IV SCH ×2 (23:13→23:14)
[2020-07-05] MEDS: FAT EMULSION IV SCH ×2 (23:13→23:14)
[2020-07-05] MEDS: SODIUM ACETATE IV SCH ×2 (23:13→23:14)
[2020-07-05] MEDS: [UNRECOGNIZED DRUG - OTHER] IV SCH (23:14)
[2020-07-06] MEDS: Morphine 4 MG/ML VIAL SLOW IVP PRN ×5 (02:02→23:25)
[2020-07-06] MEDS: traMADol HCl 50 MG TAB PO PRN (07:53)
[2020-07-06 08:16] LABS: #Eosinphils 0.7 thou/uL (0.0-0.7); #Lymphocytes 1.4 thou/uL (1.20-3.40); #Monocytes 0.7 thou/uL (0.11-0.59); #Neutrophils 3.3 thou/uL (1.40-6.50); %Basophils 0.2 % (0.0-1.0); %Eosinophils 10.9 % (0.0-10.0); %Monocytes 11.5 % (0.0-10.0); %Neutrophils 54.5 % (42.0-75.0); Hemoglobin 8.1 g/dL (12.0-16.0); Mean Corpuscular HGB CONC 31.5 g/dL (32.0-36.0); Mean Corpuscular Hemoglobin 30.2 pg (27.0-31.0); Mean Corpuscular Volume 95.8 fL (78.0-98.0); Mean Platelet Volume 8.7 fL (7.4-10.4); Platelet Count 314 thou/uL (130-400); RBC Distribution Width 14.7 % (11.5-14.5); Red Blood Cell (RBC) Count 2.69 mill/uL (4.20-5.40)
[2020-07-06 08:26] LABS: ALT (SGPT) 18 U/L (8-55); AST (SGOT) 25 U/L (5-34); Albumin 2.7 g/dL (3.4-4.8); Alkaline Phosphatase 127 U/L (40-110); Anion Gap 15 mmol/L (10-20); BUN (Urea Nitrogen) 24 mg/dL (9.8-20.1); Bilirubin, Total 0.5 mg/dL (0.2-1.2); Calc. Creatinine Clearance 61 mL/min (70-130); Carbon Dioxide 26 mmol/L (23-31); Chloride 99 mmol/L (98-107); Globulin 4.2 g/dL (2.4-3.5); Glucose 82 mg/dL (80-115); Potassium 4.8 mmol/L (3.5-5.1); Protein, Total 6.9 g/dL (5.8-8.1); Sodium 135 mmol/L (136-145)
[2020-07-06] MEDS: Amlodipine 10 MG TAB PO SCH (09:10)
[2020-07-06] MEDS: Oxybutynin ER 5 MG TAB PO SCH (09:10)
[2020-07-06] MEDS: Ondansetron PF 4 MG/2 ML Vial IVP PRN (09:20)
--- NOTE | 2020-07-06 12:55 | PDOC.HOSPP ---
- Subjective Encounter Date: 07/06/20 Encounter Time: 09:10 Subjective: Patient now wants to know whether she can have a candy. She states that in the past she used to eat a lot now, she could not take much food. Intermittent abdominal pain - Objective Vital Signs & Weight: Vital Signs (12 hours) Temp Pulse Resp BP Pulse Ox 07/06/20 11:48 97.1 F L 98 14 111/72 98 07/06/20 09:10 104 H 07/06/20 08:29 104 H 16 Weight Admit Weight 100 lb Weight 115 lb I&O: 07/05/20 07/06/20 07/07/20 06:59 06:59 06:59 Intake Total 120 1360 Output Total 700 Balance -580 1360 Result Diagrams: 07/06/20 07:36 07/06/20 07:36 Additional Labs: Accuchecks 07/06/20 07/06/20 07/06/20 11:52 05:56 02:02 POC Glucose 86 98 91 07/06/20 07/05/20 07/05/20 00:40 23:45 16:48 POC Glucose 70 64 L 85 Hospitalist ROS - Medication Medications: Active Medications Generic Name Dose Route Start Last Admin Trade Name Freq PRN Reason Stop Dose Admin Albuterol/Ipratropium 3 ml 06/25/20 19:00 07/06/20 08:29 Ipratropium/Albuterol Sulfate 3 Ml Neb NEB 3 ml [id number] JONES Administration Amlodipine Besylate 10 mg 06/17/20 09:00 07/06/20 09:10 Amlodipine 10 Mg Tab PO 10 mg QAM JONES Administration Enoxaparin Sodium 40 mg 06/09/20 21:00 07/05/20 20:31 Enoxaparin Sodium 40 Mg/0.4 Ml Syringe SC 40 mg 2100 JONES Administration Hydralazine HCl 10 mg 06/08/20 11:47 06/09/20 04:08 Hydralazine 20 Mg/Ml Vial SLOW IVP 10 mg Q4H PRN Administration SBP > 170 or DBP > 100 Fat Emulsion Intravenous 250 2,338.4321 mls @ 70 mls/hr 07/05/20 22:00 07/05/20 23:13 ml/ Sodium Acetate 70 meq/ IV 2,338.4321 mls Potassium Acetate 20 meq/ 2200 JONES Administration Calcium Gluconate 10 meq/ Magnesium Sulfate 10 meq/ Multivitamins 10 ml/ Chromium/ Copper/Manganese/Zinc 9 ml/ Insulin Human Regular 23 units / Amino Acids/Electrolytes Ibuprofen 600 mg 07/04/20 12:00 07/04/20 15:54 Ibuprofen 600 Mg Tab PO 600 mg Q6H PRN Administration Pain Morphine Sulfate 2 mg 06/23/20 20:36 07/03/20 08:56 Morphine 2 Mg/Ml Vial SLOW IVP 2 mg Q2H PRN Administration Mild-Moderate Pain (1-5) Morphine Sulfate 4 mg 06/23/20 20:36 07/06/20 09:23 Morphine 4 Mg/Ml Vial SLOW IVP 4 mg Q2H PRN Administration Moderate to Severe Pain (6-10) Ondansetron HCl 4 mg 06/17/20 20:09 07/06/20 09:20 Ondansetron Pf 4 Mg/2 Ml Vial IVP 4 mg Q6H PRN Administration Nausea/Vomiting Oxybutynin Chloride 10 mg 06/20/20 09:00 07/06/20 09:10 Oxybutynin Er 5 Mg Tab PO 10 mg DAILY JONES Administration Pantoprazole Sodium 40 mg 07/04/20 09:00 07/06/20 09:10 Pantoprazole 40 Mg Tab PO 40 mg DAILY JONES Administration Sodium Chloride 10 ml 06/08/20 11:47 06/29/20 20:04 Flush - Normal Saline 10 Ml Syringe IVF 10 ml PRN PRN Administration Saline Flush Tramadol HCl 50 mg 07/04/20 08:45 07/06/20 07:53 Tramadol Hcl 50 Mg Tab PO 50 mg Q4H PRN Administration Moderate Pain (4-6) - Exam General Appearance: NAD, awake alert Eye: PERRL ENT: normocephalic atraumatic Neck: supple Heart: RRR, normal peripheral pulses Respiratory: CTAB, normal chest expansion Gastrointestinal: soft, normal bowel sounds Gastrointestinal - other findings: abd drain Neurological: cranial nerve grossly intact, no focal deficits Hosp A/P - Plan S/p exploratory laparotomy for ileostomy reversal Left basilar consolidation with left-sided pleural effusion, Continue meropenem--- there is no cultures being done; consider discontinue the Merrem after 7 days if clinical course is stable------------> discontinued Continue IV fluid Continue TPN Supportive management. Her abdomen is slightly starch mangle tender. Will go slowly in advancing her diet. Getting TPN. Encouraged ambulation.
--- NOTE | 2020-07-06 19:38 | EKG ---
Test Reason : STAT Blood Pressure : / mmHG Vent. Rate : 091 BPM Atrial Rate : 091 BPM P-R Int : 156 ms QRS Dur : 068 ms QT Int : 348 ms P-R-T Axes : 073 033 067 degrees QTc Int : 428 ms Normal sinus rhythm Anterior infarct , age undetermined Abnormal ECG When compared with ECG of 12-JUN-2020 13:04, Anterior infarct is now Present Confirmed by MISTI ROLLINS, BARBARA ([id number]) on 07/06/2020 7:37:39 PM Referred By: JOSEP Confirmed By:BARBARA CHAPPELL MD
[2020-07-06] MEDS: Enoxaparin Sodium 40 MG/0.4 ML SYRINGE SC SCH (21:22)
[2020-07-06] MEDS: FAT EMULSION IV SCH (23:06)
[2020-07-06] MEDS: SODIUM ACETATE IV SCH (23:06)
[2020-07-06] MEDS: POTASSIUM ACETATE IV SCH (23:06)
[2020-07-06] MEDS: [UNRECOGNIZED DRUG - OTHER] IV SCH (23:06)
[2020-07-07] MEDS: Morphine 4 MG/ML VIAL SLOW IVP PRN ×5 (04:11→18:39)
[2020-07-07 05:55] LABS: #Eosinphils 0.7 thou/uL (0.0-0.7); #Lymphocytes 1.4 thou/uL (1.20-3.40); #Monocytes 0.6 thou/uL (0.11-0.59); #Neutrophils 4.2 thou/uL (1.40-6.50); %Basophils 0.4 % (0.0-1.0); %Eosinophils 10.6 % (0.0-10.0); %Lymphocytes 19.7 % (21.0-51.0); %Monocytes 8.2 % (0.0-10.0); %Neutrophils 61.1 % (42.0-75.0); Hemoglobin 8.1 g/dL (12.0-16.0); Mean Corpuscular HGB CONC 30.8 g/dL (32.0-36.0); Mean Corpuscular Hemoglobin 29.5 pg (27.0-31.0); Mean Corpuscular Volume 95.7 fL (78.0-98.0); Mean Platelet Volume 8.5 fL (7.4-10.4); Platelet Count 351 thou/uL (130-400); RBC Distribution Width 14.9 % (11.5-14.5); Red Blood Cell (RBC) Count 2.74 mill/uL (4.20-5.40); White Blood Cell (WBC) Count 6.9 thou/uL (4.8-10.8)
--- NOTE | 2020-07-07 06:09 | PRG ---
DATE OF SERVICE: 07/06/2020 SUBJECTIVE: Ms. Sanderson remains in the hospital currently on the oncology floor. She is postoperative day #25 from exploratory laparotomy with lysis of adhesions and small bowel resection per Dr. Tello. She has had a prolonged ileus, prohibiting oral intake after her recent surgery. She recently started a diet and tolerating full liquids. Unfortunately, today, she tells me she is having increased abdominal discomfort with nausea, poor appetite, and had very little oral intake. She notes she did have a bowel movement yesterday evening, but has not really had any flatus. PHYSICAL EXAMINATION: VITAL SIGNS: Temperature 97.1, pulse 98, blood pressure 111/72. LUNGS: Clear to auscultation. ABDOMEN: Soft. Wound VAC is intact. Bowel sounds are present, but very hypoactive. There is currently no drainage visualized, however, nursing staff tells me that there was a foul smelling purulent discharge coming from below the wound VAC below the inferior aspect of the wound (I was not able to express any). LABORATORY DATA: Her white blood cell count is normal at 6.0, hemoglobin is 8.1. Differential is unremarkable. Chemistry panel reveals normal electrolytes. Her albumin remains low at 2.7. Her prealbumin is low at 13. ASSESSMENT: The patient is stable, but still not taking enough oral intake to justify discontinuing TPN. She was encouraged to increase her oral intake as she tolerates. Job ID: [id number] [facility]
[2020-07-07 06:23] LABS: Anion Gap 15 mmol/L (10-20); BUN (Urea Nitrogen) 22 mg/dL (9.8-20.1); Calc. Creatinine Clearance 55 mL/min (70-130); Calcium 9.3 mg/dL (7.8-10.44); Carbon Dioxide 26 mmol/L (23-31); Chloride 98 mmol/L (98-107); Glucose 90 mg/dL (80-115); Potassium 4.7 mmol/L (3.5-5.1); Sodium 134 mmol/L (136-145)
[2020-07-07] MEDS: Oxybutynin ER 5 MG TAB PO SCH (08:29)
[2020-07-07] MEDS: Amlodipine 10 MG TAB PO SCH (08:29)
--- NOTE | 2020-07-07 12:21 | PDOC.HOSPP ---
- Subjective Encounter Date: 07/07/20 Encounter Time: 08:50 Subjective: Patient doing well she still has some occasional intermittent stabbing nature of the pain in the surgical site area otherwise she is doing well she is slowly started to have some soft diet. She did not had any bowel movement. And she is voiding well. 30 dysuria - Objective Vital Signs & Weight: Vital Signs (12 hours) Temp Pulse Resp BP BP Pulse Ox 07/07/20 12:18 96 16 97 07/07/20 08:29 91 110/61 07/07/20 08:10 98.8 F 91 16 110/61 96 07/07/20 08:00 96 07/07/20 07:20 102 H 20 96 Weight Admit Weight 100 lb Weight 103 lb 4 oz I&O: 07/06/20 07/07/20 07/08/20 06:59 06:59 06:59 Intake Total 1360 1560 Balance 1360 1560 Result Diagrams: 07/07/20 05:38 07/07/20 05:38 Additional Labs: Accuchecks 07/07/20 07/06/20 07/06/20 11:35 23:06 18:03 POC Glucose 92 80 89 07/04/20 07/04/20 18:27 12:10 POC Glucose 99 100 Hospitalist ROS - Medication Medications: Active Medications Generic Name Dose Route Start Last Admin Trade Name Freq PRN Reason Stop Dose Admin Albuterol/Ipratropium 3 ml 06/25/20 19:00 07/07/20 12:18 Ipratropium/Albuterol Sulfate 3 Ml Neb NEB 3 ml [id number] JONES Administration Amlodipine Besylate 10 mg 06/17/20 09:00 07/07/20 08:29 Amlodipine 10 Mg Tab PO 10 mg QAM JONES Administration Enoxaparin Sodium 40 mg 06/09/20 21:00 07/06/20 21:22 Enoxaparin Sodium 40 Mg/0.4 Ml Syringe SC 40 mg 2100 JONES Administration Hydralazine HCl 10 mg 06/08/20 11:47 06/09/20 04:08 Hydralazine 20 Mg/Ml Vial SLOW IVP 10 mg Q4H PRN Administration SBP > 170 or DBP > 100 Fat Emulsion Intravenous 250 2,338.4321 mls @ 70 mls/hr 07/05/20 22:00 06/14 10/01 23:06 ml/ Sodium Acetate 70 meq/ IV 2,338.4321 mls Potassium Acetate 20 meq/ 2200 JONES Administration Calcium Gluconate 10 meq/ Magnesium Sulfate 10 meq/ Multivitamins 10 ml/ Chromium/ Copper/Manganese/Zinc 9 ml/ Insulin Human Regular 23 units / Amino Acids/Electrolytes Ibuprofen 600 mg 07/04/20 12:00 07/04/20 15:54 Ibuprofen 600 Mg Tab PO 600 mg Q6H PRN Administration Pain Morphine Sulfate 2 mg 06/23/20 20:36 07/03/20 08:56 Morphine 2 Mg/Ml Vial SLOW IVP 2 mg Q2H PRN Administration Mild-Moderate Pain (1-5) Morphine Sulfate 4 mg 06/23/20 20:36 07/07/20 08:20 Morphine 4 Mg/Ml Vial SLOW IVP 4 mg Q2H PRN Administration Moderate to Severe Pain (6-10) Ondansetron HCl 4 mg 06/17/20 20:09 07/06/20 09:20 Ondansetron Pf 4 Mg/2 Ml Vial IVP 4 mg Q6H PRN Administration Nausea/Vomiting Oxybutynin Chloride 10 mg 06/20/20 09:00 07/07/20 08:29 Oxybutynin Er 5 Mg Tab PO 10 mg DAILY JONES Administration Pantoprazole Sodium 40 mg 07/04/20 09:00 07/07/20 08:28 Pantoprazole 40 Mg Tab PO 40 mg DAILY JONES Administration Sodium Chloride 10 ml 06/08/20 11:47 06/29/20 20:04 Flush - Normal Saline 10 Ml Syringe IVF 10 ml PRN PRN Administration Saline Flush Tramadol HCl 50 mg 07/04/20 08:45 07/06/20 07:53 Tramadol Hcl 50 Mg Tab PO 50 mg Q4H PRN Administration Moderate Pain (4-6) - Exam General Appearance: NAD, awake alert Eye: PERRL ENT: normocephalic atraumatic Neck: supple Heart: RRR, normal peripheral pulses Respiratory: CTAB, normal chest expansion Gastrointestinal: soft, normal bowel sounds Gastrointestinal - other findings: Wound VAC Neurological: no focal deficits Psychiatric: normal affect, normal behavior, A&O x 3 Hosp A/P - Plan S/p exploratory laparotomy for ileostomy reversal Left basilar consolidation with left-sided pleural effusion, Continue meropenem--- there is no cultures being done; consider discontinue the Merrem after 7 days if clinical course is stable------------> discontinued Continue IV fluid Continue TPN Moderate malnutrition due to poor p.o. intake overall Not related to the current surgery. Supportive management. Her abdomen is slightly vacuum tank tender. Will go slowly in advancing her diet. Getting TPN. Encouraged ambulation. Continue to improving her p.o. intake.
[2020-07-07 14:09] VITALS: BMI 20.1
--- NOTE | 2020-07-07 15:01 | PRG ---
DATE OF SERVICE: 07/07/2020 SUBJECTIVE: Ms. Sanderson is doing well today. She was feeling ill yesterday, bloating abdomen, but this is resolved. She feels much better. She has had bowel movements, but has not passed flatus. She is tolerating her full liquid diet with Ensure, although she states she forgets to take the Ensure sometime. I have encouraged her to do that. OBJECTIVE: VITAL SIGNS: Temperature 98.8 degrees, heart rate 96, blood pressure 110/61. LUNGS: Clear to auscultation. CARDIAC: Rhythm without murmur or gallop. ABDOMEN: Soft. Bowel sounds present. Wound Care reports her wound is granulating and looks good. LABORATORY DATA: White count 6, hemoglobin 8.1. Basic metabolic profile unremarkable. Prealbumin 13. ASSESSMENT AND PLAN: Patient is doing well. She is tolerating her full liquid diet. She is having bowel movements. I would encourage her to take nutritional supplement shakes and advance from full to soft diet as tolerated. Would avoid vegetables and fiber at this point. Hopefully, she will be ready to discharge home in the next day or two. Job ID: [id number]
[2020-07-07] MEDS: Enoxaparin Sodium 40 MG/0.4 ML SYRINGE SC SCH (21:31)
[2020-07-07] MEDS: traMADol HCl 50 MG TAB PO PRN (21:43)
[2020-07-07] MEDS: SODIUM ACETATE IV SCH (23:05)
[2020-07-07] MEDS: POTASSIUM ACETATE IV SCH (23:05)
[2020-07-07] MEDS: FAT EMULSION IV SCH (23:05)
[2020-07-07] MEDS: [UNRECOGNIZED DRUG - OTHER] IV SCH (23:05)
[2020-07-07] MEDS: Morphine 2 MG/ML VIAL SLOW IVP PRN (23:14)
[2020-07-08] MEDS: Morphine 4 MG/ML VIAL SLOW IVP PRN ×5 (08:01→19:10)
[2020-07-08] MEDS: Amlodipine 10 MG TAB PO SCH (08:04)
[2020-07-08] MEDS: Oxybutynin ER 5 MG TAB PO SCH (08:07)
[2020-07-08] MEDS: Polyethylene Glycol 3350 17 GM Packet PO SCH (08:08)
--- NOTE | 2020-07-08 12:19 | PDOC.HOSPP ---
- Subjective Encounter Date: 07/08/20 Encounter Time: 09:10 Subjective: Patient doing well she is improving. She had a small bowel movement yesterday evening. stool softeners added. She is ambulating. - Objective Vital Signs & Weight: Vital Signs (12 hours) Temp Pulse Resp BP BP Pulse Ox 07/08/20 08:04 104 H 107/63 07/08/20 08:00 98.3 F 78 107/63 99 07/08/20 07:50 105 H 16 Weight Admit Weight 100 lb Weight 103 lb 4 oz I&O: 07/07/20 07/08/20 07/09/20 06:59 06:59 06:59 Intake Total 1560 1340 Balance 1560 1340 Result Diagrams: 07/07/20 05:38 07/07/20 05:38 Additional Labs: Accuchecks 07/08/20 07/07/20 07/07/20 06:25 23:14 17:55 POC Glucose 99 94 91 07/07/20 06:28 POC Glucose 90 Hospitalist ROS - Medication Medications: Active Medications Generic Name Dose Route Start Last Admin Trade Name Freq PRN Reason Stop Dose Admin Albuterol/Ipratropium 3 ml 06/25/20 19:00 07/08/20 07:50 Ipratropium/Albuterol Sulfate 3 Ml Neb NEB 3 ml [id number] JONES Administration Amlodipine Besylate 10 mg 06/17/20 09:00 07/08/20 08:04 Amlodipine 10 Mg Tab PO Not Given QAM JONES Enoxaparin Sodium 40 mg 06/09/20 21:00 07/07/20 21:31 Enoxaparin Sodium 40 Mg/0.4 Ml Syringe SC 40 mg 2100 JONES Administration Hydralazine HCl 10 mg 06/08/20 11:47 06/09/20 04:08 Hydralazine 20 Mg/Ml Vial SLOW IVP 10 mg Q4H PRN Administration SBP > 170 or DBP > 100 Fat Emulsion Intravenous 250 2,338.4321 mls @ 70 mls/hr 07/05/20 22:00 07/07/20 23:05 ml/ Sodium Acetate 70 meq/ IV 2,338.4321 mls Potassium Acetate 20 meq/ 2200 JONES Administration Calcium Gluconate 10 meq/ Magnesium Sulfate 10 meq/ Multivitamins 10 ml/ Chromium/ Copper/Manganese/Zinc 9 ml/ Insulin Human Regular 23 units / Amino Acids/Electrolytes Ibuprofen 600 mg 07/04/20 12:00 07/04/20 15:54 Ibuprofen 600 Mg Tab PO 600 mg Q6H PRN Administration Pain Morphine Sulfate 2 mg 06/23/20 20:36 07/07/20 23:14 Morphine 2 Mg/Ml Vial SLOW IVP 2 mg Q2H PRN Administration Mild-Moderate Pain (1-5) Morphine Sulfate 4 mg 06/23/20 20:36 07/08/20 10:32 Morphine 4 Mg/Ml Vial SLOW IVP 4 mg Q2H PRN Administration Moderate to Severe Pain (6-10) Ondansetron HCl 4 mg 06/17/20 20:09 07/06/20 09:20 Ondansetron Pf 4 Mg/2 Ml Vial IVP 4 mg Q6H PRN Administration Nausea/Vomiting Oxybutynin Chloride 10 mg 06/20/20 09:00 07/08/20 08:07 Oxybutynin Er 5 Mg Tab PO 10 mg DAILY JONES Administration Pantoprazole Sodium 40 mg 07/04/20 09:00 07/08/20 08:05 Pantoprazole 40 Mg Tab PO 40 mg DAILY JONES Administration Polyethylene Glycol 17 gm 07/08/20 09:00 07/08/20 08:08 Polyethylene Glycol 3350 17 Gm Packet PO 17 gm DAILY JONES Administration Sodium Chloride 10 ml 06/08/20 11:47 06/29/20 20:04 Flush - Normal Saline 10 Ml Syringe IVF 10 ml PRN PRN Administration Saline Flush Tramadol HCl 50 mg 07/04/20 08:45 07/07/20 21:43 Tramadol Hcl 50 Mg Tab PO 50 mg Q4H PRN Administration Moderate Pain (4-6) Hospitalist Exam Vitals: Vital Signs (12 hours) Temp Pulse Resp BP BP Pulse Ox 07/08/20 08:04 104 H 107/63 07/08/20 08:00 98.3 F 78 107/63 99 07/08/20 07:50 105 H 16 Weight Admit Weight 100 lb Weight 103 lb 4 oz General Appearance: NAD, awake alert Eye: PERRL ENT: normocephalic atraumatic Neck: supple Heart: RRR Respiratory: CTAB, normal chest expansion Gastrointestinal: soft, normal bowel sounds Neurological: cranial nerve grossly intact, no focal deficits Hosp A/P - Plan S/p exploratory laparotomy for ileostomy reversal Left basilar consolidation with left-sided pleural effusion, Continue meropenem--- there is no cultures being done; consider discontinue the Merrem after 7 days if clinical course is stable------------> discontinued Continue IV fluid Continue TPN stool softener Moderate malnutrition due to poor p.o. intake overall Not related to the current surgery. Supportive management. Her abdomen is slightly asphalt heater tender. Will go slowly in advancing her diet. Getting TPN. Ambulating Continued to improving in her p.o. intake.
--- NOTE | 2020-07-08 20:31 | PRG ---
DATE OF SERVICE: 07/08/2020 SUBJECTIVE: Mikala Sanderson is doing well today. She has not had any nausea or vomiting. She does have some abdominal discomfort. She has had some small bowel movements, not passing flatus, however. OBJECTIVE: VITAL SIGNS: Temperature 97.7 degrees, 96, 106/59. LUNGS: Clear to auscultation. CARDIAC: Regular rate and rhythm without murmur or gallop. ABDOMEN: Soft, mildly slightly tympanitic. LABORATORY DATA: Hemoglobin 8.1, white count 6.9. Basic metabolic profile yesterday unremarkable. ASSESSMENT AND PLAN: Partial bowel obstruction. Continue soft diet, low residue, low-fiber. I have discussed with her, and at this point, we will plan to discontinue her TPN after the current bag, she tolerates well. She hopefully will go home on soft low residue diet. Job ID: [id number]
[2020-07-08] MEDS: Enoxaparin Sodium 40 MG/0.4 ML SYRINGE SC SCH (21:31)
[2020-07-08] MEDS: traMADol HCl 50 MG TAB PO PRN (21:31)
[2020-07-08] MEDS: Morphine 2 MG/ML VIAL SLOW IVP PRN (21:32)
[2020-07-09] MEDS: traMADol HCl 50 MG TAB PO PRN ×4 (02:39→17:03)
[2020-07-09] MEDS: Morphine 2 MG/ML VIAL SLOW IVP PRN ×2 (02:39→06:31)
--- NOTE | 2020-07-09 08:15 | RAD ---
Exam: Abdomen 2 views HISTORY: Follow-up small bowel obstruction/ileus. Postoperative exam. FINDINGS: Nonspecific bowel gas pattern. No evidence of bowel distention or dilatation. Anastomotic s uture chain is noted in the left lower quadrant. Hyperdensity due to retained barium is identified. IMPRESSION: Nonspecific bowel gas pattern. Transcribed Date/Time: 07/09/2020 8:27 AM
[2020-07-09 08:42] VITALS: BP 123/70; TEMP 98.3
[2020-07-09] MEDS: Amlodipine 10 MG TAB PO SCH (09:17)
[2020-07-09] MEDS: Polyethylene Glycol 3350 17 GM Packet PO SCH (09:17)
[2020-07-09] MEDS: Oxybutynin ER 5 MG TAB PO SCH (09:17)
[2020-07-09] MEDS: Ondansetron PF 4 MG/2 ML Vial IVP PRN (10:48)
--- NOTE | 2020-07-09 12:32 | PDOC.DS.DS ---
Provider Date of Admission: 06/08/20 14:05 Admitting Provider: Quang Santacruz MD Primary Care Physician: Edgar Guillermo MD Course Hospital Course: 64-year-old female presented with partial small bowel obstruction S/p exploratory laparotomy for ileostomy reversal Left basilar consolidation with left-sided pleural effusion, She received a short course of meropenem and TPN. Slowly her digestive system improved to the level that she can handle low residue diet. Moderate malnutrition due to poor p.o. intake overall It has been arranged the wound care will be following for her abdominal drain. She will be following with Dr. Martinez in 2 to 3 weeks. Emphasized that she needs to be on low residue diet at least for few days and then advance to regular diet. Lab Results: 07/07/20 05:38 07/07/20 05:38 Vitals: Vital Signs (12 hours) Temp Pulse Resp BP Pulse Ox 07/09/20 09:17 104 H 07/09/20 08:25 98.3 F 104 H 18 123/70 96 Weight Admit Weight 100 lb Weight 103 lb 4 oz Physical Exam: The patient was seen and examined on the day of discharge. Plan Prescriptions: Promethazine [Phenergan] 25 mg PO Q6HR PRN 30 Days #20 tab PRN Reason: Nausea traMADol HCl [Ultram] 50 mg PO Q6H PRN #40 tab PRN Reason: Moderate Pain (4-6) Home Medications: Medication Instructions Recorded Confirmed Type Albuterol Sulfate [Proair HFA] 2 puff INH Q6HR PRN 03/02/19 06/08/20 History Amlodipine [Norvasc] 10 mg PO QAM 03/02/19 06/08/20 History Oxybutynin Chloride [Ditropan XL] 10 mg PO QAM 03/26/20 06/08/20 History Acetaminophen [Tylenol Extra 1,000 mg PO Q6H PRN tab 05/24/20 06/08/20 Rx Strength] HYDROcodone Bit/APAP 5/325 [[place]] 1 tab PO Q4H PRN #40 tab 05/24/20 06/08/20 Rx Acetaminophen [Tylenol Extra 1,000 mg PO Q6H PRN tab 07/04/20 Rx Strength] Ibuprofen [Motrin] 600 mg PO Q6H PRN tab 07/04/20 Rx traMADol HCl [Ultram] 50 mg PO Q6H PRN #40 tab 07/04/20 Rx Promethazine [Phenergan] 25 mg PO Q6HR PRN 30 Days #20 tab 07/09/20 Rx Allergies: No Known Allergies Allergy (Verified 06/08/20 15:32) Discharge Instructions:: STAY AWAY FROM HIGH FIBER TYPES OF FOODS FOR AT LEAST 2 WEEKS. (AVOID FOOD LIKE LETTUCE, RED MEATS, FRUITS) EAT FOODS LIKE SOUPS, AND JELLO'S, CASSEROLES, ANYTHING SOFT. Slowly advance diet and listen to your body and food likes and dislikes. Take stool softeners as prescribed by dr. Miguel Angel ROLLINS or return to the ER for any of the following symptoms: uncontrolled pain, shortness of breath, chest pain, fever, chills, or severe constipation. Activity:: Activity as Tolerated (No Lifting > 25 # x 6 wk postop) Nourishment:: Other Additional Dietary Instructions:: low residue diet Referrals: [facility] [Outside] ([facility] will reach out to you. If they have not reached out to you a day after discharge, call this number.) Chemo Tello MD [Active] - 2-3 Weeks (Call office to schedule follow-up appointment) Edgar Guillermo MD [Primary Care Provider] - 10 Days (Call office to schedule follow-up appointment) Disposition: HOME Quality CORE MEASURES:: N/A
--- NOTE | 2020-07-09 16:18 | PRG ---
DATE OF SERVICE: 07/09/2020 SUBJECTIVE: Ms. Sanderson is doing well today. She has not had any nausea or vomiting. She has passed some flatus and had a bowel movement. She is tolerating her diet, low-fiber, low residue. OBJECTIVE: LUNGS: Clear to auscultation. CARDIAC: Regular rate and rhythm without murmur or gallop. ABDOMEN: Soft and nontender. ASSESSMENT AND PLAN: Her home wound VAC has been arranged. Her wounds look very good. They are granulating and I think after another week or two of the VAC care, she can discontinue the VAC. The patient can be discharged home today. TPN has been discontinued. I will see her in my office in 2 to 3 weeks. She is advised to stay on a soft low-residue, low-fiber diet for the next week or 2 and slowly introduce fiber in small quantity slowly daily. Job ID: [id number]
--- NOTE | 2020-07-11 00:32 | PQF ---
Dear : Marc Mccollum Date 07/11/2020 Please exercise your independent, professional judgment in responding to the clarification form. Clinical indicators are provided on the bottom of this form for your review Can you please further clarify the diagnosis of the patient? Please check appropriate box(es): [ ] Empirically treating Gram Negative Pneumonia [ ] Empirically treating Anaerobic Pneumonia [ ] Pneumonia secondary to (specify organism / underlying disease) [ ] Simple Pneumonia [ ] Pneumonia of unknown etiology [ ] No Pneumonia [ ] Other diagnosis, please specify [x ] Unable to determine In addition, please specify: Present on Admission (POA): [ ] Yes [ ] No [ ] Unable to determine Physician Signature: Date/Time: For continuity of documentation, please document condition throughout progress notes and discharge summary. Thank You. To be completed by CDI/Coding staff for physician review: Present Clinical Indicators - Signs / Symptoms / Labs Results and Location in Medical Record [ x ] Evidence for stable left pleural effusion Chest X ray 06/11 [ x ] No confluent pneumonia Chest X ray 06/11 [ x ] Complaining of mild shortness of breath, tachycardic PN 06/12 pg.1 [ x ] Left basilar consolidation with left sided pleural effusion Hospitalist PN pg.4 06/12 [ x ] Tachycardia related to pneumonia Hospitalist PN pg.4 06/12 [ x ] Pneumonia, status:acute Hospitalist PN 06/16 pg.4 [ x ] Tachycardia resolved Hospitalist PN 07/04 pg.1 [ x ] Chest: Coarse breath sounds PN 06/12 [ x ] WBC: 06/08=11.2 06/13=13.9 06/16=13.2 06/18=14.1 Laboratory 06/08 Present Risk Factors Results and Location in Medical Record [ x ] 64 years old H and P pg.1 [ x ] Left sided pleural effusion DS pg.1 [ x ] s/p explap for ileostomy reversal Hospitalist PN pg.5 [ x ] COPD ED Notes 06/08 [ x ] Former Smoker ED Notes 06/08 [ x ] Moderate PCM PN 07/08 Present Treatments Results and Location in Medical Record [ x ] IV fluids MAR [ x ] Ventolin puff MAR [ x ] Meropenem 2gm IV MAR [ x ] DuoNeb 3ml NEB MAR CDS/Search Engine Optimization Specialist Signature: Onur Rahman Phone #: [facility] [phone] Date 07/11/19 This is a permanent part of the Medical Record [facility]
== END 2020-07-09 17:15 | disposition home health service (06) | DRG 330 ==
LOC: ERS 08:42 → ONC 14:05
PROVIDERS: ADMIT Surgery; ATTEND Internal Medicine
PROC: 0DBB0ZZ Excision of Ileum, Open Approach (ICD-10-PCS; principal; 2020-06-11)
PROC: 0DB80ZZ Excision of Small Intestine, Open Approach (ICD-10-PCS; 2020-06-11)
PROC: 02HV33Z Insertion of Infusion Device into Superior Vena Cava, Percutaneous Approach (ICD-10-PCS; 2020-06-11)
PROC: 3E0336Z Introduction of Nutritional Substance into Peripheral Vein, Percutaneous Approach (ICD-10-PCS; 2020-06-11)
PROC: 0D9770Z Drainage of Stomach, Pylorus with Drainage Device, Via Natural or Artificial Opening (ICD-10-PCS; 2020-06-11)
DX: K91.31 Postprocedural partial intestinal obstruction (principal); E44.0 Moderate protein-calorie malnutrition; J90 Pleural effusion, not elsewhere classified; J44.0 Chronic obstructive pulmonary disease with (acute) lower respiratory infection; E87.1 Hypo-osmolality and hyponatremia; Z20.822 Contact with and (suspected) exposure to COVID-19; I10 Essential (primary) hypertension; Y83.8 Other surgical procedures as the cause of abnormal reaction of the patient, or of later complication, without mention of misadventure at the time of the procedure; Z90.49 Acquired absence of other specified parts of digestive tract; Z85.3 Personal history of malignant neoplasm of breast; Z87.891 Personal history of nicotine dependence; Z79.51 Long term (current) use of inhaled steroids; Z79.899 Other long term (current) drug therapy; Z68.20 Body mass index [BMI] 20.0-20.9, adult; Z93.2 Ileostomy status; K56.7 Ileus, unspecified; E86.0 Dehydration; D47.3 Essential (hemorrhagic) thrombocythemia; D64.9 Anemia, unspecified; K21.9 Gastro-esophageal reflux disease without esophagitis
CPT/HCPCS: 36415; 36416; 71045; 74018; 74019; 74022; 74177; 74250; 74280; 80048; 80053; 80061; 82607; 82746; 83690; 83735; 83880; 84100; 84134; 84443; 84484; 85025; 85027; 85610; 85730; 86850; 86900; 86901; 87635; 88307; 93005; 93010; 94640; 96374; 96375; C9113; J0360; J1100; J1642; J1650; J1815; J1885; J2001; J2185; J2250; J2270; J2405; J2704; J2765; J3010; J3475; J3480; J3490; J7120; J7620; P9045; Q9963; Q9967; S0028; U0003

== ENCOUNTER 2020-07-22 15:49 | Inpatient (IN) | payer MEDICARE, OTHER ==
[2020-07-22] MEDS ORDERED: Lorazepam 2 MG/ML VIAL SLOW IVP PRN (16:55)
[2020-07-22] MEDS ORDERED: Morphine 2 MG/ML VIAL SLOW IVP PRN (16:55)
[2020-07-22] MEDS ORDERED: Ondansetron ODT 4 MG TAB PO PRN (16:55)
[2020-07-22] MEDS ORDERED: hydrALAZINE 20 MG/ML VIAL SLOW IVP PRN (16:55)
[2020-07-22] MEDS ORDERED: Ketorolac Tromethamine 30 MG/ML VIAL IVP SCH (17:00)
[2020-07-22] MEDS ORDERED: Morphine 4 MG/ML VIAL ONE (17:53)
[2020-07-22 18:22] VITALS: BMI 20.2
[2020-07-22] MEDS: Potassium Chloride 20 MEQ in Lactated Ringer's 1,000 ML IV SCH (19:29)
[2020-07-22] MEDS: Enoxaparin Sodium 40 MG/0.4 ML SYRINGE SC SCH (20:53)
[2020-07-22] MEDS: Ketorolac Tromethamine 30 MG/ML VIAL IVP PRN (22:26)
[2020-07-22] MEDS: Famotidine/PF 20 mg/2ml Vial SLOW IVP SCH (22:30)
[2020-07-23] MEDS: Morphine 4 MG/ML VIAL SLOW IVP PRN ×4 (00:28→11:36)
[2020-07-23] MEDS: Potassium Chloride 20 MEQ in Lactated Ringer's 1,000 ML IV SCH ×2 (05:14→17:39)
[2020-07-23 05:28] LABS: #Eosinphils 0.4 thou/uL (0.0-0.7); #Monocytes 0.7 thou/uL (0.11-0.59); #Neutrophils 5.8 thou/uL (1.40-6.50); %Basophils 0.3 % (0.0-1.0); %Eosinophils 5.6 % (0.0-10.0); %Lymphocytes 12.1 % (21.0-51.0); %Monocytes 8.4 % (0.0-10.0); %Neutrophils 73.6 % (42.0-75.0); Mean Corpuscular HGB CONC 31.5 g/dL (32.0-36.0); Mean Corpuscular Hemoglobin 29.8 pg (27.0-31.0); Mean Corpuscular Volume 94.7 fL (78.0-98.0); Mean Platelet Volume 8.6 fL (7.4-10.4); Platelet Count 268 thou/uL (130-400); RBC Distribution Width 13.8 % (11.5-14.5); Red Blood Cell (RBC) Count 3.34 mill/uL (4.20-5.40); White Blood Cell (WBC) Count 7.9 thou/uL (4.8-10.8)
[2020-07-23 05:44] LABS: ALT (SGPT) 15 U/L (8-55); AST (SGOT) 29 U/L (5-34); Albumin 2.7 g/dL (3.4-4.8); Alkaline Phosphatase 70 U/L (40-110); Anion Gap 11 mmol/L (10-20); BUN (Urea Nitrogen) 10 mg/dL (9.8-20.1); Calc. Creatinine Clearance 40 mL/min (70-130); Calcium 8.2 mg/dL (7.8-10.44); Carbon Dioxide 19 mmol/L (23-31); Chloride 108 mmol/L (98-107); Globulin 3.9 g/dL (2.4-3.5); Glucose 78 mg/dL (80-115); Potassium 3.5 mmol/L (3.5-5.1); Protein, Total 6.6 g/dL (5.8-8.1); Sodium 134 mmol/L (136-145)
[2020-07-23] MEDS: Famotidine/PF 20 mg/2ml Vial SLOW IVP SCH (07:41)
[2020-07-23] MEDS ORDERED: Acetaminophen 500 MG TAB PO PRN (11:24)
[2020-07-23] MEDS ORDERED: Ibuprofen 600 MG TAB PO PRN (11:24)
[2020-07-23] MEDS ORDERED: Albuterol Sulfate 2.5 mg/3 ml Neb NEB PRN (11:56)
[2020-07-23] MEDS ORDERED: MD-Gastroview 120 ML BOT ONE (14:50)
[2020-07-23] MEDS: Ondansetron PF 4 MG/2 ML Vial IVP PRN (15:40)
[2020-07-23] MEDS: Ketorolac Tromethamine 30 MG/ML VIAL IVP PRN (15:40)
[2020-07-23] MEDS: traMADol HCl 50 MG TAB PO PRN (18:42)
[2020-07-23] MEDS: Enoxaparin Sodium 40 MG/0.4 ML SYRINGE SC SCH (20:04)
[2020-07-23] MEDS: Docusate 100 MG CAP PO SCH (20:05)
[2020-07-24] MEDS: Ketorolac Tromethamine 30 MG/ML VIAL IVP PRN ×3 (03:34→19:21)
[2020-07-24] MEDS: Potassium Chloride 20 MEQ in Lactated Ringer's 1,000 ML IV SCH ×3 (03:49→19:22)
[2020-07-24] MEDS ORDERED: Famotidine/PF 20 mg/2ml Vial SLOW IVP SCH (09:00)
[2020-07-24] MEDS: Saccharomyces boulardii 250 MG CAP PO SCH (10:38)
[2020-07-24] MEDS: Oxybutynin ER 5 MG TAB PO SCH (10:38)
[2020-07-24] MEDS: Multivit, Therapeutic 1 TAB PO SCH (10:38)
[2020-07-24] MEDS: Amlodipine 10 MG TAB PO SCH (10:38)
[2020-07-24] MEDS: Docusate 100 MG CAP PO SCH ×2 (10:39→20:33)
[2020-07-24] MEDS: Enoxaparin Sodium 40 MG/0.4 ML SYRINGE SC SCH (20:32)
[2020-07-24] MEDS: Ondansetron PF 4 MG/2 ML Vial IVP PRN (22:53)
[2020-07-25] MEDS: Ketorolac Tromethamine 30 MG/ML VIAL IVP PRN ×4 (01:55→21:05)
[2020-07-25] MEDS: Promethazine 25 MG TAB PO PRN ×2 (01:55→13:37)
[2020-07-25] MEDS: Potassium Chloride 20 MEQ in Lactated Ringer's 1,000 ML IV SCH ×3 (03:47→17:45)
[2020-07-25] MEDS: Multivit, Therapeutic 1 TAB PO SCH (08:37)
[2020-07-25] MEDS: Amlodipine 10 MG TAB PO SCH (08:37)
[2020-07-25] MEDS: Oxybutynin ER 5 MG TAB PO SCH (08:37)
[2020-07-25] MEDS: Docusate 100 MG CAP PO SCH ×2 (08:37→21:05)
[2020-07-25] MEDS: Saccharomyces boulardii 250 MG CAP PO SCH (08:38)
[2020-07-25] MEDS: Ondansetron PF 4 MG/2 ML Vial IVP PRN (08:51)
[2020-07-25] MEDS: traMADol HCl 50 MG TAB PO PRN ×2 (13:37→21:04)
[2020-07-25] MEDS: Enoxaparin Sodium 40 MG/0.4 ML SYRINGE SC SCH (21:05)
[2020-07-26] MEDS: traMADol HCl 50 MG TAB PO PRN ×2 (02:38→10:29)
[2020-07-26] MEDS: Ketorolac Tromethamine 30 MG/ML VIAL IVP PRN ×2 (02:39→10:28)
[2020-07-26] MEDS: Potassium Chloride 20 MEQ in Lactated Ringer's 1,000 ML IV SCH ×2 (02:52→10:24)
[2020-07-26] MEDS: Oxybutynin ER 5 MG TAB PO SCH (08:11)
[2020-07-26] MEDS: Amlodipine 10 MG TAB PO SCH (08:12)
[2020-07-26] MEDS: Docusate 100 MG CAP PO SCH (08:12)
[2020-07-26] MEDS: Saccharomyces boulardii 250 MG CAP PO SCH (08:12)
[2020-07-26] MEDS: Multivit, Therapeutic 1 TAB PO SCH (08:12)
[2020-07-26 10:12] VITALS: BP 105/74; TEMP 97.2
== END 2020-07-26 11:20 | disposition home or self-care (01) | DRG 389 ==
LOC: SJJU 15:49
PROVIDERS: ADMIT Specialist; ATTEND Specialist
DX: K56.600 Partial intestinal obstruction, unspecified as to cause (principal); E44.0 Moderate protein-calorie malnutrition; Z20.822 Contact with and (suspected) exposure to COVID-19; F17.210 Nicotine dependence, cigarettes, uncomplicated; I10 Essential (primary) hypertension; Z90.49 Acquired absence of other specified parts of digestive tract; Z85.3 Personal history of malignant neoplasm of breast; Z93.2 Ileostomy status; Z79.84 Long term (current) use of oral hypoglycemic drugs; Z79.899 Other long term (current) drug therapy; Z68.20 Body mass index [BMI] 20.0-20.9, adult
CPT/HCPCS: 36415; 74019; 74250; 80053; 85025; J1650; J1885; J2270; J2405; J3480; J7120; Q0169; Q9963; S0028

== ENCOUNTER 2020-08-14 07:40 | Outpatient (CLI) | payer OTHER ==
[2020-08-14] MEDS ORDERED: Iopamidol 370 76% 100 ML VIAL ONE (13:10)
== END 2020-08-14 07:41 | disposition home or self-care (01) ==
LOC: BICCT 07:40
PROVIDERS: ATTEND Specialist
DX: K56.600 Partial intestinal obstruction, unspecified as to cause (principal); K63.89 Other specified diseases of intestine; K56.41 Fecal impaction
CPT/HCPCS: 74177; Q9967

== ENCOUNTER 2020-12-19 13:56 | Outpatient (CLI) | payer MEDICARE, OTHER | END 2020-12-19 13:57 | disposition home or self-care (01) | LOC: BICMAMMO 13:56 | PROVIDERS: ATTEND Family Medicine | DX: Z08 Encounter for follow-up examination after completed treatment for malignant neoplasm (principal); Z85.3 Personal history of malignant neoplasm of breast | CPT/HCPCS: 77066; G0279 ==

== ENCOUNTER 2021-02-25 11:59 | Outpatient (CLI) | payer OTHER ==
[2021-02-26 11:57] LABS: SARS-CoV-2 PCR by NAA Not Detected (NotDetected)
== END 2021-02-25 12:00 | disposition home or self-care (01) ==
LOC: LABBT 11:59
PROVIDERS: ATTEND Plastic Surgery
DX: Z01.818 Encounter for other preprocedural examination (principal); Z20.822 Contact with and (suspected) exposure to COVID-19
CPT/HCPCS: 93005; 93010; U0003; U0005

== ENCOUNTER 2021-03-02 06:09 | Day surgery (SDC) | payer OTHER ==
[2021-02-26 11:37] VITALS: BMI 24.5
[2021-03-02] MEDS ORDERED: Heparin 5,000 UNITS/ML VIAL ONE (06:28)
[2021-03-02] MEDS ORDERED: Scopolamine 1.5 mg/72 hour Patch ONE (06:28)
[2021-03-02] MEDS ORDERED: Midazolam HCl 2 mg/2 ml Vial ONE ×2 (06:39→06:40)
[2021-03-02] MEDS ORDERED: Fentanyl 250 MCG/5 ML VIAL ONE (06:39)
[2021-03-02] MEDS ORDERED: Fentanyl 100 MCG/2 ML VIAL ONE ×3 (06:40→09:48)
[2021-03-02] MEDS ORDERED: Gentamicin 80 MG/2 ML VIAL ONE ×2 (06:43→06:46)
[2021-03-02] MEDS ORDERED: EPINEPHrine 1 MG/ML AMP ONE (06:43)
[2021-03-02] MEDS ORDERED: Neomycin-Polymyxin 1 ML AMP ONE (06:43)
[2021-03-02] MEDS ORDERED: Bupivacaine 0.25% HCL 30 ML VIAL ONE (06:43)
[2021-03-02] MEDS ORDERED: CeleCOXIB 100 MG CAP ONE (07:07)
[2021-03-02] MEDS ORDERED: Gabapentin 300 MG CAP ONE (07:07)
[2021-03-02] MEDS ORDERED: Lidocaine 1% PF 5 ML VIAL ONE (07:35)
[2021-03-02] MEDS ORDERED: Ropivacaine 2% HCl/PF (20 MG/10 ML VIAL) ONE (07:35)
[2021-03-02] MEDS ORDERED: PROPOFOL 200 MG/20 ML VIAL ONE (07:35)
[2021-03-02] MEDS ORDERED: Dexamethasone 20 MG/5 ML VIAL ONE (07:35)
[2021-03-02] MEDS ORDERED: Ondansetron PF 4 MG/2 ML Vial ONE (07:35)
[2021-03-02] MEDS ORDERED: Ropivacaine 0.5% HCl/PF (150 MG/30 ML VIAL) ONE (07:35)
[2021-03-02] MEDS ORDERED: Fentanyl 100 MCG/2 ML VIAL SLOW IVP PRN (09:53)
[2021-03-02] MEDS ORDERED: HYDROcodone/Acetaminophen 5/325 mg Tablet PO PRN ×2 (10:00)
[2021-03-02] MEDS ORDERED: Ondansetron PF 4 MG/2 ML Vial IVP PRN (10:00)
[2021-03-02] MEDS ORDERED: Promethazine HCl 25 MG/ML VIAL IM PRN (10:00)
[2021-03-02] MEDS ORDERED: Zolpidem Tartrate 5 MG TAB PO PRN (10:00)
[2021-03-02] MEDS ORDERED: traMADol HCl 50 MG TAB PO PRN ×2 (10:00)
[2021-03-02] MEDS ORDERED: Ropivacaine 0.2% 550 ML 550 ML NERVE BLCK SCH (10:00)
[2021-03-02] MEDS ORDERED: HYDROcodone/Acetaminophen 5/325 mg Tablet ONE (11:22)
== END 2021-03-02 12:15 | disposition home or self-care (01) ==
LOC: SDC 06:09
PROVIDERS: ATTEND Plastic Surgery
PROC: 0HHT0NZ Insertion of Tissue Expander into Right Breast, Open Approach (ICD-10-PCS; principal; 2021-03-02)
DX: Z42.1 Encounter for breast reconstruction following mastectomy (principal); I10 Essential (primary) hypertension; F17.210 Nicotine dependence, cigarettes, uncomplicated; Z85.3 Personal history of malignant neoplasm of breast; Z79.899 Other long term (current) drug therapy
CPT/HCPCS: A4306; C1713; J0171; J0690; J1100; J1580; J1644; J2250; J2405; J2704; J2795; J3010; J3370; S0020

== ENCOUNTER 2021-08-12 11:50 | Outpatient (CLI) | payer BC ==
[2021-08-12 22:06] LABS: SARS-CoV-2 PCR by NAA Not Detected (NotDetected)
== END 2021-08-12 11:51 | disposition home or self-care (01) ==
LOC: LABBT 11:50
PROVIDERS: ATTEND Plastic Surgery
DX: Z01.818 Encounter for other preprocedural examination (principal); Z20.822 Contact with and (suspected) exposure to COVID-19
CPT/HCPCS: 93005; 93010; U0003; U0005

== ENCOUNTER 2021-08-17 05:39 | Day surgery (SDC) | payer BC ==
[2021-08-10 13:19] VITALS: BMI 24.5
[2021-08-17] MEDS ORDERED: Gentamicin 80 MG/2 ML VIAL ONE (06:37)
[2021-08-17] MEDS ORDERED: Bupivacaine 0.25% HCL 30 ML VIAL ONE (06:37)
[2021-08-17] MEDS ORDERED: Neomycin-Polymyxin 1 ML AMP ONE (06:37)
[2021-08-17] MEDS ORDERED: EPINEPHrine 1 MG/ML AMP ONE ×2 (06:37→07:59)
[2021-08-17] MEDS ORDERED: Heparin 5,000 UNITS/ML VIAL ONE (06:44)
[2021-08-17] MEDS ORDERED: Fentanyl 250 MCG/5 ML VIAL ONE ×2 (06:46→11:13)
[2021-08-17] MEDS ORDERED: Ketamine 50 MG/ML (10ML VIAL) ONE (06:47)
[2021-08-17] MEDS ORDERED: Phenylephrine 10 MG/ML VIAL ONE (07:04)
[2021-08-17] MEDS ORDERED: Albuterol Sulfate HFA (OR ONLY) ONE (07:26)
[2021-08-17] MEDS ORDERED: ceFAZolin 2 GM/Dextrose 50 ML IVPB ONE (07:34)
[2021-08-17] MEDS ORDERED: PROPOFOL 200 MG/20 ML VIAL ONE (07:43)
[2021-08-17] MEDS ORDERED: Ondansetron PF 4 MG/2 ML Vial ONE (07:43)
[2021-08-17] MEDS ORDERED: Rocuronium Bromide 10 MG/ML (10ML VIAL) ONE (07:43)
[2021-08-17] MEDS ORDERED: Dexamethasone 20 MG/5 ML VIAL ONE (07:43)
[2021-08-17] MEDS ORDERED: Lidocaine 1% PF 5 ML VIAL ONE (07:43)
[2021-08-17] MEDS ORDERED: PHENYLEPHRINE-NS 100 MCG/ML 10 ML SYRINGE ONE (07:43)
[2021-08-17] MEDS ORDERED: Tranexamic Acid 1,000 MG/10 ML VIAL ONE (08:36)
[2021-08-17] MEDS ORDERED: Labetalol HCl 100 MG/20 ML VIAL ONE (10:51)
[2021-08-17] MEDS ORDERED: HYDROcodone/Acetaminophen 5/325 mg Tablet ONE (12:57)
== END 2021-08-17 13:31 | disposition home or self-care (01) ==
LOC: SDC 05:39
PROVIDERS: ATTEND Plastic Surgery
PROC: 0HPT0JZ Removal of Synthetic Substitute from Right Breast, Open Approach (ICD-10-PCS; principal; 2021-08-17)
PROC: 0HRT0JZ Replacement of Right Breast with Synthetic Substitute, Open Approach (ICD-10-PCS; principal; 2021-08-17)
PROC: 0HBU0ZZ Excision of Left Breast, Open Approach (ICD-10-PCS; principal; 2021-08-17)
DX: N65.1 Disproportion of reconstructed breast (principal); I10 Essential (primary) hypertension; F17.210 Nicotine dependence, cigarettes, uncomplicated; Z85.3 Personal history of malignant neoplasm of breast; Z79.811 Long term (current) use of aromatase inhibitors; Z79.899 Other long term (current) drug therapy
CPT/HCPCS: 88304; 88309; C1889; J0171; J0690; J1100; J1580; J1644; J2370; J2405; J2704; J3010; J3370; S0020

== ENCOUNTER 2022-04-23 08:10 | Outpatient (CLI) | payer BC | END 2022-04-23 08:11 | disposition home or self-care (01) | LOC: BICMAMMO 08:10 | PROVIDERS: ATTEND Internal Medicine Hematology & Oncology | DX: C50.911 Malignant neoplasm of unspecified site of right female breast (principal); Z98.890 Other specified postprocedural states | CPT/HCPCS: G0279 ==

== ENCOUNTER 2022-10-26 08:31 | Outpatient (CLI) | payer BC | END 2022-10-26 08:32 | disposition home or self-care (01) | LOC: BICMAMMO 08:31 | PROVIDERS: ATTEND Internal Medicine Hematology & Oncology | DX: Z08 Encounter for follow-up examination after completed treatment for malignant neoplasm (principal); Z85.3 Personal history of malignant neoplasm of breast | CPT/HCPCS: G0279 ==

== ENCOUNTER 2023-11-04 08:34 | Outpatient (CLI) | payer BC | END 2023-11-04 08:35 | disposition home or self-care (01) | LOC: BICMAMMO 08:34 | PROVIDERS: ATTEND Family Medicine | DX: Z08 Encounter for follow-up examination after completed treatment for malignant neoplasm (principal); Z85.3 Personal history of malignant neoplasm of breast | CPT/HCPCS: G0279 ==

== ENCOUNTER 2023-12-11 00:40 | Observation (INO) | payer BC ==
[2023-12-11 02:22] LABS: #Basophils 0.03 10x3/uL (0.0-0.2); %Basophils 0.3 % (0.0-1.0); %Eosinophils 1.5 % (0.0-10.0); %Lymphocytes 10.5 % (21.0-51.0); %Neutrophils 80.5 % (42.0-75.0); Hematocrit 42.4 % (36.0-47.0); Hemoglobin 13.9 g/dL (12.0-16.0); Mean Corpuscular HGB CONC 32.8 g/dL (32.0-36.0); Mean Corpuscular Hemoglobin 30.7 pg (27.0-31.0); Mean Corpuscular Volume 93.6 fL (78.0-98.0); Mean Platelet Volume 10.3 fL (7.4-10.4); Platelet Count 183 10x3/uL (130-400); RBC Distribution Width 13.6 % (11.5-14.5); Red Blood Cell (RBC) Count 4.53 mill/uL (4.20-5.40)
[2023-12-11 02:37] LABS: ALT (SGPT) 20 U/L (8-55); AST (SGOT) 27 U/L (5-34); Albumin 3.8 g/dL (3.4-4.8); Alkaline Phosphatase 92 U/L (40-110); Anion Gap 16 mmol/L (10-20); BUN (Urea Nitrogen) 14 mg/dL (9.8-20.1); Bilirubin, Total 1.5 mg/dL (0.2-1.2); Calc. Creatinine Clearance 0 mL/min (70-130); Calcium 9.1 mg/dL (7.8-10.44); Carbon Dioxide 24 mmol/L (23-31); Chloride 107 mmol/L (98-107); Estimated GFR 46; Globulin 3.3 g/dL (2.4-3.5); Glucose 86 mg/dL (80-115); Magnesium 1.7 mg/dL (1.6-2.6); Potassium 3.5 mmol/L (3.5-5.1); Protein, Total 7.1 g/dL (5.8-8.1); Sodium 143 mmol/L (136-145)
[2023-12-11 02:42] LABS: Troponin I Less than 0.010 ng/mL (< 0.028)
[2023-12-11 03:34] LABS: Bacteria/HPF None Seen HPF (None Seen); Bilirubin Negative (Negative); Blood, Urine Negative (Negative); CAUTI Indications for Culture Alt mental st,lethar; Clarity Clear (Clear); Glucose, Urine (Dipstick) Normal (Negative); Ketone, Urine Negative (Negative); Leukocyte Negative Leu/uL (Negative); Nitrite Negative (Negative); Protein, Urine (Dipstick) 50 mg/dL (Neg-Trace); RBC/HPF 0-3 HPF (0-3); Specific Gravity, Urine 1.027 (1.002-1.036); Squamous Epithelial 0-3 HPF (0-3); pH, Urine 5.5 (5.0-9.0)
[2023-12-11 03:36] LABS: Urine Culture Reflex No No
[2023-12-11] MEDS: guaiFENesin/DM ER PO SCH (05:48)
[2023-12-11 05:52] VITALS: BMI 24.4
[2023-12-11 07:15] LABS: SARS-CoV-2 E Target Negative; SARS-CoV-2 N2 Target Negative; SARS-CoV-2 NAA Rapid Test Not Detected (NotDetected); SARS-CoV-2 RdRP gene Negative
[2023-12-11] MEDS ORDERED: Senokot S 8.6-50 MG TAB PO PRN (08:11)
[2023-12-11] MEDS: Famotidine 20 MG TAB PO SCH (09:03)
[2023-12-11] MEDS: Enoxaparin 40 MG (0.4 mL) SYRINGE SC SCH (09:03)
[2023-12-11] MEDS: Benzonatate 100 MG CAP PO PRN (09:03)
[2023-12-11] MEDS: Sodium Chloride 0.9% 1,000 ML IV SCH (09:10)
[2023-12-11 09:25] LABS: Troponin I 0.018 ng/mL (< 0.028)
[2023-12-11] MEDS: Acetaminophen 325 MG TAB PO SCH (11:48)
[2023-12-11 13:31] LABS: Troponin I 0.022 ng/mL (< 0.028)
[2023-12-11] MEDS: GUAIFENESIN SF SOLN 200 MG/10 ML UDCUP PO PRN (18:51)
[2023-12-11] MEDS: Letrozole 2.5 MG TAB PO SCH (19:59)
[2023-12-11] MEDS: Oxybutynin ER 5 MG TAB PO SCH (20:00)
[2023-12-11] MEDS: buPROPion HCl 100 MG TAB PO SCH (20:00)
[2023-12-11] MEDS ORDERED: Non-Formulary Item 1 EACH (Oxybutynin Chloride [Oxybutynin Chloride Er] 10 MG Tab.Er.24) PO SCH (21:00)
[2023-12-12 05:13] LABS: #Basophils 0.03 10x3/uL (0.0-0.2); %Basophils 0.5 % (0.0-1.0); %Eosinophils 7.6 % (0.0-10.0); %Lymphocytes 26.3 % (21.0-51.0); %Monocytes 10.8 % (0.0-10.0); %Neutrophils 54.6 % (42.0-75.0); Hematocrit 38.6 % (36.0-47.0); Hemoglobin 12.5 g/dL (12.0-16.0); Mean Corpuscular HGB CONC 32.4 g/dL (32.0-36.0); Mean Corpuscular Hemoglobin 29.7 pg (27.0-31.0); Mean Corpuscular Volume 91.7 fL (78.0-98.0); Mean Platelet Volume 10.3 fL (7.4-10.4); Platelet Count 183 10x3/uL (130-400); RBC Distribution Width 13.5 % (11.5-14.5); Red Blood Cell (RBC) Count 4.21 mill/uL (4.20-5.40)
[2023-12-12 05:42] LABS: Anion Gap 10 mmol/L (10-20); BUN (Urea Nitrogen) 9 mg/dL (9.8-20.1); Calc. Creatinine Clearance 67 mL/min (70-130); Calcium 8.7 mg/dL (7.8-10.44); Carbon Dioxide 25 mmol/L (23-31); Chloride 108 mmol/L (98-107); Estimated GFR 93; Glucose 73 mg/dL (80-115); Potassium 3.1 mmol/L (3.5-5.1); Sodium 140 mmol/L (136-145)
[2023-12-12 08:39] VITALS: TEMP 98.1
[2023-12-12] MEDS: Famotidine 20 MG TAB PO SCH (08:45)
[2023-12-12 11:18] VITALS: BP 151/86
== END 2023-12-12 10:57 | disposition home or self-care (01) ==
LOC: ERS 00:40 → 2SW 04:30
PROVIDERS: ADMIT Student in an Organized Health Care Education/Training Program; ATTEND Internal Medicine
PROC: B246ZZZ Ultrasonography of Right and Left Heart (ICD-10-PCS; principal; 2023-12-12)
DX: R55 Syncope and collapse (principal); I10 Essential (primary) hypertension; I08.3 Combined rheumatic disorders of mitral, aortic and tricuspid valves; J44.9 Chronic obstructive pulmonary disease, unspecified; K21.9 Gastro-esophageal reflux disease without esophagitis; Z87.891 Personal history of nicotine dependence; Z79.899 Other long term (current) drug therapy; Z90.49 Acquired absence of other specified parts of digestive tract
CPT/HCPCS: 36415; 70551; 71045; 71046; 80048; 80053; 81001; 83605; 83735; 84484; 85025; 93005; 93306; 96372; G0378; J1650; J7050; U0002